=== PATIENT | female | born 1950 | race Caucasian/White ===

== ENCOUNTER 2016-07-19 06:58 | Day surgery (SDC) | payer MEDICARE, OTHER ==
[2016-07-14 15:17] VITALS: BMI 36.0
[~2016-07-19 06:58] MED LIST: LACTATED RINGERS 1,000 ML IV SCH
[2016-07-19 07:21] VITALS: RESP 20; TEMP 97.4
[2016-07-19] MEDS ORDERED: LIDOCAINE 1% INJ 10MG/ML (20 ML MDV) ONE (07:35)
[2016-07-19] MEDS ORDERED: PROPOFOL 10 MG/ML 20 ML VIAL IV ONE (07:35)
--- NOTE | 2016-07-19 08:22 | P.OP ---
Date of Procedure: 07/19/16 Preoperative Diagnosis: prior colon polyp Postoperative Diagnosis: Same Procedure(s) Performed: Colonoscopy Anesthesia: MAC Surgeon: Sonia Marcelino Estimated Blood Loss (ml): 0 IV fluids (ml): 800 Pathology: other (Polyp from hepatic flexure) Condition: stable Disposition: PACU Indications for Procedure: History of colon polyp Operative Findings: Anterior external skin tag, internal hemorrhoids, diverticuli, colon polyp at hepatic flexure Description of Procedure: The patient was taken to the endoscopy suite and she was placed in the left lateral decubitus position. Sedation was given.. Rectal examination was performed. The patient was noted to have an anterior external skin tag. The patient had no masses or lesions of concern otherwise and rectal exam. Colonoscope was passed through the anus into the rectum. The sigmoid colon was tortuous with a suboptimal bowel prep. We were able however to manipulate the scope to the splenic flexure and into the transverse colon. The lesion of the hepatic flexure polypoid lesion was identified. This was removed piecemeal with snare polypectomy and at least portions of it retrieved. It was completely removed. The scope was advanced down the right colon to the cecum. Circumferential observation mucosa did not reveal any lesions of concern in the cecum or right colon. No further lesions of concern were identified in the transverse colon. No lesions of concern were noted in the left colon or the sigmoid colon. This was noted to have scattered diverticuli. The scope was brought down into the rectum. It was difficult to retroflex therefore anoscopic exam was performed. Patient was noted to have internal hemorrhoids. Impression/plan: 1. It internal hemorrhoids 2. Anterior external skin tag 3. Scattered small diverticuli 3. Polyp near the region of the hepatic flexure removed with snare polypectomy Plan: 1. Await results of pathology 2. Conservative management of hemorrhoids and diverticuli
--- NOTE | 2016-07-19 08:22 | P.DS ---
Providers Attending physician: Sonia Marcelino Primary care physician: Mary Castrejon Plan - Discharge Summary Discharge Medication List ALPRAZolam [Xanax] 0.25 mg PO DAILY PRN 08/02/15 [History] Ascorbic Acid [Vitamin C] 1,000 mg PO DAILY 08/02/15 [History] Aspirin 81 mg PO DAILY 08/02/15 [History] Budesonide-Formot 160-4.5 Mcg [Symbicort 160-4.5 Mcg Inhaler] 2 puff INHALATION RT-BID 08/02/15 [History] Calcium Carbonate [Calcium] 600 mg PO DAILY 08/02/15 [History] Cyclobenzaprine [Flexeril] 10 mg PO DAILY PRN 08/02/15 [History] Fish Oil/Dha/Epa [Fish Oil 1,200 mg Fish Oil] 1 cap PO DAILY 08/02/15 [History] Folic Acid 1 mg PO DAILY 08/02/15 [History] Levothyroxine Sodium [Synthroid] 50 mcg PO DAILY 08/02/15 [History] Losartan [Cozaar] 50 mg PO DAILY 08/02/15 [History] Magnesium 400 mg PO DAILY 08/02/15 [History] Methotrexate Sodium [Methotrexate] 20 mg PO TU 08/02/15 [History] Metoprolol Succinate (ER) [Toprol XL] 100 mg PO 1700 08/02/15 [History] Milnacipran HCl [Savella] 50 mg PO BID 08/02/15 [History] Omeprazole [PriLOSEC] 20 mg PO DAILY 08/02/15 [History] amLODIPine [Norvasc] 10 mg PO DAILY 08/02/15 [History] lamoTRIgine [LaMICtal] 150 mg PO BID 08/02/15 [History] Acetaminophen-Codeine 300-30mg [Tylenol w/codeine #3] 1 tab PO Q6H PRN 08/28/15 [History] Clopidogrel [Plavix] 75 mg PO DAILY 08/28/15 [History] Fluticasone Nasal [place] [Flonase Nasal [place]] 1 spr EA NOSTRIL BID PRN 08/28/15 [History] Loratadine [Claritin] 10 mg PO DAILY PRN 08/28/15 [History] Cholecalciferol [Vitamin D3] 5,000 unit PO DAILY 03/28/16 [History] Ubidecarenone [Co Q-10] 100 mg PO DAILY 07/14/16 [History] Follow up Appointment(s)/Referral(s): Sonia Marcelino MD [STAFF PHYSICIAN] - 1 Week Activity/Diet/Wound Care/Special Instructions: Diverticular diet Discharge Disposition: HOME SELF-CARE
[2016-07-19 08:42] VITALS: BP 118/78; PULSE 67
== END 2016-07-19 09:22 | disposition home or self-care (01) ==
LOC: ORWHC2ENDO 06:58
PROVIDERS: ATTEND Surgery
DX: Z12.11 Encounter for screening for malignant neoplasm of colon (principal); Z86.010 Personal history of colon polyps; D12.3 Benign neoplasm of transverse colon; K64.4 Residual hemorrhoidal skin tags; K64.8 Other hemorrhoids; K57.30 Diverticulosis of large intestine without perforation or abscess without bleeding; Q43.8 Other specified congenital malformations of intestine; I25.10 Atherosclerotic heart disease of native coronary artery without angina pectoris; I10 Essential (primary) hypertension; E78.5 Hyperlipidemia, unspecified; J44.9 Chronic obstructive pulmonary disease, unspecified; J45.909 Unspecified asthma, uncomplicated; E07.9 Disorder of thyroid, unspecified; K21.9 Gastro-esophageal reflux disease without esophagitis; M19.90 Unspecified osteoarthritis, unspecified site; F32.9 Major depressive disorder, single episode, unspecified; Z79.02 Long term (current) use of antithrombotics/antiplatelets; Z79.82 Long term (current) use of aspirin; Z79.51 Long term (current) use of inhaled steroids; Z79.899 Other long term (current) drug therapy; Z88.1 Allergy status to other antibiotic agents; Z88.0 Allergy status to penicillin
CPT/HCPCS: 88305; 45385; J2001; J2704; 46600; 99153

== ENCOUNTER → 2017-02-16 | Outpatient (CLI) | payer MEDICARE, OTHER ==
[2017-02-16 16:36] LABS: Blood Urea Nitrogen 13 mg/dL (7-17); Non-African American GFR(MDRD) >60 (>60 ml/min/1.73 sqM)
--- NOTE | 2017-02-16 18:06 | CT ---
EXAMINATION TYPE: CT abdomen pelvis w con DATE OF EXAM: 02/16/2017 COMPARISON: NONE HISTORY: Abdominal pain and nausea x5 months. CT DLP: 1707 mGycm Automated exposure control for dose reduction was used. TECHNIQUE: Helical acquisition of images was performed from the lung bases through the pelvis. CONTRAST: Performed with Oral Contrast and with IV Contrast, patient injected with 100 mL of Omnipaque 300. FINDINGS: Lung bases are clear. There is no pleural effusion. Heart size is normal. There are clips from cholecystectomy. Liver spleen pancreas appear normal. Bile ducts are not dilated . There is no adrenal mass. Kidneys show satisfactory contrast opacification. There is no hydronephrosi s. There is a 3.9 cm aneurysm of the lower abdominal aorta. There is athetoid vascular calcification. There is no retroperitoneal adenopathy. There is no ascites. Bladder distends smoothly. There is no sign of a pelvic mass. I see no focal bone destruction. There are spondylotic changes in the lumbar s pine. Appendix is not seen. There is no sign of appendicitis. IMPRESSION: ATHEROSCLEROTIC VASCULAR DISEASE. SACCULAR 3.9 CM LOWER ABDOMINAL AORTIC ANEURYSM. NO SIGN OF ACUTE A BDOMEN AND PELVIS.
== END | disposition home or self-care (01) ==
LOC: RADCTMAIN 15:55
PROVIDERS: ATTEND Family Medicine
DX: I71.4 Abdominal aortic aneurysm, without rupture (principal); I70.90 Unspecified atherosclerosis
CPT/HCPCS: 82565; 84520; 74177; 36415; Q9967

== ENCOUNTER 2018-03-06 07:52 | Day surgery (SDC) | payer MEDICARE, OTHER ==
[2018-03-02 09:45] VITALS: BMI 37.0
[~2018-03-06 07:52] MED LIST changes: +LIDOCAINE 1% 20 ML VIAL (10MG/ML) FOR IV START INTRADERMA PRN
[2018-03-06 08:53] VITALS: TEMP 97.7
[2018-03-06] MEDS ORDERED: fentaNYL (PF) 50 MCG/ML 2 ML AMP ONE (09:15)
[2018-03-06] MEDS ORDERED: LABETALOL 5 MG/ML VIAL MDV ONE (09:15)
[2018-03-06] MEDS ORDERED: MIDAZOLAM 2 MG/2 ML VIAL ONE (09:15)
[2018-03-06] MEDS ORDERED: PROPOFOL 10 MG/ML 20 ML VIAL IV ONE (09:15)
--- NOTE | 2018-03-06 09:26 | P.GSHP ---
History of Present Illness H&P Date: 03/06/18 Chief Complaint: GI bleed, GERD This is a 67-year-old female who presents today for EGD and colonoscopy. Patient history of GERD. She's also had black melanotic stools for 3 weeks. She's been anemic with hemoglobin 10 range Past Medical History Past Medical History: Asthma, Coronary Artery Disease (CAD), Cancer, COPD, Fibromyalgia, GERD/Reflux, Hyperlipidemia, Hypertension, Osteoarthritis (OA), Rheumatoid Arthritis (RA), Thyroid Disorder Additional Past Medical History / Comment(s): HAVING BLACK STOOLS, HX OF COLON POLYP, AAA, PHLEBITIS, VARICOSE VEINS, REYNAUD'S, BREAST CANCER History of Any Multi-Drug Resistant Organisms: None Reported Past Surgical History: Breast Surgery, Section, Cholecystectomy, Orthopedic Surgery, Tonsillectomy Additional Past Surgical History / Comment(s): LEFT CAROTID ENDARTECTOMY, FERNANDO CARPAL TUNNEL, FERNANDO LEGS VEIN STRIPPING, RT THYROIDECTOMY, FERNANDO BREAST SX, LEFT LUMPECTOMY , LEFT BREAST FATTY TUMOR Past Anesthesia/Blood Transfusion Reactions: Previous Problems w/ Anesthesia Additional Past Anesthesia/Blood Transfusion Reaction / Comment(s): STATES " FELT PARALYZED CHEST AREA AND ARM" NO PROBLEM SINCE Smoking Status: Former smoker - Past Family History Father Family Medical History: Cancer Additional Family Medical History / Comment(s): NON HODGKINS LYMPHOMA Brother(s) Family Medical History: Cancer Additional Family Medical History / Comment(s): prostate Medications and Allergies Home Medications Medication Instructions Recorded Confirmed Type ALPRAZolam [Xanax] 0.25 mg PO DAILY PRN 08/02/15 03/06/18 History Ascorbic Acid [Vitamin C] 1,000 mg PO DAILY 08/02/15 03/06/18 History Aspirin 81 mg PO DAILY 08/02/15 03/02/18 History Budesonide-Formot 160-4.5 Mcg 2 puff INHALATION RT-BID 08/02/15 03/02/18 History [Symbicort 160-4.5 Mcg Inhaler] Calcium Carbonate [Calcium] 600 mg PO DAILY 08/02/15 03/06/18 History Fish Oil/Dha/Epa [Fish Oil 1,200 1 cap PO DAILY 08/02/15 03/06/18 History mg Fish Oil] Folic Acid 1 mg PO DAILY 08/02/15 03/06/18 History Levothyroxine Sodium [Synthroid] 50 mcg PO DAILY 08/02/15 03/06/18 History Losartan [Cozaar] 50 mg PO QAM 08/02/15 03/06/18 History Magnesium 400 mg PO DAILY 08/02/15 03/06/18 History Metoprolol Succinate (ER) [Toprol 100 mg PO 1700 08/02/15 03/06/18 History XL] Milnacipran HCl [Savella] 50 mg PO BID 08/02/15 03/06/18 History Omeprazole [PriLOSEC] 20 mg PO BID 08/02/15 03/06/18 History amLODIPine [Norvasc] 10 mg PO QAM 08/02/15 03/06/18 History lamoTRIgine [LaMICtal] 150 mg PO BID 08/02/15 03/06/18 History Clopidogrel [Plavix] 75 mg PO DAILY 08/28/15 03/02/18 History Fluticasone Nasal [place] [Flonase 1 spr EA NOSTRIL BID PRN 08/28/15 03/06/18 History Nasal [place]] Ubidecarenone [Co Q-10] 100 mg PO DAILY 07/14/16 03/06/18 History Acetaminophen with Codeine 0.5 tab PO Q6H PRN 03/02/18 03/06/18 History [Tylenol w/codeine #4] Adalimumab [Humira Crohn's] 40 mg SQ Q14D 03/02/18 03/06/18 History Montelukast [Singulair] 10 mg PO DAILY 03/02/18 03/06/18 History Sucralfate [Carafate] 1 gm PO TID 03/02/18 03/06/18 History guaiFENesin [Mucinex] 600 mg PO Q12HR PRN 03/02/18 03/06/18 History Allergies Allergy/AdvReac Type Severity Reaction Status Date / Time cephalexin monohydrate Allergy Rash/Hives Verified 03/02/18 09:37 [From Keflex] ciprofloxacin [From Cipro] Allergy Rash/Hives Verified 03/02/18 09:37 etodolac [From Lodine] Allergy "inflamed Verified 03/02/18 09:37 legs" levofloxacin [From Levaquin] Allergy Rash/Hives Verified 03/02/18 09:37 lisinopril Allergy Cough Verified 03/02/18 09:37 minocycline Allergy Rash/Hives Verified 03/02/18 09:37 NSAIDS (Non-Steroidal Allergy BLURRY Verified 03/02/18 09:37 Anti-Inflamma VISION potassium clavulanate Allergy Rash/Hives Verified 03/02/18 09:37 [From Augmentin] prednisone Allergy CHEST Verified 03/02/18 09:37 PAIN/FATIGUE/FEVER/CHILLS Tdjociv-[id number]-Qdo Reductase Allergy MUSCLE PAIN Verified 03/02/18 09:37 Inhibitor sulfamethoxazole Allergy Itching Verified 03/02/18 09:37 [From Bactrim] trimethoprim [From Bactrim] Allergy Itching Verified 03/02/18 09:37 Surgical - Exam Vital Signs Temp Pulse Resp BP Pulse Ox 97.7 F 91 16 101/69 100 03/06/18 08:44 03/06/18 08:44 03/06/18 08:44 03/06/18 08:44 03/06/18 08:44 - General well developed, no distress - Eyes PERRL - ENT normal pinna - Neck no masses - Respiratory normal expansion - Cardiovascular Rhythm: regular - Abdomen Abdomen: soft, non tender Assessment and Plan Assessment: GI bleed, history of GERD. We'll perform EGD and colonoscopy.
--- NOTE | 2018-03-06 10:03 | P.OP ---
Date of Procedure: 03/06/18 Preoperative Diagnosis: GI bleed Postoperative Diagnosis: Mild antral gastritis Small hiatal hernia Mild esophagitis No evidence of active upper GI bleed Hepatic flexure polyp Right colon polyp Mild diverticulosis No evidence of active lower GI bleed Procedure(s) Performed: EGD Colonoscopy Anesthesia: MAC Surgeon: Marco A Najera Pathology: other (Right colon polyp, hepatic flexure polyp, antrum, esophagus) Condition: stable Disposition: PACU Description of Procedure: Patient's placed on the endoscopy table in the lateral position. She received IV sedation. The gastric was placed oropharynx past esophagus and stomach. Scope was placed through the pylorus. The first and second portion of the duodenum appeared normal. Scope was then brought back the antrum this appeared mildly inflamed. A biopsies was performed. The scope was then retroflexed and remainder the stomach appeared normal. There is no evidence of any GI bleed the stomach. There was a small hiatal hernia. The GE junction was at 39 cm. The distal esophagus appeared mildly inflamed. The proximal esophagus appeared normal. There was no blood seen in the upper GI tract. Next digital rectal exam was performed which revealed no abnormalities. The flexible colonoscope was then placed patient anus passed throughout the entire colon. The ileocecal valve was visually is. The cecum, appeared normal. In the right colon just proximal to the hepatic flexure there was a polyp seen this removed accommodation snare and forcep. Scope was then brought back and in the proximal transverse colon just distal to the hepatic flexure there was another polyp was removed with snare and forcep. The remainder of the transverse colon appeared normal. The descending; there is mild diverticular changes. The scope was then brought back the rectum and this appeared normal. Scope was withdrawn for patient. There is no evidence of any GI bleed in the lower GI tract.
[2018-03-06] MEDS ORDERED: IV FLUID CONTINUATION 450 ML IV ONE (10:06)
[2018-03-06 10:25] VITALS: BP 115/75; PULSE 88; RESP 16
== END 2018-03-06 10:59 | disposition home or self-care (01) ==
LOC: ORWHC2ENDO 07:52
PROVIDERS: ATTEND Surgery
DX: K92.2 Gastrointestinal hemorrhage, unspecified (principal); K29.50 Unspecified chronic gastritis without bleeding; D12.3 Benign neoplasm of transverse colon; D12.2 Benign neoplasm of ascending colon; K44.9 Diaphragmatic hernia without obstruction or gangrene; K57.30 Diverticulosis of large intestine without perforation or abscess without bleeding; K21.9 Gastro-esophageal reflux disease without esophagitis; J45.909 Unspecified asthma, uncomplicated; I25.10 Atherosclerotic heart disease of native coronary artery without angina pectoris; J44.9 Chronic obstructive pulmonary disease, unspecified; M79.7 Fibromyalgia; E78.5 Hyperlipidemia, unspecified; I10 Essential (primary) hypertension; M19.90 Unspecified osteoarthritis, unspecified site; M06.9 Rheumatoid arthritis, unspecified; E89.0 Postprocedural hypothyroidism; I73.00 Raynaud's syndrome without gangrene; F41.9 Anxiety disorder, unspecified; G89.29 Other chronic pain; Z79.82 Long term (current) use of aspirin; Z79.890 Hormone replacement therapy; Z79.51 Long term (current) use of inhaled steroids; Z79.899 Other long term (current) drug therapy; Z79.02 Long term (current) use of antithrombotics/antiplatelets; Z88.6 Allergy status to analgesic agent; Z88.1 Allergy status to other antibiotic agents; Z88.2 Allergy status to sulfonamides; Z88.8 Allergy status to other drugs, medicaments and biological substances; Z86.010 Personal history of colon polyps; Z85.3 Personal history of malignant neoplasm of breast; Z87.891 Personal history of nicotine dependence; Z90.49 Acquired absence of other specified parts of digestive tract
CPT/HCPCS: 88305; 45385; 43239; J2250; J3010; J2704; 45380

== ENCOUNTER 2018-03-10 17:18 | Observation (INO) | payer MEDICARE, OTHER ==
--- NOTE | 2018-03-10 17:43 | ED ---
General Adult HPI - General Chief complaint: Chest Pain Stated complaint: Chest Pain Time Seen by Provider: 03/10/18 17:33 Source: patient, RN notes reviewed Mode of arrival: wheelchair Limitations: no limitations - History of Present Illness Initial comments: Patient is a pleasant 67-year-old female presenting to the emergency department chest discomfort. Patient has been experiencing some chest discomfort of the past couple of weeks however is more so today. Discomfort has improved is mild at this time. Discomfort feels like pressure. Patient does have associated dyspnea and nausea. No diaphoresis. Patient did have recent scopes done for rectal bleeding. Patient states scope findings were not that significant however she did have 2 polyps removed and diagnosed with a hiatal hernia. Patient has not noticed rectal bleeding in the last 4 days. No radiation of discomfort. - Related Data Home Medications Medication Instructions Recorded Confirmed ALPRAZolam [Xanax] 0.25 mg PO DAILY PRN 08/02/15 03/10/18 Ascorbic Acid [Vitamin C] 1,000 mg PO DAILY 08/02/15 03/10/18 Aspirin 81 mg PO DAILY 08/02/15 03/10/18 Budesonide-Formot 160-4.5 Mcg 2 puff INHALATION RT-BID 08/02/15 03/10/18 [Symbicort 160-4.5 Mcg Inhaler] Calcium Carbonate [Calcium] 600 mg PO DAILY 08/02/15 03/10/18 Fish Oil/Dha/Epa [Fish Oil 1,200 1 cap PO DAILY 08/02/15 03/10/18 mg Fish Oil] Folic Acid 1 mg PO DAILY 08/02/15 03/10/18 Levothyroxine Sodium [Synthroid] 50 mcg PO DAILY 08/02/15 03/10/18 Losartan [Cozaar] 50 mg PO QAM 08/02/15 03/10/18 Magnesium 400 mg PO DAILY 08/02/15 03/10/18 Metoprolol Succinate (ER) [Toprol 100 mg PO 1700 08/02/15 03/10/18 XL] Milnacipran HCl [Savella] 50 mg PO BID 08/02/15 03/10/18 Omeprazole [PriLOSEC] 20 mg PO BID 08/02/15 03/10/18 amLODIPine [Norvasc] 10 mg PO QAM 08/02/15 03/10/18 lamoTRIgine [LaMICtal] 150 mg PO BID 08/02/15 03/10/18 Clopidogrel [Plavix] 75 mg PO DAILY 08/28/15 03/10/18 Fluticasone Nasal [place] [Flonase 1 spr EA NOSTRIL BID PRN 08/28/15 03/10/18 Nasal [place]] Ubidecarenone [Co Q-10] 100 mg PO DAILY 07/14/16 03/10/18 Acetaminophen with Codeine 0.5 tab PO Q6H PRN 03/02/18 03/10/18 [Tylenol w/codeine #4] Adalimumab [Humira Crohn's] 40 mg SQ Q14D 03/02/18 03/10/18 guaiFENesin [Mucinex] 600 mg PO Q12HR PRN 03/02/18 03/10/18 Allergies Allergy/AdvReac Type Severity Reaction Status Date / Time cephalexin monohydrate Allergy Rash/Hives Verified 03/10/18 18:14 [From Keflex] ciprofloxacin [From Cipro] Allergy Rash/Hives Verified 03/10/18 18:14 etodolac [From Lodine] Allergy "inflamed Verified 03/10/18 18:14 legs" levofloxacin [From Levaquin] Allergy Rash/Hives Verified 03/10/18 18:14 lisinopril Allergy Cough Verified 03/10/18 18:14 minocycline Allergy Rash/Hives Verified 03/10/18 18:14 NSAIDS (Non-Steroidal Allergy BLURRY Verified 03/10/18 18:14 Anti-Inflamma VISION potassium clavulanate Allergy Rash/Hives Verified 03/10/18 18:14 [From Augmentin] prednisone Allergy CHEST Verified 03/10/18 18:14 PAIN/FATIGUE/FEVER/CHILLS Trwowpa-Oqh-Dkf Reductase Allergy MUSCLE PAIN Verified 03/10/18 18:14 Inhibitor sulfamethoxazole Allergy Itching Verified 03/10/18 18:14 [From Bactrim] trimethoprim [From Bactrim] Allergy Itching Verified 03/10/18 18:14 Review of Systems ROS Statement: Those systems with pertinent positive or pertinent negative responses have been documented in the HPI. ROS Other: All systems not noted in ROS Statement are negative. Constitutional: Denies: fever Eyes: Denies: eye pain ENT: Denies: ear pain Respiratory: Reports: dyspnea. Denies: cough Cardiovascular: Reports: chest pain Endocrine: Denies: fatigue Gastrointestinal: Denies: abdominal pain Genitourinary: Denies: dysuria Musculoskeletal: Denies: back pain Skin: Denies: rash Neurological: Denies: weakness Past Medical History Past Medical History: Asthma, Coronary Artery Disease (CAD), Cancer, COPD, Fibromyalgia, GERD/Reflux, Hyperlipidemia, Hypertension, Osteoarthritis (OA), Rheumatoid Arthritis (RA), Thyroid Disorder Additional Past Medical History / Comment(s): HAVING BLACK STOOLS, HX OF COLON POLYP, AAA, PHLEBITIS, VARICOSE VEINS, REYNAUD'S, BREAST CANCER History of Any Multi-Drug Resistant Organisms: None Reported Past Surgical History: Breast Surgery, Section, Cholecystectomy, Orthopedic Surgery, Tonsillectomy Additional Past Surgical History / Comment(s): LEFT CAROTID ENDARTECTOMY, FERNANDO CARPAL TUNNEL, FERNANDO LEGS VEIN STRIPPING, RT THYROIDECTOMY, FERNANDO BREAST SX, LEFT LUMPECTOMY , LEFT BREAST FATTY TUMOR Past Anesthesia/Blood Transfusion Reactions: Previous Problems w/ Anesthesia Additional Past Anesthesia/Blood Transfusion Reaction / Comment(s): STATES " FELT PARALYZED CHEST AREA AND ARM" NO PROBLEM SINCE Past Psychological History: Depression Smoking Status: Former smoker Past Alcohol Use History: None Reported Past Drug Use History: None Reported - Past Family History Father Family Medical History: Cancer Additional Family Medical History / Comment(s): NON HODGKINS LYMPHOMA Brother(s) Family Medical History: Cancer Additional Family Medical History / Comment(s): prostate General Exam Limitations: no limitations General appearance: alert, in no apparent distress Head exam: Present: atraumatic Eye exam: Present: normal appearance, PERRL ENT exam: Present: normal oropharynx Neck exam: Present: normal inspection Respiratory exam: Present: normal lung sounds bilaterally. Absent: chest wall tenderness Cardiovascular Exam: Present: regular rate, normal rhythm, normal heart sounds Expanded Peripheral pulses: 2+: Radial (R), Radial (L), Posterior Tibialis (R), Posterior Tibialis (L) GI/Abdominal exam: Present: soft. Absent: tenderness Extremities exam: Present: normal inspection. Absent: pedal edema, calf tenderness Neurological exam: Present: alert Psychiatric exam: Present: normal affect, normal mood Skin exam: Present: normal color Course Vital Signs 03/10/18 03/10/18 17:24 19:37 Temperature 98.0 F Pulse Rate 90 72 Respiratory 20 18 Rate Blood Pressure 93/68 109/59 O2 Sat by Pulse 100 100 Oximetry - Reevaluation(s) Reevaluation #1: 03/10/18 17:38 Aspirin held at this time secondary to recent GI bleed. EKG Findings - EKG Comments: EKG Findings:: Normal sinus rhythm 73. CT 162. QRS 104. QT 390. QTC 429. Normal axis. Incomplete right bundle-branch block. No acute ST change. Medical Decision Making - Medical Decision Making Patient reevaluated and resting comfortably in bed. Patient updated on results and plan. Case was discussed in detail with Dr. Luong, who will admit for Dr. Castrejon. Aspirin and heparin held at this time secondary to recent GI hemorrhage. - Lab Data Result diagrams: 03/10/18 17:50 03/10/18 17:50 Lab Results 03/10/18 03/10/18 03/10/18 Range/Units 17:50 17:50 17:50 WBC 5.0 (3.8-10.6) k/uL RBC 3.67 L (3.80-5.40) m/uL Hgb 9.7 L (11.4-16.0) gm/dL Hct 29.7 L (34.0-46.0) % MCV 80.9 (80.0-100.0) fL MCH 26.3 (25.0-35.0) pg MCHC 32.5 (31.0-37.0) g/dL RDW 14.4 (11.5-15.5) % Plt Count 285 (150-450) k/uL Neutrophils % 44 % Lymphocytes % 39 % Monocytes % 10 % Eosinophils % 4 % Basophils % 1 % Neutrophils # 2.2 (1.3-7.7) k/uL Lymphocytes # 1.9 (1.0-4.8) k/uL Monocytes # 0.5 (0-1.0) k/uL Eosinophils # 0.2 (0-0.7) k/uL Basophils # 0.1 (0-0.2) k/uL Hypochromasia Marked Poikilocytosis Slight PT (9.0-12.0) sec INR (<1.2) APTT (22.0-30.0) sec Sodium 140 (137-145) mmol/L Potassium 3.9 (3.5-5.1) mmol/L Chloride 106 (98-107) mmol/L Carbon Dioxide 26 (22-30) mmol/L Anion Gap 8 mmol/L BUN 17 (7-17) mg/dL Creatinine 0.94 (0.52-1.04) mg/dL Est GFR (CKD-EPI)AfAm 72 (>60 ml/min/1.73 sqM) Est GFR (CKD-EPI)NonAf 63 (>60 ml/min/1.73 sqM) Glucose 87 (74-99) mg/dL Calcium 8.9 (8.4-10.2) mg/dL Magnesium 1.7 (1.6-2.3) mg/dL Total Bilirubin 0.4 (0.2-1.3) mg/dL AST 75 H (14-36) U/L ALT 38 (9-52) U/L Alkaline Phosphatase 128 H (38-126) U/L Total Creatine Kinase 38 (30-135) U/L CK-MB (CK-2) 0.6 (0.0-2.4) ng/mL CK-MB (CK-2) Rel Index 1.6 Troponin I <0.012 (0.000-0.034) ng/mL Total Protein 6.6 (6.3-8.2) g/dL Albumin 3.7 (3.5-5.0) g/dL 03/10/18 Range/Units 17:50 WBC (3.8-10.6) k/uL RBC (3.80-5.40) m/uL Hgb (11.4-16.0) gm/dL Hct (34.0-46.0) % MCV (80.0-100.0) fL MCH (25.0-35.0) pg MCHC (31.0-37.0) g/dL RDW (11.5-15.5) % Plt Count (150-450) k/uL Neutrophils % % Lymphocytes % % Monocytes % % Eosinophils % % Basophils % % Neutrophils # (1.3-7.7) k/uL Lymphocytes # (1.0-4.8) k/uL Monocytes # (0-1.0) k/uL Eosinophils # (0-0.7) k/uL Basophils # (0-0.2) k/uL Hypochromasia Poikilocytosis PT 10.1 (9.0-12.0) sec INR 1.0 (<1.2) APTT 21.6 L (22.0-30.0) sec Sodium (137-145) mmol/L Potassium (3.5-5.1) mmol/L Chloride (98-107) mmol/L Carbon Dioxide (22-30) mmol/L Anion Gap mmol/L BUN (7-17) mg/dL Creatinine (0.52-1.04) mg/dL Est GFR (CKD-EPI)AfAm (>60 ml/min/1.73 sqM) Est GFR (CKD-EPI)NonAf (>60 ml/min/1.73 sqM) Glucose (74-99) mg/dL Calcium (8.4-10.2) mg/dL Magnesium (1.6-2.3) mg/dL Total Bilirubin (0.2-1.3) mg/dL AST (14-36) U/L ALT (9-52) U/L Alkaline Phosphatase (38-126) U/L Total Creatine Kinase (30-135) U/L CK-MB (CK-2) (0.0-2.4) ng/mL CK-MB (CK-2) Rel Index Troponin I (0.000-0.034) ng/mL Total Protein (6.3-8.2) g/dL Albumin (3.5-5.0) g/dL - Radiology Data Radiology results: image reviewed (Chest x-ray shows no acute process) Disposition Clinical Impression: Chest pain Disposition: ADMITTED IP TO THIS [facility] Is patient prescribed a controlled substance at d/c from ED?: No Referrals: Mary Castrejon DO [Primary Care Provider] - 1-2 days Decision Time: 19:57
[2018-03-10 18:24] LABS: Basophils # (A) 0.1 k/uL (0-0.2); Basophils % (A) 1 %; Eosinophils # (A) 0.2 k/uL (0-0.7); Eosinophils % (A) 4 %; HCT 29.7 % (34.0-46.0); HGB 9.7 gm/dL (11.4-16.0); Hypochromasia Marked; Lymphocytes # (A) 1.9 k/uL (1.0-4.8); Lymphocytes % (A) 39 %; MCH 26.3 pg (25.0-35.0); MCHC 32.5 g/dL (31.0-37.0); MCV 80.9 fL (80.0-100.0); Mean Platelet Volume 7.3; Monocytes # (A) 0.5 k/uL (0-1.0); Monocytes % (A) 10 %; Neutrophils # (A) 2.2 k/uL (1.3-7.7); Neutrophils % (A) 44 %; Platelet Count 285 k/uL (150-450); Poikilocytosis Slight; RBC 3.67 m/uL (3.80-5.40); RDW 14.4 % (11.5-15.5)
[2018-03-10 18:38] LABS: Albumin 3.7 g/dL (3.5-5.0); Calcium 8.9 mg/dL (8.4-10.2); Creatine Kinase 38 U/L (30-135); Magnesium 1.7 mg/dL (1.6-2.3); Potassium 3.9 mmol/L (3.5-5.1); Total Bilirubin 0.4 mg/dL (0.2-1.3); Total Protein 6.6 g/dL (6.3-8.2)
--- NOTE | 2018-03-10 18:38 | XR ---
EXAMINATION TYPE: XR chest 2V DATE OF EXAM: 03/10/2018 COMPARISON: 08/02/2015 HISTORY: Chest pain TECHNIQUE: Frontal and lateral views of the chest are obtained. FINDINGS: There is no focal air space opacity, pleural effusion, or pneumothorax seen. The cardiac silhouette size is within normal limits. The osseous structures are intact. There is chronic eventr ation of the right hemidiaphragm. There is diffuse osseous demineralization and exaggerated thoracic kyphosis. IMPRESSION: No acute cardiopulmonary process.
[2018-03-10 18:50] LABS: Creatine Kinase MB 0.6 ng/mL (0.0-2.4); Troponin I <0.012 ng/mL (0.000-0.034)
[2018-03-10 18:51] LABS: Partial Thromboplastin Time 21.6 sec (22.0-30.0); Prothrombin Time 10.1 sec (9.0-12.0)
[2018-03-10] MEDS ORDERED: NITROGLYCERIN SL TABS 0.4 MG TAB SUBLINGUAL PRN (19:57)
[2018-03-10] MEDS: NITROGLYCERIN OINT 1 INCH/GM PACKET TOPICAL SCH ×2 (20:33→22:34)
[2018-03-11 00:49] LABS: Creatine Kinase 29 U/L (30-135)
[2018-03-11 01:03] LABS: Creatine Kinase MB 0.5 ng/mL (0.0-2.4); Troponin I <0.012 ng/mL (0.000-0.034)
[2018-03-11 08:14] LABS: Cholesterol 155 mg/dL (<200); HDL Cholesterol 32 mg/dL (40-60); LDL Cholesterol,Calculated 106 mg/dL (0-99); Triglycerides 84 mg/dL (<150)
[2018-03-11 08:27] LABS: Creatine Kinase 29 U/L (30-135)
[2018-03-11 08:37] LABS: Creatine Kinase MB 0.5 ng/mL (0.0-2.4)
[2018-03-11 08:40] LABS: Troponin I <0.012 ng/mL (0.000-0.034)
[2018-03-11] MEDS ORDERED: ADALIMUMAB 80 MG/1.6 ML KIT SQ SCH (08:45)
[2018-03-11] MEDS ORDERED: FLUTICASONE 50MCG/SPRAY NASAL 16GM EA NOSTRIL PRN (08:45)
[2018-03-11] MEDS ORDERED: guaiFENesin 600 MG TABLET.ER PO PRN (08:45)
[2018-03-11] MEDS ORDERED: ALPRAZolam 0.25 MG TAB PO PRN (08:45)
[2018-03-11] MEDS ORDERED: NON-FORMULARY DRUG (Fish Oil/Dha/Epa [Fish Oil 1,200 Mg Fish Oil] 1 CAP) PO SCH (09:00)
--- NOTE | 2018-03-11 09:16 | CONS ---
CONSULTATION HISTORY: Daisy is a 67-year-old lady with no significant past medical history who presents to the hospital, with a history of hypertension, hypothyroidism, and rheumatoid arthritis, who comes to hospital complaining of exertional shortness of breath and intermittent episodes of sharp pericardial pain. She has mild to moderate shortness of breath that comes on with activity and is relieved with rest. This has been going on over the last several weeks. She has chronic anemia and has hemoglobin is around 9.7. She has had 2 sets of cardiac enzymes that are both negative. She had GI evaluation and does not have any evidence of active bleed. She had an EKG done that shows sinus rhythm with incomplete right bundle branch block. PAST MEDICAL HISTORY: Significant for hypertension, hypothyroidism, and rheumatoid. CURRENT MEDICATIONS: 1. Plavix. 2. Symbicort. 3. Aspirin. 4. Vitamin C. 5. Lamictal. 6. Norvasc. 7. Co Q10. 8. Toprol-XL 100 mg daily. 9. Cozaar 50 mg daily. 10.Synthroid. 11.Fish oil. 12.Tylenol. 13.Flonase. 14.Humira. 15.Xanax. ALLERGIES: The patient has multiple drug allergies that are charted and I reviewed them. FAMILY HISTORY: Significant for rheumatic heart disease in her brother and coronary artery disease in her father. SOCIAL HISTORY: Negative for smoking, EtOH abuse, or drug abuse. REVIEW OF SYSTEMS: HEENT: Unremarkable. CARDIAC: As described above. RESPIRATORY: Negative. GI: Negative. : Negative. ALLERGY/IMMUNOLOGY: Negative. SKIN: Negative. MUSCULOSKELETAL: Significant for arthritis. ENDOCRINE: Negative. HEMATOLOGIC: Negative. CONSTITUTIONAL: Negative. ONCOLOGICAL: Negative. The rest of the system review is not relevant. EXAM: Comfortable at rest. Vital signs are stable. There is no jugular venous distention. Carotid upstroke is normal. There is no bruit. Chest exam reveals good air entry bilaterally. Heart exam reveals first and second heart sounds. No gallop. No murmur. Abdomen is soft, nontender. Exam of extremities did not reveal any edema. Peripheral pulses are felt. ASSESSMENT: 1. Exertional shortness of breath, probably related to the anemia. 2. Hypertension. 3. Rheumatoid arthritis. PLAN: I am going to obtain a 2D echo on her to evaluate the LV function and schedule her for a stress test to rule out ischemic heart disease. Will decide on further course of action based on these test results. MMODL / IJN: [id number] /
[2018-03-11] MEDS: LOSARTAN 50 MG TAB PO SCH (09:34)
[2018-03-11] MEDS: CLOPIDOGREL 75 MG TAB PO SCH (09:34)
[2018-03-11] MEDS: MAGNESIUM OXIDE 400 MG TAB PO SCH (09:34)
[2018-03-11] MEDS: ASPIRIN 81 MG PO SCH (09:34)
[2018-03-11] MEDS: amLODIPine 10 MG TAB PO SCH (09:35)
[2018-03-11] MEDS: PANTOPRAZOLE 40 MG TABLET PO SCH (09:35)
[2018-03-11] MEDS: NITROGLYCERIN OINT 1 INCH/GM PACKET TOPICAL SCH ×4 (09:37→23:22)
[2018-03-11] MEDS: lamoTRIgine 100 MG TAB PO SCH ×2 (09:42→20:47)
[2018-03-11] MEDS: LEVOTHYROXINE 50 MCG TAB PO SCH (09:42)
[2018-03-11] MEDS: CALCIUM CARBONATE 500 MG CHEWABLE PO SCH ×2 (09:42→20:46)
[2018-03-11] MEDS: ASCORBIC ACID 500 MG TAB PO SCH (09:42)
--- NOTE | 2018-03-11 09:56 | P.HPIM ---
History of Present Illness H&P Date: 03/11/18 Chief Complaint: Chest pain Daisy Abebe is a 67-year-old female who presented to [facility] emergency room with a chief complaint of chest pain. Patient states that [place] the end of [place] and started having chest pain radiating from the right side of her chest of the left and lasting a few minutes until she sits down and rests then the pain would disappear. Patient thought that the pain was related to elevation and exhaustion, however she continued to have episodes of similar pain once or twice weekly, on the day of admission pain was more pronounced and lasted longer and patient decided to come to emergency room, she was evaluated in the emergency room EKG revealed normal sinus rhythm with incomplete right bundle branch block otherwise no acute abnormality. First troponin was less than 0.012 she was admitted to 24- hour observation and cardiology consultation was requested. Patient recently had episodes of black stool she was evaluated by Dr. Najera she underwent EGD and colonoscopy recently and had no significant abnormality found except for hiatal hernia there was no active bleeding. Patient has anemia her hemoglobin on presentation is 9.7 Patient has a known history of peripheral vascular disease, she has underwent left carotid endarterectomy in the past, she also had surgery on bilateral lower extremity for varicose veins, she also has known history of abdominal aortic aneurysm. Patient used to smoke she states she quit 12 weeks ago Past Medical History Past Medical History: Asthma, Coronary Artery Disease (CAD), Cancer, COPD, Fibromyalgia, GERD/Reflux, Hyperlipidemia, Hypertension, Osteoarthritis (OA), Rheumatoid Arthritis (RA), Thyroid Disorder Additional Past Medical History / Comment(s): GIB, HX OF COLON POLYP, AAA, PHLEBITIS, VARICOSE VEINS, REYNAUD'S, BREAST CANCER History of Any Multi-Drug Resistant Organisms: None Reported Past Surgical History: Breast Surgery, Section, Cholecystectomy, Orthopedic Surgery, Tonsillectomy Additional Past Surgical History / Comment(s): LEFT CAROTID ENDARTECTOMY, FERNANDO CARPAL TUNNEL, FERNANDO LEGS VEIN STRIPPING, RT THYROIDECTOMY, FERNANDO BREAST SX, LEFT LUMPECTOMY , LEFT BREAST FATTY TUMOR Past Anesthesia/Blood Transfusion Reactions: Previous Problems w/ Anesthesia Additional Past Anesthesia/Blood Transfusion Reaction / Comment(s): STATES " FELT PARALYZED CHEST AREA AND ARM" NO PROBLEM SINCE Past Psychological History: Depression Smoking Status: Former smoker Past Alcohol Use History: None Reported Past Drug Use History: None Reported - Past Family History Father Family Medical History: Cancer Additional Family Medical History / Comment(s): NON HODGKINS LYMPHOMA Brother(s) Family Medical History: Cancer Additional Family Medical History / Comment(s): prostate Medications and Allergies Home Medications Medication Instructions Recorded Confirmed Type ALPRAZolam [Xanax] 0.25 mg PO DAILY PRN 08/02/15 03/10/18 History Ascorbic Acid [Vitamin C] 1,000 mg PO DAILY 08/02/15 03/10/18 History Aspirin 81 mg PO DAILY 08/02/15 03/10/18 History Budesonide-Formot 160-4.5 Mcg 2 puff INHALATION RT-BID 08/02/15 03/10/18 History [Symbicort 160-4.5 Mcg Inhaler] Calcium Carbonate [Calcium] 600 mg PO BID 08/02/15 03/10/18 History Fish Oil/Dha/Epa [Fish Oil 1,200 1 cap PO BID 08/02/15 03/10/18 History mg Fish Oil] Folic Acid 1 mg PO DAILY 08/02/15 03/10/18 History Levothyroxine Sodium [Synthroid] 50 mcg PO DAILY 08/02/15 03/10/18 History Losartan [Cozaar] 50 mg PO QAM 08/02/15 03/10/18 History Magnesium 400 mg PO DAILY 08/02/15 03/10/18 History Metoprolol Succinate (ER) [Toprol 100 mg PO 1700 08/02/15 03/10/18 History XL] Milnacipran HCl [Savella] 50 mg PO BID 08/02/15 03/10/18 History Omeprazole [PriLOSEC] 20 mg PO DAILY 08/02/15 03/10/18 History amLODIPine [Norvasc] 10 mg PO QAM 08/02/15 03/10/18 History lamoTRIgine [LaMICtal] 150 mg PO BID 08/02/15 03/10/18 History Clopidogrel [Plavix] 75 mg PO DAILY 08/28/15 03/10/18 History Fluticasone Nasal Rush [Flonase 1 spr EA NOSTRIL BID PRN 08/28/15 03/10/18 History Nasal Rush] Ubidecarenone [Co Q-10] 100 mg PO DAILY 07/14/16 03/10/18 History Acetaminophen with Codeine 1 tab PO Q6H PRN 03/02/18 03/10/18 History [Tylenol w/codeine #4] Adalimumab [Humira Crohn's] 40 mg SQ Q14D 03/02/18 03/10/18 History guaiFENesin [Mucinex] 600 mg PO Q12HR PRN 03/02/18 03/10/18 History Cholecalciferol (Vitamin D3) 5,000 unit PO DAILY 03/10/18 03/10/18 History [Vitamin D3] Allergies Allergy/AdvReac Type Severity Reaction Status Date / Time cephalexin monohydrate Allergy Rash/Hives Verified 03/10/18 21:17 [From Keflex] ciprofloxacin [From Cipro] Allergy Rash/Hives Verified 03/10/18 21:17 etodolac [From Lodine] Allergy "inflamed Verified 03/10/18 21:17 legs" levofloxacin [From Levaquin] Allergy Rash/Hives Verified 03/10/18 21:17 lisinopril Allergy Cough Verified 03/10/18 21:17 minocycline Allergy Rash/Hives Verified 03/10/18 21:17 NSAIDS (Non-Steroidal Allergy BLURRY Verified 03/10/18 21:17 Anti-Inflamma VISION potassium clavulanate Allergy Rash/Hives Verified 03/10/18 21:17 [From Augmentin] prednisone Allergy CHEST Verified 03/10/18 21:17 PAIN/FATIGUE/FEVER/CHILLS Pocnlcw-Omp-Num Reductase Allergy MUSCLE PAIN Verified 03/10/18 21:17 Inhibitor sulfamethoxazole Allergy Itching Verified 03/10/18 21:17 [From Bactrim] trimethoprim [From Bactrim] Allergy Itching Verified 03/10/18 21:17 Physical Exam Vitals: Vital Signs Temp Pulse Pulse Resp BP BP Pulse Ox 03/11/18 08:00 97.9 F 70 16 100/64 97 03/11/18 04:00 98.1 F 67 16 107/70 99 03/10/18 23:51 16 03/10/18 23:22 98.0 F 74 16 110/72 99 03/10/18 21:47 16 03/10/18 21:12 98.4 F 72 16 115/77 100 03/10/18 20:30 81 18 108/60 100 03/10/18 19:37 72 18 109/59 100 03/10/18 17:24 98.0 F 90 20 93/68 100 Intake and Output 03/10/18 03/11/18 03/11/18 22:59 06:59 14:59 Other: Voiding Method Toilet Toilet Toilet # Voids 1 2 Weight 99.79 kg In general patient is alert and oriented 3 in no apparent distress HEENT head normocephalic and atraumatic Neck is supple no JVD no goiter no lymphadenopathy no carotid bruit Chest exam reveals a few scattered crackles no wheezing Cardiac exam reveals regular heart sounds S1 and S2 no gallops no murmurs Abdomen is soft nontender no organomegaly with normal bowel sounds Extremity exam reveals no edema no cyanosis or clubbing Neurological examination reveals no gross focal deficit Results CBC & Chem 7: 03/10/18 17:50 03/10/18 17:50 Labs: Abnormal Lab Results - Last 24 Hours (Table) 03/10/18 03/10/18 03/10/18 Range/Units 17:50 17:50 17:50 RBC 3.67 L (3.80-5.40) m/uL Hgb 9.7 L (11.4-16.0) gm/dL Hct 29.7 L (34.0-46.0) % APTT 21.6 L (22.0-30.0) sec AST 75 H (14-36) U/L Alkaline Phosphatase 128 H (38-126) U/L Total Creatine Kinase (30-135) U/L LDL Cholesterol, Calc (0-99) mg/dL HDL Cholesterol (40-60) mg/dL 03/10/18 03/11/18 03/11/18 Range/Units 23:55 07:28 07:28 RBC (3.80-5.40) m/uL Hgb (11.4-16.0) gm/dL Hct (34.0-46.0) % APTT (22.0-30.0) sec AST (14-36) U/L Alkaline Phosphatase (38-126) U/L Total Creatine Kinase 29 L 29 L (30-135) U/L LDL Cholesterol, Calc 106 H (0-99) mg/dL HDL Cholesterol 32 L (40-60) mg/dL Thrombosis Risk Factor Assmnt - Choose All That Apply Any of the Below Risk Factors Present?: Yes Each Factor Represents 1 point: Abnormal pulmonary function (COPD), Obesity ( BMI >25), Varicose veins Other Risk Factors: Yes Each Risk Factor Represents 2 Points: Age 61-74 years Other congenital or acquired thrombophilia - If yes, enter type in comment: No Thrombosis Risk Factor Assessment Total Risk Factor Score: 5 Thrombosis Risk Factor Assessment Level: High Risk Assessment and Plan Plan: #1 episodes of chest pain, myocardial infarction is ruled out she has 2 normal troponin levels and EKG is normal, patient was seen by cardiology echocardiogram and stress test were ordered #2 anemia, cause is unclear patient had black stools recently however she had recent EGD and colonoscopy that were within normal limits. Will monitor CBC will check iron study and vitamin B12 and folate studies #3 underlying history of hypertension well-controlled on medications #4 underlying history of peripheral vascular disease with previous history of carotid endarterectomy #5 history of tobacco abuse patient quit smoking recently #6 underlying history of COPD patient is maintained on Symbicort inhaler #7 underlying history of abdominal aortic aneurysm will try to obtain records #8 underlying history of hypothyroidism maintained on Synthroid 50 g daily At this time medication were reviewed and reordered labs were reviewed patient is stable without any complaints Will await echocardiogram and stress test for further treatment plans
[2018-03-11] MEDS: CHOLECALCIFEROL 1,000 UNIT TAB PO SCH (12:32)
[2018-03-11] MEDS: FOLIC ACID 1 MG TAB PO SCH (12:33)
[2018-03-11] MEDS: SYMBICORT 160-4.5 MCG INHALER INHALATION SCH (15:47)
[2018-03-11] MEDS: METOPROLOL SUCCINATE (ER) 100 MG TAB.ER.24H PO SCH (17:35)
[2018-03-12] MEDS: NITROGLYCERIN OINT 1 INCH/GM PACKET TOPICAL SCH ×3 (04:09→18:02)
[2018-03-12] MEDS ORDERED: CAFFEINE CITRATE 60 MG/3 ML VIAL IV PRN (06:00)
[2018-03-12] MEDS ORDERED: REGADENOSON 0.4 MG/5 ML SYRINGE IV ONE (06:00)
[2018-03-12] MEDS: LEVOTHYROXINE 50 MCG TAB PO SCH (06:43)
[2018-03-12] MEDS: SYMBICORT 160-4.5 MCG INHALER INHALATION SCH ×2 (07:31→20:10)
[2018-03-12 08:22] LABS: Basophils % (A) 1 %; Eosinophils # (A) 0.1 k/uL (0-0.7); Eosinophils % (A) 4 %; HCT 29.2 % (34.0-46.0); HGB 8.9 gm/dL (11.4-16.0); Hypochromasia Marked; Lymphocytes # (A) 1.7 k/uL (1.0-4.8); Lymphocytes % (A) 47 %; MCH 25.1 pg (25.0-35.0); MCHC 30.5 g/dL (31.0-37.0); MCV 82.4 fL (80.0-100.0); Mean Platelet Volume 7.6; Monocytes # (A) 0.3 k/uL (0-1.0); Monocytes % (A) 9 %; Neutrophils # (A) 1.3 k/uL (1.3-7.7); Neutrophils % (A) 36 %; Platelet Count 265 k/uL (150-450); RBC 3.54 m/uL (3.80-5.40); RDW 14.5 % (11.5-15.5); WBC 3.6 k/uL (3.8-10.6)
[2018-03-12 08:42] LABS: ALT 36 U/L (9-52); AST 79 U/L (14-36); Albumin 3.5 g/dL (3.5-5.0); Alkaline Phosphatase 130 U/L (38-126); Anion Gap 8 mmol/L; Blood Urea Nitrogen 16 mg/dL (7-17); Calcium 9.4 mg/dL (8.4-10.2); Carbon Dioxide 25 mmol/L (22-30); Chloride 109 mmol/L (98-107); Glucose 94 mg/dL (74-99); Potassium 4.3 mmol/L (3.5-5.1); Sodium 142 mmol/L (137-145); Total Bilirubin 0.4 mg/dL (0.2-1.3); Total Protein 6.4 g/dL (6.3-8.2)
--- NOTE | 2018-03-12 10:06 | P.PN ---
Subjective Mrs. Abebe is seen and examined in no acute distress. Past medical history significant for hypertension, dyslipidemia, gastroesophageal reflux disease, COPD, carotid artery disease status post endarterectomy, rheumatoid arthritis, hypothyroidism and chronic anemia with recent EGD and colonoscopy unremarkable. She denies history of coronary artery disease and has never seen a home visitor for any reason. She states this morning while she was up walking she started feeling sharp pain in her chest with shortness of breath. She went back blood pressure 110/78 heart rate 59 afebrile maintaining oxygen saturation on room air. o sit down in her room and applied her oxygen which seemed to help her symptoms. Laboratory data reviewed, hemoglobin 8.9, sodium 142, potassium 4.3, creatinine 0.76, cardiac enzymes negative 3, alkaline phosphate 130, AST 79, LDL 106, HDL 32. Objective - Vital Signs Vital signs: Vital Signs Temp 98 F 03/12/18 07:29 Pulse 59 L 03/12/18 07:29 Resp 16 03/12/18 07:29 BP 110/78 03/12/18 07:29 Pulse Ox 97 03/12/18 07:29 Intake & Output 03/11/18 03/12/18 03/12/18 18:59 06:59 18:59 Other: Voiding Method Toilet Toilet # Voids 1 - Exam GENERAL: Well-appearing, well-nourished and in no acute distress. NECK: Supple without JVD or thyromegaly. LUNGS: Breath sounds clear to auscultation bilaterally. Respiration equal and unlabored. No wheezes, rales or rhonchi. HEART: Regular rate and rhythm without murmurs, rubs or gallops. S1 and S2 heard. EXTREMITIES: Normal range of motion, no edema. No clubbing or cyanosis. Peripheral pulses intact. - Labs CBC & Chem 7: 03/12/18 07:49 03/12/18 07:49 Labs: Abnormal Lab Results - Last 24 Hours (Table) 03/12/18 03/12/18 Range/Units 07:49 07:49 WBC 3.6 L (3.8-10.6) k/uL RBC 3.54 L (3.80-5.40) m/uL Hgb 8.9 L (11.4-16.0) gm/dL Hct 29.2 L (34.0-46.0) % MCHC 30.5 L (31.0-37.0) g/dL Chloride 109 H (98-107) mmol/L AST 79 H (14-36) U/L Alkaline Phosphatase 130 H (38-126) U/L Assessment and Plan Assessment: ASSESSMENT Exertional shortness of breath and atypical chest pain, most likely related to anemia. An acute coronary event has been ruled out. Hypertension Carotid artery disease s/p left endartectomy, maintained on plavix GERD Rheumatoid arthritis Obesity, BMI 36.6 PLAN Proceed with Lexiscan stress test to assess for reversible cardiac ischemia. Echo will be obtained and reviewed. If diagnostic testing is normal, she is stable from a cardiac perspective. Ongoing medical management. Follow up with Dr. Cardoso. Nurse Practitioner note has been reviewed, I agree with a documented findings and plan of care. Patient was seen and examined.
[2018-03-12 10:37] LABS: Iron Saturation 3.55 (12.00-45.00)
[2018-03-12] MEDS: ASCORBIC ACID 500 MG TAB PO SCH (10:49)
[2018-03-12] MEDS: ASPIRIN 81 MG PO SCH (10:49)
[2018-03-12] MEDS: CLOPIDOGREL 75 MG TAB PO SCH (10:49)
[2018-03-12] MEDS: amLODIPine 10 MG TAB PO SCH (10:49)
[2018-03-12] MEDS: PANTOPRAZOLE 40 MG TABLET PO SCH (10:49)
[2018-03-12] MEDS: CALCIUM CARBONATE 500 MG CHEWABLE PO SCH ×2 (10:49→21:56)
[2018-03-12] MEDS: LOSARTAN 50 MG TAB PO SCH (10:50)
[2018-03-12] MEDS: CHOLECALCIFEROL 1,000 UNIT TAB PO SCH (10:50)
[2018-03-12] MEDS: lamoTRIgine 100 MG TAB PO SCH ×2 (10:50→20:38)
[2018-03-12] MEDS: MAGNESIUM OXIDE 400 MG TAB PO SCH (10:50)
[2018-03-12] MEDS: FOLIC ACID 1 MG TAB PO SCH (10:50)
--- NOTE | 2018-03-12 11:13 | NM ---
EXAMINATION TYPE: NM stress lexiscan cardiolite DATE OF EXAM: 03/12/2018 COMPARISON: Previous exam dated 10/21/2014 HISTORY: Chest pain TECHNIQUE: After the intravenous administration of 10.48 mCi Tc 99m Sestamibi - Cardiolite resting S PECT images acquired 45 minutes post injection. The patient received 0.4mg Lexiscan, 26.8 mCi Tc 99m Sestamibi - Stress images obtained [address] injection FINDINGS: Review of stress and rest SPECT images demonstrates mild decreased uptake along the inferior wall lef t ventricle on stress as compared to rest images. Gated analysis shows normal wall motion with an es timated left ventricular ejection fraction of 64 %. IMPRESSION: Findings suggest pharmacologically induced left ventricular myocardial ischemia along the inferior wa ll left ventricle towards the heart base.
--- NOTE | 2018-03-12 12:38 | ECHOF ---
Referral Reason:chest pain/dyspnea MEASUREMENTS -------- HEIGHT: 165.1 cm WEIGHT: 99.8 kg BP: 110/73 RVIDd: 2.6 cm (< 3.3) IVSd: 1.4 cm (0.6 - 1.1) LVIDd: 3.4 cm (3.9 - 5.3) LVPWd: 1.5 cm (0.6 - 1.1) IVSs: 1.8 cm LVIDs: 1.7 cm LVPWs: 2.1 cm Ao Diam: 2.8 cm (2.0 - 3.7) AV Cusp: 1.8 cm (1.5 - 2.6) LA Diam: 3.2 cm (2.7 - 3.8) MV EXCURSION: 16.659 mm (> 18.000) MV EF SLOPE: 93 mm/s (70 - 150) EPSS: 0.4 cm MV E Genaro: 0.64 m/s MV DecT: 287 ms MV A Genaro: 0.91 m/s MV E/A Ratio: 0.70 RAP: 5.00 mmHg RVSP: 14.47 mmHg FINDINGS -------- Sinus rhythm. This was a technically good study. The left ventricular size is normal. There is mild concentric left ventricular hypertrophy. Overa ll left ventricular systolic function is normal with, an EF between 55 - 60 %. The right ventricle is normal in size and function. The left atrium is normal in size. The right atrium is normal in size. Aortic valve is trileaflet and is mildly thickened. The mitral valve leaflets are mildly thickened. Mild mitral regurgitation is present. Mild tricuspid regurgitation present. The right ventricular systolic pressure, as measured by Doppl er, is 14.47mmHg. Pulmonic valve appears structurally normal. The aortic root size is normal. The pericardium is normal. CONCLUSIONS -------- 1. Sinus rhythm. 2. This was a technically good study. 3. The left ventricular size is normal. 4. There is mild concentric left ventricular hypertrophy. 5. Overall left ventricular systolic function is normal with, an EF between 55 - 60 %. 6. The right ventricle is normal in size and function. 7. The left atrium is normal in size. 8. The right atrium is normal in size. 9. Aortic valve is trileaflet and is mildly thickened. 10. The mitral valve leaflets are mildly thickened. 11. Mild mitral regurgitation is present. 12. Mild tricuspid regurgitation present. 13. The right ventricular systolic pressure, as measured by Doppler, is 14.47mmHg. 14. Pulmonic valve appears structurally normal. 15. The aortic root size is normal. 16. The pericardium is normal. ABORIGINAL EDUCATION WORKER COORDINATOR: Ana Merino RDCS
[2018-03-12] MEDS ORDERED: SODIUM CHLORIDE 0.9% 1,000 ML in EMPTY BAG 1 BAG IV ONE (13:37)
--- NOTE | 2018-03-12 14:19 | P.PN ---
Subjective Progress Note Date: 03/12/18 Daisy Abebe is a 67-year-old female who presented to [facility] emergency room with a chief complaint of chest pain. Patient states that [place] the end [place] and started having chest pain radiating from the right side of her chest of the left and lasting a few minutes until she sits down and rests then the pain would disappear. Patient thought that the pain was related to elevation and exhaustion, however she continued to have episodes of similar pain once or twice weekly, on the day of admission pain was more pronounced and lasted longer and patient decided to come to emergency room, she was evaluated in the emergency room EKG revealed normal sinus rhythm with incomplete right bundle branch block otherwise no acute abnormality. First troponin was less than 0.012 she was admitted to 24- hour observation and cardiology consultation was requested. Patient recently had episodes of black stool she was evaluated by Dr. Najera she underwent EGD and colonoscopy recently and had no significant abnormality found except for hiatal hernia there was no active bleeding. Patient has anemia her hemoglobin on presentation is 9.7 Patient has a known history of peripheral vascular disease, she has underwent left carotid endarterectomy in the past, she also had surgery on bilateral lower extremity for varicose veins, she also has known history of abdominal aortic aneurysm. Patient used to smoke she states she quit 12 weeks ago On 03/12/2018 patient had stress test completed. Chest chest was positive. Planning heart cath tomorrow per cardiac services. At this time patient denies chest pain or shortness of breath. Patient denies nausea vomiting or diarrhea. Patient denies any urinary burning or frequency. Patient's hemoglobin dropping to 8.9. Patient denies any signs of active bleeding. Will order iron studies. Patient also having elevated liver enzymes including AST of 79 and alkaline phosphatase 130. Will order ultrasound of liver at this time Objective - Vital Signs Vital signs: Vital Signs Temp 98.3 F 03/12/18 11:38 Pulse 85 03/12/18 11:38 Resp 16 03/12/18 11:38 BP 111/76 03/12/18 11:38 Pulse Ox 99 03/12/18 11:38 Intake & Output 03/11/18 03/12/18 03/12/18 18:59 06:59 18:59 Weight 99.79 kg Other: Voiding Method Toilet Toilet # Voids 1 - Exam Head normocephalic Neck supple Lungs clear to auscultation bilaterally no wheezing or crackles Heart regular rate and rhythm S1-S2, no rub or gallop Abdomen is soft nontender nondistended positive bowel sounds no hepatosplenomegaly Extremities no edema Neuro alert and orientated to 3 - Labs CBC & Chem 7: 03/12/18 07:49 10 07:49 Labs: Abnormal Lab Results - Last 24 Hours (Table) 03/11/18 03/12/18 03/12/18 Range/Units 07:28 07:49 07:49 WBC 3.6 L (3.8-10.6) k/uL RBC 3.54 L (3.80-5.40) m/uL Hgb 8.9 L (11.4-16.0) gm/dL Hct 29.2 L (34.0-46.0) % MCHC 30.5 L (31.0-37.0) g/dL Chloride 109 H (98-107) mmol/L Iron 15 L (50-170) ug/dL Iron Saturation 3.55 L (12.00-45.00) AST 79 H (14-36) U/L Alkaline Phosphatase 130 H (38-126) U/L Assessment and Plan Assessment: #1 episodes of chest pain, myocardial infarction is ruled out she has 2 normal troponin levels and EKG is normal, patient was seen by cardiology echocardiogram and stress test were ordered. 2-D echo completed showing EF between 55-60%. Per cardiology patient did have a positive stress test will undergo cardiac catheterization tomorrow. Procedure #2 anemia, cause is unclear patient had black stools recently however she had recent EGD and colonoscopy that were within normal limits. Will monitor CBC will check iron study and vitamin B12 and folate studies and saturation low at 3.55 and iron low at 15. Vitamin B12 364. Hemoglobin down to 8.9. Will add ferrous sulfate. Will recheck hemoglobin tomorrow. #3 underlying history of hypertension well-controlled on medications #4 underlying history of peripheral vascular disease with previous history of carotid endarterectomy #5 history of tobacco abuse patient quit smoking recently #6 underlying history of COPD patient is maintained on Symbicort inhaler #7 underlying history of abdominal aortic aneurysm will try to obtain records #8 underlying history of hypothyroidism maintained on Synthroid 50 g daily #9. Elevated liver enzymes AST 79 alkaline phosphatase 130. Ultrasound of liver has been ordered I performed an examination of the patient and discussed their management with the Nurse Practitioner. I have reviewed the Nurse Practitioner's notes and agree with the documented findings and plan of care
[2018-03-12] MEDS: METOPROLOL SUCCINATE (ER) 100 MG TAB.ER.24H PO SCH (18:04)
[2018-03-12] MEDS: Acetaminophen-Codeine 300-30mg TAB PO PRN (18:48)
[2018-03-12] MEDS: FERROUS SULFATE 325 MG TAB PO SCH (20:37)
[2018-03-13] MEDS: NITROGLYCERIN OINT 1 INCH/GM PACKET TOPICAL SCH ×3 (00:05→16:06)
[2018-03-13] MEDS ORDERED: ASPIRIN 325 MG TAB PO ONE (06:00)
[2018-03-13] MEDS: FERROUS SULFATE 325 MG TAB PO SCH (06:16)
[2018-03-13] MEDS: LOSARTAN 50 MG TAB PO SCH (06:17)
[2018-03-13] MEDS: amLODIPine 10 MG TAB PO SCH (06:17)
[2018-03-13] MEDS: LEVOTHYROXINE 50 MCG TAB PO SCH (06:17)
[2018-03-13] MEDS: MAGNESIUM OXIDE 400 MG TAB PO SCH (06:17)
[2018-03-13] MEDS: lamoTRIgine 100 MG TAB PO SCH (06:17)
[2018-03-13] MEDS: PANTOPRAZOLE 40 MG TABLET PO SCH (06:17)
[2018-03-13] MEDS: CLOPIDOGREL 75 MG TAB PO SCH (06:17)
[2018-03-13 07:14] LABS: Basophils % (A) 1 %; Eosinophils # (A) 0.1 k/uL (0-0.7); Eosinophils % (A) 3 %; HCT 28.7 % (34.0-46.0); HGB 8.8 gm/dL (11.4-16.0); Hypochromasia Marked; Lymphocytes # (A) 2.5 k/uL (1.0-4.8); Lymphocytes % (A) 51 %; MCH 25.2 pg (25.0-35.0); MCHC 30.6 g/dL (31.0-37.0); MCV 82.3 fL (80.0-100.0); Mean Platelet Volume 6.7; Monocytes # (A) 0.4 k/uL (0-1.0); Monocytes % (A) 8 %; Neutrophils # (A) 1.7 k/uL (1.3-7.7); Neutrophils % (A) 34 %; Platelet Count 261 k/uL (150-450); RBC 3.49 m/uL (3.80-5.40); RDW 14.6 % (11.5-15.5); WBC 4.9 k/uL (3.8-10.6)
[2018-03-13 07:34] LABS: Albumin 3.5 g/dL (3.5-5.0); Calcium 9.5 mg/dL (8.4-10.2); Potassium 4.7 mmol/L (3.5-5.1); Total Bilirubin 0.3 mg/dL (0.2-1.3); Total Protein 6.4 g/dL (6.3-8.2)
[2018-03-13] MEDS: SYMBICORT 160-4.5 MCG INHALER INHALATION SCH (08:27)
--- NOTE | 2018-03-13 08:33 | US ---
EXAMINATION TYPE: US liver DATE OF EXAM: 03/13/2018 COMPARISON: Prior ultrasound 01/08/2015, CT abdomen pelvis 02/16/2017 CLINICAL HISTORY: elevated liver enzymes. GB removed x 10 years ago. NPO. EXAM MEASUREMENTS: Liver Length: 14.0 cm Right Kidney: 9.2 x 4.1 x 3.9 cm Pancreas: Echogenic. Main pancreatic duct- 2.6 mm. Tail obscured by overlying bowel gas Liver: Liver echotexture is coarse. No evident mass. Limited due to overlying bowel gas. Scanned t hrough ribs due to gas. Gallbladder: Surgically absent Evidence for sonographic Mora's sign: No CBD: Obscured by overlying bowel gas Right Kidney: lower pole obscured by overlying bowel gas cortical medullary differentiation is maint ained in the visualized portions There is no ascites. IMPRESSION: Postop change. Correlate for hepatic steatosis, hepatocellular disease. Exam is limited. Previously identified abdominal aortic aneurysm is not imaged.
[2018-03-13] MEDS ORDERED: LIDOCAINE 1% INJ 10MG/ML (20 ML MDV) ONE (09:05)
[2018-03-13] MEDS ORDERED: fentaNYL (PF) 50 MCG/ML 2 ML AMP ONE (09:05)
[2018-03-13] MEDS ORDERED: MIDAZOLAM 2 MG/2 ML VIAL ONE (09:05)
[2018-03-13] MEDS ORDERED: MIDAZOLAM 2 MG/2 ML VIAL IV ONE ×2 (09:30)
[2018-03-13] MEDS ORDERED: fentaNYL (PF) 50 MCG/ML 2 ML AMP IV ONE (09:30)
[2018-03-13] MEDS ORDERED: IV FLUID CONTINUATION 800 ML IV ONE (09:30)
[2018-03-13] MEDS ORDERED: LIDOCAINE 1% INJ 10MG/ML (20 ML MDV) SQ ONE (09:33)
[2018-03-13] MEDS ORDERED: IOPAMIDOL-370 125ML BTL INJ ONE (09:47)
--- NOTE | 2018-03-13 10:36 | CC ---
CARDIAC CATHETERIZATION REPORT INDICATION: Chest pain with abnormal stress test. PROCEDURE NOTE: After obtaining informed consent, left heart catheterization and coronary angiogram are performed via the right femoral artery using standard Jimbo catheters. The patient tolerated the procedure well without any obvious immediate complications. The patient has extensive peripheral vascular disease with heavily calcified femoral and iliac vessels. We had to use a Glidewire to navigate the catheters across the iliacs. I opted for manual hemostasis. FINDINGS: 1. HEMODYNAMICS: Left ventricular end-diastolic pressure is 14 to 16 mm. There is no significant gradient across the aortic valve. 2. LEFT VENTRICULOGRAM: Left ventriculogram is not performed. 3. ANGIOGRAPHIC DATA: 4. Left main coronary artery: Left main coronary artery appears calcified but is free of significant stenosis. Divides into left anterior descending coronary artery and circumflex coronary artery. Circumflex coronary artery and its branches are free of significant disease. They are calcified and show mild nonobstructive disease. There are collaterals to the distal right coronary artery. LAD gives off a large caliber diagonal branch and there is a moderate atherosclerotic plaque at the origin of the diagonal. There is a 40% to 50% stenosis. CONCLUSIONS: 1. Chronic occlusion of the right coronary artery with [id number] collaterals. 2. Moderate stenosis involving left anterior descending artery. PLAN: I reviewed angiographic data with the patient and advised her on optimal medical therapy with aspirin, nitrates, beta blockers and statins and risk factor modification. MMODL / IJN: [id number] /
--- NOTE | 2018-03-13 10:54 | EST ---
Stress Test Results/Findings: Exam Performed: NM stress lexiscan cardiolite Exam Date: 03/12/18 Reason for Exam: CHEST PAIN Height: 5 ft 5 in Weight: 99.79 kg Protocol: LEXISCAN CARDIOLITE Stage: Duration of Exercise: 6:00 Resting Heart Rate: 70 Resting Blood Pressure: 125/79 Maximum Achieved Heart Rate: 85 Maximum Achieved Blood Pressure: 143/79 85% PMHR: 129 100% PMHR: 152 METS: Technologist Comment: Stress Test Results/Findings: This is a 67-year-old female was admitted to the hospital with chest pain and shortness of breath and also palpitations. She has history of hypertension, hypercholesterolemia, family history and also peripheral vascular disease. Stress data: Baseline EKG showed sinus rhythm with small when necessary. QRS duration. Blood pressure at rest is 125/79 with a pulse rate of 70. A standard dose of Lexiscan was infused. EKGs taken during and after the infusion did not reveal any significant changes from the baseline. Patient did complain of some chest pain and shortness of breath and also nausea. Final impression: #1. Negative Lexiscan stress test #2. Report on the nuclear images to be given by the radiologist #3. Patient complained of chest tightness and shortness of breath during Lexiscan infusion. [facility]
[2018-03-13] MEDS: Acetaminophen-Codeine 300-30mg TAB PO PRN (11:18)
[2018-03-13 15:35] VITALS: BMI 36.6
[2018-03-13 15:48] VITALS: RESP 18; TEMP 98.5
--- NOTE | 2018-03-13 16:02 | P.DS ---
Providers Date of admission: 03/10/18 19:57 Expected date of discharge: 03/13/18 Attending physician: Luigi Luong Consults: 03/10/18 19:57 Consult Physician Urgent Consulting Provider: Mikel Lewis Consult Reason/Comments: cp Do you want consulting provider notified?: Yes Primary care physician: Mary Castrejon [facility] Hospital Course: Discharge diagnosis #1 episodes of chest pain, myocardial infarction is ruled out she has 2 normal troponin levels and EKG is normal, patient was seen by cardiology echocardiogram and stress test were ordered. 2-D echo completed showing EF between 55-60%. Per cardiology patient did have a positive stress test will undergo cardiac catheterization tomorrow. Patient underwent cardiac catheterization today with Dr. Woo Borrego. Was found the patient had chronic occlusion of the right coronary artery with [id number] collaterals. Moderate stenosis involving left anterior descending artery. Patient has been cleared for discharge from neurology services medically managed with current medication. Patient to follow-up outpatient #2 anemia, cause is unclear patient had black stools recently however she had recent EGD and colonoscopy that were within normal limits. Will monitor CBC will check iron study and vitamin B12 and folate studies and saturation low at 3.55 and iron low at 15. Vitamin B12 364. Hemoglobin down to 8.9. Will add ferrous sulfate. Will recheck hemoglobin tomorrow. Hemoglobin 8.8. Patient to follow-up with GI services upon discharge. Repeat CBC has been ordered. Patient to follow-up closely also with PCP #3 underlying history of hypertension well-controlled on medications #4 underlying history of peripheral vascular disease with previous history of carotid endarterectomy #5 history of tobacco abuse patient quit smoking recently #6 underlying history of COPD patient is maintained on Symbicort inhaler #7 underlying history of abdominal aortic aneurysm will try to obtain records #8 underlying history of hypothyroidism maintained on Synthroid 50 g daily #9. Elevated liver enzymes AST 79 alkaline phosphatase 130. Liver ultrasound completed showing postoperative change. Correlate for hepatic steatosis, hepatocellular disease. Exam is limited. Patient to follow-up with GI services. Alkaline phosphatase decreasing to 123 AST decreasing to 65. Hospital course Daisy Abebe is a 67-year-old female who presented to [facility] emergency room with a chief complaint of chest pain. Patient states that [place] the end of [place] and started having chest pain radiating from the right side of her chest of the left and lasting a few minutes until she sits down and rests then the pain would disappear. Patient thought that the pain was related to elevation and exhaustion, however she continued to have episodes of similar pain once or twice weekly, on the day of admission pain was more pronounced and lasted longer and patient decided to come to emergency room, she was evaluated in the emergency room EKG revealed normal sinus rhythm with incomplete right bundle branch block otherwise no acute abnormality. First troponin was less than 0.012 she was admitted to 24- hour observation and cardiology consultation was requested. Patient recently had episodes of black stool she was evaluated by Dr. Najera she underwent EGD and colonoscopy recently and had no significant abnormality found except for hiatal hernia there was no active bleeding. Patient has anemia her hemoglobin on presentation is 9.7 Patient has a known history of peripheral vascular disease, she has underwent left carotid endarterectomy in the past, she also had surgery on bilateral lower extremity for varicose veins, she also has known history of abdominal aortic aneurysm. Patient used to smoke she states she quit 12 weeks ago On 03/12/2018 patient had stress test completed. Chest chest was positive. Planning heart cath tomorrow per cardiac services. At this time patient denies chest pain or shortness of breath. Patient denies nausea vomiting or diarrhea. Patient denies any urinary burning or frequency. Patient's hemoglobin dropping to 8.9. Patient denies any signs of active bleeding. Will order iron studies. Patient also having elevated liver enzymes including AST of 79 and alkaline phosphatase 130. Will order ultrasound of liver at this time 03/13/2018 patient underwent cardiac catheterization today. Patient did have occlusion of the RCA but did have left to right collaterals. Patient to be medically managed at this time per cardiology. Patient has been cleared for discharge from cardiology services. Patient did have elevated liver enzymes. Patient to follow-up with GI services. Patient also has low hemoglobin. Hemoglobin 8.8 patient recently underwent EGD and colonoscopy that did not show any signs of bleeding. Patient to follow-up closely with GI services and PCP. Patient has been started on ferrous sulfate. Repeat CBC and CMP has been ordered for 3 days I performed an examination of the patient and discussed their management with the Nurse Practitioner. I have reviewed the Nurse Practitioner's notes and agree with the documented findings and plan of care Patient Condition at Discharge: Stable Plan - Discharge Summary New Discharge Prescriptions: New Ferrous Sulfate [Iron (65 MG Elemental)] 325 mg PO BID #60 tab Continue Metoprolol Succinate (ER) [Toprol XL] 100 mg PO 1700 amLODIPine [Norvasc] 10 mg PO QAM Losartan [Cozaar] 50 mg PO QAM Levothyroxine Sodium [Synthroid] 50 mcg PO DAILY Aspirin 81 mg PO DAILY Fish Oil/Dha/Epa [Fish Oil 1,200 mg Fish Oil] 1 cap PO BID Calcium Carbonate [Calcium] 600 mg PO BID Magnesium 400 mg PO DAILY ALPRAZolam [Xanax] 0.25 mg PO DAILY PRN PRN Reason: Anxiety Omeprazole [PriLOSEC] 20 mg PO DAILY Budesonide-Formot 160-4.5 Mcg [Symbicort 160-4.5 Mcg Inhaler] 2 puff INHALATION RT-BID lamoTRIgine [LaMICtal] 150 mg PO BID Milnacipran HCl [Savella] 50 mg PO BID Folic Acid 1 mg PO DAILY Ascorbic Acid [Vitamin C] 1,000 mg PO DAILY Fluticasone Nasal [place] [Flonase Nasal [place]] 1 spr EA NOSTRIL BID PRN PRN Reason: Allergy Symptoms Clopidogrel [Plavix] 75 mg PO DAILY Ubidecarenone [Co Q-10] 100 mg PO DAILY guaiFENesin [Mucinex] 600 mg PO Q12HR PRN PRN Reason: MUCOUS Adalimumab [Humira Pen Crohn-Uc-Hs Starter] 40 mg SQ Q14D Acetaminophen with Codeine [Tylenol w/codeine #4] 1 tab PO Q6H PRN PRN Reason: Pain Cholecalciferol (Vitamin D3) [Vitamin D3] 5,000 unit PO DAILY Discharge Medication List ALPRAZolam [Xanax] 0.25 mg PO DAILY PRN 08/02/15 [History] Ascorbic Acid [Vitamin C] 1,000 mg PO DAILY 08/02/15 [History] Aspirin 81 mg PO DAILY 08/02/15 [History] Budesonide-Formot 160-4.5 Mcg [Symbicort 160-4.5 Mcg Inhaler] 2 puff INHALATION RT-BID 08/02/15 [History] Calcium Carbonate [Calcium] 600 mg PO BID 08/02/15 [History] Fish Oil/Dha/Epa [Fish Oil 1,200 mg Fish Oil] 1 cap PO BID 08/02/15 [History] Folic Acid 1 mg PO DAILY 08/02/15 [History] Levothyroxine Sodium [Synthroid] 50 mcg PO DAILY 08/02/15 [History] Losartan [Cozaar] 50 mg PO QAM 08/02/15 [History] Magnesium 400 mg PO DAILY 08/02/15 [History] Metoprolol Succinate (ER) [Toprol XL] 100 mg PO 1700 08/02/15 [History] Milnacipran HCl [Savella] 50 mg PO BID 08/02/15 [History] Omeprazole [PriLOSEC] 20 mg PO DAILY 08/02/15 [History] amLODIPine [Norvasc] 10 mg PO QAM 08/02/15 [History] lamoTRIgine [LaMICtal] 150 mg PO BID 08/02/15 [History] Clopidogrel [Plavix] 75 mg PO DAILY 08/28/15 [History] Fluticasone Nasal [place] [Flonase Nasal [place]] 1 spr EA NOSTRIL BID PRN 08/28/15 [History] Ubidecarenone [Co Q-10] 100 mg PO DAILY 07/14/16 [History] Acetaminophen with Codeine [Tylenol w/codeine #4] 1 tab PO Q6H PRN 03/02/18 [ History] Adalimumab [Humira Pen Crohn-Uc-Hs Starter] 40 mg SQ Q14D 03/02/18 [History] guaiFENesin [Mucinex] 600 mg PO Q12HR PRN 03/02/18 [History] Cholecalciferol (Vitamin D3) [Vitamin D3] 5,000 unit PO DAILY 03/10/18 [History] Ferrous Sulfate [Iron (65 MG Elemental)] 325 mg PO BID #60 tab 03/13/18 [Rx] Follow up Appointment(s)/Referral(s): Suman Katz MD [STAFF PHYSICIAN] - 1 Week Mary Castrejon DO [Primary Care Provider] - 1-2 days Robert Cardoso MD [STAFF PHYSICIAN] - 2 Weeks Ambulatory/Diagnostic Orders: Complete Blood Count w/diff [LAB.AMB] Time Frame: 2 Days, Location: None Selected Comprehensive Metabolic Panel [LAB.AMB] Time Frame: 2 Days, Location: None Selected Activity/Diet/Wound Care/Special Instructions: Diet heart healthy Activity as tolerated patient to follow-up with GI services in regards to elevated liver enzymes Discharge Disposition: HOME SELF-CARE
[2018-03-13] MEDS: CALCIUM CARBONATE 500 MG CHEWABLE PO SCH (16:05)
[2018-03-13] MEDS: ASCORBIC ACID 500 MG TAB PO SCH (16:05)
[2018-03-13] MEDS: CHOLECALCIFEROL 1,000 UNIT TAB PO SCH (16:06)
[2018-03-13] MEDS: FOLIC ACID 1 MG TAB PO SCH (16:07)
[2018-03-13 16:41] VITALS: BP 105/70; PULSE 75
[2018-03-13] MEDS: METOPROLOL SUCCINATE (ER) 100 MG TAB.ER.24H PO SCH (17:41)
[2018-03-14] MEDS ORDERED: ASPIRIN 81 MG PO SCH (09:00)
== END 2018-03-13 17:52 | disposition home or self-care (01) ==
LOC: EC 17:18 → 3OBS 19:57
PROVIDERS: ADMIT Internal Medicine; ATTEND Internal Medicine
DX: R07.89 Other chest pain (principal); I25.82 Chronic total occlusion of coronary artery; I25.10 Atherosclerotic heart disease of native coronary artery without angina pectoris; D64.9 Anemia, unspecified; R74.8 Abnormal levels of other serum enzymes; J44.9 Chronic obstructive pulmonary disease, unspecified; M06.9 Rheumatoid arthritis, unspecified; K44.9 Diaphragmatic hernia without obstruction or gangrene; M79.7 Fibromyalgia; K21.9 Gastro-esophageal reflux disease without esophagitis; I10 Essential (primary) hypertension; E78.5 Hyperlipidemia, unspecified; M19.90 Unspecified osteoarthritis, unspecified site; I83.90 Asymptomatic varicose veins of unspecified lower extremity; I71.4 Abdominal aortic aneurysm, without rupture; I73.00 Raynaud's syndrome without gangrene; F32.9 Major depressive disorder, single episode, unspecified; I73.9 Peripheral vascular disease, unspecified; E66.9 Obesity, unspecified; Z68.36 Body mass index [BMI] 36.0-36.9, adult; E89.0 Postprocedural hypothyroidism; R94.39 Abnormal result of other cardiovascular function study; I45.10 Unspecified right bundle-branch block; Z79.02 Long term (current) use of antithrombotics/antiplatelets; Z79.82 Long term (current) use of aspirin; Z79.51 Long term (current) use of inhaled steroids; Z79.890 Hormone replacement therapy; Z79.899 Other long term (current) drug therapy; Z88.1 Allergy status to other antibiotic agents; Z88.2 Allergy status to sulfonamides; Z88.8 Allergy status to other drugs, medicaments and biological substances; Z90.49 Acquired absence of other specified parts of digestive tract; Z86.010 Personal history of colon polyps; Z86.72 Personal history of thrombophlebitis; Z85.3 Personal history of malignant neoplasm of breast; Z87.891 Personal history of nicotine dependence; Z87.19 Personal history of other diseases of the digestive system; Z86.79 Personal history of other diseases of the circulatory system; Z80.7 Family history of other malignant neoplasms of lymphoid, hematopoietic and related tissues; Z80.42 Family history of malignant neoplasm of prostate; Z82.49 Family history of ischemic heart disease and other diseases of the circulatory system
CPT/HCPCS: 99285; 36415; 94640 ×5; 93005; 93017; 93306; 93458; 80061; 80053 ×3; 82607; 82550 ×2; 82553 ×2; 83540; 83550; 83735; 84484 ×2; 85025 ×3; 85610; 85730; 71046; 76705; 78452; G0378 ×4; C1769 ×3; C1894; A9500; J2250; J2001; J3010; J2785; Q9967

== ENCOUNTER → 2018-04-17 | Outpatient (CLI) | payer MEDICARE, OTHER ==
[2018-04-17 08:09] LABS: Anisocytosis Slight; Basophils # (A) 0.1 k/uL (0-0.2); Basophils % (A) 1 %; Eosinophils # (A) 0.1 k/uL (0-0.7); Eosinophils % (A) 1 %; HCT 40.3 % (34.0-46.0); Hypochromasia Marked; Lymphocytes # (A) 2.3 k/uL (1.0-4.8); Lymphocytes % (A) 33 %; MCH 26.4 pg (25.0-35.0); MCHC 30.2 g/dL (31.0-37.0); Mean Platelet Volume 7.4; Monocytes # (A) 0.4 k/uL (0-1.0); Monocytes % (A) 6 %; Neutrophils # (A) 3.9 k/uL (1.3-7.7); Neutrophils % (A) 56 %; Platelet Count 309 k/uL (150-450); RBC 4.62 m/uL (3.80-5.40); RDW 18.5 % (11.5-15.5); WBC 6.9 k/uL (3.8-10.6)
[2018-04-17 08:11] LABS: HGB 12.2 gm/dL (11.4-16.0); MCV 87.3 fL (80.0-100.0)
[2018-04-17 17:46] LABS: ALT 65 U/L (8-44); AST 81 U/L (13-35); Albumin/Globulin Ratio 1.96 (1.20-2.10); Alkaline Phosphatase 155 U/L (41-126); Bilirubin, Conjugated <0.20 mg/dL (0.20-0.40); Globulin 2.4 g/dL (2.1-3.7); Total Bilirubin 0.4 mg/dL (0.2-1.2); Total Protein 7.1 g/dL (6.2-8.2)
== END ==
LOC: LABWHC1 07:35
DX: D50.0 Iron deficiency anemia secondary to blood loss (chronic) (principal)
CPT/HCPCS: 36415; 80076; 85025

== ENCOUNTER → 2018-04-17 | Day surgery (SDC) | payer MEDICARE, OTHER ==
[2018-04-13 10:25] VITALS: BMI 35.7
[~2018-04-17] MED LIST changes: -LACTATED RINGERS 1,000 ML IV SCH; -LIDOCAINE 1% 20 ML VIAL (10MG/ML) FOR IV START INTRADERMA PRN; +SIMETHICONE 40 MG/0.6 ML DROPS 2,000 MG/30 ML BOTTLE PO ONE
== END ==
LOC: ORWHC2ENDO 07:01
DX: K55.20 Angiodysplasia of colon without hemorrhage (principal); K20.9 Esophagitis, unspecified; K44.9 Diaphragmatic hernia without obstruction or gangrene; K57.90 Diverticulosis of intestine, part unspecified, without perforation or abscess without bleeding; K63.5 Polyp of colon
CPT/HCPCS: 91110

== ENCOUNTER 2018-04-24 15:15 | Inpatient (IN) | payer MEDICARE, OTHER ==
[2018-04-24] MEDS ORDERED: NITROGLYCERIN OINT 1 INCH/GM PACKET TOPICAL STA (16:01)
--- NOTE | 2018-04-24 16:12 | ED ---
General Adult HPI - General Chief complaint: Chest Pain Stated complaint: SOB/ Chest pain Time Seen by Provider: 04/24/18 15:28 Source: patient, RN notes reviewed Mode of arrival: wheelchair Limitations: no limitations - History of Present Illness Initial comments: Patient is a pleasant 59-year-old female presenting to the emergency Department with chest discomfort. Symptoms have been occurring for the past several days up to a week. Discomfort is mild at this time. Discomfort does seem to worsen with exertion. Discomfort does feel like an ache. There is some radiation towards the back. Patient does have associated dyspnea, nausea and little bit of sweating. Patient was in the hospital a couple months ago with similar symptoms and did have labor operator catheterization done. Patient was told there was some narrowing however there was additional vessels compensating for this. - Related Data Home Medications Medication Instructions Recorded Confirmed ALPRAZolam [Xanax] 0.25 mg PO DAILY PRN 08/02/15 04/24/18 Ascorbic Acid [Vitamin C] 1,000 mg PO DAILY 08/02/15 04/24/18 Aspirin 81 mg PO DAILY 08/02/15 04/24/18 Budesonide-Formot 160-4.5 Mcg 2 puff INHALATION RT-BID 08/02/15 04/24/18 [Symbicort 160-4.5 Mcg Inhaler] Calcium Carbonate [Calcium] 600 mg PO BID 08/02/15 04/24/18 Folic Acid 1 mg PO DAILY 08/02/15 04/24/18 Levothyroxine Sodium [Synthroid] 50 mcg PO DAILY 08/02/15 04/24/18 Losartan [Cozaar] 50 mg PO QAM 08/02/15 04/24/18 Magnesium 400 mg PO DAILY 08/02/15 04/24/18 Metoprolol Succinate (ER) [Toprol 100 mg PO AC-SUPPER 08/02/15 04/24/18 XL] Milnacipran HCl [Savella] 50 mg PO BID 08/02/15 04/24/18 Omeprazole [PriLOSEC] 40 mg PO DAILY 08/02/15 04/24/18 amLODIPine [Norvasc] 10 mg PO QAM 08/02/15 04/24/18 lamoTRIgine [LaMICtal] 150 mg PO BID 08/02/15 04/24/18 Clopidogrel [Plavix] 75 mg PO HS 08/28/15 04/24/18 Fluticasone Nasal [place] [Flonase 1 spr EA NOSTRIL BID PRN 08/28/15 04/24/18 Nasal [place]] Ubidecarenone [Co Q-10] 100 mg PO DAILY 07/14/16 04/24/18 Acetaminophen with Codeine 1 tab PO Q6H PRN 03/02/18 04/24/18 [Tylenol w/codeine #4] Adalimumab [Humira Pen Crohn-Uc-Hs 40 mg SQ Q14D 03/02/18 04/24/18 Starter] guaiFENesin [Mucinex] 600 mg PO Q12HR PRN 03/02/18 04/24/18 Cholecalciferol (Vitamin D3) 1,000 unit PO DAILY 03/10/18 04/24/18 [Vitamin D3] Sucralfate [Carafate] 1 gm PO AC-TID 04/13/18 04/24/18 Previous Rx's Medication Instructions Recorded Ferrous Sulfate [Iron (65 MG 325 mg PO BID #60 tab 03/13/18 Elemental)] Allergies Allergy/AdvReac Type Severity Reaction Status Date / Time cephalexin monohydrate Allergy Rash/Hives Verified 04/24/18 17:18 [From Keflex] ciprofloxacin [From Cipro] Allergy Rash/Hives Verified 04/24/18 17:18 etodolac [From Lodine] Allergy "inflamed Verified 04/24/18 17:18 legs" levofloxacin [From Levaquin] Allergy Rash/Hives Verified 04/24/18 17:18 lisinopril Allergy Cough Verified 04/24/18 17:18 minocycline Allergy Rash/Hives Verified 04/24/18 17:18 NSAIDS (Non-Steroidal Allergy BLURRY Verified 04/24/18 17:18 Anti-Inflamma VISION potassium clavulanate Allergy Rash/Hives Verified 04/24/18 17:18 [From Augmentin] prednisone Allergy CHEST Verified 04/24/18 17:18 PAIN/FATIGUE/FEVER/CHILLS Udvdrby-Bcn-Pug Reductase Allergy MUSCLE PAIN Verified 04/24/18 17:18 Inhibitor sulfamethoxazole Allergy Itching Verified 04/24/18 17:18 [From Bactrim] trimethoprim [From Bactrim] Allergy Itching Verified 04/24/18 17:18 Review of Systems ROS Statement: Those systems with pertinent positive or pertinent negative responses have been documented in the HPI. ROS Other: All systems not noted in ROS Statement are negative. Constitutional: Denies: fever Eyes: Denies: eye pain ENT: Denies: ear pain Respiratory: Reports: dyspnea. Denies: cough Cardiovascular: Reports: chest pain Endocrine: Denies: fatigue Gastrointestinal: Reports: nausea. Denies: abdominal pain Genitourinary: Denies: dysuria Musculoskeletal: Denies: back pain Skin: Denies: rash Neurological: Denies: weakness Past Medical History Past Medical History: Asthma, Coronary Artery Disease (CAD), Cancer, COPD, Fibromyalgia, GERD/Reflux, Hyperlipidemia, Hypertension, Osteoarthritis (OA), Rheumatoid Arthritis (RA), Thyroid Disorder Additional Past Medical History / Comment(s): HX OF COLON POLYP, AAA, PHLEBITIS , VARICOSE VEINS, REYNAUD'S, BREAST CANCER., ANEMIA. History of Any Multi-Drug Resistant Organisms: None Reported Past Surgical History: Breast Surgery, Section, Cholecystectomy, Heart Catheterization, Orthopedic Surgery, Tonsillectomy Additional Past Surgical History / Comment(s): LEFT CAROTID ENDARTECTOMY, FERNANDO CARPAL TUNNEL, FERNANDO LEGS VEIN STRIPPING, RT THYROIDECTOMY, FERNANDO BREAST SX, LEFT LUMPECTOMY , LEFT BREAST FATTY TUMOR, HEART CATH 03/13/18 @ [facility]. Past Anesthesia/Blood Transfusion Reactions: Previous Problems w/ Anesthesia Additional Past Anesthesia/Blood Transfusion Reaction / Comment(s): STATES " FELT PARALYZED CHEST AREA AND ARM" ( OVER 20 YRS AGO.) NO PROBLEM SINCE Past Psychological History: Depression Smoking Status: Former smoker Past Alcohol Use History: None Reported Past Drug Use History: None Reported - Past Family History Father Family Medical History: Cancer Additional Family Medical History / Comment(s): NON HODGKINS LYMPHOMA Brother(s) Family Medical History: Cancer Additional Family Medical History / Comment(s): prostate General Exam Limitations: no limitations General appearance: alert, in no apparent distress Head exam: Present: atraumatic Eye exam: Present: normal appearance, PERRL ENT exam: Present: normal oropharynx Neck exam: Present: normal inspection Respiratory exam: Present: normal lung sounds bilaterally. Absent: chest wall tenderness Cardiovascular Exam: Present: regular rate, normal rhythm Expanded Peripheral pulses: 2+: Radial (R), Radial (L), Dorsalis Pedis (R), Dorsalis Pedis (L) GI/Abdominal exam: Present: soft. Absent: tenderness Extremities exam: Present: normal inspection. Absent: pedal edema, calf tenderness Neurological exam: Present: alert Psychiatric exam: Present: normal affect, normal mood Skin exam: Present: normal color Course Vital Signs 04/24/18 04/24/18 04/24/18 15:24 16:15 17:04 Temperature 97.9 F Pulse Rate 117 H 93 94 Respiratory 18 16 16 Rate Blood Pressure 110/78 100/75 112/67 O2 Sat by Pulse 99 99 100 Oximetry 04/24/18 17:43 Temperature Pulse Rate 105 H Respiratory 18 Rate Blood Pressure 101/67 O2 Sat by Pulse 99 Oximetry - Reevaluation(s) Reevaluation #1: 04/24/18 16:12 Aspirin held at this time secondary to recent GI hemorrhage. Patient denies any black tarry stools at this time. EKG Findings - EKG Comments: EKG Findings:: Sinus tachycardia 103. ME 146. QRS 94. QT 340. QTc 445. Normal axis. Incomplete right bundle-branch block. No acute ST change. Medical Decision Making - Medical Decision Making Patient reevaluated and resting comfortably in bed. Discomfort has improved however not resolved. Patient updated on results and plan. Case was discussed in detail with Dr. Luong, who will admit for Dr. Castrejon. Patient is specifically updated on concern for aortic aneurysm and need for follow-up regarding this. - Lab Data Result diagrams: 04/24/18 17:45 04/24/18 16:42 Lab Results 04/24/18 04/24/18 04/24/18 Range/Units 16:42 16:42 16:42 WBC (3.8-10.6) k/uL RBC (3.80-5.40) m/uL Hgb (11.4-16.0) gm/dL Hct (34.0-46.0) % MCV (80.0-100.0) fL MCH (25.0-35.0) pg MCHC (31.0-37.0) g/dL RDW (11.5-15.5) % Plt Count (150-450) k/uL Neutrophils % % Lymphocytes % % Monocytes % % Eosinophils % % Basophils % % Neutrophils # (1.3-7.7) k/uL Lymphocytes # (1.0-4.8) k/uL Monocytes # (0-1.0) k/uL Eosinophils # (0-0.7) k/uL Basophils # (0-0.2) k/uL Hypochromasia Anisocytosis PT 10.0 (9.0-12.0) sec INR 1.0 (<1.2) APTT 18.1 L (22.0-30.0) sec D-Dimer 0.88 H (<0.60) mg/L FEU Sodium 140 (137-145) mmol/L Potassium 4.2 (3.5-5.1) mmol/L Chloride 104 (98-107) mmol/L Carbon Dioxide 25 (22-30) mmol/L Anion Gap 11 mmol/L BUN 18 H (7-17) mg/dL Creatinine 1.15 H (0.52-1.04) mg/dL Est GFR (CKD-EPI)AfAm 57 (>60 ml/min/1.73 sqM) Est GFR (CKD-EPI)NonAf 49 (>60 ml/min/1.73 sqM) Glucose 112 H (74-99) mg/dL Calcium 9.8 (8.4-10.2) mg/dL Magnesium 2.0 (1.6-2.3) mg/dL Total Bilirubin 0.4 (0.2-1.3) mg/dL AST 82 H (14-36) U/L ALT 70 H (9-52) U/L Alkaline Phosphatase 149 H (38-126) U/L Total Creatine Kinase 26 L (30-135) U/L CK-MB (CK-2) 0.5 (0.0-2.4) ng/mL CK-MB (CK-2) Rel Index 1.9 Troponin I <0.012 (0.000-0.034) ng/mL Total Protein 7.6 (6.3-8.2) g/dL Albumin 4.2 (3.5-5.0) g/dL 04/24/18 Range/Units 17:45 WBC 7.8 (3.8-10.6) k/uL RBC 4.51 (3.80-5.40) m/uL Hgb 12.0 (11.4-16.0) gm/dL Hct 39.2 (34.0-46.0) % MCV 86.8 (80.0-100.0) fL MCH 26.6 (25.0-35.0) pg MCHC 30.7 L (31.0-37.0) g/dL RDW 18.9 H (11.5-15.5) % Plt Count 216 (150-450) k/uL Neutrophils % 73 % Lymphocytes % 19 % Monocytes % 5 % Eosinophils % 2 % Basophils % 0 % Neutrophils # 5.7 (1.3-7.7) k/uL Lymphocytes # 1.5 (1.0-4.8) k/uL Monocytes # 0.4 (0-1.0) k/uL Eosinophils # 0.2 (0-0.7) k/uL Basophils # 0.0 (0-0.2) k/uL Hypochromasia Moderate Anisocytosis Slight PT (9.0-12.0) sec INR (<1.2) APTT (22.0-30.0) sec D-Dimer (<0.60) mg/L FEU Sodium (137-145) mmol/L Potassium (3.5-5.1) mmol/L Chloride (98-107) mmol/L Carbon Dioxide (22-30) mmol/L Anion Gap mmol/L BUN (7-17) mg/dL Creatinine (0.52-1.04) mg/dL Est GFR (CKD-EPI)AfAm (>60 ml/min/1.73 sqM) Est GFR (CKD-EPI)NonAf (>60 ml/min/1.73 sqM) Glucose (74-99) mg/dL Calcium (8.4-10.2) mg/dL Magnesium (1.6-2.3) mg/dL Total Bilirubin (0.2-1.3) mg/dL AST (14-36) U/L ALT (9-52) U/L Alkaline Phosphatase (38-126) U/L Total Creatine Kinase (30-135) U/L CK-MB (CK-2) (0.0-2.4) ng/mL CK-MB (CK-2) Rel Index Troponin I (0.000-0.034) ng/mL Total Protein (6.3-8.2) g/dL Albumin (3.5-5.0) g/dL - Radiology Data Radiology results: report reviewed (CT injury of the chest shows no acute process. There is coronary calcifications. There is 4.2 cm ascending aortic aneurysm.), image reviewed (Chest x-ray shows no acute) Disposition Clinical Impression: Chest pain Disposition: ADMITTED IP TO THIS HOSP Is patient prescribed a controlled substance at d/c from ED?: No Referrals: Mary Castrejon DO [Primary Care Provider] - 1-2 days Decision Time: 19:34
[2018-04-24 17:01] LABS: Creatine Kinase 26 U/L (30-135)
[2018-04-24 17:06] LABS: Albumin 4.2 g/dL (3.5-5.0); Calcium 9.8 mg/dL (8.4-10.2); Potassium 4.2 mmol/L (3.5-5.1); Total Bilirubin 0.4 mg/dL (0.2-1.3); Total Protein 7.6 g/dL (6.3-8.2)
[2018-04-24 17:14] LABS: Creatine Kinase MB 0.5 ng/mL (0.0-2.4); Troponin I <0.012 ng/mL (0.000-0.034)
[2018-04-24 17:37] LABS: D-Dimer 0.88 mg/L FEU (<0.60); Partial Thromboplastin Time 18.1 sec (22.0-30.0)
[2018-04-24] MEDS ORDERED: SODIUM CHLORIDE 0.9% 500 ML 500 ML IV STA (17:37)
[2018-04-24 18:01] LABS: Anisocytosis Slight; Basophils % (A) 0 %; Eosinophils # (A) 0.2 k/uL (0-0.7); Eosinophils % (A) 2 %; HCT 39.2 % (34.0-46.0); Hypochromasia Moderate; Lymphocytes # (A) 1.5 k/uL (1.0-4.8); Lymphocytes % (A) 19 %; MCH 26.6 pg (25.0-35.0); MCHC 30.7 g/dL (31.0-37.0); MCV 86.8 fL (80.0-100.0); Monocytes # (A) 0.4 k/uL (0-1.0); Monocytes % (A) 5 %; Neutrophils # (A) 5.7 k/uL (1.3-7.7); Neutrophils % (A) 73 %; Platelet Count 216 k/uL (150-450); RBC 4.51 m/uL (3.80-5.40); RDW 18.9 % (11.5-15.5); WBC 7.8 k/uL (3.8-10.6)
--- NOTE | 2018-04-24 19:07 | CT ---
EXAMINATION TYPE: CT angio chest with contrast and with 3-D reconstruction renderings DATE OF EXAM: 04/24/2018 6:47 PM COMPARISON: none HISTORY: chest pain, SOB CT DLP: 402.3 mGycm. Automated exposure control for dose reduction was used. CONTRAST: CTA scan of the thorax is performed with IV Contrast, patient injected with 80 mL of Isovue 370, pulmonary embolism protocol. 3-D reconstructions. FINDINGS: LUNGS/PLEURAL SPACES/AIRWAYS: The lungs are grossly clear, there is no concerning parenchymal mass or nodule identified. There is no pleural effusion or pneumothorax seen. The tracheobronchial tree is p atent. MEDIASTINUM: There is satisfactory enhancement of the pulmonary artery and its branches, there is no CT evidence for pulmonary embolism. Aorta is negative for acute findings but the descending aorta claude sures 4.2 cm caliber. There are no greater than 1 cm hilar or mediastinal lymph nodes. There is no ca rdiomegaly, but prominent left and right coronary calcifications are evident. No pericardial effusion . OTHER: No additional significant abnormality is seen. IMPRESSION: 1) NO ACUTE PROCESS. 2) PROMINENT CORONARY CALCIFICATIONS. 3) MILDLY ANEURYSMAL ASCENDING AORTA.
--- NOTE | 2018-04-24 19:09 | XR ---
EXAMINATION: XR chest 2V DATE AND TIME: 04/24/2018 4:57 PM CLINICAL INDICATION: Chest Pain TECHNIQUE: PA and lateral COMPARISON: 03/10/2018 FINDINGS: The lungs are clear. The pleural spaces are negative. The cardiac silhouette is not enlarged. The skeletal structures and soft tissues are negative for acute findings. IMPRESSION: NO ACUTE PROCESS.
[2018-04-24] MEDS ORDERED: NITROGLYCERIN SL TABS 0.4 MG TAB SUBLINGUAL PRN (19:34)
[2018-04-25 00:02] LABS: Creatine Kinase <20 U/L (30-135)
[2018-04-25 00:16] LABS: Creatine Kinase MB 0.5 ng/mL (0.0-2.4); Troponin I <0.012 ng/mL (0.000-0.034)
[2018-04-25] MEDS: NITROGLYCERIN OINT 1 INCH/GM PACKET TOPICAL SCH ×3 (00:28→11:23)
[2018-04-25 05:57] LABS: Cholesterol 159 mg/dL (<200); HDL Cholesterol 39 mg/dL (40-60); LDL Cholesterol,Calculated 102 mg/dL (0-99); Triglycerides 89 mg/dL (<150)
[2018-04-25 06:11] LABS: Creatine Kinase <20 U/L (30-135)
[2018-04-25 06:24] LABS: Creatine Kinase MB 0.4 ng/mL (0.0-2.4); Troponin I <0.012 ng/mL (0.000-0.034)
--- NOTE | 2018-04-25 09:28 | P.CRDCN ---
History of Present Illness Consult date: 04/25/18 Requesting physician: Luigi Luong Consult reason: chest pain Chief complaint: Chest pain History of present illness: This is a pleasant 67-year-old female with history of hypertension, hypothyroidism, rheumatoid arthritis, hyperlipidemia, hypothyroidism, who was in the hospital on March 12, she underwent a stress test during that admission which revealed pharmacologically-induced ischemia along the inferior wall subsequent to that patient then underwent a cardiac catheterization which revealed a chronic occlusion of the right coronary artery with [id number] collaterals, moderate stenosis in the LAD of 40-50%. Medical therapy was advised at that time. She also had an echo performed on that admission which revealed a normal left ventricular systolic function. She presents to the hospital on this occasion with symptoms of exertional chest discomfort and shortness of breath. The patient states that just walking a short distance even to her bathroom she becomes short of breath, and develops chest tightness and pressure. She states that when she sits down and relaxes the symptoms didn' t subside. She took a sublingual nitroglycerin the morning before last with relief of symptoms, she states then that she got back up to doing her regular activities and again develop chest discomfort. She took 3 sublingual nitroglycerin with no relief of symptoms. Chest x-ray on admission here did not reveal any acute process. CT of the chest did not reveal any acute process , prominent coronary calcifications, mildly aneurysmal ascending aorta. EKG shows a sinus tachycardia with occasional PACs and incomplete right bundle branch block pattern. Blood pressure 104/50 with a heart rate in the 90s, 100% on room air. White blood cell count 7.8, hemoglobin 12.0, platelet count 216. D-dimer 0.88. Sodium 140, potassium 4.2, BUN 18, creatinine 1.1. AST 82, ALT 70, troponins negative 3. At the time of my examination this morning she is currently chest pain-free, however she did state that walking to the bathroom this morning she again develop symptoms of chest tightness and shortness of breath. Past Medical History Past Medical History: Asthma, Coronary Artery Disease (CAD), Cancer, COPD, Fibromyalgia, GERD/Reflux, Hyperlipidemia, Hypertension, Osteoarthritis (OA), Rheumatoid Arthritis (RA), Thyroid Disorder Additional Past Medical History / Comment(s): HX OF COLON POLYP, AAA, PHLEBITIS , VARICOSE VEINS, REYNAUD'S, BREAST CANCER., ANEMIA. History of Any Multi-Drug Resistant Organisms: None Reported Past Surgical History: Breast Surgery, Section, Cholecystectomy, Heart Catheterization, Orthopedic Surgery, Tonsillectomy Additional Past Surgical History / Comment(s): LEFT CAROTID ENDARTECTOMY, FERNANDO CARPAL TUNNEL, FERNANDO LEGS VEIN STRIPPING, RT THYROIDECTOMY, FERNANDO BREAST SX, LEFT LUMPECTOMY , LEFT BREAST FATTY TUMOR, HEART CATH 03/13/18 @ [facility]. Past Anesthesia/Blood Transfusion Reactions: Previous Problems w/ Anesthesia Additional Past Anesthesia/Blood Transfusion Reaction / Comment(s): STATES " FELT PARALYZED CHEST AREA AND ARM" ( OVER 20 YRS AGO.) NO PROBLEM SINCE Past Psychological History: Depression Smoking Status: Former smoker Past Alcohol Use History: None Reported Past Drug Use History: None Reported - Past Family History Father Family Medical History: Cancer Additional Family Medical History / Comment(s): NON HODGKINS LYMPHOMA Brother(s) Family Medical History: Cancer Additional Family Medical History / Comment(s): prostate Medications and Allergies Home Medications Medication Instructions Recorded Confirmed Type ALPRAZolam [Xanax] 0.25 mg PO DAILY PRN 08/02/15 04/24/18 History Ascorbic Acid [Vitamin C] 1,000 mg PO DAILY 08/02/15 04/24/18 History Aspirin 81 mg PO DAILY 08/02/15 04/24/18 History Budesonide-Formot 160-4.5 Mcg 2 puff INHALATION RT-BID 08/02/15 04/24/18 History [Symbicort 160-4.5 Mcg Inhaler] Calcium Carbonate [Calcium] 600 mg PO BID 08/02/15 04/24/18 History Folic Acid 1 mg PO DAILY 08/02/15 04/24/18 History Levothyroxine Sodium [Synthroid] 50 mcg PO DAILY 08/02/15 04/24/18 History Losartan [Cozaar] 50 mg PO QAM 08/02/15 04/24/18 History Magnesium 400 mg PO DAILY 08/02/15 04/24/18 History Metoprolol Succinate (ER) [Toprol 100 mg PO AC-SUPPER 08/02/15 04/24/18 History XL] Milnacipran HCl [Savella] 50 mg PO BID 08/02/15 04/24/18 History Omeprazole [PriLOSEC] 40 mg PO DAILY 08/02/15 04/24/18 History amLODIPine [Norvasc] 10 mg PO QAM 08/02/15 04/24/18 History lamoTRIgine [LaMICtal] 150 mg PO BID 08/02/15 04/24/18 History Clopidogrel [Plavix] 75 mg PO HS 08/28/15 04/24/18 History Fluticasone Nasal [place] [Flonase 1 spr EA NOSTRIL BID PRN 08/28/15 04/24/18 History Nasal [place]] Ubidecarenone [Co Q-10] 100 mg PO DAILY 07/14/16 04/24/18 History Acetaminophen with Codeine 1 tab PO Q6H PRN 03/02/18 04/24/18 History [Tylenol w/codeine #4] Adalimumab [Humira Pen Crohn-Uc-Hs 40 mg SQ Q14D 03/02/18 04/24/18 History Starter] guaiFENesin [Mucinex] 600 mg PO Q12HR PRN 03/02/18 04/24/18 History Cholecalciferol (Vitamin D3) 1,000 unit PO DAILY 03/10/18 04/24/18 History [Vitamin D3] Ferrous Sulfate [Iron (65 MG 325 mg PO BID #60 tab 03/13/18 04/24/18 Rx Elemental)] Sucralfate [Carafate] 1 gm PO AC-TID 04/13/18 04/24/18 History Allergies Allergy/AdvReac Type Severity Reaction Status Date / Time cephalexin monohydrate Allergy Rash/Hives Verified 04/24/18 17:18 [From Keflex] ciprofloxacin [From Cipro] Allergy Rash/Hives Verified 04/24/18 17:18 etodolac [From Lodine] Allergy "inflamed Verified 04/24/18 17:18 legs" levofloxacin [From Levaquin] Allergy Rash/Hives Verified 04/24/18 17:18 lisinopril Allergy Cough Verified 04/24/18 17:18 minocycline Allergy Rash/Hives Verified 04/24/18 17:18 NSAIDS (Non-Steroidal Allergy BLURRY Verified 04/24/18 17:18 Anti-Inflamma VISION potassium clavulanate Allergy Rash/Hives Verified 04/24/18 17:18 [From Augmentin] prednisone Allergy CHEST Verified 04/24/18 17:18 PAIN/FATIGUE/FEVER/CHILLS Oogwkth-Zpy-Sxq Reductase Allergy MUSCLE PAIN Verified 04/24/18 17:18 Inhibitor sulfamethoxazole Allergy Itching Verified 04/24/18 17:18 [From Bactrim] trimethoprim [From Bactrim] Allergy Itching Verified 04/24/18 17:18 Physical Exam Vitals: Vital Signs Temp Pulse Pulse Resp BP BP Pulse Ox 04/25/18 08:00 97.7 F 94 16 103/53 100 04/25/18 06:51 98.2 F 102 H 16 125/85 97 04/25/18 05:29 97.6 F 90 19 122/86 97 04/25/18 00:28 102 H 16 122/86 97 04/24/18 21:40 117 H 16 125/93 97 04/24/18 19:33 109 H 16 122/88 99 04/24/18 17:43 105 H 18 101/67 99 04/24/18 17:04 94 16 112/67 100 04/24/18 16:15 93 16 100/75 99 04/24/18 15:24 97.9 F 117 H 18 110/78 99 Intake and Output 04/24/18 04/25/18 04/25/18 22:59 06:59 14:59 Other: Weight 97.522 kg PHYSICAL EXAMINATION: GENERAL: 67-year-old female in no acute distress at the time of my examination HEENT: Head is atraumatic, normocephalic. Pupils equal, round. Sclera anicteric. Conjunctiva are clear. Mucous membranes of the mouth are moist. Neck is supple. There is no elevated jugular venous pressure. No carotid bruit is heard. HEART EXAMINATION: Heart S1, S2 normal. No murmur or gallop heard. CHEST EXAMINATION: Lungs are clear to auscultation and precussion. No chest wall tenderness is noted on palpation or with deep breathing. ABDOMEN: Soft, nontender. Bowel sounds are heard. No organomegaly noted. EXTREMITIES: 2+ peripheral pulses with no evidence of peripheral edema and no calf tenderness noted. NEUROLOGIC patient is awake, alert and oriented 3 . . Results 04/24/18 17:45 04/24/18 16:42 Cardiac Enzymes 04/24/18 04/24/18 04/24/18 Range/Units 16:42 16:42 23:00 AST 82 H (14-36) U/L CK-MB (CK-2) 0.5 0.5 (0.0-2.4) ng/mL Troponin I <0.012 <0.012 (0.000-0.034) ng/mL 04/25/18 Range/Units 05:21 AST (14-36) U/L CK-MB (CK-2) 0.4 (0.0-2.4) ng/mL Troponin I <0.012 (0.000-0.034) ng/mL Coagulation 04/24/18 Range/Units 16:42 PT 10.0 (9.0-12.0) sec APTT 18.1 L (22.0-30.0) sec Lipids 04/25/18 Range/Units 05:21 Triglycerides 89 (<150) mg/dL Cholesterol 159 (<200) mg/dL HDL Cholesterol 39 L (40-60) mg/dL CBC 04/24/18 Range/Units 17:45 WBC 7.8 (3.8-10.6) k/uL RBC 4.51 (3.80-5.40) m/uL Hgb 12.0 (11.4-16.0) gm/dL Hct 39.2 (34.0-46.0) % Plt Count 216 (150-450) k/uL Comprehensive Metabolic Panel 04/24/18 Range/Units 16:42 Sodium 140 (137-145) mmol/L Potassium 4.2 (3.5-5.1) mmol/L Chloride 104 (98-107) mmol/L Carbon Dioxide 25 (22-30) mmol/L BUN 18 H (7-17) mg/dL Creatinine 1.15 H (0.52-1.04) mg/dL Glucose 112 H (74-99) mg/dL Calcium 9.8 (8.4-10.2) mg/dL AST 82 H (14-36) U/L ALT 70 H (9-52) U/L Alkaline Phosphatase 149 H (38-126) U/L Total Protein 7.6 (6.3-8.2) g/dL Albumin 4.2 (3.5-5.0) g/dL Current Medications Generic Name Dose Route Start Last Admin Trade Name Freq PRN Reason Stop Dose Admin Nitroglycerin 1 inch 04/24/18 23:00 04/25/18 08:09 Nitro-Bid Oint TOPICAL 1 inch Q6HR JAROD Administration Nitroglycerin 0.4 mg 04/24/18 19:34 Nitrostat SUBLINGUAL Q5M PRN Chest Pain Sodium Chloride 10 ml 04/24/18 21:00 04/25/18 08:17 Saline Flush IV 10 ml BID JAROD Administration Intake and Output 04/24/18 04/25/18 04/25/18 22:59 06:59 14:59 Other: Weight 97.522 kg 04/24/18 17:45 04/24/18 16:42 EKG Interpretations (text) EKG shows normal sinus rhythm with no acute changes. Assessment and Plan Plan: Assessment and plan #1 symptoms of exertional shortness of breath and chest discomfort, troponins negative 3. EKG shows normal sinus rhythm with no acute changes. D-dimer 0.88. CTA of the chest negative for pulmonary embolism. #2 recent positive stress test in the inferior region, cardiac cath performed at that time which was just in March it revealed a chronic total occlusion of the RCA with [id number] collaterals and moderate stenosis in the LAD, medical therapy was advised at that time. Echo performed on that admission revealed a normal left ventricular systolic function. #3 hypertension #4 hypothyroidism #5 rheumatoid arthritis #6 hyperlipidemia Plan We will maximize the patient's medication at this time. We will also discuss patient further with Dr. Cardoso regarding possibility of PRE BILLING CLINICIAN intervention. Further recommendations to follow. DNP note has been reviewed, I agree with a documented findings and plan of care. Patient was seen and examined.
[2018-04-25] MEDS ORDERED: FLUTICASONE 50MCG/SPRAY NASAL 16GM EA NOSTRIL PRN (10:44)
[2018-04-25] MEDS ORDERED: ACETAMINOPHEN WITH CODEINE PO PRN (10:44)
[2018-04-25] MEDS ORDERED: ALPRAZolam 0.25 MG TAB PO PRN (10:44)
[2018-04-25] MEDS ORDERED: guaiFENesin 600 MG TABLET.ER PO PRN (10:44)
[2018-04-25 10:59] VITALS: BMI 35.7
--- NOTE | 2018-04-25 11:01 | P.HPIM ---
History of Present Illness H&P Date: 04/25/18 Chief Complaint: chest pain This is a 67-year-old female patient of Dr. Castrejon. Patient presented emergency room with complaints of chest pain. Patient says the pain has been intermittently occurring has significantly Worsened did not improve with nitro over the past 24 hours. Patient recently admitted on March 12 she had a positive stress test and therefore underwent cardiac catheterization which revealed chronic occlusion of the right coronary artery with [id number] collaterals, moderate stenosis to the LAD of 40-50% at that time cardiology recommended optimal medical therapy. Patient has a past medical history of hypertension, hypothyroidism, rheumatoid arthritis, hyperlipidemia, fibromyalgia , abdominal aortic aneurysm, COPD, peripheral vascular disease with history of carotid endarterectomy in anemia. During last auscultation patient was found to be anemic with hemoglobin down to 8.8 patient advised to follow-up with GI services for anemia and elevated liver enzymes. Patient states she recently underwent EGD with Dr. Katz but does not have results yet. Chest x-ray completed showing no acute process. Prominent coronary calcifications. Mildly aneurysmal ascending aorta. EKG completed showing sinus tachycardia with premature atrial complexes. Cardiology services have been consulted. At this time patient denies chest pain and occasional shortness of breath with activity. Patient denies nausea vomiting or diarrhea. Patient denies any urinary burning or frequency Review of Systems Please refer to HPI otherwise unremarkable Past Medical History Past Medical History: Asthma, Coronary Artery Disease (CAD), Cancer, COPD, Fibromyalgia, GERD/Reflux, Hyperlipidemia, Hypertension, Osteoarthritis (OA), Rheumatoid Arthritis (RA), Thyroid Disorder Additional Past Medical History / Comment(s): HX OF COLON POLYP, AAA, PHLEBITIS , VARICOSE VEINS, REYNAUD'S, BREAST CANCER., ANEMIA. History of Any Multi-Drug Resistant Organisms: None Reported Past Surgical History: Breast Surgery, Section, Cholecystectomy, Heart Catheterization, Orthopedic Surgery, Tonsillectomy Additional Past Surgical History / Comment(s): LEFT CAROTID ENDARTECTOMY, FERNANDO CARPAL TUNNEL, FERNANDO LEGS VEIN STRIPPING, RT THYROIDECTOMY, FERNANDO BREAST SX, LEFT LUMPECTOMY , LEFT BREAST FATTY TUMOR, HEART CATH 03/13/18 @ [facility]. Past Anesthesia/Blood Transfusion Reactions: Previous Problems w/ Anesthesia Additional Past Anesthesia/Blood Transfusion Reaction / Comment(s): STATES " FELT PARALYZED CHEST AREA AND ARM" ( OVER 20 YRS AGO.) NO PROBLEM SINCE Past Psychological History: Depression Smoking Status: Former smoker Past Alcohol Use History: None Reported Past Drug Use History: None Reported - Past Family History Father Family Medical History: Cancer Additional Family Medical History / Comment(s): NON HODGKINS LYMPHOMA Brother(s) Family Medical History: Cancer Additional Family Medical History / Comment(s): prostate Medications and Allergies Home Medications Medication Instructions Recorded Confirmed Type ALPRAZolam [Xanax] 0.25 mg PO DAILY PRN 08/02/15 04/24/18 History Ascorbic Acid [Vitamin C] 1,000 mg PO DAILY 08/02/15 04/24/18 History Aspirin 81 mg PO DAILY 08/02/15 04/24/18 History Budesonide-Formot 160-4.5 Mcg 2 puff INHALATION RT-BID 08/02/15 04/24/18 History [Symbicort 160-4.5 Mcg Inhaler] Calcium Carbonate [Calcium] 600 mg PO BID 08/02/15 04/24/18 History Folic Acid 1 mg PO DAILY 08/02/15 04/24/18 History Levothyroxine Sodium [Synthroid] 50 mcg PO DAILY 08/02/15 04/24/18 History Losartan [Cozaar] 50 mg PO QAM 08/02/15 04/24/18 History Magnesium 400 mg PO DAILY 08/02/15 04/24/18 History Metoprolol Succinate (ER) [Toprol 100 mg PO AC-SUPPER 08/02/15 04/24/18 History XL] Milnacipran HCl [Savella] 50 mg PO BID 08/02/15 04/24/18 History Omeprazole [PriLOSEC] 40 mg PO DAILY 08/02/15 04/24/18 History amLODIPine [Norvasc] 10 mg PO QAM 08/02/15 04/24/18 History lamoTRIgine [LaMICtal] 150 mg PO BID 08/02/15 04/24/18 History Clopidogrel [Plavix] 75 mg PO HS 08/28/15 04/24/18 History Fluticasone Nasal [place] [Flonase 1 spr EA NOSTRIL BID PRN 08/28/15 04/24/18 History Nasal [place]] Ubidecarenone [Co Q-10] 100 mg PO DAILY 07/14/16 04/24/18 History Acetaminophen with Codeine 1 tab PO Q6H PRN 03/02/18 04/24/18 History [Tylenol w/codeine #4] Adalimumab [Humira Pen [place]hn-Uc-Hs 40 mg SQ Q14D 03/02/18 04/24/18 History Starter] guaiFENesin [Mucinex] 600 mg PO Q12HR PRN 03/02/18 04/24/18 History Cholecalciferol (Vitamin D3) 1,000 unit PO DAILY 03/10/18 04/24/18 History [Vitamin D3] Ferrous Sulfate [Iron (65 MG 325 mg PO BID #60 tab 03/13/18 04/24/18 Rx Elemental)] Sucralfate [Carafate] 1 gm PO AC-TID 04/13/18 04/24/18 History Allergies Allergy/AdvReac Type Severity Reaction Status Date / Time cephalexin monohydrate Allergy Rash/Hives Verified 04/24/18 17:18 [From Keflex] ciprofloxacin [From Cipro] Allergy Rash/Hives Verified 04/24/18 17:18 etodolac [From [place]] Allergy "inflamed Verified 04/24/18 17:18 legs" levofloxacin [From Levaquin] Allergy Rash/Hives Verified 04/24/18 17:18 lisinopril Allergy Cough Verified 04/24/18 17:18 minocycline Allergy Rash/Hives Verified 04/24/18 17:18 NSAIDS (Non-Steroidal Allergy BLURRY Verified 04/24/18 17:18 Anti-Inflamma VISION potassium clavulanate Allergy Rash/Hives Verified 04/24/18 17:18 [From Augmentin] prednisone Allergy CHEST Verified 04/24/18 17:18 PAIN/FATIGUE/FEVER/CHILLS Oryrlmu-Thd-Zyg Reductase Allergy MUSCLE PAIN Verified 04/24/18 17:18 Inhibitor sulfamethoxazole Allergy Itching Verified 04/24/18 17:18 [From Bactrim] trimethoprim [From Bactrim] Allergy Itching Verified 04/24/18 17:18 Physical Exam Vitals: Vital Signs Temp Pulse Pulse Resp BP BP Pulse Ox 04/25/18 08:00 97.7 F 94 16 103/53 100 04/25/18 06:51 98.2 F 102 H 16 125/85 97 04/25/18 05:29 97.6 F 90 19 122/86 97 04/25/18 00:28 102 H 16 122/86 97 04/24/18 21:40 117 H 16 125/93 97 04/24/18 19:33 109 H 16 122/88 99 04/24/18 17:43 105 H 18 101/67 99 04/24/18 17:04 94 16 112/67 100 04/24/18 16:15 93 16 100/75 99 04/24/18 15:24 97.9 F 117 H 18 110/78 99 Intake and Output 04/24/18 04/25/18 04/25/18 22:59 06:59 14:59 Intake Total 360 Balance 360 Intake: Oral 360 Other: Voiding Method Toilet Weight 97.522 kg Head normocephalic Neck supple Lungs clear to auscultation bilaterally no wheezing or crackles Heart regular rate and rhythm S1-S2, no rub or gallop Abdomen is soft nontender nondistended positive bowel sounds no hepatosplenomegaly Extremities no edema Neuro alert and orientated to 3 Results CBC & Chem 7: 04/24/18 17:45 04/24/18 16:42 Labs: Abnormal Lab Results - Last 24 Hours (Table) 04/24/18 04/24/18 04/24/18 Range/Units 16:42 16:42 16:42 MCHC (31.0-37.0) g/dL RDW (11.5-15.5) % APTT 18.1 L (22.0-30.0) sec D-Dimer 0.88 H (<0.60) mg/L FEU BUN 18 H (7-17) mg/dL Creatinine 1.15 H (0.52-1.04) mg/dL Glucose 112 H (74-99) mg/dL AST 82 H (14-36) U/L ALT 70 H (9-52) U/L Alkaline Phosphatase 149 H (38-126) U/L Total Creatine Kinase 26 L (30-135) U/L LDL Cholesterol, Calc (0-99) mg/dL HDL Cholesterol (40-60) mg/dL 04/24/18 04/24/18 04/25/18 Range/Units 17:45 23:00 05:21 MCHC 30.7 L (31.0-37.0) g/dL RDW 18.9 H (11.5-15.5) % APTT (22.0-30.0) sec D-Dimer (<0.60) mg/L FEU BUN (7-17) mg/dL Creatinine (0.52-1.04) mg/dL Glucose (74-99) mg/dL AST (14-36) U/L ALT (9-52) U/L Alkaline Phosphatase (38-126) U/L Total Creatine Kinase <20 L <20 L (30-135) U/L LDL Cholesterol, Calc (0-99) mg/dL HDL Cholesterol (40-60) mg/dL 04/25/18 Range/Units 05:21 MCHC (31.0-37.0) g/dL RDW (11.5-15.5) % APTT (22.0-30.0) sec D-Dimer (<0.60) mg/L FEU BUN (7-17) mg/dL Creatinine (0.52-1.04) mg/dL Glucose (74-99) mg/dL AST (14-36) U/L ALT (9-52) U/L Alkaline Phosphatase (38-126) U/L Total Creatine Kinase (30-135) U/L LDL Cholesterol, Calc 102 H (0-99) mg/dL HDL Cholesterol 39 L (40-60) mg/dL Assessment and Plan Assessment: 1. Chest pain. Patient recently underwent cardiac catheterization which showed chronic occlusion of the RCA with imjq-av-[id number] collaterals, moderate stenosis in the LAD of 40-50%. At that time medical management was advised. Per cardiology services will discuss further intervention with Dr. Borrego were possibility of ENGINEERING AND SCIENTIFIC PROGRAMMER intervention. 2. History of iron deficiency anemia. Patient currently on ferrous sulfate. Patient states she recently underwent EGD with Dr. Katz has not received results. Current hemoglobin 12.0 3. History of essential hypertension 4. Underlying history of peripheral vascular disease with previous history of carotid endarterectomy 5. History of COPD. No exacerbation at this time 6. History of abdominal aortic aneurysm 7. History of hypothyroidism 8. Elevated liver enzymes. During last hospitalization patient underwent a liver ultrasound showing postoperative change. Correlate for hepatic steatosis and hepatocellular disease. patient states she followed up with Dr. Katz per GI services 9. History of rheumatoid arthritis 10. Acute kidney injury. Creatinine 1.15 and bun 18. We'll continue to monitor closely. Cozaar currently on hold at this time Time with Patient: Greater than 30 (Greater than 60% of the total time spent in counseling and coordination of care. I performed an examination of the patient and discussed their management with the Nurse Practitioner. I have reviewed the Nurse Practitioner's notes and agree with the documented findings and plan of care)
[2018-04-25] MEDS: SUCRALFATE 1 GM TAB PO SCH ×2 (11:28→16:19)
[2018-04-25 11:48] LABS: Albumin 3.5 g/dL (3.5-5.0); Calcium 9.5 mg/dL (8.4-10.2); Potassium 4.4 mmol/L (3.5-5.1); Total Bilirubin 0.3 mg/dL (0.2-1.3); Total Protein 6.3 g/dL (6.3-8.2)
[2018-04-25 11:50] LABS: Anisocytosis Slight; Basophils % (A) 0 %; Eosinophils # (A) 0.1 k/uL (0-0.7); Eosinophils % (A) 1 %; HCT 37.2 % (34.0-46.0); HGB 11.2 gm/dL (11.4-16.0); Hypochromasia Marked; Lymphocytes # (A) 2.2 k/uL (1.0-4.8); Lymphocytes % (A) 32 %; MCH 27.2 pg (25.0-35.0); MCHC 30.2 g/dL (31.0-37.0); MCV 89.9 fL (80.0-100.0); Mean Platelet Volume 8.3; Monocytes # (A) 0.4 k/uL (0-1.0); Monocytes % (A) 6 %; Neutrophils % (A) 58 %; Platelet Count 200 k/uL (150-450); RBC 4.13 m/uL (3.80-5.40); RDW 19.1 % (11.5-15.5); WBC 6.9 k/uL (3.8-10.6)
[2018-04-25] MEDS: ISOSORBIDE MONONITRATE ER 60 MG TAB.ER.24H PO SCH (14:15)
[2018-04-25] MEDS: RANOLAZINE 500 MG TAB.ER.12H PO SCH ×2 (14:15→21:28)
[2018-04-25] MEDS ORDERED: METOPROLOL SUCCINATE (ER) 100 MG TAB.ER.24H PO SCH (17:30)
[2018-04-25] MEDS ORDERED: CLOPIDOGREL 75 MG TAB PO SCH (21:00)
[2018-04-25] MEDS: SYMBICORT 160-4.5 MCG INHALER INHALATION SCH (21:07)
[2018-04-25] MEDS: FERROUS SULFATE 325 MG TAB PO SCH (21:27)
[2018-04-25] MEDS: lamoTRIgine 100 MG TAB PO SCH (21:27)
[2018-04-25] MEDS: CALCIUM CARBONATE 500 MG CHEWABLE PO SCH (21:30)
[2018-04-25] MEDS: MILNACIPRAN HCL 50 MG PO SCH (21:30)
[2018-04-26 04:26] VITALS: TEMP 98.2
[2018-04-26] MEDS ORDERED: LEVOTHYROXINE 50 MCG TAB PO SCH (06:30)
[2018-04-26] MEDS: SUCRALFATE 1 GM TAB PO SCH ×2 (06:39→13:54)
[2018-04-26 07:26] LABS: Anisocytosis Slight; Basophils % (A) 1 %; Eosinophils # (A) 0.2 k/uL (0-0.7); Eosinophils % (A) 4 %; HCT 37.2 % (34.0-46.0); HGB 11.3 gm/dL (11.4-16.0); Hypochromasia Marked; Lymphocytes # (A) 1.8 k/uL (1.0-4.8); Lymphocytes % (A) 33 %; MCH 27.7 pg (25.0-35.0); MCHC 30.4 g/dL (31.0-37.0); MCV 90.9 fL (80.0-100.0); Mean Platelet Volume 7.3; Monocytes # (A) 0.3 k/uL (0-1.0); Monocytes % (A) 6 %; Neutrophils # (A) 2.9 k/uL (1.3-7.7); Neutrophils % (A) 53 %; Platelet Count 186 k/uL (150-450); RDW 18.9 % (11.5-15.5); WBC 5.4 k/uL (3.8-10.6)
[2018-04-26] MEDS ORDERED: PANTOPRAZOLE 40 MG TABLET PO SCH (07:30)
[2018-04-26 07:36] LABS: ALT 61 U/L (9-52); AST 65 U/L (14-36); Albumin 3.5 g/dL (3.5-5.0); Alkaline Phosphatase 114 U/L (38-126); Anion Gap 6 mmol/L; Blood Urea Nitrogen 16 mg/dL (7-17); Calcium 9.5 mg/dL (8.4-10.2); Carbon Dioxide 27 mmol/L (22-30); Chloride 107 mmol/L (98-107); Glucose 94 mg/dL (74-99); Potassium 4.5 mmol/L (3.5-5.1); Sodium 140 mmol/L (137-145); Total Bilirubin 0.4 mg/dL (0.2-1.3); Total Protein 6.4 g/dL (6.3-8.2)
[2018-04-26] MEDS: SYMBICORT 160-4.5 MCG INHALER INHALATION SCH (07:53)
[2018-04-26] MEDS ORDERED: amLODIPine 10 MG TAB PO SCH (09:00)
[2018-04-26] MEDS ORDERED: CHOLECALCIFEROL 1,000 UNIT TAB PO SCH (09:00)
[2018-04-26] MEDS ORDERED: ASPIRIN 81 MG PO SCH (09:00)
[2018-04-26] MEDS ORDERED: MAGNESIUM OXIDE 400 MG TAB PO SCH (09:00)
[2018-04-26] MEDS ORDERED: NON-FORMULARY DRUG (Ubidecarenone [Co Q-10] 100 MG) PO SCH (09:00)
[2018-04-26] MEDS ORDERED: ASCORBIC ACID 500 MG TAB PO SCH (09:00)
[2018-04-26] MEDS: CALCIUM CARBONATE 500 MG CHEWABLE PO SCH (09:48)
[2018-04-26] MEDS: FERROUS SULFATE 325 MG TAB PO SCH (09:48)
[2018-04-26] MEDS: RANOLAZINE 500 MG TAB.ER.12H PO SCH (09:48)
[2018-04-26] MEDS: ISOSORBIDE MONONITRATE ER 60 MG TAB.ER.24H PO SCH (09:49)
[2018-04-26] MEDS: lamoTRIgine 100 MG TAB PO SCH (09:50)
[2018-04-26 11:22] VITALS: RESP 16
[2018-04-26] MEDS ORDERED: FOLIC ACID 1 MG TAB PO SCH (12:00)
--- NOTE | 2018-04-26 13:36 | PN ---
PROGRESS NOTE HISTORY: Ms. Abebe is a 67-year-old female with a known history of coronary artery disease who presented with symptoms of chest discomfort. She is feeling well this morning. She has no discomfort. She ambulated without difficulty. Denying any chest pain. No dizziness. No palpitations. She felt tired after walking the villar. Otherwise, she continues on amlodipine 10 mg daily, aspirin 81 mg daily, Plavix 75 mg daily, isosorbide mononitrate 60 mg daily, metoprolol succinate 100 mg daily, and Ranexa 500 mg twice a day. PHYSICAL EXAMINATION: Blood pressure 160/70 with a heart in the 60s. LUNGS: Clear. HEART: S1, S2. No S3. No rub. ABDOMEN: Soft, nontender. EXTREMITIES: No edema. LAB DATA: Revealed BUN and creatinine 16 and 0.7, potassium 4.5. IMPRESSION: 1. Chronic stable angina pectoris with known occluded right coronary artery. 2. Hypertension. 3. Hyperlipidemia. RECOMMENDATIONS: Patient will continue present therapy. Increase her level of activity. If she is stable, I would expect she should be able to be discharged home today and follow up as an outpatient with Dr. Cardoso. MMINGRISL / CHELSYN: [id number] /
[2018-04-26] MEDS: MILNACIPRAN HCL 50 MG PO SCH (13:43)
[2018-04-26 13:56] VITALS: BP 112/67; PULSE 60
--- NOTE | 2018-04-26 14:12 | P.DS ---
Providers Date of admission: 04/26/18 05:24 Expected date of discharge: 04/26/18 Attending physician: Luigi Luong Consults: 04/24/18 19:34 Consult Physician Urgent Consulting Provider: Nehemias Nelson Consult Reason/Comments: cp Do you want consulting provider notified?: Yes Primary care physician: Mary Castrejon Hospital Course: Diagnoses on Discharge: 1. Chest pain. Patient recently underwent cardiac catheterization which showed chronic occlusion of the RCA with [id number] collaterals, moderate stenosis in the LAD of 40-50%. At that time medical management was advised. Per cardiology services will discuss further intervention with Dr. Borrego were possibility of GEAR LAPPER intervention. 2. History of iron deficiency anemia. Patient currently on ferrous sulfate. Patient states she recently underwent EGD with Dr. Katz has not received results. Current hemoglobin 12.0 3. History of essential hypertension 4. Underlying history of peripheral vascular disease with previous history of carotid endarterectomy 5. History of COPD. No exacerbation at this time 6. History of abdominal aortic aneurysm 7. History of hypothyroidism 8. Elevated liver enzymes. During last hospitalization patient underwent a liver ultrasound showing postoperative change. Correlate for hepatic steatosis and hepatocellular disease. patient states she followed up with Dr. Katz per GI services 9. History of rheumatoid arthritis 10. Acute kidney injury. Creatinine 1.15 and bun 18. We'll continue to monitor closely. Chary currently on hold at this time Hospital course: This is a 67-year-old female patient of Dr. Castrejon. Patient presented emergency room with complaints of chest pain. Patient says the pain has been intermittently occurring has significantly Worsened did not improve with nitro over the past 24 hours. Patient recently admitted on March 12 she had a positive stress test and therefore underwent cardiac catheterization which revealed chronic occlusion of the right coronary artery with [id number] collaterals, moderate stenosis to the LAD of 40-50% at that time cardiology recommended optimal medical therapy. Patient has a past medical history of hypertension, hypothyroidism, rheumatoid arthritis, hyperlipidemia, fibromyalgia , abdominal aortic aneurysm, COPD, peripheral vascular disease with history of carotid endarterectomy in anemia. During last auscultation patient was found to be anemic with hemoglobin down to 8.8 patient advised to follow-up with GI services for anemia and elevated liver enzymes. Patient states she recently underwent EGD with Dr. Katz but does not have results yet. Chest x-ray completed showing no acute process. Prominent coronary calcifications. Mildly aneurysmal ascending aorta. EKG completed showing sinus tachycardia with premature atrial complexes. Cardiology services have been consulted. At this time patient denies chest pain and occasional shortness of breath with activity. Patient denies nausea vomiting or diarrhea. Patient denies any urinary burning or frequency. 04/26/2018 patient was seen and examined on the telemetry floor she is alert and oriented 3 in no apparent distress she is able to ambulate without difficulty she denies any chest pain or shortness of breath she was evaluated by cardiology Imdur 60 mg was added to her medication regimen and the Ranexa 500 mg by mouth twice daily was also added to her regimen. Patient was cleared for discharge by cardiology, she will be followed by her primary care physician within 2-3 days, she will also follow-up with her portable router operator Dr. Lyudmila Cardoso within one week Plan - Discharge Summary Discharge Rx Participant: No New Discharge Prescriptions: New Isosorbide Mononitrate ER [Imdur] 60 mg PO DAILY tab.er.24h Nitroglycerin Sl Tabs [Nitrostat] 0.4 mg SUBLINGUAL Q5M PRN tab PRN Reason: Chest Pain Ranolazine [Ranexa] 500 mg PO Q12HR tab.er.12h Continue Metoprolol Succinate (ER) [Toprol XL] 100 mg PO AC-SUPPER amLODIPine [Norvasc] 10 mg PO QAM Levothyroxine Sodium [Synthroid] 50 mcg PO DAILY Aspirin 81 mg PO DAILY Calcium Carbonate [Calcium] 600 mg PO BID Magnesium 400 mg PO DAILY ALPRAZolam [Xanax] 0.25 mg PO DAILY PRN PRN Reason: Anxiety Omeprazole [PriLOSEC] 40 mg PO DAILY Budesonide-Formot 160-4.5 Mcg [Symbicort 160-4.5 Mcg Inhaler] 2 puff INHALATION RT-BID lamoTRIgine [LaMICtal] 150 mg PO BID Milnacipran HCl [Savella] 50 mg PO BID Folic Acid 1 mg PO DAILY Ascorbic Acid [Vitamin C] 1,000 mg PO DAILY Fluticasone Nasal [place] [Flonase Nasal [place]] 1 spr EA NOSTRIL BID PRN PRN Reason: Allergy Symptoms Clopidogrel [Plavix] 75 mg PO HS Ubidecarenone [Co Q-10] 100 mg PO DAILY guaiFENesin [Mucinex] 600 mg PO Q12HR PRN PRN Reason: MUCOUS Adalimumab [Humira Pen Crohn-Uc-Hs Starter] 40 mg SQ Q14D Acetaminophen with Codeine [Tylenol w/codeine #4] 1 tab PO Q6H PRN PRN Reason: Pain Cholecalciferol (Vitamin D3) [Vitamin D3] 1,000 unit PO DAILY Ferrous Sulfate [Iron (65 MG Elemental)] 325 mg PO BID #60 tab Sucralfate [Carafate] 1 gm PO AC-TID Discontinued Losartan [Cozaar] 50 mg PO QAM Discharge Medication List ALPRAZolam [Xanax] 0.25 mg PO DAILY PRN 08/02/15 [History] Ascorbic Acid [Vitamin C] 1,000 mg PO DAILY 08/02/15 [History] Aspirin 81 mg PO DAILY 08/02/15 [History] Budesonide-Formot 160-4.5 Mcg [Symbicort 160-4.5 Mcg Inhaler] 2 puff INHALATION RT-BID 08/02/15 [History] Calcium Carbonate [Calcium] 600 mg PO BID 08/02/15 [History] Folic Acid 1 mg PO DAILY 08/02/15 [History] Levothyroxine Sodium [Synthroid] 50 mcg PO DAILY 08/02/15 [History] Magnesium 400 mg PO DAILY 08/02/15 [History] Metoprolol Succinate (ER) [Toprol XL] 100 mg PO AC-SUPPER 08/02/15 [History] Milnacipran HCl [Savella] 50 mg PO BID 08/02/15 [History] Omeprazole [PriLOSEC] 40 mg PO DAILY 08/02/15 [History] amLODIPine [Norvasc] 10 mg PO QAM 08/02/15 [History] lamoTRIgine [LaMICtal] 150 mg PO BID 08/02/15 [History] Clopidogrel [Plavix] 75 mg PO HS 08/28/15 [History] Fluticasone Nasal [place] [Flonase Nasal [place]] 1 spr EA NOSTRIL BID PRN 08/28/15 [History] Ubidecarenone [Co Q-10] 100 mg PO DAILY 07/14/16 [History] Acetaminophen with Codeine [Tylenol w/codeine #4] 1 tab PO Q6H PRN 03/02/18 [ History] Adalimumab [Humira Pen Crohn-Uc-Hs Starter] 40 mg SQ Q14D 03/02/18 [History] guaiFENesin [Mucinex] 600 mg PO Q12HR PRN 03/02/18 [History] Cholecalciferol (Vitamin D3) [Vitamin D3] 1,000 unit PO DAILY 03/10/18 [History] Ferrous Sulfate [Iron (65 MG Elemental)] 325 mg PO BID #60 tab 03/13/18 [Rx] Sucralfate [Carafate] 1 gm PO AC-TID 04/13/18 [History] Isosorbide Mononitrate ER [Imdur] 60 mg PO DAILY tab.er.24h 04/26/18 [Rx] Nitroglycerin Sl Tabs [Nitrostat] 0.4 mg SUBLINGUAL Q5M PRN tab 04/26/18 [Rx] Ranolazine [Ranexa] 500 mg PO Q12HR tab.er.12h 04/26/18 [Rx] Follow up Appointment(s)/Referral(s): Mary Castrejon DO [Primary Care Provider] - 1-2 days (Please make follow up appointments during normal business hours. ) Robert Cardoso MD [STAFF PHYSICIAN] - 1 Week (Please make follow up appointments during normal business hours. ) Patient Instructions/Handouts: Chest Pain (DC), Heart Healthy Diet (DC)
== END 2018-04-26 15:30 | disposition home or self-care (01) | DRG 303 ==
LOC: EC 15:15 → 1SOBS 19:34 → 3SCARD 04-25 05:56 → OBSVTOIN 04-26 05:24
PROVIDERS: ADMIT Internal Medicine; ATTEND Internal Medicine
DX: I25.118 Atherosclerotic heart disease of native coronary artery with other forms of angina pectoris (principal); N17.9 Acute kidney failure, unspecified; K50.90 Crohn's disease, unspecified, without complications; I25.82 Chronic total occlusion of coronary artery; J44.9 Chronic obstructive pulmonary disease, unspecified; I49.1 Atrial premature depolarization; F32.9 Major depressive disorder, single episode, unspecified; I45.10 Unspecified right bundle-branch block; D50.9 Iron deficiency anemia, unspecified; I10 Essential (primary) hypertension; E89.0 Postprocedural hypothyroidism; M79.7 Fibromyalgia; K21.9 Gastro-esophageal reflux disease without esophagitis; E78.5 Hyperlipidemia, unspecified; M19.90 Unspecified osteoarthritis, unspecified site; I83.90 Asymptomatic varicose veins of unspecified lower extremity; I71.4 Abdominal aortic aneurysm, without rupture; I73.00 Raynaud's syndrome without gangrene; M06.9 Rheumatoid arthritis, unspecified; R74.8 Abnormal levels of other serum enzymes; Z79.02 Long term (current) use of antithrombotics/antiplatelets; Z79.82 Long term (current) use of aspirin; Z79.890 Hormone replacement therapy; Z79.51 Long term (current) use of inhaled steroids; Z79.899 Other long term (current) drug therapy; Z87.891 Personal history of nicotine dependence; Z86.79 Personal history of other diseases of the circulatory system; Z86.010 Personal history of colon polyps; Z85.3 Personal history of malignant neoplasm of breast; Z90.49 Acquired absence of other specified parts of digestive tract; Z86.72 Personal history of thrombophlebitis; Z88.1 Allergy status to other antibiotic agents; Z88.2 Allergy status to sulfonamides; Z88.8 Allergy status to other drugs, medicaments and biological substances; Z80.7 Family history of other malignant neoplasms of lymphoid, hematopoietic and related tissues; Z80.42 Family history of malignant neoplasm of prostate
CPT/HCPCS: 36415; 71046; 71275; 80053; 80061; 82550; 82553; 83735; 84484; 85025; 85379; 85610; 85730; 93005; 94640; 99285

== ENCOUNTER → 2018-06-18 | Outpatient (CLI) | payer MEDICARE, OTHER ==
--- NOTE | 2018-06-22 13:55 | MM ---
Reason for exam: additional evaluation requested from prior study. Last mammogram was performed 1 year and 3 months ago. History: Patient is postmenopausal, has history of breast cancer at age 47, has history of high-risk lesion on a previous biopsy at age 47, and had first child at age 39. Family history of breast cancer in maternal aunt at age 70, premenopausal breast cancer in paternal cousin at age 30, and breast cancer in paternal aunt at age 70. Excisional biopsy of the left breast, March 12, 1998. Core biopsy of the left breast, March 03, 1998. High risk stereotactic core biopsy of the left breast, March 03, 1998. Lumpectomy of the left breast. Took hormonal contraceptives for 12 years beginning at age 19. Physical Findings: Nurse did not find any significant physical abnormalities on exam. MG 3D Diag Mammo W/Cad FERNANDO Bilateral CC and MLO view(s) were taken. Prior study comparison: March 13, 2017, bilateral MG 3d diag mammo w/cad FERNANDO. February 01, 2016, bilateral MG diagnostic mammo w CAD FERNANDO. There are scattered fibroglandular densities. There is a benign-appearing stable left dystrophic calcification. Stable right upper outer quadrant focal asymmetry from the prior. These results were verbally communicated with the patient and result sheet given to the patient on 06/18/18. ASSESSMENT: Benign, BI-RAD 2 RECOMMENDATION: Routine screening mammogram of both breasts in 1 year.
== END ==
LOC: RADMAMWWP 10:36
PROVIDERS: ATTEND Family Medicine
DX: Z12.31 Encounter for screening mammogram for malignant neoplasm of breast (principal); Z85.3 Personal history of malignant neoplasm of breast
CPT/HCPCS: 77066; G0279; 77062

== ENCOUNTER 2018-07-20 11:20 | Observation (INO) | payer MEDICARE, OTHER ==
--- NOTE | 2018-07-20 11:50 | ED ---
Chest Pain HPI - General Chief Complaint: Chest Pain Stated Complaint: Chest pain, Dizzy, SOB Time Seen by Provider: 07/20/18 11:31 Source: patient, RN notes reviewed Mode of arrival: ambulatory Limitations: no limitations - History of Present Illness Initial Comments: This is a 67-year-old female who presents with complaints of one week of dizziness and exertional dyspnea. She also states she had a headache some nausea palpitations in states in both arms felt cold and numb today. She states she recently started a new anticholesterol medication just prior to the symptoms starting. She also additionally states that she had a cardiac cath done at [facility] at the beginning of this month there were unable to perform whatever procedure there trying to perform she states. She is scheduled for re-eval next week. No fevers chills nausea vomiting sweats or other symptoms reported MD Complaint: chest pain, other - Related Data Home Medications Medication Instructions Recorded Confirmed ALPRAZolam [Xanax] 0.125 mg PO DAILY PRN 08/02/15 07/20/18 Ascorbic Acid [Vitamin C] 1,000 mg PO DAILY 08/02/15 07/20/18 Budesonide-Formot 160-4.5 Mcg 2 puff INHALATION RT-BID 08/02/15 07/20/18 [Symbicort 160-4.5 Mcg Inhaler] Calcium Carbonate [Calcium] 600 mg PO BID 08/02/15 07/20/18 Folic Acid 1 mg PO DAILY 08/02/15 07/20/18 Levothyroxine Sodium [Synthroid] 50 mcg PO DAILY 08/02/15 07/20/18 Magnesium 400 mg PO DAILY 08/02/15 07/20/18 Metoprolol Succinate (ER) [Toprol 100 mg PO AC-SUPPER 08/02/15 07/20/18 XL] Milnacipran HCl [Savella] 50 mg PO BID 08/02/15 07/20/18 amLODIPine [Norvasc] 10 mg PO QAM 08/02/15 07/20/18 lamoTRIgine [LaMICtal] 150 mg PO BID 08/02/15 07/20/18 Clopidogrel [Plavix] 75 mg PO HS 08/28/15 07/20/18 Fluticasone Nasal [place] [Flonase 1 spr EA NOSTRIL BID PRN 08/28/15 07/20/18 Nasal [place]] Ubidecarenone [Co Q-10] 100 mg PO DAILY 07/14/16 07/20/18 Acetaminophen with Codeine 1 tab PO Q6H PRN 03/02/18 07/20/18 [Tylenol w/codeine #4] Adalimumab [Humira Pen 40 mg SQ Q14D 03/02/18 07/20/18 Crohn's-Uc-Hs] guaiFENesin [Mucinex] 600 mg PO Q12HR PRN 03/02/18 07/20/18 Sucralfate [Carafate] 1 gm PO AC-TID 04/13/18 07/20/18 Cholecalciferol [Vitamin D3] 5,000 unit PO DAILY 07/20/18 07/20/18 Evolocumab [Repatha Sureclick] 140 mg SQ Q14D 07/20/18 07/20/18 Losartan Potassium 100 mg PO DAILY 07/20/18 07/20/18 Omeprazole 40 mg PO DAILY 07/20/18 07/20/18 Previous Rx's Medication Instructions Recorded Ferrous Sulfate [Iron (65 MG 325 mg PO BID #60 tab 03/13/18 Elemental)] Isosorbide Mononitrate ER [Imdur] 60 mg PO DAILY tab.er.24h 04/26/18 Nitroglycerin Sl Tabs [Nitrostat] 0.4 mg SUBLINGUAL Q5M PRN tab 04/26/18 Ranolazine [Ranexa] 500 mg PO Q12HR tab.er.12h 04/26/18 Allergies Allergy/AdvReac Type Severity Reaction Status Date / Time cephalexin monohydrate Allergy Rash/Hives Verified 07/20/18 12:16 [From Keflex] ciprofloxacin [From Cipro] Allergy Rash/Hives Verified 07/20/18 12:16 etodolac [From Lodine] Allergy "inflamed Verified 07/20/18 12:16 legs" levofloxacin [From Levaquin] Allergy Rash/Hives Verified 07/20/18 12:16 lisinopril Allergy Cough Verified 07/20/18 12:16 minocycline Allergy Rash/Hives Verified 07/20/18 12:16 NSAIDS (Non-Steroidal Allergy BLURRY Verified 07/20/18 12:16 Anti-Inflamma VISION potassium clavulanate Allergy Rash/Hives Verified 07/20/18 12:16 [From Augmentin] prednisone Allergy CHEST Verified 07/20/18 12:16 PAIN/FATIGUE/FEVER/CHILLS Hstkelc-Mix-Bdk Reductase Allergy MUSCLE PAIN Verified 07/20/18 12:16 Inhibitor sulfamethoxazole Allergy Itching Verified 07/20/18 12:16 [From Bactrim] trimethoprim [From Bactrim] Allergy Itching Verified 07/20/18 12:16 Review of Systems ROS Statement: Those systems with pertinent positive or pertinent negative responses have been documented in the HPI. ROS Other: All systems not noted in ROS Statement are negative. EKG Findings - EKG Results: EKG: interpreted by ERMD, sinus rhythm (Normal sinus rhythm a 73. Interval 162 QRS 86 QT since QTC 32/420 artifact present no acute ST-T wave changes) Past Medical History Past Medical History: Asthma, Coronary Artery Disease (CAD), Cancer, COPD, Fibromyalgia, GERD/Reflux, Hyperlipidemia, Hypertension, Osteoarthritis (OA), Rheumatoid Arthritis (RA), Thyroid Disorder Additional Past Medical History / Comment(s): HX OF COLON POLYP, AAA, PHLEBITIS , VARICOSE VEINS, REYNAUD'S, BREAST CANCER., ANEMIA. History of Any Multi-Drug Resistant Organisms: None Reported Past Surgical History: Breast Surgery, Section, Cholecystectomy, Heart Catheterization, Orthopedic Surgery, Tonsillectomy Additional Past Surgical History / Comment(s): LEFT CAROTID ENDARTECTOMY, FERNANDO CARPAL TUNNEL, FERNANDO LEGS VEIN STRIPPING, RT THYROIDECTOMY, FERNANDO BREAST SX, LEFT LUMPECTOMY , LEFT BREAST FATTY TUMOR, HEART CATH 03/13/18 @ [facility]. Past Anesthesia/Blood Transfusion Reactions: Previous Problems w/ Anesthesia Additional Past Anesthesia/Blood Transfusion Reaction / Comment(s): STATES " FELT PARALYZED CHEST AREA AND ARM" ( OVER 20 YRS AGO.) NO PROBLEM SINCE Past Psychological History: Depression Smoking Status: Former smoker Past Alcohol Use History: None Reported Past Drug Use History: None Reported - Past Family History Father Family Medical History: Cancer Additional Family Medical History / Comment(s): NON HODGKINS LYMPHOMA Brother(s) Family Medical History: Cancer Additional Family Medical History / Comment(s): prostate General Exam - General Exam Comments Initial Comments: Is a well-developed well-nourished awake alert oriented 3 female Limitations: no limitations General appearance: alert, anxious Head exam: Present: atraumatic, normocephalic, normal inspection Eye exam: Present: normal appearance, PERRL, EOMI. Absent: scleral icterus, conjunctival injection, periorbital swelling ENT exam: Present: normal exam, mucous membranes moist Neck exam: Present: normal inspection. Absent: tenderness, meningismus, lymphadenopathy Respiratory exam: Present: normal lung sounds bilaterally. Absent: respiratory distress, wheezes, rales, rhonchi, stridor Cardiovascular Exam: Present: regular rate, normal rhythm, normal heart sounds. Absent: systolic murmur, diastolic murmur, rubs, gallop, clicks GI/Abdominal exam: Present: soft, normal bowel sounds. Absent: distended, tenderness, guarding, rebound, rigid Extremities exam: Present: normal inspection, full ROM, normal capillary refill. Absent: tenderness, pedal edema, joint swelling, calf tenderness Back exam: Present: normal inspection Neurological exam: Present: alert, oriented X3, CN II-XII intact Psychiatric exam: Present: normal affect, normal mood Skin exam: Present: warm, dry, intact, normal color. Absent: rash Course Vital Signs 07/20/18 07/20/18 07/20/18 11:22 11:30 12:00 Temperature 97.9 F Pulse Rate 79 Respiratory 20 64 H Rate Blood Pressure 105/73 111/76 O2 Sat by Pulse 99 99 Oximetry 07/20/18 07/20/18 07/20/18 12:30 14:00 14:30 Temperature Pulse Rate 75 73 75 Respiratory 18 14 18 Rate Blood Pressure 83/64 110/81 O2 Sat by Pulse 100 Oximetry 07/20/18 07/20/18 15:00 15:30 Temperature Pulse Rate Respiratory 30 H Rate Blood Pressure 82/54 87/63 O2 Sat by Pulse 100 Oximetry Chest Pain MDM - MDM I did discuss findings with the patient including the CAT scan results. She does admit that she's been having increased exertional dyspnea. I did discuss case with Dr. Luong patient will be admitted with consultation by Dr. Cardoso with the patient's work from home. Disposition Clinical Impression: Unstable angina pectoris, Exertional dyspnea, Elevated d-dimer Disposition: ADMITTED IP TO THIS [facility] Condition: Stable Referrals: Mary Castrejon DO [Primary Care Provider] - 1-2 days
[2018-07-20 12:01] LABS: Anisocytosis Slight; Basophils # (A) 0.1 k/uL (0-0.2); Basophils % (A) 1 %; Eosinophils # (A) 0.1 k/uL (0-0.7); Eosinophils % (A) 2 %; HCT 34.9 % (34.0-46.0); HGB 10.9 gm/dL (11.4-16.0); Hypochromasia Slight; Lymphocytes # (A) 1.4 k/uL (1.0-4.8); Lymphocytes % (A) 21 %; MCH 29.7 pg (25.0-35.0); MCHC 31.3 g/dL (31.0-37.0); MCV 94.9 fL (80.0-100.0); Mean Platelet Volume 7.1; Monocytes # (A) 0.3 k/uL (0-1.0); Monocytes % (A) 4 %; Neutrophils # (A) 4.7 k/uL (1.3-7.7); Neutrophils % (A) 70 %; Platelet Count 269 k/uL (150-450); RBC 3.68 m/uL (3.80-5.40); RDW 16.7 % (11.5-15.5); WBC 6.7 k/uL (3.8-10.6)
--- NOTE | 2018-07-20 12:15 | XR ---
EXAMINATION TYPE: XR chest 2V DATE OF EXAM: 07/20/2018 COMPARISON: Prior chest x-ray 04/24/[address] chest 04/24/2018 HISTORY: Chest pain TECHNIQUE: Frontal and lateral views of the chest are obtained. FINDINGS: Patient is rotated. There is no focal air space opacity, pleural effusion, or pneumothorax seen. The cardiac silhouette size is stable. The osseous structures are intact. There are cardiac leads. Right hemidiaphragm is chronically elevated. Aorta is dense, aneurysmal and tortuous. IMPRESSION: No acute cardiopulmonary process.
[2018-07-20 12:21] LABS: Calcium 9.6 mg/dL (8.4-10.2); Magnesium 1.9 mg/dL (1.6-2.3); Potassium 4.2 mmol/L (3.5-5.1); Total Bilirubin 0.6 mg/dL (0.2-1.3); Total Protein 6.6 g/dL (6.3-8.2)
[2018-07-20 12:29] LABS: Creatine Kinase 25 U/L (30-135)
[2018-07-20 12:40] LABS: Creatine Kinase MB 0.5 ng/mL (0.0-2.4); Troponin I <0.012 ng/mL (0.000-0.034)
[2018-07-20 12:41] LABS: INR 0.9 (<1.2)
[2018-07-20 12:47] LABS: D-Dimer 1.59 mg/L FEU (<0.60)
[2018-07-20] MEDS ORDERED: SODIUM CHLORIDE 0.9% 1,000 ML IV STA (15:20)
--- NOTE | 2018-07-20 16:44 | CT ---
CT CHEST FOR PULMONARY EMBOLISM. EXAMINATION TYPE: CT angio chest DATE OF EXAM: 07/20/2018 INDICATION: chest pain CT DLP: 315.4 mGycm, Automated exposure control for dose reduction was used. CONTRAST: Patient injected with 100 mL of Isovue 370. COMPARISON: 04/24/2018 TECHNIQUE: CT of the chest is performed on a spiral scan at 2 mm thick sections. Study is performed with intravenous contrast timed for evaluation for pulmonary embolism. This will limit additional po rtions of the evaluation. 3-D MIP images reconstructed by the technologist are reviewed on the compu ter in the coronal and sagittal planes. FINDINGS: No persistent filling defects are evident to suggest an acute pulmonary embolism. No mediastinal or hilar adenopathy enlarged by CT criteria is evident. The ascending aorta diameter at the level of the main pulmonary artery is 4.2 cm. This is stable from prior study. The main pulmo nary artery diameter at the bifurcation is 2.6 cm. Lung windows are clear. Limited CT section through the upper abdomen are unremarkable. IMPRESSIONS: 1. No acute pulmonary embolism. 2. Ascending thoracic aortic aneurysm currently measuring 4.2 cm.
[2018-07-20] MEDS ORDERED: HEPARIN SODIUM,PORCINE 5,000 UNIT/ML 1 ML VIAL IV ONE (17:19)
[2018-07-20] MEDS ORDERED: NITROGLYCERIN SL TABS 0.4 MG TAB SUBLINGUAL PRN (17:19)
[2018-07-20] MEDS ORDERED: guaiFENesin 600 MG TABLET.ER PO PRN (17:22)
[2018-07-20] MEDS ORDERED: Acetaminophen-Codeine 300-30mg TAB PO PRN (17:22)
[2018-07-20] MEDS ORDERED: ALPRAZolam 0.25 MG TAB PO PRN (17:22)
[2018-07-20] MEDS ORDERED: FLUTICASONE 50MCG/SPRAY NASAL 16GM EA NOSTRIL PRN (17:22)
[2018-07-20] MEDS ORDERED: HEPARIN SOD,PORK IN 0.45% NACL 25,000 UNIT in 0.45% NACL 1 250ML.BAG IV SCH (17:30)
[2018-07-20] MEDS: SYMBICORT 160-4.5 MCG INHALER INHALATION SCH (18:52)
[2018-07-20 19:00] LABS: Creatine Kinase 23 U/L (30-135)
[2018-07-20] MEDS ORDERED: METOPROLOL SUCCINATE (ER) 100 MG TAB.ER.24H PO SCH (19:00)
[2018-07-20 19:13] LABS: Creatine Kinase MB 0.4 ng/mL (0.0-2.4); Troponin I <0.012 ng/mL (0.000-0.034)
[2018-07-20] MEDS ORDERED: CLOPIDOGREL 75 MG TAB PO SCH (21:00)
[2018-07-20 21:27] VITALS: BMI 37.0
[2018-07-20] MEDS: FERROUS SULFATE 325 MG TAB PO SCH (21:31)
[2018-07-20] MEDS: lamoTRIgine 100 MG TAB PO SCH (21:31)
[2018-07-20] MEDS: RANOLAZINE 500 MG TAB.ER.12H PO SCH (21:31)
[2018-07-20] MEDS: CALCIUM CARBONATE 500 MG CHEWABLE PO SCH (21:31)
[2018-07-20] MEDS: SUCRALFATE 1 GM TAB PO SCH (21:32)
[2018-07-21 00:02] LABS: Creatine Kinase 24 U/L (30-135)
[2018-07-21 00:15] LABS: Creatine Kinase MB 0.6 ng/mL (0.0-2.4); Troponin I <0.012 ng/mL (0.000-0.034)
[2018-07-21 00:51] LABS: Cholesterol 139 mg/dL (<200); HDL Cholesterol 43 mg/dL (40-60); LDL Cholesterol,Calculated 71 mg/dL (0-99); Triglycerides 125 mg/dL (<150)
[2018-07-21] MEDS ORDERED: LEVOTHYROXINE 50 MCG TAB PO SCH (06:30)
[2018-07-21] MEDS ORDERED: PANTOPRAZOLE 40 MG TABLET PO SCH (07:30)
[2018-07-21] MEDS: SYMBICORT 160-4.5 MCG INHALER INHALATION SCH (07:47)
[2018-07-21] MEDS ORDERED: MAGNESIUM OXIDE 400 MG TAB PO SCH (09:00)
[2018-07-21] MEDS ORDERED: ASCORBIC ACID 500 MG TAB PO SCH (09:00)
[2018-07-21] MEDS ORDERED: ISOSORBIDE MONONITRATE ER 60 MG TAB.ER.24H PO SCH (09:00)
[2018-07-21] MEDS ORDERED: amLODIPine 10 MG TAB PO SCH (09:00)
[2018-07-21] MEDS ORDERED: LOSARTAN 50 MG TAB PO SCH (09:00)
[2018-07-21] MEDS ORDERED: ASPIRIN 325 MG TAB PO SCH (09:00)
--- NOTE | 2018-07-21 10:35 | P.HPIM ---
History of Present Illness H&P Date: 07/21/18 This is a 59-year-old female patient of Dr. Castrejon. Patient presented to hospital with complaints of chest pain with shortness of breath diet been occurring for 3 days. Patient reports that she had a heart [facility] but Was Unable to Report the Details of the Findings. Additional Medical History Includes Asthma, CAD, Cancer, COPD, Fibromyalgia, GERD, Anemia, Hypertension, Osteoporosis, Rheumatoid Arthritis, Thyroid Disorder, AAA and Depression. Chest x-ray completed in ER showing no acute cardiopulmonary process. Chest CTA completed due to elevated d-dimer showing no acute pulmonary embolism. Ascending thoracic aortic aneurysm currently measuring 4.2 cm. EKG completed showing normal sinus rhythm. Normal EKG. Patient has been started on heparin drip. Cardiology services have been consulted. Discussed with nursing staff to obtain records from [facility]. At this time patient denies chest pain or shortness breath. Patient denies nausea vomiting or diarrhea. Patient denies any urinary burning or frequency. Review of Systems Please refer to HPI otherwise unremarkable Past Medical History Past Medical History: Asthma, Coronary Artery Disease (CAD), Cancer, COPD, Fibromyalgia, GERD/Reflux, Hyperlipidemia, Hypertension, Osteoarthritis (OA), Rheumatoid Arthritis (RA), Thyroid Disorder Additional Past Medical History / Comment(s): HX OF COLON POLYP, AAA, PHLEBITIS , VARICOSE VEINS, REYNAUD'S, BREAST CANCER., ANEMIA. History of Any Multi-Drug Resistant Organisms: None Reported Past Surgical History: Breast Surgery, Section, Cholecystectomy, Heart Catheterization, Orthopedic Surgery, Tonsillectomy Additional Past Surgical History / Comment(s): LEFT CAROTID ENDARTECTOMY, FERNANDO CARPAL TUNNEL, FERNANDO LEGS VEIN STRIPPING, RT THYROIDECTOMY, FERNANDO BREAST SX, LEFT LUMPECTOMY , LEFT BREAST FATTY TUMOR, HEART CATH 03/13/18 @ [facility]. Past Anesthesia/Blood Transfusion Reactions: Previous Problems w/ Anesthesia Additional Past Anesthesia/Blood Transfusion Reaction / Comment(s): STATES " FELT PARALYZED CHEST AREA AND ARM" ( OVER 20 YRS AGO.) NO PROBLEM SINCE Smoking Status: Never smoker - Past Family History Father Family Medical History: Cancer Additional Family Medical History / Comment(s): NON HODGKINS LYMPHOMA Brother(s) Family Medical History: Cancer Additional Family Medical History / Comment(s): prostate Medications and Allergies Home Medications Medication Instructions Recorded Confirmed Type ALPRAZolam [Xanax] 0.125 mg PO DAILY PRN 08/02/15 07/20/18 History Ascorbic Acid [Vitamin C] 1,000 mg PO DAILY 08/02/15 07/20/18 History Budesonide-Formot 160-4.5 Mcg 2 puff INHALATION RT-BID 08/02/15 07/20/18 History [Symbicort 160-4.5 Mcg Inhaler] Calcium Carbonate [Calcium] 600 mg PO BID 08/02/15 07/20/18 History Folic Acid 1 mg PO DAILY 08/02/15 07/20/18 History Levothyroxine Sodium [Synthroid] 50 mcg PO DAILY 08/02/15 07/20/18 History Magnesium 400 mg PO DAILY 08/02/15 07/20/18 History Metoprolol Succinate (ER) [Toprol 100 mg PO AC-SUPPER 08/02/15 07/20/18 History XL] Milnacipran HCl [Savella] 50 mg PO BID 08/02/15 07/20/18 History amLODIPine [Norvasc] 10 mg PO QAM 08/02/15 07/20/18 History lamoTRIgine [LaMICtal] 150 mg PO BID 08/02/15 07/20/18 History Clopidogrel [Plavix] 75 mg PO HS 08/28/15 07/20/18 History Fluticasone Nasal [place] [Flonase 1 spr EA NOSTRIL BID PRN 08/28/15 07/20/18 History Nasal [place]] Ubidecarenone [Co Q-10] 100 mg PO DAILY 07/14/16 07/20/18 History Acetaminophen with Codeine 1 tab PO Q6H PRN 03/02/18 07/20/18 History [Tylenol w/codeine #4] Adalimumab [Humira Pen 40 mg SQ Q14D 03/02/18 07/20/18 History Crohn's-Uc-Hs] guaiFENesin [Mucinex] 600 mg PO Q12HR PRN 03/02/18 07/20/18 History Ferrous Sulfate [Iron (65 MG 325 mg PO BID #60 tab 03/13/18 07/20/18 Rx Elemental)] Sucralfate [Carafate] 1 gm PO AC-TID 04/13/18 07/20/18 History Isosorbide Mononitrate ER [Imdur] 60 mg PO DAILY tab.er.24h 04/26/18 07/20/18 Rx Nitroglycerin Sl Tabs [Nitrostat] 0.4 mg SUBLINGUAL Q5M PRN tab 04/26/18 Rx Ranolazine [Ranexa] 500 mg PO Q12HR tab.er.12h 04/26/18 07/20/18 Rx Cholecalciferol [Vitamin D3] 5,000 unit PO DAILY 07/20/18 07/20/18 History Evolocumab [Repatha Sureclick] 140 mg SQ Q14D 07/20/18 07/20/18 History Losartan Potassium 100 mg PO DAILY 07/20/18 07/20/18 History Omeprazole 40 mg PO DAILY 07/20/18 07/20/18 History Allergies Allergy/AdvReac Type Severity Reaction Status Date / Time cephalexin monohydrate Allergy Rash/Hives Verified 07/20/18 21:07 [From Keflex] ciprofloxacin [From Cipro] Allergy Rash/Hives Verified 07/20/18 21:07 etodolac [From Lodine] Allergy "inflamed Verified 07/20/18 21:07 legs" levofloxacin [From Levaquin] Allergy Rash/Hives Verified 07/20/18 21:07 lisinopril Allergy Cough Verified 07/20/18 21:07 minocycline Allergy Rash/Hives Verified 07/20/18 21:07 NSAIDS (Non-Steroidal Allergy BLURRY Verified 07/20/18 21:07 Anti-Inflamma VISION potassium clavulanate Allergy Rash/Hives Verified 07/20/18 21:07 [From Augmentin] prednisone Allergy CHEST Verified 07/20/18 21:07 PAIN/FATIGUE/FEVER/CHILLS Lujeacn-Lqn-Zmm Reductase Allergy MUSCLE PAIN Verified 07/20/18 21:07 Inhibitor sulfamethoxazole Allergy Itching Verified 07/20/18 21:07 [From Bactrim] trimethoprim [From Bactrim] Allergy Itching Verified 07/20/18 21:07 Physical Exam Vitals: Vital Signs Temp Pulse Pulse Resp BP BP Pulse Ox 07/21/18 08:00 98.0 F 62 16 102/71 99 07/21/18 07:53 78 18 07/21/18 07:50 95 07/21/18 04:00 98 F 78 18 115/76 96 07/21/18 00:00 97.9 F 75 18 91/61 96 07/20/18 20:19 97.7 F 73 18 122/77 100 07/20/18 20:00 18 07/20/18 19:30 71 18 103/66 07/20/18 18:47 66 18 121/85 100 07/20/18 18:00 122/76 07/20/18 17:30 72 15 104/77 100 07/20/18 17:00 71 17 101/73 100 07/20/18 16:30 68 16 102/72 100 07/20/18 15:30 87/63 07/20/18 15:00 30 H 82/54 100 07/20/18 14:30 75 18 110/81 100 07/20/18 14:00 73 14 83/64 07/20/18 12:30 75 18 07/20/18 12:00 111/76 07/20/18 11:30 64 H 99 07/20/18 11:22 97.9 F 79 20 105/73 99 Intake and Output 07/20/18 07/21/18 07/21/18 22:59 06:59 14:59 Other: Voiding Method Toilet # Voids 1 Head normocephalic Neck supple Lungs clear to auscultation bilaterally no wheezing or crackles Heart regular rate and rhythm S1-S2, no rub or gallop Abdomen is soft nontender nondistended positive bowel sounds no hepatosplenomegaly Extremities no edema Neuro alert and orientated to 3 Results CBC & Chem 7: 07/20/18 11:39 07/20/18 11:39 Labs: Abnormal Lab Results - Last 24 Hours (Table) 07/20/18 07/20/18 07/20/18 Range/Units 11:39 11:39 11:39 RBC 3.68 L (3.80-5.40) m/uL Hgb 10.9 L (11.4-16.0) gm/dL RDW 16.7 H (11.5-15.5) % APTT (22.0-30.0) sec D-Dimer (<0.60) mg/L FEU BUN 18 H (7-17) mg/dL Glucose 116 H (74-99) mg/dL AST 45 H (14-36) U/L Total Creatine Kinase 25 L (30-135) U/L 07/20/18 07/20/18 07/20/18 Range/Units 11:39 18:14 23:28 RBC (3.80-5.40) m/uL Hgb (11.4-16.0) gm/dL RDW (11.5-15.5) % APTT (22.0-30.0) sec D-Dimer 1.59 H (<0.60) mg/L FEU BUN (7-17) mg/dL Glucose (74-99) mg/dL AST (14-36) U/L Total Creatine Kinase 23 L 24 L (30-135) U/L 07/21/18 Range/Units 01:40 RBC (3.80-5.40) m/uL Hgb (11.4-16.0) gm/dL RDW (11.5-15.5) % APTT 68.5 H (22.0-30.0) sec D-Dimer (<0.60) mg/L FEU BUN (7-17) mg/dL Glucose (74-99) mg/dL AST (14-36) U/L Total Creatine Kinase (30-135) U/L Thrombosis Risk Factor Assmnt - Choose All That Apply Each Risk Factor Represents 2 Points: Age 61-74 years Thrombosis Risk Factor Assessment Total Risk Factor Score: 2 Thrombosis Risk Factor Assessment Level: Low Risk Assessment and Plan Assessment: 1. Chest pain with exertional dyspnea. Troponins negative. Patient reports she recently had heart cath completed at [facility]. Attempting to obtain records. Cardiology services have been consulted. Patient started on heparin drip. CTA negative for PE chest x-ray negative for acute pulmonary process. 2. History of abdominal aortic aneurysm. AAA measuring 4.2 cm on CTA 3. History of iron deficiency anemia. HemmoGlobin 10.9 4. History of essential hypertension 5. History of peripheral vascular disease with previous history of carotid endarterectomy 6. History of COPD. 7. History of hypothyroidism Time with Patient: Greater than 30 (Greater than 60% of the total time spent in counseling and coordination of care. I performed an examination of the patient and discussed their management with the Nurse Practitioner. I have reviewed the Nurse Practitioner's notes and agree with the documented findings and plan of care)
[2018-07-21 11:05] LABS: Anisocytosis Slight; Basophils % (A) 1 %; Eosinophils # (A) 0.2 k/uL (0-0.7); Eosinophils % (A) 3 %; HCT 31.1 % (34.0-46.0); Hypochromasia Moderate; Lymphocytes # (A) 1.8 k/uL (1.0-4.8); Lymphocytes % (A) 34 %; MCH 31.3 pg (25.0-35.0); MCHC 32.3 g/dL (31.0-37.0); MCV 96.9 fL (80.0-100.0); Mean Platelet Volume 7.3; Monocytes # (A) 0.3 k/uL (0-1.0); Monocytes % (A) 5 %; Neutrophils % (A) 55 %; Platelet Count 220 k/uL (150-450); RBC 3.21 m/uL (3.80-5.40); RDW 16.5 % (11.5-15.5); WBC 5.4 k/uL (3.8-10.6)
[2018-07-21 11:28] LABS: AST 34 U/L (14-36); Blood Urea Nitrogen 15 mg/dL (7-17); Carbon Dioxide 26 mmol/L (22-30); Total Bilirubin 0.4 mg/dL (0.2-1.3); Total Protein 5.9 g/dL (6.3-8.2)
[2018-07-21 11:38] LABS: ALT 41 U/L (9-52); Albumin 3.4 g/dL (3.5-5.0); Alkaline Phosphatase 89 U/L (38-126); Anion Gap 6 mmol/L; Calcium 9.4 mg/dL (8.4-10.2); Chloride 111 mmol/L (98-107); Glucose 100 mg/dL (74-99); Potassium 4.9 mmol/L (3.5-5.1); Sodium 143 mmol/L (137-145)
[2018-07-21] MEDS: CALCIUM CARBONATE 500 MG CHEWABLE PO SCH (11:49)
[2018-07-21] MEDS: RANOLAZINE 500 MG TAB.ER.12H PO SCH (11:50)
[2018-07-21] MEDS: lamoTRIgine 100 MG TAB PO SCH (11:50)
[2018-07-21] MEDS: SUCRALFATE 1 GM TAB PO SCH ×2 (11:50→12:05)
[2018-07-21] MEDS: FERROUS SULFATE 325 MG TAB PO SCH (11:51)
--- NOTE | 2018-07-21 11:58 | CONS ---
CONSULTATION Mrs. Abebe is a 67-year-old female who is seen for cardiac evaluation. The patient's medical records as well as old records are reviewed. The patient was just started on Repatha and the next day, the patient was started having some shortness of breath and the dizziness and headache. The patient also felt some numbness in both arms and felt numb. This patient has a known history of coronary artery disease. The patient had a total occlusion of the right coronary artery and mild disease in the LAD. The patient was referred to Dr. Tom at [facility]. According to her, they attempted, but the procedure was somehow terminated and she is going to be evaluated by them soon. Patient denies any significant exertional chest discomfort. MEDICATIONS: The patient's home medications include vitamin C, calcium, Synthroid 50 mcg daily, Toprol 100 mg daily, and amlodipine 10 mg daily. Lamictal 150 mg b.i.d., Savella 50 mg b.i.d., Flonase, Carafate and potassium. PAST MEDICAL HISTORY: Past medical history includes history of abdominal aortic aneurysm, history of colon polyps, left carotid endarterectomy, bilateral carpal tunnel syndrome, right thyroidectomy, left lumpectomy and the heart catheterization was done in March of 2018. PHYSICAL EXAMINATION: Physical examination at present reveals a 67-year-old female who does not appear to be in any acute distress. Patient's heart rate is 64 per minute, blood pressure is 111/76 mmHg, oxygen saturation was 99%. HEENT examination was negative. Neck is supple. There is no increase in jugular venous pressure. Both the carotid pulses are felt. There is no bruit. Chest is symmetrical. Heart the PMI is not felt. First and second heart sounds are heard. There is no evidence of any murmur. Lungs are clinically clear to auscultation and percussion. Abdomen is negative. Extremities: Peripheral pulses are 2+. LABORATORY DATA: The patient's D-dimer was 159. The CT of the chest was done which did not show any evidence of pulmonary embolism. The patient's proBNP level was 331. Troponins are negative. EKG shows normal sinus rhythm without any acute ischemic changes. FINAL IMPRESSION: 1. This patient had symptoms of dizziness and shortness of breath could be the side effect of Repatha. 2. Patient has a chronic total occlusion of the right coronary artery and mild disease in the LAD. Patient's troponins are negative. Patient can be discharged home. She is going to follow up with Dr. Tom. Thank you for this consultation. NYDIA / HANY: [id number] /
[2018-07-21] MEDS ORDERED: CHOLECALCIFEROL 1,000 UNIT TAB PO SCH (12:00)
[2018-07-21] MEDS ORDERED: FOLIC ACID 1 MG TAB PO SCH (12:00)
--- NOTE | 2018-07-21 12:03 | US ---
EXAMINATION TYPE: US venous doppler duplex LE BI DATE OF EXAM: 07/21/2018 11:48 AM COMPARISON: NONE CLINICAL HISTORY: elevated ddimer. SIDE PERFORMED: Bilateral TECHNIQUE: The lower extremity deep venous system is examined utilizing real time linear array sonog hansel with graded compression, doppler sonography and color-flow sonography. VESSELS IMAGED: External Iliac Vein (EIV) Common Femoral Vein Deep Femoral Vein Greater Saphenous Vein * Femoral Vein Popliteal Vein Small Saphenous Vein * Proximal Calf Veins (* superficial vessels) Right Leg: Negative for DVT Left Leg: Negative for DVT IMPRESSION: No evidence for DVT at this time.
[2018-07-21 12:25] VITALS: BP 111/77; PULSE 63; RESP 18; TEMP 98.2
--- NOTE | 2018-07-21 13:32 | P.DS ---
Providers Date of admission: 07/20/18 17:19 Expected date of discharge: 07/21/18 Attending physician: Luigi Luong Consults: 07/20/18 17:19 Consult Physician Urgent Consulting Provider: Robert Cardoso Consult Reason/Comments: Exertional dyspnea, angina Do you want consulting provider notified?: Yes Primary care physician: Mary Castrejon Hospital Course: Discharge diagnosis 1. Chest pain with exertional dyspnea. Troponins negative. Patient reports she recently had heart cath completed at [facility]. Attempting to obtain records. Cardiology services have been consulted. Patient started on heparin drip. CTA negative for PE chest x-ray negative for acute pulmonary process. Per cardiology services patient has been cleared for discharge she is to follow- up with her doctor at [facility]. Patient has known chronic total occlusion of the right coronary artery and mild disease of the LAD patient's troponins are negative. 2. History of abdominal aortic aneurysm. AAA measuring 4.2 cm on CTA 3. History of iron deficiency anemia. HemmoGlobin 10.9 4. History of essential hypertension 5. History of peripheral vascular disease with previous history of carotid endarterectomy 6. History of COPD. 7. History of hypothyroidism Elevated d-dimer. CTA negative for PE. Bilateral venous Doppler negative for DVT Hospital course This is a 59-year-old female patient of Dr. Castrejon. Patient presented to hospital with complaints of chest pain with shortness of breath diet been occurring for 3 days. Patient reports that she had a heart [facility] but Was Unable to Report the Details of the Findings. Additional Medical History Includes Asthma, CAD, Cancer, COPD, Fibromyalgia, GERD, Anemia, Hypertension, Osteoporosis, Rheumatoid Arthritis, Thyroid Disorder, AAA and Depression. Chest x-ray completed in ER showing no acute cardiopulmonary process. Chest CTA completed due to elevated d-dimer showing no acute pulmonary embolism. Ascending thoracic aortic aneurysm currently measuring 4.2 cm. EKG completed showing normal sinus rhythm. Normal EKG. Patient has been started on heparin drip. Cardiology services have been consulted. Discussed with nursing staff to obtain records from [facility]. At this time patient denies chest pain or shortness breath. Patient denies nausea vomiting or diarrhea. Patient denies any urinary burning or frequency. Patient has been cleared by cardiology services. Patient to follow-up with sizer machine on a [facility]. At this time patient denies chest pain or shortness breath. Patient denies nausea vomiting or diarrhea. Patient denies any urinary burning or frequency. I performed an examination of the patient and discussed their management with the Nurse Practitioner. I have reviewed the Nurse Practitioner's notes and agree with the documented findings and plan of care Patient Condition at Discharge: Stable Plan - Discharge Summary New Discharge Prescriptions: Continue Metoprolol Succinate (ER) [Toprol XL] 100 mg PO AC-SUPPER amLODIPine [Norvasc] 10 mg PO QAM Levothyroxine Sodium [Synthroid] 50 mcg PO DAILY Calcium Carbonate [Calcium] 600 mg PO BID Magnesium 400 mg PO DAILY ALPRAZolam [Xanax] 0.125 mg PO DAILY PRN PRN Reason: Anxiety Budesonide-Formot 160-4.5 Mcg [Symbicort 160-4.5 Mcg Inhaler] 2 puff INHALATION RT-BID lamoTRIgine [LaMICtal] 150 mg PO BID Milnacipran HCl [Savella] 50 mg PO BID Folic Acid 1 mg PO DAILY Ascorbic Acid [Vitamin C] 1,000 mg PO DAILY Fluticasone Nasal [place] [Flonase Nasal [place]] 1 spr EA NOSTRIL BID PRN PRN Reason: Allergy Symptoms Clopidogrel [Plavix] 75 mg PO HS Ubidecarenone [Co Q-10] 100 mg PO DAILY guaiFENesin [Mucinex] 600 mg PO Q12HR PRN PRN Reason: MUCOUS Adalimumab [Humira Pen Crohn's-Uc-Hs] 40 mg SQ Q14D Acetaminophen with Codeine [Tylenol w/codeine #4] 1 tab PO Q6H PRN PRN Reason: Pain Ferrous Sulfate [Iron (65 MG Elemental)] 325 mg PO BID #60 tab Sucralfate [Carafate] 1 gm PO AC-TID Isosorbide Mononitrate ER [Imdur] 60 mg PO DAILY tab.er.24h Nitroglycerin Sl Tabs [Nitrostat] 0.4 mg SUBLINGUAL Q5M PRN tab PRN Reason: Chest Pain Ranolazine [Ranexa] 500 mg PO Q12HR tab.er.12h Omeprazole 40 mg PO DAILY Losartan Potassium 100 mg PO DAILY Cholecalciferol [Vitamin D3] 5,000 unit PO DAILY Evolocumab [Repatha Sureclick] 140 mg SQ Q14D Discharge Medication List ALPRAZolam [Xanax] 0.125 mg PO DAILY PRN 08/02/15 [History] Ascorbic Acid [Vitamin C] 1,000 mg PO DAILY 08/02/15 [History] Budesonide-Formot 160-4.5 Mcg [Symbicort 160-4.5 Mcg Inhaler] 2 puff INHALATION RT-BID 08/02/15 [History] Calcium Carbonate [Calcium] 600 mg PO BID 08/02/15 [History] Folic Acid 1 mg PO DAILY 08/02/15 [History] Levothyroxine Sodium [Synthroid] 50 mcg PO DAILY 08/02/15 [History] Magnesium 400 mg PO DAILY 08/02/15 [History] Metoprolol Succinate (ER) [Toprol XL] 100 mg PO AC-SUPPER 08/02/15 [History] Milnacipran HCl [Savella] 50 mg PO BID 08/02/15 [History] amLODIPine [Norvasc] 10 mg PO QAM 08/02/15 [History] lamoTRIgine [LaMICtal] 150 mg PO BID 08/02/15 [History] Clopidogrel [Plavix] 75 mg PO HS 08/28/15 [History] Fluticasone Nasal [place] [Flonase Nasal [place]] 1 spr EA NOSTRIL BID PRN 08/28/15 [History] Ubidecarenone [Co Q-10] 100 mg PO DAILY 07/14/16 [History] Acetaminophen with Codeine [Tylenol w/codeine #4] 1 tab PO Q6H PRN 03/02/18 [ History] Adalimumab [Humira Pen Crohn's-Uc-Hs] 40 mg SQ Q14D 03/02/18 [History] guaiFENesin [Mucinex] 600 mg PO Q12HR PRN 03/02/18 [History] Ferrous Sulfate [Iron (65 MG Elemental)] 325 mg PO BID #60 tab 03/13/18 [Rx] Sucralfate [Carafate] 1 gm PO AC-TID 04/13/18 [History] Isosorbide Mononitrate ER [Imdur] 60 mg PO DAILY tab.er.24h 04/26/18 [Rx] Nitroglycerin Sl Tabs [Nitrostat] 0.4 mg SUBLINGUAL Q5M PRN tab 04/26/18 [Rx] Ranolazine [Ranexa] 500 mg PO Q12HR tab.er.12h 04/26/18 [Rx] Cholecalciferol [Vitamin D3] 5,000 unit PO DAILY 07/20/18 [History] Evolocumab [Repatha Sureclick] 140 mg SQ Q14D 07/20/18 [History] Losartan Potassium 100 mg PO DAILY 07/20/18 [History] Omeprazole 40 mg PO DAILY 07/20/18 [History] Follow up Appointment(s)/Referral(s): Mary Castrejon DO [Primary Care Provider] - 1-2 days Activity/Diet/Wound Care/Special Instructions: Activity as tolerated Diet heart healthy. Patient to follow-up with cardiology is from [facility] Discharge Disposition: HOME SELF-CARE
[2018-07-26] MEDS ORDERED: Evolocumab [Repatha Sureclick] 140 MG SQ SCH (09:00)
== END 2018-07-21 14:42 | disposition home or self-care (01) ==
LOC: EC 11:20 → 1SOBS 17:19
PROVIDERS: ADMIT Internal Medicine; ATTEND Internal Medicine
DX: R07.9 Chest pain, unspecified (principal); R06.00 Dyspnea, unspecified; R06.02 Shortness of breath; R42 Dizziness and giddiness; R51 Headache; R00.2 Palpitations; R11.0 Nausea; R79.89 Other specified abnormal findings of blood chemistry; R20.0 Anesthesia of skin; I25.82 Chronic total occlusion of coronary artery; I71.4 Abdominal aortic aneurysm, without rupture; I10 Essential (primary) hypertension; I73.9 Peripheral vascular disease, unspecified; J44.9 Chronic obstructive pulmonary disease, unspecified; J45.909 Unspecified asthma, uncomplicated; M79.7 Fibromyalgia; K21.9 Gastro-esophageal reflux disease without esophagitis; M81.0 Age-related osteoporosis without current pathological fracture; M06.9 Rheumatoid arthritis, unspecified; E89.0 Postprocedural hypothyroidism; F32.9 Major depressive disorder, single episode, unspecified; Z90.49 Acquired absence of other specified parts of digestive tract; I25.10 Atherosclerotic heart disease of native coronary artery without angina pectoris; E78.5 Hyperlipidemia, unspecified; D50.9 Iron deficiency anemia, unspecified; I73.00 Raynaud's syndrome without gangrene; M19.90 Unspecified osteoarthritis, unspecified site; I83.90 Asymptomatic varicose veins of unspecified lower extremity; Z85.3 Personal history of malignant neoplasm of breast; Z86.72 Personal history of thrombophlebitis; Z86.010 Personal history of colon polyps; Z87.891 Personal history of nicotine dependence; Z80.7 Family history of other malignant neoplasms of lymphoid, hematopoietic and related tissues; Z80.42 Family history of malignant neoplasm of prostate; Z79.890 Hormone replacement therapy; Z79.899 Other long term (current) drug therapy; Z79.02 Long term (current) use of antithrombotics/antiplatelets; Z88.1 Allergy status to other antibiotic agents; Z88.0 Allergy status to penicillin; Z88.2 Allergy status to sulfonamides; Z88.8 Allergy status to other drugs, medicaments and biological substances
CPT/HCPCS: 96366 ×2; 96376; 96361; 96365; 99285; 36415; 94640 ×2; 94760; 93005; 85379; 83880; 80061; 80053 ×2; 82150; 82550; 82553; 83690; 83735; 84484; 85025 ×2; 85610; 85730 ×2; 71046; 93970; 71275; G0378 ×2; J1644 ×2; Q9967

== ENCOUNTER → 2018-09-06 | Outpatient (CLI) | payer MEDICARE, OTHER ==
--- NOTE | 2018-09-06 15:57 | XR ---
Lumbar spine HISTORY: Low back pain 3 views of the lumbar spine Lumbar vertebral bodies show preserved height. Bone mineralization is reduced. There is multilevel sp ondylosis with loss of disc height at the intervertebral levels especially L4-5, L5-S1. Focal infrare nal abdominal aortic aneurysm is noted measuring approximately 5 cm in AP dimension. Anterior listhes is at L4-5. Sclerosis present in the posterior elements of the lower lumbar spine. Surgical clip in t he right upper quadrant. There is retained fecal debris throughout the distribution of the colon. IMPRESSION: Degenerative disc disease, facet arthropathy, osteopenia and spondylolisthesis. Abdominal aortic aneurysm. A Yellow level critical message alert has been initiated for Nelly Du DO via the [employer] Critical Results System on 09/06/2018 3:54 PM. This message alert has been sent to DO moises Marinelli the preferences provided by the clinician for the receipt of Radiology Critical Findings. Message ID [id number].
--- NOTE | 2018-09-06 16:38 | XR ---
Bilateral hips HISTORY: Hip pain 2 views of each hip are submitted. Remodeling is present in the femoral heads bilaterally. Joint space loss is greater on the right wit h subchondral sclerosis, marginal spurring. Alignment is maintained bilaterally. Vascular calcificati ons are noted incidentally. Bone mineralization is reduced. Surgical clips present over the left stu pelvis. IMPRESSION: Osteoarthritis is greater within the right hip.
[2018-09-06 19:09] LABS: Albumin 3.7 g/dL (3.5-5.0); Bilirubin, Delta 0.2 mg/dL (0.0-0.2); Bilirubin,Unconjugated 0.1 mg/dL (0.0-1.1); Total Bilirubin 0.3 mg/dL (0.2-1.3)
[2018-09-06 19:15] LABS: Basophils % (A) 0 %; Eosinophils # (A) 0.2 k/uL (0-0.7); Eosinophils % (A) 3 %; HCT 32.2 % (34.0-46.0); HGB 9.6 gm/dL (11.4-16.0); Hypochromasia Marked; Lymphocytes # (A) 1.9 k/uL (1.0-4.8); Lymphocytes % (A) 40 %; MCH 28.6 pg (25.0-35.0); MCHC 29.9 g/dL (31.0-37.0); MCV 95.5 fL (80.0-100.0); Monocytes # (A) 0.4 k/uL (0-1.0); Monocytes % (A) 8 %; Neutrophils # (A) 2.1 k/uL (1.3-7.7); Neutrophils % (A) 46 %; Platelet Count 274 k/uL (150-450); RBC 3.37 m/uL (3.80-5.40); WBC 4.6 k/uL (3.8-10.6)
== END | disposition home or self-care (01) ==
LOC: RADXRMAIN 14:41
PROVIDERS: ATTEND Family Medicine
DX: M51.36 Other intervertebral disc degeneration, lumbar region (principal); M43.16 Spondylolisthesis, lumbar region; M46.96 Unspecified inflammatory spondylopathy, lumbar region; M85.88 Other specified disorders of bone density and structure, other site; M16.0 Bilateral primary osteoarthritis of hip
CPT/HCPCS: 72100; 73521; 80076; 85025

== ENCOUNTER 2019-02-08 09:37 | Emergency (ER) | payer MEDICARE, OTHER ==
--- NOTE | 2019-02-08 10:33 | ED ---
Fall HPI - General Chief Complaint: Fall Stated Complaint: fall Time Seen by Provider: 02/08/19 10:02 Source: patient, EMS Mode of arrival: EMS - History of Present Illness Initial Comments: Patient is a 68-year-old female presenting to the emergency department via EMS after falling prior to arrival. Patient states she was in her right [place] at her apartment when she was back stepping and her heels struck the side of a brick mason. Patient fell backward onto her head. Patient states she did black out but is unsure for how long. Patient states she does remember hitting the ground but states there was a few minutes of confusion. Patient does admit to a headache and some mild neck pain. Patient denies pain anywhere else in her body. Patient admits to being on Plavix secondary to A. fib. Patient also has multiple comorbidities such as hypertension, hyperlipidemia, OA, RA, thyroid disorder, CAD. Patient has no other complaints at this time. Upon arrival to ER, patient is in a c-collar. Vital signs are stable, afebrile. - Related Data Home Medications Medication Instructions Recorded Confirmed ALPRAZolam [Xanax] 0.25 mg PO DAILY PRN 08/02/15 02/08/19 Ascorbic Acid [Vitamin C] 1,000 mg PO DAILY 08/02/15 02/08/19 Budesonide-Formot 160-4.5 Mcg 1 puff INHALATION RT-DAILY 08/02/15 02/08/19 [Symbicort 160-4.5 Mcg Inhaler] Calcium Carbonate [Calcium] 600 mg PO DAILY 08/02/15 02/08/19 Folic Acid 1 mg PO DAILY 08/02/15 02/08/19 Levothyroxine Sodium [Synthroid] 50 mcg PO DAILY 08/02/15 02/08/19 Magnesium 400 mg PO DAILY 08/02/15 02/08/19 Metoprolol Succinate (ER) [Toprol 100 mg PO AC-SUPPER 08/02/15 02/08/19 XL] Milnacipran HCl [Savella] 50 mg PO BID 08/02/15 02/08/19 amLODIPine [Norvasc] 10 mg PO QAM 08/02/15 02/08/19 lamoTRIgine [LaMICtal] 150 mg PO BID 08/02/15 02/08/19 Clopidogrel [Plavix] 75 mg PO HS 08/28/15 02/08/19 Fluticasone Nasal [place] [Flonase 1 spr EA NOSTRIL BID PRN 08/28/15 02/08/19 Nasal [place]] Ubidecarenone [Co Q-10] 100 mg PO DAILY 07/14/16 02/08/19 Adalimumab [Humira Pen 40 mg SQ Q14D 03/02/18 02/08/19 Crohn's-Uc-Hs] guaiFENesin [Mucinex] 600 mg PO Q12HR PRN 03/02/18 02/08/19 Sucralfate [Carafate] 1 gm PO AC-TID 04/13/18 02/08/19 Losartan Potassium 100 mg PO DAILY 07/20/18 02/08/19 Acetaminophen-Codeine 300-30mg 1 tab PO DAILY PRN 02/08/19 02/08/19 [Tylenol w/codeine #3] Aspirin 81 mg PO DAILY 02/08/19 02/08/19 Cholecalciferol (Vitamin D3) 2,000 unit PO DAILY 02/08/19 02/08/19 [Vitamin D3] Evolocumab [Repatha Sureclick] 140 mg SQ Q14D 02/08/19 02/08/19 Montelukast Sodium [Singulair] 10 mg PO HS 02/08/19 02/08/19 Omeprazole [PriLOSEC] 20 mg PO DAILY 02/08/19 02/08/19 Previous Rx's Medication Instructions Recorded Ferrous Sulfate [Iron (65 MG 325 mg PO BID #60 tab 03/13/18 Elemental)] Isosorbide Mononitrate ER [Imdur] 60 mg PO DAILY tab.er.24h 04/26/18 Nitroglycerin Sl Tabs [Nitrostat] 0.4 mg SUBLINGUAL Q5M PRN tab 04/26/18 Ranolazine [Ranexa] 500 mg PO Q12HR tab.er.12h 04/26/18 Allergies Allergy/AdvReac Type Severity Reaction Status Date / Time cephalexin monohydrate Allergy Rash/Hives Verified 02/08/19 10:07 [From Keflex] ciprofloxacin [From Cipro] Allergy Rash/Hives Verified 02/08/19 10:07 levofloxacin [From Levaquin] Allergy Rash/Hives Verified 02/08/19 10:07 minocycline Allergy Rash/Hives Verified 02/08/19 10:07 potassium clavulanate Allergy Rash/Hives Verified 02/08/19 10:07 [From Augmentin] sulfamethoxazole Allergy Itching Verified 02/08/19 10:07 [From Bactrim] trimethoprim [From Bactrim] Allergy Itching Verified 02/08/19 10:07 azithromycin AdvReac bleeding Verified 02/08/19 10:07 etodolac [From [place]odine] AdvReac "inflamed Verified 02/08/19 10:07 legs" lisinopril AdvReac Cough Verified 02/08/19 10:07 NSAIDS (Non-Steroidal AdvReac BLURRY Verified 02/08/19 10:07 Anti-Inflamma VISION prednisone AdvReac CHEST Verified 02/08/19 10:07 PAIN/FATIGUE/FEVER/CHILLS Suvamhr-Ntr-Cgp Reductase AdvReac MUSCLE PAIN Verified 02/08/19 10:07 Inhibitor Review of Systems ROS Statement: Those systems with pertinent positive or pertinent negative responses have been documented in the HPI. ROS Other: All systems not noted in ROS Statement are negative. Past Medical History Past Medical History: Asthma, Coronary Artery Disease (CAD), Cancer, COPD, Fibromyalgia, GERD/Reflux, Hyperlipidemia, Hypertension, Osteoarthritis (OA), Rheumatoid Arthritis (RA), Thyroid Disorder Additional Past Medical History / Comment(s): HX OF COLON POLYP, AAA, PHLEBITIS, VARICOSE VEINS, REYNAUD'S, BREAST CANCER., ANEMIA. History of Any Multi-Drug Resistant Organisms: None Reported Past Surgical History: Breast Surgery, Section, Cholecystectomy, Heart Catheterization, Orthopedic Surgery, Tonsillectomy Additional Past Surgical History / Comment(s): LEFT CAROTID ENDARTECTOMY, FERNANDO CARPAL TUNNEL, FERNANDO LEGS VEIN STRIPPING, RT THYROIDECTOMY, FERNANDO BREAST SX, LEFT LUMPECTOMY , LEFT BREAST FATTY TUMOR, HEART CATH 03/13/18 @ [facility]. Past Anesthesia/Blood Transfusion Reactions: Previous Problems w/ Anesthesia Additional Past Anesthesia/Blood Transfusion Reaction / Comment(s): STATES "FELT PARALYZED CHEST AREA AND ARM" ( OVER 20 YRS AGO.) NO PROBLEM SINCE Past Psychological History: Depression Smoking Status: Never smoker Past Alcohol Use History: None Reported Past Drug Use History: None Reported - Past Family History Father Family Medical History: Cancer Additional Family Medical History / Comment(s): NON HODGKINS LYMPHOMA Brother(s) Family Medical History: Cancer Additional Family Medical History / Comment(s): prostate General Exam - General Exam Comments Initial Comments: GENERAL: Well-appearing, well-nourished and in no acute distress. HEAD: Atraumatic, normocephalic. Large hematoma, right posterior aspect the head. EYES: Pupils equal round and reactive to light, extraocular movements intact, sclera anicteric, conjunctiva are normal. ENT: TMs normal, nares patent, oropharynx clear without exudates. Moist mucous membranes. NECK: Post c-collar removal: Normal, pain free, range of motion, supple without lymphadenopathy or JVD. LUNGS: Breath sounds clear to auscultation bilaterally and equal. No wheezes rales or rhonchi. HEART: Regular rate and rhythm without murmurs, rubs or gallops. ABDOMEN: Soft, nontender, normoactive bowel sounds. No guarding, no rebound. No masses appreciated. : Deferred EXTREMITIES: Normal range of motion, no pitting or edema. No clubbing or cyanosis. NEUROLOGICAL: Cranial nerves II through XII grossly intact. Normal speech. PSYCH: Normal mood, normal affect. SKIN: Warm, Dry, normal turgor, no rashes or lesions noted. Limitations: no limitations Course Vital Signs 02/08/19 09:40 Temperature 98.6 F Pulse Rate 70 Respiratory 20 Rate Blood Pressure 119/66 O2 Sat by Pulse 100 Oximetry Medical Decision Making - Medical Decision Making Patient is a 68-year-old female presenting via EMS, after falling prior to arrival. Patient was back stepping on a sidewalk when her heel hit a brick mason and she fell backwards onto the cement hitting the back of her head, with some LOC, length of time unknown. Upon arrival patient is in a c-collar. On exam patient has a large hematoma on the right posterior aspect of her scalp. There is no bleeding at this time. Patient is on Plavix for A. fib. Rest of exam is within normal limits. Patient is not complaining of pain anywhere else. CT brain and C-spine reveals a moderate to large right parietal scalp hematoma. There is also a small 5 mm focus of subarachnoid hemorrhage in the right paramedian frontal region. No acute fracture or malalignment of the cervical spine. Case was discussed with Dr. Beal. Patient will be transferred to [facility]. Patient was accepted by Dr. Cruz. Disposition Clinical Impression: Fall, Subarachnoid hemorrhage Disposition: OTHER INSTITUTION NOT DEFINED Condition: Stable Instructions (If sedation given, give patient instructions): Fall Prevention for Older Adults (ED) Is patient prescribed a controlled substance at d/c from ED?: No Referrals: Mary Castrejon DO [Primary Care Provider] - 1-2 days - Out of Hospital Transfer - Req. Specs Out of Hospital Transfer - Requested Specifics: Other Emergency Center ([facility])
--- NOTE | 2019-02-08 11:06 | CT ---
EXAMINATION TYPE: CT brain gustavo wo con DATE OF EXAM: 02/08/2019 COMPARISON: 08/02/2015 brain HISTORY: 68-year-old female Head and neck pain post fall, LOC. CT DLP: 1342.4 mGycm Automated exposure control for dose reduction was used. Technique: Examination of the head was done in axial plane without intravenous contrast. Coronal and sagittal reconstructions performed. CT of the cervical spine was obtained in axial plane without intravenous injection of contrast mater ial. Coronal and sagittal reformatted images were obtained from the axial views for evaluation of f ractures, spinal alignment and canal. FINDINGS: Head: A couple foci of subarachnoid blood in the median frontal region, axial image 38 adjacent to the falx measuring 5 mm. No other acute intracranial hemorrhage or extra-axial fluid collection is identified . There is mild to moderate atrophy with confluent white matter hypodensities in both cerebral hemisphe res. Atherosclerotic calcifications carotid siphons. There is no acute ischemic changes, mass, mass effect. There is no effacement of cerebral sulci or ba beatriz subarachnoid cisterns. There is no hydrocephalus. There is no midline shift. Goldberg-white matter distinction is preserved. Moderate to large right parietal scalp hematoma. No underlying calvarial fracture. Paranasal sinuses and mastoid air cells are pneumatized. Orbits and globes are intact. Cervical spine: The alignment of the cervical spine is normal on coronal and reformatted images. There is no cranial vertebral abnormality. Fracture of the cervical spine is not seen. Mild spondylotic change at C5-C6.. There is no evidence of focal disk herniation. Sagittal and coronal reformatted images confirm above findings. COMBINED IMPRESSION: 1. Moderate to large right parietal scalp hematoma. No underlying calvarial fracture. 2. Small 5 mm focus of subarachnoid hemorrhage in the right paramedian frontal region adjacent to the falx. No midline shift or mass effect. 3. Bifrontal atrophy and confluent changes of chronic small vessel ischemic disease. 4. No acute fracture or malalignment of the cervical spine. Critical finding called to Dr. Beal in the ER at 11am.
[2019-02-08 11:43] VITALS: BP 103/73; PULSE 80; RESP 18; TEMP 98
[2019-02-08 11:47] LABS: Basophils # (A) 0.1 k/uL (0-0.2); Basophils % (A) 1 %; Eosinophils # (A) 0.2 k/uL (0-0.7); Eosinophils % (A) 2 %; HCT 39.6 % (34.0-46.0); HGB 12.8 gm/dL (11.4-16.0); Lymphocytes # (A) 1.4 k/uL (1.0-4.8); Lymphocytes % (A) 19 %; MCH 29.6 pg (25.0-35.0); MCHC 32.3 g/dL (31.0-37.0); MCV 91.6 fL (80.0-100.0); Mean Platelet Volume 7.6; Monocytes # (A) 0.5 k/uL (0-1.0); Monocytes % (A) 6 %; Neutrophils # (A) 5.1 k/uL (1.3-7.7); Neutrophils % (A) 69 %; Platelet Count 280 k/uL (150-450); RBC 4.32 m/uL (3.80-5.40); RDW 14.8 % (11.5-15.5); WBC 7.3 k/uL (3.8-10.6)
[2019-02-08 11:52] LABS: ALT 25 U/L (9-52); AST 30 U/L (14-36); African American GFR (CKD) >90 (>60 ml/min/1.73 sqM); Albumin 4.2 g/dL (3.5-5.0); Alkaline Phosphatase 110 U/L (38-126); Anion Gap 10 mmol/L; Blood Urea Nitrogen 15 mg/dL (7-17); Calcium 9.6 mg/dL (8.4-10.2); Carbon Dioxide 25 mmol/L (22-30); Chloride 106 mmol/L (98-107); Glucose 104 mg/dL (74-99); Potassium 4.7 mmol/L (3.5-5.1); Sodium 141 mmol/L (137-145); Total Bilirubin 0.6 mg/dL (0.2-1.3); Total Protein 7.1 g/dL (6.3-8.2)
[2019-02-08 11:57] LABS: INR 0.9 (<1.2); Prothrombin Time 9.4 sec (9.0-12.0)
== END 2019-02-08 11:43 | disposition other institution (70) ==
LOC: EC 09:37
DX: S06.6X0A Traumatic subarachnoid hemorrhage without loss of consciousness, initial encounter (principal); S00.03XA Contusion of scalp, initial encounter; I48.91 Unspecified atrial fibrillation; I25.10 Atherosclerotic heart disease of native coronary artery without angina pectoris; J44.9 Chronic obstructive pulmonary disease, unspecified; K21.9 Gastro-esophageal reflux disease without esophagitis; E78.5 Hyperlipidemia, unspecified; I10 Essential (primary) hypertension; M19.90 Unspecified osteoarthritis, unspecified site; M06.9 Rheumatoid arthritis, unspecified; E07.9 Disorder of thyroid, unspecified; M79.7 Fibromyalgia; Z85.3 Personal history of malignant neoplasm of breast; Z95.818 Presence of other cardiac implants and grafts; Z79.51 Long term (current) use of inhaled steroids; Z79.890 Hormone replacement therapy; Z79.02 Long term (current) use of antithrombotics/antiplatelets; Z79.82 Long term (current) use of aspirin; Z79.891 Long term (current) use of opiate analgesic; Z79.899 Other long term (current) drug therapy; Z88.1 Allergy status to other antibiotic agents; Z88.2 Allergy status to sulfonamides; Z88.6 Allergy status to analgesic agent; Z88.8 Allergy status to other drugs, medicaments and biological substances; W18.09XA Striking against other object with subsequent fall, initial encounter; Y92.038 Other place in apartment as the place of occurrence of the external cause
CPT/HCPCS: 36415; 70450; 72125; 80053; 85025; 85610; 85730; 99285

== ENCOUNTER → 2019-05-10 | Outpatient (CLI) | payer MEDICARE, OTHER ==
[2019-05-10 13:16] LABS: Basophils % (A) 1 %; Eosinophils # (A) 0.2 k/uL (0-0.7); Eosinophils % (A) 3 %; HCT 40.6 % (34.0-46.0); HGB 13.1 gm/dL (11.4-16.0); Lymphocytes # (A) 1.9 k/uL (1.0-4.8); Lymphocytes % (A) 30 %; MCH 29.7 pg (25.0-35.0); MCHC 32.3 g/dL (31.0-37.0); MCV 92.2 fL (80.0-100.0); Mean Platelet Volume 8.6; Monocytes # (A) 0.3 k/uL (0-1.0); Monocytes % (A) 5 %; Neutrophils # (A) 3.8 k/uL (1.3-7.7); Neutrophils % (A) 60 %; Platelet Count 224 k/uL (150-450); RBC 4.41 m/uL (3.80-5.40); RDW 13.7 % (11.5-15.5); WBC 6.3 k/uL (3.8-10.6)
[2019-05-10 18:20] LABS: Albumin 4.3 g/dL (3.80-4.90); Albumin/Globulin Ratio 2.39 (1.60-3.17); Bilirubin, Conjugated 0.2 mg/dL (0.20-0.40); Bilirubin,Unconjugated 0.4 mg/dL; Globulin 1.8 g/dL (1.6-3.3); Total Bilirubin 0.6 mg/dL (0.2-1.2); Total Protein 6.1 g/dL (6.2-8.2)
== END | disposition home or self-care (01) ==
LOC: LABWHC1 12:35
PROVIDERS: ATTEND Internal Medicine Gastroenterology
DX: K76.0 Fatty (change of) liver, not elsewhere classified (principal); D50.0 Iron deficiency anemia secondary to blood loss (chronic)
CPT/HCPCS: 36415; 80076; 85025

== ENCOUNTER → 2019-07-16 | Outpatient (CLI) | payer MEDICARE, OTHER ==
--- NOTE | 2019-07-17 11:29 | MM ---
Reason for exam: screening (asymptomatic). Last mammogram was performed 1 year and 1 month ago. History: Patient is postmenopausal, has history of breast cancer at age 47, has history of high-risk lesion on a previous biopsy at age 47, and had first child at age 39. Family history of breast cancer in maternal aunt at age 70, premenopausal breast cancer in paternal cousin at age 30, and breast cancer in paternal aunt at age 70. Excisional biopsy of the left breast, March 12, 1998. Core biopsy of the left breast, March 03, 1998. High risk stereotactic core biopsy of the left breast, March 03, 1998. Lumpectomy of the left breast. Took hormonal contraceptives for 12 years beginning at age 19. Physical Findings: A clinical breast exam by your physician is recommended on an annual basis and results should be correlated with mammographic findings. MG 3D Screening Mammo W/Cad Bilateral CC and MLO view(s) were taken. Prior study comparison: June 18, 2018, bilateral MG 3d diag mammo w/cad FERNANDO. March 13, 2017, bilateral MG 3d diag mammo w/cad FERNANDO. There are scattered fibroglandular densities. No significant changes when compared with prior studies. ASSESSMENT: Benign, BI-RAD 2 RECOMMENDATION: Routine screening mammogram of both breasts in 1 year.
== END | disposition home or self-care (01) ==
LOC: RADMAMWWP 13:15
PROVIDERS: ATTEND Family Medicine
DX: Z12.31 Encounter for screening mammogram for malignant neoplasm of breast (principal)
CPT/HCPCS: 77063; 77067

== ENCOUNTER → 2020-10-06 | Outpatient (CLI) | payer MEDICARE, OTHER ==
--- NOTE | 2020-10-07 10:27 | MM ---
Reason for exam: screening (asymptomatic). Last mammogram was performed 1 year and 3 months ago. History: Patient is postmenopausal, has history of breast cancer at age 47, has history of high-risk lesion on a previous biopsy at age 47, and had first child at age 39. Family history of breast cancer in maternal aunt at age 70, premenopausal breast cancer in paternal cousin at age 30, and breast cancer in paternal aunt at age 70. Excisional biopsy of the left breast, March 12, 1998. Core biopsy of the left breast, March 03, 1998. High risk stereotactic core biopsy of the left breast, March 03, 1998. Lumpectomy of the left breast. Took hormonal contraceptives for 12 years beginning at age 19. Physical Findings: A clinical breast exam by your physician is recommended on an annual basis and results should be correlated with mammographic findings. MG 3D Screening Mammo W/Cad Bilateral CC and MLO view(s) were taken. Prior study comparison: July 16, 2019, bilateral MG 3d screening mammo w/cad. June 18, 2018, bilateral MG 3d diag mammo w/cad FERNANDO. The breast tissue is heterogeneously dense. This may lower the sensitivity of mammography. Stable benign calcifications. There is no discrete abnormality. No significant changes when compared with prior studies. ASSESSMENT: Benign, BI-RAD 2 RECOMMENDATION: Routine screening mammogram of both breasts in 1 year.
== END | disposition home or self-care (01) ==
LOC: RADMAMWWP 09:26
PROVIDERS: ATTEND Internal Medicine
DX: Z12.31 Encounter for screening mammogram for malignant neoplasm of breast (principal); Z85.3 Personal history of malignant neoplasm of breast; Z80.3 Family history of malignant neoplasm of breast; Z78.0 Asymptomatic menopausal state
CPT/HCPCS: 77063; 77067

== ENCOUNTER → 2020-10-12 | Outpatient (CLI) | payer MEDICARE, OTHER | END | disposition home or self-care (01) | LOC: LABWHC1 09:54 | PROVIDERS: ATTEND Orthopaedic Surgery | DX: Z01.812 Encounter for preprocedural laboratory examination (principal); M16.11 Unilateral primary osteoarthritis, right hip | CPT/HCPCS: 87070 ==

== ENCOUNTER 2020-10-19 08:39 | Day surgery (SDC) | payer MEDICARE, OTHER ==
[2020-10-14 10:15] VITALS: BMI 32.4
--- NOTE | 2020-10-18 12:48 | HP ---
HISTORY AND PHYSICAL Daisy Abebe is a 69-year-old patient seen with symptomatic right hip osteoarthritis. After treatment options were discussed with the patient, the patient elected to proceed with right direct anterior total hip arthroplasty. Consent was obtained. Medical clearance was provided by Dr. Luong. Cardiac clearance by Dr. Cardoso. PAST MEDICAL HISTORY: Atrial fibrillation, cardiovascular disease, osteoarthritis, hypothyroidism. PAST SURGICAL HISTORY: Breast biopsy, carpal tunnel release, section, cholecystectomy, D and C, thyroidectomy, carotid endarterectomy. DAILY MEDICATIONS: Isosorbide, levothyroxine, losartan, metoprolol, [place], Lasix, Ranexa, aspirin. ALLERGIES: LEVAQUIN, CIPRO, AUGMENTIN, KEFLEX, MINOCYCLINE, LODINE, BACTRIM, PREDNISONE. SOCIAL HISTORY: Patient denies current tobacco use. PHYSICAL EXAMINATION: Evaluation of the right hip pain: Diffuse tenderness, very limited range of motion with severe pain. Positive impingement sign. Straight leg raise negative. Right lower extremity is 2 inches shorter than the left. Distal neurovascular exam intact. RADIOGRAPHS: Radiographs of the right hip reveal severe osteoarthritic changes. IMPRESSION: 1. Right hip osteoarthritis. 2. Hypertension. 3. Hyperlipidemia. 4. Atrial fibrillation. 5. Hypothyroidism. PLAN: Direct anterior right total hip arthroplasty. MMODL / IJN: [id number] /
[~2020-10-19 08:39] MED LIST changes: +ACETAMINOPHEN TAB 500 MG TAB PO PRN; +CLINDAMYCIN 900 MG in DEXTROSE 5% IN WATER 50 ML IVPB PRN; +HYDROmorphone 0.5 MG/0.5 ML SYRINGE IVP PRN; +LACTATED RINGERS 1,000 ML IV SCH; +MIDAZOLAM 2 MG/2 ML VIAL IV PRN; +ONDANSETRON 4 MG/2 ML VIAL IVP ONE; -SIMETHICONE 40 MG/0.6 ML DROPS 2,000 MG/30 ML BOTTLE PO ONE; +TRANEXAMIC ACID 1,000 MG in SODIUM CHLORIDE 0.9% 100 ML IVPB PRN
[2020-10-19] MEDS ORDERED: fentaNYL (PF) 50 MCG/ML 2 ML AMP ONE (10:16)
[2020-10-19] MEDS ORDERED: PHENYLEPHRINE-0.9% NACL SYG 1,000 MCG/10 ML SYRINGE ONE (10:16)
[2020-10-19] MEDS ORDERED: TRANEXAMIC ACID 1,000 MG/10 ML VIAL ONE (10:16)
[2020-10-19] MEDS ORDERED: ePHEDrine SULFATE/0.9% NACL/PF 50 MG/5 ML SYRINGE IV ONE (10:16)
[2020-10-19] MEDS ORDERED: MIDAZOLAM 2 MG/2 ML VIAL ONE (10:16)
[2020-10-19] MEDS ORDERED: SODIUM CHLORIDE 0.9% 250 ML BAG ONE (10:16)
[2020-10-19] MEDS ORDERED: PROPOFOL 10 MG/ML 20 ML VIAL IV ONE (10:16)
[2020-10-19] MEDS ORDERED: ceFAZolin 1,000 MG in SODIUM CHLORIDE 0.9% 1,000 ML IRRIGATION ONE (10:55)
[2020-10-19] MEDS ORDERED: LACTATED RINGERS 1,000 ML IV ONE ×3 (11:15→14:58)
[2020-10-19] MEDS ORDERED: ROPIVACAINE/EPI/CLONIDINE/KET 50 ML SYRINGE MISCELLANE PRN (11:51)
[2020-10-19] MEDS ORDERED: HYDROcodone/APAP 5-325MG 1 EACH TAB PO PRN ×2 (12:16)
[2020-10-19] MEDS ORDERED: HYDROmorphone 0.5 MG/0.5 ML SYRINGE IVP PRN ×2 (12:16)
[2020-10-19] MEDS ORDERED: HYDROmorphone 0.2 MG/1 ML SYRINGE IVP PRN (12:16)
[2020-10-19] MEDS ORDERED: ONDANSETRON 4 MG/2 ML VIAL IVP PRN (12:16)
[2020-10-19] MEDS ORDERED: NALOXONE 0.4 MG/ML 1 ML VIAL IV PRN (12:16)
--- NOTE | 2020-10-19 12:16 | P.OP ---
Date of Procedure: 10/19/20 Preoperative Diagnosis: Right hip osteoarthritis Postoperative Diagnosis: Right hip osteoarthritis Procedure(s) Performed: Direct anterior right total hip arthroplasty Implants: 1. Depuy Corail size 12 high offset press-fit femoral stem 2. Depuy pinnacle 52 mm multi hole press-fit acetabular shell 3. Depuy pinnacle +4 neutral liner 36 mm ID 52 mm OD 4. Biolox delta ceramic femoral head +12 36 mm Anesthesia: local, spinal Surgeon: Hugh Espinoza Buffing [employer] Polishing Wheel Repairer #1: Lex Ritter Estimated Blood Loss (ml): 125 Pathology: other (Femoral head) Condition: stable Disposition: PACU Indications for Procedure: 69-year-old patient seen with symptomatic right hip osteoarthrosis. After treatment options were discussed, she elected to proceed with total hip arthroplasty. Operative Findings: See description of procedure Description of Procedure: The patient was taken to the operative suite. Patient underwent a spinal anesthetic by the department of anesthesia. Patient was then transferred to the [place] table. Patient was given preoperative IV antibiotics and TXA. Both lower extremities were placed in standard leg spars. The hip was then prepped and draped in the normal sterile orthopedic fashion. A standard anterior incision was made beginning 3 cm lateral and 1 cm distal to the ASIS extending 10 cm. Dissection was then carried down through the subcutaneous soft tissues down to the fascia overlying the tensor fascia ruddy. An incision was now made through the fascia. Careful dissection was taken down exposing the tensor fascia ruddy muscle. A Cobra retractor was now placed along the medial femoral neck and a second one along the lateral femoral neck. The venous circumflex vessels were now identified, cauterized and clipped. We identified the anterior hip capsule. An incision was made through the hip capsule along the lateral border. I performed a partial anterior capsulectomy. Retractors were now placed around the femoral neck itself. A femoral neck cut was now made with a sagittal saw. It was completed with an osteotome at the lateral neck area. The femoral head was now removed without difficulty. The extremity was now rotated to 60 of external rotation. It was locked in position. Residual labrum was now debrided out. Serial reaming was performed of the acetabulum while Jesse POLK assisted holding an anterior retractor for exposure. Once we reached the appropriate size and a trial was position and fit nicely. The appropriate size was now chosen opened and made available. It was introduced into the acetabulum without difficulty. The C-arm/fluoroscopy was now brought into the operative field. We made sure we had a true AP pelvic view. We now under direct C- arm/fluoroscopy introduced into the acetabular component with appropriate version and inclination. I held the cup in appropriate position well Jesse POLK used a mallet to seat the acetabular component. I noted the component now to be well seated and stable. I did introduced 2 screws for additional fixation. Acetabular cup introduce her was removed. The C-arm was pulled back. An appropriate liner was introduced and clicked into position. It was felt to be stable. At this point retractors were removed. The extremity was now placed into 130 external rotation with no traction. The leg was now dropped to the ground and adducted. Appropriate retractors were now positioned along the proximal femur. We also placed our femoral look into position. Additional capsular releasing was performed to gain access to the proximal femur. We now used a box osteotome. A canal finder was now utilized. Serial broaching was now performed with the assistance of Jesse POLK tapping the broaches down with a mallet while held the broach in appropriate rotation and position. This was done until we reached the appropriate size with good overall rotational stability. Appropriate calcar planing was performed. A trial head/neck was placed into position. The hip was now reduced. The C-arm/fluoroscopy was brought back into the operative field. I obtained an AP pelvis demonstrating reasonable ligament alignment. The trial components appear to be stable and appropriate size. The C-arm/fluoroscopy was pulled back. Retractors were repositioned and the hip was dislocated. The leg was again taken down to the ground and adducted. Appropriate retractors were repositioned as well as the femoral hook. All trial components were removed. The femoral implant was opened along with the femoral head. The femoral implant was introduced on the appropriate handle into our pre-broached area. I held the component position well Jesse POLK used a mallet to seat the femoral component. The femoral component was now noted to be well seated and stable.. The femoral head was introduced with good positioning and fixation noted. Retractors were now removed. The hip was now reduced. There appeared be good positioning of the hip confirmed on intraoperative fluoroscopy. Spot films were obtained to document this. A second gram of TXA was given. The deep and superficial soft tissues were infiltrated with local analgesic. Bipolar cautery had been utilized intermittently through the procedure for hemostasis. The wound was irrigated copiously with pulse lavage mechanical irrigation. The fascia was repaired with Vicryl suture. The subcutaneous soft tissues were repaired in layers with Vicryl suture. The skin was approximated with pernio/Dermabond. Sterile dressings were applied. Patient was then awakened, transferred to a bed and taken to recovery in stable condition. Jesse POLK assisted with the complex procedure.
--- NOTE | 2020-10-19 14:17 | FL ---
Fluoroscopy and limited right hip HISTORY: Right hip arthroplasty 16 seconds fluoroscopy time supplied to the referring clinician. 3 intraoperative C-arm images docum ent the procedure. See dictated report from orthopedic surgery.
[2020-10-19] MEDS: LACTATED RINGERS 1,000 ML IV SCH ×2 (15:45→17:34)
[2020-10-19] MEDS ORDERED: guaiFENesin 600 MG TABLET.ER PO PRN (17:03)
[2020-10-19] MEDS ORDERED: FLUTICASONE 50MCG/SPRAY NASAL 16GM EA NOSTRIL PRN (17:03)
[2020-10-19] MEDS ORDERED: POTASSIUM CHLORIDE ER 10 MEQ TAB.ER.PRT PO PRN (17:03)
[2020-10-19] MEDS ORDERED: ALBUTEROL NEBULIZED 2.5 MG/3 ML INHALATION PRN (17:03)
[2020-10-19] MEDS ORDERED: NITROGLYCERIN SL TABS 0.4 MG TAB SUBLINGUAL PRN (17:03)
[2020-10-19] MEDS ORDERED: MONTELUKAST 10 MG TAB PO PRN (17:03)
[2020-10-19] MEDS ORDERED: PATIENT'S OWN (Evolocumab [Repatha Sureclick] 140 MG/ML Pen.Injctr) SQ SCH (17:15)
[2020-10-19] MEDS: RANOLAZINE 500 MG TAB.ER.12H PO SCH (20:30)
[2020-10-19] MEDS: HYDROcodone/APAP 5-325MG 1 EACH TAB PO SCH (20:30)
[2020-10-19] MEDS ORDERED: SENNOSIDES-DOCUSATE SODIUM 1 EACH TAB PO SCH (21:00)
[2020-10-20] MEDS ORDERED: LEVOTHYROXINE 50 MCG TAB PO SCH (06:30)
[2020-10-20 06:42] LABS: Basophils % (A) 0 %; Eosinophils # (A) 0.1 k/uL (0-0.7); Eosinophils % (A) 1 %; HGB 10.1 gm/dL (11.4-16.0); Lymphocytes # (A) 0.9 k/uL (1.0-4.8); Lymphocytes % (A) 9 %; MCH 27.9 pg (25.0-35.0); MCHC 33.6 g/dL (31.0-37.0); MCV 83.2 fL (80.0-100.0); Monocytes # (A) 0.5 k/uL (0-1.0); Monocytes % (A) 6 %; Neutrophils # (A) 8.1 k/uL (1.3-7.7); Neutrophils % (A) 84 %; Platelet Count 171 k/uL (150-450); RBC 3.61 m/uL (3.80-5.40); RDW 15.2 % (11.5-15.5); WBC 9.7 k/uL (3.8-10.6)
[2020-10-20] MEDS ORDERED: SYMBICORT 160-4.5 MCG INHALER INHALATION SCH (08:00)
[2020-10-20] MEDS: HYDROcodone/APAP 5-325MG 1 EACH TAB PO SCH (08:50)
[2020-10-20] MEDS: RANOLAZINE 500 MG TAB.ER.12H PO SCH (08:55)
[2020-10-20] MEDS ORDERED: NON FORMULARY DRUG (Ubidecarenone [Co Q-10] 100 MG Capsule) PO SCH (09:00)
[2020-10-20] MEDS ORDERED: PANTOPRAZOLE 40 MG TABLET PO SCH (09:00)
[2020-10-20] MEDS ORDERED: FAMOTIDINE 20 MG TAB PO SCH (09:00)
[2020-10-20] MEDS ORDERED: LOSARTAN 50 MG TAB PO SCH (09:00)
[2020-10-20] MEDS ORDERED: amLODIPine 5 MG TAB PO SCH (09:00)
[2020-10-20] MEDS ORDERED: ISOSORBIDE MONONITRATE ER 60 MG TAB.ER.24H PO SCH (09:00)
[2020-10-20] MEDS ORDERED: METOPROLOL SUCCINATE (ER) 100 MG TAB.ER.24H PO SCH (09:00)
[2020-10-20] MEDS ORDERED: ENOXAPARIN 40 MG/0.4 ML SYRINGE SQ SCH (09:00)
[2020-10-20] MEDS ORDERED: ASPIRIN 81 MG PO SCH (09:00)
[2020-10-20] MEDS ORDERED: MAGNESIUM OXIDE 400 MG TAB PO SCH (09:00)
[2020-10-20] MEDS ORDERED: FUROSEMIDE 40 MG TAB PO SCH (09:00)
[2020-10-20] MEDS ORDERED: CALCIUM CARBONATE 500 MG CHEWABLE PO SCH (09:00)
--- NOTE | 2020-10-20 10:49 | P.PN ---
Subjective Progress Note Date: 10/20/20 Principal diagnosis: Status post right anterior right total hip arthroplasty Patient is evaluated today at bedside, she is resting comfortably. Patient has a really well with therapy. She is voiding with no difficulties. She has no headaches, lightheadedness, chest pain or shortness of breath. Objective - Vital Signs Vital signs: Vital Signs Temp 98.5 F 10/20/20 04:32 Pulse 71 10/20/20 04:32 Resp 16 10/20/20 04:32 BP 105/68 10/20/20 04:32 Pulse Ox 91 L 10/20/20 04:32 Intake & Output 10/19/20 10/20/20 10/20/20 18:59 06:59 18:59 Intake Total 2297 1560 Output Total 125 Balance 2172 1560 Weight 87 kg Intake: IV 7 Intake, IV Titration 240 960 Amount Lactated Ringers 1,000 ml 240 960 @ 80 mls/hr IV .[id number] JAROD Rx#:[id number] Oral 600 Output: Estimated Blood Loss 125 Other: Voiding Method Toilet Toilet Toilet # Voids 1 3 1 - Exam Right lower extremity: Incision is clean, dry, and intact. The stitches is in good condition. There is minimal soft tissue swelling and ecchymosis surrounding the medial and lateral aspects of the incision. Calf is soft, no tenderness with palpation. Plantar flexion, dorsiflexion, EHL, FHL are intact. Sensory exam to light touch throughout the extremity is intact, dorsal pedis pulses 2+. - Labs CBC & Chem 7: 10/20/20 06:15 Labs: Abnormal Lab Results - Last 24 Hours (Table) 10/20/20 Range/Units 06:15 RBC 3.61 L (3.80-5.40) m/uL Hgb 10.1 L (11.4-16.0) gm/dL Hct 30.0 L (34.0-46.0) % Neutrophils # 8.1 H (1.3-7.7) k/uL Lymphocytes # 0.9 L (1.0-4.8) k/uL Assessment and Plan Assessment: Status post direct anterior right total hip arthroplasty Plan: Pain control, patient has [place] 5 mg/325 mg at home GI and DVT prophylaxis, aspirin 81 mg twice a day Wound care instructions were discussed and provided Home physical therapy and nursing after discharge Encourage incentive spirometer Medical recommendations Plan for discharge home today Time with Patient: Less than 30
--- NOTE | 2020-10-20 10:51 | P.DS ---
Providers Date of admission: 10/19/2020 Expected date of discharge: 10/20/20 Attending physician: Hugh Espinoza Consults: 10/19/20 12:16 Consult Physician Routine Consulting Provider: Luigi Luong Reason/Comments: Medical management Do you want consulting provider notified?: Yes Primary care physician: Luigi Luong [facility] Course: Date of admission: 10/19/2020 Date of discharge: 10/20/2020 Admission diagnosis: Status post direct anterior right total hip arthroplasty Discharge diagnosis: Same Attending physician: Dr. Espinoza Surgical procedures: Direct anterior right total hip arthroplasty Brief history: Patient is a 69-year-old female with a history of is a primary right hip osteoarthritis. At this point patient has failed conservative treatment measures and has opted to proceed with a elective direct anterior right total hip arthroplasty. Hospital course: Details of patient's surgery can be found in operative report. Patient tolerated the procedure well and was subsequently transported to orthopedic floor. Patient's orthopeidc and medical care was provided daily. Patient had daily laboratory tests performed for evaluation of overall blood counts. Patient had daily physical therapy to include strengthening range of motion as well as education with walker ambulation. Patient was treated with Lovenox for their postoperative DVT prophylaxis during their inpatient stay. Patient was noted to have a relatively uneventful postoperative course. Patient reported satisfactory pain control with oral pain medications by postoperative day 0. Patient showed satisfactory progress with physical therapy. Patient moved steadily through the program and had no difficulty meeting the goals by postoperative day 1. Given patient's otherwise satisfactory course and having met physical therapy goals, plan is to discharge patient home on postoperative day 1. Discharge condition/disposition: Patient will be discharged home in stable condition. Discharge medications: Instructions are given on resumption of patient's normal daily medications per primary care recommendation, in addition patient will be prescribed aspirin 81 mg. Discharge instructions: 1. Wound care and infection precautions, keep incision dry and covered while showering, no lotions, creams, moisturizers. No soaking, tubs, pools, hottubs. Do not scrub over the incision. 2. Weight-bear as tolerated with walker / cane until follow-up. 3. Ice and elevate when necessary. Do not exceed 20 minutes per hour with ice pack. 4. Utilize compression sleeve until seen at first follow up appointment. 5. Visiting nursing care. 6. Home physical therapy. 7. Pain meds and anticoagulants per prescription. 8. Pain medication has potential to cause constipation. Increase oral fluid and fiber intake. Contact primary care provider if you have not had a bowel movement within 48 hours after discharge 9. No anti-inflammatory medication until discussed at first post operative visit, this including Motrin, Aleve, Mobic, Diclofenac. 10. Follow up in office at 2 weeks postop with Jesse Ritter PA-C/Alan Gómez 11. Follow up with your primary care doctor 7-10 days after discharge. 12. Contact [facility] with any questions, . Procedures: Direct anterior right total hip arthroplasty Patient Condition at Discharge: Good Plan - Discharge Summary Discharge Rx Participant: No New Discharge Prescriptions: New Aspirin [Adult Low Dose Aspirin EC] 81 mg PO BID #60 tablet.dr Discontinued Aspirin 81 mg PO DAILY No Action Metoprolol Succinate (ER) [Toprol XL] 100 mg PO DAILY amLODIPine [Norvasc] 5 mg PO QAM Levothyroxine Sodium [Synthroid] 50 mcg PO DAILY Calcium Carbonate [Calcium] 600 mg PO DAILY Magnesium 400 mg PO DAILY Fluticasone Nasal [place] [Flonase Nasal [place]] 1 spr EA NOSTRIL BID PRN PRN Reason: Allergy Symptoms Ubidecarenone [Co Q-10] 100 mg PO DAILY guaiFENesin [Mucinex] 600 mg PO Q12HR PRN PRN Reason: MUCOUS Isosorbide Mononitrate ER [Imdur] 60 mg PO DAILY tab.er.24h Nitroglycerin Sl Tabs [Nitrostat] 0.4 mg SUBLINGUAL Q5M PRN tab PRN Reason: Chest Pain Losartan Potassium 100 mg PO DAILY Evolocumab [Repatha Sureclick] 140 mg SQ Q14D Omeprazole [PriLOSEC] 40 mg PO DAILY Montelukast Sodium [Singulair] 10 mg PO HS PRN PRN Reason: ALLERGIES Albuterol Inhaler [Ventolin Hfa Inhaler] 2 puff INHALATION QID PRN MDD MAY USE EVERY 4-6 HORS NEED PRN Reason: Shortness Of Breath Or Wheezing Potassium Chloride [Klor-Con 10] 10 meq PO DAILY PRN PRN Reason: TAKEN WITH LASIX,EDEMA Ranolazine [Ranexa] 500 mg PO BID Fluticasone/Vilanterol [Breo Ellipta 200-25 Mcg INH] 1 inhalation INHALATION DAILY Furosemide [Lasix] 40 mg PO DAILY HYDROcodone/APAP 5-325MG [[place] 5-325] 1 tab PO BID Discharge Medication List Calcium Carbonate [Calcium] 600 mg PO DAILY 08/02/15 [History] Levothyroxine Sodium [Synthroid] 50 mcg PO DAILY 08/02/15 [History] Magnesium 400 mg PO DAILY 08/02/15 [History] Metoprolol Succinate (ER) [Toprol XL] 100 mg PO DAILY 08/02/15 [History] amLODIPine [Norvasc] 5 mg PO QAM 08/02/15 [History] Fluticasone Nasal [place] [Flonase Nasal [place]] 1 spr EA NOSTRIL BID PRN 08/28/15 [History] Ubidecarenone [Co Q-10] 100 mg PO DAILY 07/14/16 [History] guaiFENesin [Mucinex] 600 mg PO Q12HR PRN 03/02/18 [History] Isosorbide Mononitrate ER [Imdur] 60 mg PO DAILY tab.er.24h 04/26/18 [Rx] Nitroglycerin Sl Tabs [Nitrostat] 0.4 mg SUBLINGUAL Q5M PRN tab 04/26/18 [Rx] Losartan Potassium 100 mg PO DAILY 07/20/18 [History] Evolocumab [Repatha Sureclick] 140 mg SQ Q14D 02/08/19 [History] Montelukast Sodium [Singulair] 10 mg PO HS PRN 02/08/19 [History] Omeprazole [PriLOSEC] 40 mg PO DAILY 02/08/19 [History] Albuterol Inhaler [Ventolin Hfa Inhaler] 2 puff INHALATION QID PRN MDD MAY USE EVERY 4-6 HORS NEED 10/14/20 [History] Fluticasone/Vilanterol [Breo Ellipta 200-25 Mcg INH] 1 inhalation INHALATION DAILY 10/14/20 [History] Furosemide [Lasix] 40 mg PO DAILY 10/14/20 [History] HYDROcodone/APAP 5-325MG [[place] 5-325] 1 tab PO BID 10/14/20 [History] Potassium Chloride [Klor-Con 10] 10 meq PO DAILY PRN 10/14/20 [History] Ranolazine [Ranexa] 500 mg PO BID 10/14/20 [History] Aspirin [Adult Low Dose Aspirin EC] 81 mg PO BID #60 tablet. 10/20/20 [Rx] Follow up Appointment(s)/Referral(s): Lex Ritter PAC [PHYSICIAN SENIOR TRAINING AND DEVELOPMENT REP] - 2 Weeks Activity/Diet/Wound Care/Special Instructions: marylin rodriguez [facility] - #: Orthopedic Discharge Instructions: 1. Wound care and infection precautions, keep incision dry and covered while showering, no lotions, creams, moisturizers. No soaking, pools, hot tubs. Do not scrub over incision. 2. Weight-bear as tolerated with walker / cane until follow-up. 3. Ice and elevate when necessary. Do not exceed 20 minutes per hour with ice pack. 4. Utilize compression sleeve until seen at first follow up appointment. 5. Pain meds and anticoagulants per prescription. 6. Pain medication has potential to cause constipation. Increase oral fluid and fiber intake. Contact primary care provider if you have not had a bowel movement within 48 hours after discharge. 7. No anti-inflammatory medication until discussed at first post operative visit, this including Motrin, Aleve, Mobic, Diclofenac. 8. Follow up in office at 2 weeks postop with Jesse Ritter PA-C/Alan Cardenas PA-C 9. Follow up with your primary care doctor 7-10 days after discharge. 10. Contact [facility] with any questions, . Wound care instructions: 1. Apply cellerate every 3 days, utilize a Q-tip for application 2. Utilize a basic bandage over the incision 3. Keep incision covered and dry showering for the first week 4. Do not remove the stitches Discharge Disposition: HOME WITH HOME HEALTH SERVICES
[2020-10-20 12:00] VITALS: BP 94/59; PULSE 77; RESP 18; TEMP 98.6
[2020-10-20 13:16] LABS: African American GFR (CKD) 101.7 (60.0-200.0); Albumin 3.7 g/dL (3.80-4.90); Albumin/Globulin Ratio 2.06 (1.60-3.17); Anion Gap 10.2 mmol/L (4.00-12.00); BUN/Creat Ratio 12.86 Ratio (12.00-20.00); Calcium 7.7 mg/dL (8.7-10.3); Carbon Dioxide 29.8 mmol/L (21.6-31.8); Globulin 1.8 g/dL (1.6-3.3); Non-African American GFR(CKD) 87.8 (60.0-200.0); Potassium 2.8 mmol/L (3.5-5.5); Total Bilirubin 0.6 mg/dL (0.3-1.2); Total Protein 5.5 g/dL (6.2-8.2)
== END 2020-10-20 12:55 | disposition home health service (06) ==
LOC: OR 08:39 → EDSTATUS 12:50 → 5NMEDONC 15:03 → OR 10-20 12:55
PROVIDERS: ATTEND Orthopaedic Surgery
DX: M16.11 Unilateral primary osteoarthritis, right hip (principal); I10 Essential (primary) hypertension; E78.5 Hyperlipidemia, unspecified; I48.91 Unspecified atrial fibrillation; I25.10 Atherosclerotic heart disease of native coronary artery without angina pectoris; K21.9 Gastro-esophageal reflux disease without esophagitis; E66.9 Obesity, unspecified; Z68.32 Body mass index [BMI] 32.0-32.9, adult; J44.9 Chronic obstructive pulmonary disease, unspecified; Z98.891 History of uterine scar from previous surgery; Z90.49 Acquired absence of other specified parts of digestive tract; Z98.890 Other specified postprocedural states; E89.0 Postprocedural hypothyroidism; Z97.2 Presence of dental prosthetic device (complete) (partial); Z79.82 Long term (current) use of aspirin; Z79.890 Hormone replacement therapy; Z79.899 Other long term (current) drug therapy; Z88.6 Allergy status to analgesic agent; Z88.1 Allergy status to other antibiotic agents; Z88.2 Allergy status to sulfonamides; Z88.8 Allergy status to other drugs, medicaments and biological substances; Z88.0 Allergy status to penicillin
CPT/HCPCS: 97162; 80053; 85025; 88300; 87635; 73501; 27130; C1776; J2250; J0690 ×3; J2405; J1650; J3010; J2370; J2704; 36415; 86850; 86900; 86901

== ENCOUNTER 2020-10-22 11:37 | Inpatient (IN) | payer MEDICARE, OTHER ==
--- NOTE | 2020-10-22 12:40 | ED ---
General Adult HPI - General Chief complaint: Recheck/Abnormal Lab/Rx Stated complaint: Confusion Time Seen by Provider: 10/22/20 12:09 Source: EMS Mode of arrival: EMS Limitations: no limitations - History of Present Illness Initial comments: Dictation was produced using [employer] dictation software. please excuse any grammatical, word or spelling errors. This patient was cared for during a federal and state declared state of emergency secondary to Covid 19 Chief Complaint: 69-year-old female presents with altered mental status. History of Present Illness: It is a 69-year-old female she was brought in by EMS for altered mental status. Patient recently had total hip replacement performed by Dr. Dejesus. She was discharged home on Monday. Patient lives at home by herself however she does have a friend that's helping her postoperatively. Patient states that her hip surgery went well. She has been confused. Friend said that she's been mentioning things about doing laundry for her son in [place]. She does not live with her son. Nor that she go to [place]. Patient believes that she is confused after friend told her this. Patient has history of asthma, COPD, hypertension. She has any chest pain shortness of breath at this time. no numbness and paresthesias. The ROS documented in this emergency department record has been reviewed and confirmed by me. Those systems with pertinent positive or negative responses have been documented in the HPI. All other systems are other negative and/or noncontributory. PHYSICAL EXAM: General Impression: Alert and oriented x3, not in acute distress HEENT: Normocephalic atraumatic, extra-ocular movements intact, pupils equal and reactive to light bilaterally, mucous membranes moist. Cardiovascular: Heart regular rate and rhythm Chest: Able to complete full sentences, no retractions, no tachypnea Abdomen: abdomen soft, non-tender, non-distended, no organomegaly Musculoskeletal: Pulses present and equal in all extremities, no peripheral edema Motor: no focal deficits noted Neurological: CN II-XII grossly intact, no focal motor or sensory deficits noted Skin: Intact with no visualized rashes, surgical site clean dry and intact to the right hip Psych: Normal affect and mood ED course: 69-year-old female presents to the emergency department for altered mental status. Patient is postop day 3 for total hip replacement. Vital Signs upon arrival shows her to 9.1, rest of vital signs within acceptable limits. Laboratory evaluation obtained. CBC within acceptable limits. Coag panel is negative. Metabolic panel shows potassium 2.6, no acidosis, calcium 8.0, magne sium 1.1. Mild dehydration with elevated BUN 22. Urine study shows 6 white blood cells. Computed tomography scan of brain shows no acute processes. Chest x-ray is unremarkable. She reevaluated at bedside at 2 PM found to be in stable medical condition. Case discussed with Dr. Luong who is willing to accept patients care. Patient given parenteral electrolyte replacement. - Related Data Home Medications Medication Instructions Recorded Confirmed Calcium Carbonate [Calcium] 600 mg PO DAILY 08/02/15 10/19/20 Levothyroxine Sodium [Synthroid] 50 mcg PO DAILY 08/02/15 10/19/20 Magnesium 400 mg PO DAILY 08/02/15 10/19/20 Metoprolol Succinate (ER) [Toprol 100 mg PO DAILY 08/02/15 10/19/20 XL] amLODIPine [Norvasc] 5 mg PO QAM 08/02/15 10/19/20 Fluticasone Nasal [place] [Flonase 1 spr EA NOSTRIL BID PRN 08/28/15 10/19/20 Nasal [place]] Ubidecarenone [Co Q-10] 100 mg PO DAILY 07/14/16 10/19/20 guaiFENesin [Mucinex] 600 mg PO Q12HR PRN 03/02/18 10/19/20 Losartan Potassium 100 mg PO DAILY 07/20/18 10/19/20 Evolocumab [Repatha Sureclick] 140 mg SQ Q14D 02/08/19 10/19/20 Montelukast Sodium [Singulair] 10 mg PO HS PRN 02/08/19 10/19/20 Omeprazole [PriLOSEC] 40 mg PO DAILY 02/08/19 10/19/20 Albuterol Inhaler [Ventolin Hfa 2 puff INHALATION QID PRN MDD 10/14/20 10/19/20 Inhaler] USE EVERY 4-6 HORS NEED Fluticasone/Vilanterol [Breo 1 inhalation INHALATION DAILY 10/14/20 10/19/20 Ellipta 200-25 Mcg INH] Furosemide [Lasix] 40 mg PO DAILY 10/14/20 10/19/20 HYDROcodone/APAP 5-325MG [[place] 1 tab PO BID 10/14/20 10/19/20 5-325] Potassium Chloride [Klor-Con 10] 10 meq PO DAILY PRN 10/14/20 10/19/20 Ranolazine [Ranexa] 500 mg PO BID 10/14/20 10/19/20 Previous Rx's Medication Instructions Recorded Isosorbide Mononitrate ER [Imdur] 60 mg PO DAILY tab.er.24h 04/26/18 Nitroglycerin Sl Tabs [Nitrostat] 0.4 mg SUBLINGUAL Q5M PRN tab 04/26/18 Aspirin [Adult Low Dose Aspirin EC] 81 mg PO BID #60 tablet. 10/20/20 Allergies Allergy/AdvReac Type Severity Reaction Status Date / Time cephalexin monohydrate Allergy Rash/Hives Verified 10/22/20 12:03 [From Keflex] ciprofloxacin [From Cipro] Allergy Rash/Hives Verified 10/22/20 12:03 levofloxacin [From Levaquin] Allergy Rash/Hives Verified 10/22/20 12:03 minocycline Allergy Rash/Hives Verified 10/22/20 12:03 nitrofurantoin Allergy Dyspnea Verified 10/22/20 12:03 [From Macrobid] potassium clavulanate Allergy Rash/Hives Verified 10/22/20 12:03 [From Augmentin] sulfamethoxazole Allergy Itching Verified 10/22/20 12:03 [From Bactrim] trimethoprim [From Bactrim] Allergy Itching Verified 10/22/20 12:03 azithromycin AdvReac bleeding Verified 10/22/20 12:03 etodolac [From Lodine] AdvReac "inflamed Verified 10/22/20 12:03 legs" lisinopril AdvReac Cough Verified 10/22/20 12:03 NSAIDS (Non-Steroidal AdvReac BLURRY Verified 10/22/20 12:03 Anti-Inflamma VISION prednisone AdvReac CHEST Verified 10/22/20 12:03 PAIN/FATIGUE/FEVER/CHILLS Tyzwyyo-Svg-Ytr Reductase AdvReac MUSCLE PAIN Verified 10/22/20 12:03 Inhibitor Review of Systems ROS Statement: Those systems with pertinent positive or pertinent negative responses have been documented in the HPI. ROS Other: All systems not noted in ROS Statement are negative. Past Medical History Past Medical History: Asthma, Coronary Artery Disease (CAD), Cancer, COPD, Fibromyalgia, GERD/Reflux, Hyperlipidemia, Hypertension, Osteoarthritis (OA), Rheumatoid Arthritis (RA), Thyroid Disorder Additional Past Medical History / Comment(s): HX OF COLON POLYP, AAA, PHLEBITIS, VARICOSE VEINS, REYNAUD'S, BREAST CANCER., ANEMIA. History of Any Multi-Drug Resistant Organisms: None Reported Past Surgical History: Breast Surgery, Section, Cholecystectomy, Heart Catheterization, Orthopedic Surgery, Tonsillectomy Additional Past Surgical History / Comment(s): LEFT CAROTID ENDARTECTOMY, FERNANDO CARPAL TUNNEL, FERNANDO LEGS VEIN STRIPPING, RT THYROIDECTOMY, FERNANDO BREAST SX, LEFT LUMPECTOMY , LEFT BREAST FATTY TUMOR, HEART CATH 03/13/18 @ [facility]. Past Anesthesia/Blood Transfusion Reactions: Previous Problems w/ Anesthesia Additional Past Anesthesia/Blood Transfusion Reaction / Comment(s): STATES "FELT PARALYZED CHEST AREA AND ARM" ( OVER 20 YRS AGO.) NO PROBLEM SINCE Past Psychological History: Depression Past Alcohol Use History: None Reported - Past Family History Father Family Medical History: Cancer Additional Family Medical History / Comment(s): NON HODGKINS LYMPHOMA Brother(s) Family Medical History: Cancer Additional Family Medical History / Comment(s): prostate General Exam Limitations: no limitations Course Vital Signs 10/22/20 10/22/20 10/22/20 11:56 13:55 13:57 Temperature 99.1 F 98.8 F Pulse Rate 98 80 Respiratory 18 18 Rate Blood Pressure 120/73 114/66 O2 Sat by Pulse 96 98 Oximetry Medical Decision Making - Lab Data Result diagrams: 10/22/20 12:46 10/22/20 12:46 Lab Results 10/22/20 10/22/20 10/22/20 Range/Units 12:46 12:46 12:46 WBC 11.8 H (3.8-10.6) k/uL RBC 3.79 L (3.80-5.40) m/uL Hgb 10.2 L (11.4-16.0) gm/dL Hct 31.0 L (34.0-46.0) % MCV 81.8 (80.0-100.0) fL MCH 26.8 (25.0-35.0) pg MCHC 32.7 (31.0-37.0) g/dL RDW 15.8 H (11.5-15.5) % Plt Count 183 (150-450) k/uL MPV 10.2 Neutrophils % 83 % Lymphocytes % 9 % Monocytes % 6 % Eosinophils % 1 % Basophils % 0 % Neutrophils # 9.7 H (1.3-7.7) k/uL Lymphocytes # 1.1 (1.0-4.8) k/uL Monocytes # 0.7 (0-1.0) k/uL Eosinophils # 0.2 (0-0.7) k/uL Basophils # 0.0 (0-0.2) k/uL PT 10.3 (9.0-12.0) sec INR 1.0 (<1.2) APTT 19.2 L (22.0-30.0) sec Sodium (137-145) mmol/L Potassium (3.5-5.1) mmol/L Chloride (98-107) mmol/L Carbon Dioxide (22-30) mmol/L Anion Gap mmol/L BUN (7-17) mg/dL Creatinine (0.52-1.04) mg/dL Est GFR (CKD-EPI)AfAm (>60 ml/min/1.73 sqM) Est GFR (CKD-EPI)NonAf (>60 ml/min/1.73 sqM) Glucose (74-99) mg/dL Plasma Lactic Acid Black (0.7-2.0) mmol/L Calcium (8.4-10.2) mg/dL Magnesium (1.6-2.3) mg/dL Total Bilirubin (0.2-1.3) mg/dL AST (14-36) U/L ALT (4-34) U/L Alkaline Phosphatase (38-126) U/L Troponin I (0.000-0.034) ng/mL C-Reactive Protein (<1.0) mg/dL Total Protein (6.3-8.2) g/dL Albumin (3.5-5.0) g/dL Urine Color Yellow Urine Appearance Clear (Clear) Urine pH 5.5 (5.0-8.0) Ur Specific [place] 1.013 (1.001-1.035) Urine Protein Trace H (Negative) Urine Glucose (UA) Negative (Negative) Urine Ketones 2+ H (Negative) Urine Blood Small H (Negative) Urine Nitrite Negative (Negative) Urine Bilirubin Negative (Negative) Urine Urobilinogen <2.0 (<2.0) mg/dL Ur Leukocyte Esterase Small H (Negative) Urine RBC 1 (0-5) /hpf Urine WBC 6 H (0-5) /hpf Ur Squamous Epith Cells 1 (0-4) /hpf Hyaline Casts 1 (0-2) /lpf Urine Mucus Rare H (None) /hpf 10/22/20 10/22/20 10/22/20 Range/Units 12:46 12:46 12:46 WBC (3.8-10.6) k/uL RBC (3.80-5.40) m/uL Hgb (11.4-16.0) gm/dL Hct (34.0-46.0) % MCV (80.0-100.0) fL MCH (25.0-35.0) pg MCHC (31.0-37.0) g/dL RDW (11.5-15.5) % Plt Count (150-450) k/uL MPV Neutrophils % % Lymphocytes % % Monocytes % % Eosinophils % % Basophils % % Neutrophils # (1.3-7.7) k/uL Lymphocytes # (1.0-4.8) k/uL Monocytes # (0-1.0) k/uL Eosinophils # (0-0.7) k/uL Basophils # (0-0.2) k/uL PT (9.0-12.0) sec INR (<1.2) APTT (22.0-30.0) sec Sodium 136 L (137-145) mmol/L Potassium 2.6 L* (3.5-5.1) mmol/L Chloride 96 L (98-107) mmol/L Carbon Dioxide 26 (22-30) mmol/L Anion Gap 14 mmol/L BUN 22 H (7-17) mg/dL Creatinine 0.90 (0.52-1.04) mg/dL Est GFR (CKD-EPI)AfAm 75 (>60 ml/min/1.73 sqM) Est GFR (CKD-EPI)NonAf 65 (>60 ml/min/1.73 sqM) Glucose 84 (74-99) mg/dL Plasma Lactic Acid Black 1.2 (0.7-2.0) mmol/L Calcium 8.0 L (8.4-10.2) mg/dL Magnesium 1.1 L (1.6-2.3) mg/dL Total Bilirubin 1.1 (0.2-1.3) mg/dL AST 88 H (14-36) U/L ALT 23 (4-34) U/L Alkaline Phosphatase 90 (38-126) U/L Troponin I <0.012 (0.000-0.034) ng/mL C-Reactive Protein 24.0 H (<1.0) mg/dL Total Protein 6.1 L (6.3-8.2) g/dL Albumin 3.6 (3.5-5.0) g/dL Urine Color Urine Appearance (Clear) Urine pH (5.0-8.0) Ur Specific [place] (1.001-1.035) Urine Protein (Negative) Urine Glucose (UA) (Negative) Urine Ketones (Negative) Urine Blood (Negative) Urine Nitrite (Negative) Urine Bilirubin (Negative) Urine Urobilinogen (<2.0) mg/dL Ur Leukocyte Esterase (Negative) Urine RBC (0-5) /hpf Urine WBC (0-5) /hpf Ur Squamous Epith Cells (0-4) /hpf Hyaline Casts (0-2) /lpf Urine Mucus (None) /hpf Disposition Clinical Impression: Electrolyte abnormality Disposition: ADMITTED IP TO THIS HOSP Condition: Fair Referrals: Luigi Luong MD [Primary Care Provider] - 1-2 days Decision Time: 14:17
[2020-10-22 13:24] LABS: Albumin 3.6 g/dL (3.5-5.0); Magnesium 1.1 mg/dL (1.6-2.3); Total Bilirubin 1.1 mg/dL (0.2-1.3); Total Protein 6.1 g/dL (6.3-8.2)
[2020-10-22 13:28] LABS: Basophils % (A) 0 %; Eosinophils # (A) 0.2 k/uL (0-0.7); Eosinophils % (A) 1 %; HGB 10.2 gm/dL (11.4-16.0); Lymphocytes # (A) 1.1 k/uL (1.0-4.8); Lymphocytes % (A) 9 %; MCH 26.8 pg (25.0-35.0); MCHC 32.7 g/dL (31.0-37.0); MCV 81.8 fL (80.0-100.0); Mean Platelet Volume 10.2; Monocytes # (A) 0.7 k/uL (0-1.0); Monocytes % (A) 6 %; Neutrophils # (A) 9.7 k/uL (1.3-7.7); Neutrophils % (A) 83 %; Platelet Count 183 k/uL (150-450); RBC 3.79 m/uL (3.80-5.40); RDW 15.8 % (11.5-15.5); WBC 11.8 k/uL (3.8-10.6)
[2020-10-22 13:32] LABS: Prothrombin Time 10.3 sec (9.0-12.0)
--- NOTE | 2020-10-22 13:33 | XR ---
EXAMINATION TYPE: XR chest 1V portable DATE OF EXAM: 10/22/2020 HISTORY: Shortness of breath. COMPARISON: 07/20/2018 TECHNIQUE: Single view of the chest is submitted. FINDINGS: Demonstrated are scattered senescent parenchymal change. There is no evidence for focal infiltrate. The heart is stable. Hilar and mediastinal structures are within normal limits. Degenerative changes are seen of the dorsal spine. IMPRESSION: 1. Chronic changes without evidence for acute pulmonary disease.
[2020-10-22 13:38] LABS: Potassium 2.6 mmol/L (3.5-5.1)
[2020-10-22 13:39] LABS: Partial Thromboplastin Time 19.2 sec (22.0-30.0)
[2020-10-22 13:46] LABS: Appearance,Urine Clear (Clear); Bilirubin,Urine Negative (Negative); Blood,Urine Small (Negative); Color,Urine Yellow; Glucose,Urine (UA) Negative (Negative); Hyaline Casts,Urine 1 /lpf (0-2); Ketones,Urine 2+ (Negative); Leukocyte Esterase,Urine Small (Negative); Mucus,Urine Rare /hpf; Nitrite,Urine Negative (Negative); PH, Urine 5.5 (5.0-8.0); Protein,Urine Trace (Negative); RBC,Urine 1 /hpf (0-5); Specific Gravity,Urine 1.013 (1.001-1.035); Squamous Epithelial Cell,Urine 1 /hpf (0-4); Urobilinogen,Urine <2.0 mg/dL (<2.0); WBC,Urine 6 /hpf (0-5)
--- NOTE | 2020-10-22 13:50 | CT ---
EXAMINATION TYPE: CT brain wo con DATE OF EXAM: 10/22/2020 COMPARISON: 02/08/2019 HISTORY: Post Op hip 4 days. Weakness and confusion. CT DLP: 1059.[address] of the brain was performed. The ventricles, basal cisterns and sulci overlying the cerebral convexities demonstrate mild enlargem ent. There is no evidence for intracranial hemorrhage or sulcal effacement. There is decreased attenuation about the periventricular white matter and deep white matter of both c erebral hemispheres, compatible with chronic small vessel ischemia. Differential diagnosis does inclu de demyelination. No mass effects are seen.No midline shift. Osseous calvarium is intact. If symptoms persist consider MRI. IMPRESSION: 1. Age related atrophic and chronic small vessel ischemic change without acute intracranial process s een at this time.
[2020-10-22] MEDS ORDERED: SODIUM CHLORIDE 0.9% 1,000 ML IV STA (13:53)
[2020-10-22] MEDS ORDERED: POTASSIUM CHLORIDE ER 20 MEQ TAB.ER PO STA (13:53)
[2020-10-22] MEDS ORDERED: NALOXONE 0.4 MG/ML 1 ML VIAL IV PRN (14:10)
[2020-10-22] MEDS: POTASSIUM CHLORIDE 10 MEQ in WATER FOR INJECTION 1 100ML.BAG IVPB SCH ×4 (14:27→18:10)
[2020-10-22] MEDS: MAGNESIUM SULFATE-D5W PMX 1 GM in DEXTROSE/WATER 1 100ML.BAG IVPB SCH ×2 (14:28→15:43)
[2020-10-22] MEDS: SODIUM CHLORIDE 0.9% 1,000 ML IV SCH (14:29)
[2020-10-22] MEDS ORDERED: NITROGLYCERIN SL TABS 0.4 MG TAB SUBLINGUAL PRN (17:44)
[2020-10-22] MEDS ORDERED: DOCUSATE 100 MG CAP PO PRN (17:44)
[2020-10-22] MEDS ORDERED: FLUTICASONE 50MCG/SPRAY NASAL 16GM EA NOSTRIL PRN (17:44)
[2020-10-22] MEDS ORDERED: POTASSIUM CHLORIDE ER 10 MEQ TAB.ER.PRT PO PRN (17:44)
[2020-10-22] MEDS ORDERED: MONTELUKAST 10 MG TAB PO PRN (17:44)
[2020-10-22] MEDS ORDERED: guaiFENesin 600 MG TABLET.ER PO PRN (17:44)
[2020-10-22] MEDS ORDERED: ALBUTEROL NEBULIZED 2.5 MG/3 ML INHALATION PRN (17:44)
[2020-10-22] MEDS ORDERED: NICOTINE 21MG/24HR PATCH TRANSDERM PRN (17:44)
[2020-10-22] MEDS ORDERED: FUROSEMIDE 40 MG TAB PO PRN (17:44)
[2020-10-22] MEDS ORDERED: Potassium Replacement Protocol 1 EACH MISC MISCELLANE PRN (17:48)
[2020-10-22] MEDS: ENOXAPARIN 40 MG/0.4 ML SYRINGE SQ SCH (20:17)
[2020-10-22] MEDS: HYDROcodone/APAP 5-325MG 1 EACH TAB PO PRN (20:17)
[2020-10-22] MEDS: RANOLAZINE 500 MG TAB.ER.12H PO SCH (20:18)
[2020-10-23] MEDS: POTASSIUM CHLORIDE 10 MEQ in WATER FOR INJECTION 1 100ML.BAG IVPB SCH ×2 (00:04→02:22)
[2020-10-23] MEDS: SODIUM CHLORIDE 0.9% 1,000 ML IV SCH ×3 (02:22→18:12)
[2020-10-23] MEDS: LEVOTHYROXINE 50 MCG TAB PO SCH (06:23)
[2020-10-23] MEDS: SYMBICORT 160-4.5 MCG INHALER INHALATION SCH ×2 (08:13→21:01)
[2020-10-23] MEDS ORDERED: NON FORMULARY DRUG (Ubidecarenone [Co Q-10] 100 MG Capsule) PO SCH (09:00)
[2020-10-23 09:16] LABS: Basophils # (A) 0.03 X 10*3/uL (0.00-0.10); Basophils % (A) 0.4 %; Eosinophils # (A) 0.29 X 10*3/uL (0.04-0.35); Eosinophils % (A) 3.9 %; HCT 29.2 % (37.2-46.3); HGB 8.9 g/dL (12.0-15.0); Lymphocytes # (A) 1.03 X 10*3/uL (0.90-5.00); Lymphocytes % (A) 13.8 %; MCH 26.3 pg (27.0-32.0); MCHC 30.5 g/dL (32.0-37.0); MCV 86.4 fL (80.0-97.0); Monocytes % (A) 9.4 %; Neutrophils # (A) 5.39 X 10*3/uL (1.80-7.70); Neutrophils % (A) 72.1 %; Platelet Count 189 X 10*3/uL (140-440); RBC 3.38 X 10*6/uL (4.10-5.20); RDW 15.9 % (11.5-14.5); WBC 7.47 X 10*3/uL (4.50-10.00)
[2020-10-23] MEDS: METOPROLOL SUCCINATE (ER) 100 MG TAB.ER.24H PO SCH (09:21)
[2020-10-23] MEDS: LOSARTAN 50 MG TAB PO SCH (09:21)
[2020-10-23] MEDS: RANOLAZINE 500 MG TAB.ER.12H PO SCH ×2 (09:22→20:08)
[2020-10-23] MEDS: PANTOPRAZOLE 40 MG TABLET PO SCH (09:22)
[2020-10-23] MEDS: CALCIUM CARBONATE 500 MG CHEWABLE PO SCH (09:22)
[2020-10-23] MEDS: MAGNESIUM OXIDE 400 MG TAB PO SCH (09:23)
[2020-10-23] MEDS: FERROUS SULFATE 325 MG TAB PO SCH (09:23)
[2020-10-23] MEDS: ENOXAPARIN 40 MG/0.4 ML SYRINGE SQ SCH (09:23)
[2020-10-23] MEDS: amLODIPine 5 MG TAB PO SCH (09:23)
[2020-10-23] MEDS: ISOSORBIDE MONONITRATE ER 60 MG TAB.ER.24H PO SCH (09:24)
[2020-10-23 09:29] LABS: African American GFR (CKD) 113.7 (60.0-200.0); Albumin 3.2 g/dL (3.80-4.90); Albumin/Globulin Ratio 1.78 (1.60-3.17); Anion Gap 8.7 mmol/L (4.00-12.00); Calcium 7.7 mg/dL (8.7-10.3); Carbon Dioxide 27.3 mmol/L (21.6-31.8); Globulin 1.8 g/dL (1.6-3.3); Non-African American GFR(CKD) 98.1 (60.0-200.0); Potassium 2.9 mmol/L (3.5-5.5); Total Bilirubin 0.8 mg/dL (0.3-1.2)
[2020-10-23] MEDS ORDERED: Potassium Replacement Protocol 1 EACH MISC MISCELLANE PRN ×2 (09:48→09:49)
--- NOTE | 2020-10-23 09:54 | P.HPIM ---
History of Present Illness H&P Date: 10/22/20 Chief Complaint: confusion This is a 69-year-old female patient who presented to the ER with complaints of confusion per neighbor. Patient recently had total right hip replacement with Dr. Espinoza was discharged home on Monday. Patient's neighbor noticed that she was having increased confusion. Patient does have past medical history of asthma, COPD and hypertension. Patient reports that she has not been taking any of her prescribed medication. Patient denies any falls. Patient denies any episodes of fever at home. Chest x-ray was performed showing chronic changes without evidence for acute pulmonary disease head CT was performed showing age- related atrophic and chronic small vessel ischemic change without acute intracranial process is seen at this time. Potassium was low at 2.6. Replace per protocol. Venous Doppler has been ordered right lower extremity. Neurology services ordered. Blood and urine cultures ordered. COVID-19 negative. UA showing small amount of leukocyte Estrace. Patient has multiple drug ALLERGIES. At this time patient denies chest pain or shortness of breath. Patient denies nausea vomiting or diarrhea. Patient denies any urinary burning or frequency Review of Systems please refer to HPI otherwise unremarkable Past Medical History Past Medical History: Asthma, Coronary Artery Disease (CAD), Cancer, COPD, Fibromyalgia, GERD/Reflux, Hyperlipidemia, Hypertension, Osteoarthritis (OA), Rheumatoid Arthritis (RA), Thyroid Disorder Additional Past Medical History / Comment(s): HX OF COLON POLYP, AAA, PHLEBITIS, VARICOSE VEINS, REYNAUD'S, BREAST CANCER., ANEMIA. History of Any Multi-Drug Resistant Organisms: None Reported Past Surgical History: Breast Surgery, Section, Cholecystectomy, Heart Catheterization, Orthopedic Surgery, Tonsillectomy Additional Past Surgical History / Comment(s): LEFT CAROTID ENDARTECTOMY, FERNANDO CARPAL TUNNEL, FERNANDO LEGS VEIN STRIPPING, RT THYROIDECTOMY, FERNANDO BREAST SX, LEFT LUMPECTOMY , LEFT BREAST FATTY TUMOR, HEART CATH 03/13/18 @ [facility]. Past Anesthesia/Blood Transfusion Reactions: Previous Problems w/ Anesthesia Additional Past Anesthesia/Blood Transfusion Reaction / Comment(s): STATES "FELT PARALYZED CHEST AREA AND ARM" ( OVER 20 YRS AGO.) NO PROBLEM SINCE Past Psychological History: Depression Past Alcohol Use History: None Reported - Past Family History Father Family Medical History: Cancer Additional Family Medical History / Comment(s): NON HODGKINS LYMPHOMA Brother(s) Family Medical History: Cancer Additional Family Medical History / Comment(s): prostate Medications and Allergies Home Medications Medication Instructions Recorded Confirmed Type Calcium Carbonate [Calcium] 600 mg PO DAILY 08/02/15 10/22/20 History Levothyroxine Sodium [Synthroid] 50 mcg PO DAILY 08/02/15 10/22/20 History Metoprolol Succinate (ER) [Toprol 100 mg PO DAILY 08/02/15 10/22/20 History XL] Fluticasone Nasal Wendel [Flonase 1 spr EA NOSTRIL BID PRN 08/28/15 10/22/20 History Nasal Wendel] Ubidecarenone [Co Q-10] 100 mg PO DAILY 07/14/16 10/22/20 History guaiFENesin [Mucinex] 600 mg PO Q12HR PRN 03/02/18 10/22/20 History Isosorbide Mononitrate ER [Imdur] 60 mg PO DAILY tab.er.24h 04/26/18 10/22/20 Rx Nitroglycerin Sl Tabs [Nitrostat] 0.4 mg SUBLINGUAL Q5M PRN tab 04/26/18 10/22/20 Rx Losartan Potassium 100 mg PO DAILY 07/20/18 10/22/20 History Evolocumab [Repatha Sureclick] 140 mg SQ Q14D 02/08/19 10/22/20 History Montelukast Sodium [Singulair] 10 mg PO HS PRN 02/08/19 10/22/20 History Albuterol Inhaler [Ventolin Hfa 2 puff INHALATION RT-QID PRN 10/14/20 10/22/20 History Inhaler] Fluticasone/Vilanterol [Breo 1 inhalation INHALATION RT-DAILY 10/14/20 10/22/20 History Ellipta 200-25 Mcg INH] Furosemide [Lasix] 40 mg PO DAILY PRN 10/14/20 10/22/20 History HYDROcodone/APAP 5-325MG [[place] 1 tab PO BID PRN 10/14/20 10/22/20 History 5-325] Potassium Chloride [Klor-Con 10] 10 meq PO DAILY PRN 10/14/20 10/22/20 History Ranolazine [Ranexa] 500 mg PO BID 10/14/20 10/22/20 History Cholecalciferol (Vitamin D3) 125 mcg PO Q7D 10/22/20 10/22/20 History [Vitamin D3 (5000 Iu)] Docusate Sodium [Dok] 100 mg PO DAILY PRN 10/22/20 10/22/20 History Ferrous Sulfate [Feosol] 325 mg PO DAILY 10/22/20 10/22/20 History Magnesium Oxide 400 mg PO DAILY 10/22/20 10/22/20 History Nicotine [Nicoderm Cq] 1 patch TOPICAL DAILY PRN 10/22/20 10/22/20 History Omeprazole 20 mg PO DAILY 10/22/20 10/22/20 History amLODIPine [Norvasc] 5 mg PO DAILY 10/22/20 10/22/20 History Allergies Allergy/AdvReac Type Severity Reaction Status Date / Time cephalexin monohydrate Allergy Rash/Hives Verified 10/22/20 15:33 [From Keflex] ciprofloxacin [From Cipro] Allergy Rash/Hives Verified 10/22/20 15:33 levofloxacin [From Levaquin] Allergy Rash/Hives Verified 10/22/20 15:33 minocycline Allergy Rash/Hives Verified 10/22/20 15:33 nitrofurantoin Allergy Dyspnea Verified 10/22/20 15:33 [From Macrobid] potassium clavulanate Allergy Rash/Hives Verified 10/22/20 15:33 [From Augmentin] sulfamethoxazole Allergy Itching Verified 10/22/20 15:33 [From Bactrim] trimethoprim [From Bactrim] Allergy Itching Verified 10/22/20 15:33 azithromycin AdvReac bleeding Verified 10/22/20 15:33 etodolac [From Lodine] AdvReac "inflamed Verified 10/22/20 15:33 legs" lisinopril AdvReac Cough Verified 10/22/20 15:33 NSAIDS (Non-Steroidal AdvReac BLURRY Verified 10/22/20 15:33 Anti-Inflamma VISION prednisone AdvReac CHEST Verified 10/22/20 15:33 PAIN/FATIGUE/FEVER/CHILLS Gyxesvu-Ulk-Uww Reductase AdvReac MUSCLE PAIN Verified 10/22/20 15:33 Inhibitor Physical Exam Vitals: Vital Signs Temp Pulse Resp BP Pulse Ox 10/22/20 15:01 80 18 118/59 99 10/22/20 13:57 98.8 F 10/22/20 13:55 80 18 114/66 98 10/22/20 11:56 99.1 F 98 18 120/73 96 Intake and Output 10/22/20 10/22/20 10/22/20 06:59 14:59 22:59 Other: Weight 85.729 kg In general patient is alert and oriented ?-3 in no distress HEENT head normocephalic and atraumatic Neck is supple no JVD no goiter no lymphadenopathy no carotid bruit Chest examination is clear to auscultation no crackles no wheezing Cardiac exam reveals regular heart sounds S1 and S2 no gallops no murmurs Abdomen is soft nontender no organomegaly with normal bowel sounds Extremity exam reveals no edema no cyanosis or clubbing. Right hip incision clean dry and intact. +2 edema to right lower extremity Neurological examination reveals no gross focal deficits Results CBC & Chem 7: 10/23/20 05:29 10/23/20 05:29 Labs: Abnormal Lab Results - Last 24 Hours (Table) 10/22/20 10/22/20 10/22/20 Range/Units 12:46 12:46 12:46 WBC 11.8 H (3.8-10.6) k/uL RBC 3.79 L (3.80-5.40) m/uL Hgb 10.2 L (11.4-16.0) gm/dL Hct 31.0 L (34.0-46.0) % RDW 15.8 H (11.5-15.5) % Neutrophils # 9.7 H (1.3-7.7) k/uL APTT 19.2 L (22.0-30.0) sec Sodium (137-145) mmol/L Potassium (3.5-5.1) mmol/L Chloride (98-107) mmol/L BUN (7-17) mg/dL Calcium (8.4-10.2) mg/dL Magnesium (1.6-2.3) mg/dL AST (14-36) U/L C-Reactive Protein (<1.0) mg/dL Total Protein (6.3-8.2) g/dL Urine Protein Trace H (Negative) Urine Ketones 2+ H (Negative) Urine Blood Small H (Negative) Ur Leukocyte Esterase Small H (Negative) Urine WBC 6 H (0-5) /hpf Urine Mucus Rare H (None) /hpf 10/22/20 Range/Units 12:46 WBC (3.8-10.6) k/uL RBC (3.80-5.40) m/uL Hgb (11.4-16.0) gm/dL Hct (34.0-46.0) % RDW (11.5-15.5) % Neutrophils # (1.3-7.7) k/uL APTT (22.0-30.0) sec Sodium 136 L (137-145) mmol/L Potassium 2.6 L* (3.5-5.1) mmol/L Chloride 96 L (98-107) mmol/L BUN 22 H (7-17) mg/dL Calcium 8.0 L (8.4-10.2) mg/dL Magnesium 1.1 L (1.6-2.3) mg/dL AST 88 H (14-36) U/L C-Reactive Protein 24.0 H (<1.0) mg/dL Total Protein 6.1 L (6.3-8.2) g/dL Urine Protein (Negative) Urine Ketones (Negative) Urine Blood (Negative) Ur Leukocyte Esterase (Negative) Urine WBC (0-5) /hpf Urine Mucus (None) /hpf Assessment and Plan Plan: 1. Electrolyte imbalance potassium 2.6 placed per protocol 2. Recent admission for right hip replacement. 3. Edema noted to right lower extremity venous Doppler will be ordered 4. Febrile with temperature 100.1. Blood and urine cultures ordered. 5. Altered mental status changes. Neurology services consulted for increased confusion 6. History of asthma 7. History of coronary artery disease 8. History of fibromyalgia 9. History of rheumatoid arthritis DVT prophylaxis Lovenox. GI prophylaxis Protonix Blood and urine cultures ordered. Venous Doppler ordered. Time with Patient: Greater than 30
--- NOTE | 2020-10-23 10:10 | P.PN ---
Subjective Progress Note Date: 10/23/20 This is a 69-year-old female patient who presented to the ER with complaints of confusion per neighbor. Patient recently had total right hip replacement with Dr. Espinoza was discharged home on Monday. Patient's neighbor noticed that she was having increased confusion. Patient does have past medical history of asthma, COPD and hypertension. Patient reports that she has not been taking any of her prescribed medication. Patient denies any falls. Patient denies any episodes of fever at home. Chest x-ray was performed showing chronic changes without evidence for acute pulmonary disease head CT was performed showing age- related atrophic and chronic small vessel ischemic change without acute in tracranial process is seen at this time. Potassium was low at 2.6. Replace per protocol. Venous Doppler has been ordered right lower extremity. Neurology services ordered. Blood and urine cultures ordered. COVID-19 negative. UA showing small amount of leukocyte Estrace. Patient has multiple drug ALLERGIES. At this time patient denies chest pain or shortness of breath. Patient denies nausea vomiting or diarrhea. Patient denies any urinary burning or frequency On 10/23/2020 patient is alert and oriented 3. Potassium remains low at 2.9 replacement per protocol ordered she also with elevated temperature last night 100.1. Urine and blood cultures have been ordered will consult infectious disease services to multiple drug ALLERGIES. At this time patient denies chest pain or shortness of breath. Patient denies nausea vomiting or diarrhea. Patient denies any urinary burning or frequency. Orthopedic services also consulted. Venous Doppler ordered of right lower extremity. Objective - Vital Signs Vital signs: Vital Signs Temp 97.9 F 10/23/20 07:55 Pulse 77 10/23/20 07:55 Resp 17 10/23/20 07:55 BP 108/72 10/23/20 07:55 Pulse Ox 98 10/23/20 07:55 Intake & Output 10/22/20 10/23/20 10/23/20 18:59 06:59 18:59 Intake Total 1620 180 Balance 1620 180 Weight 85.729 kg Intake: Intake, IV Titration 1620 Amount Potassium Chloride 10 meq 300 In Water For Injection 1 100ml.bag @ 100 mls/hr IVPB Q1H JAROD Rx#: [id number] Sodium Chloride 0.9% 1, 1320 000 ml @ 110 mls/hr IV . Q9H6M JAROD Rx#:[id number] Oral 180 Other: # Voids 3 1 - Exam In general patient is alert and oriented ?-3 in no distress HEENT head normocephalic and atraumatic Neck is supple no JVD no goiter no lymphadenopathy no carotid bruit Chest examination is clear to auscultation no crackles no wheezing Cardiac exam reveals regular heart sounds S1 and S2 no gallops no murmurs Abdomen is soft nontender no organomegaly with normal bowel sounds Extremity exam reveals no edema no cyanosis or clubbing. Right hip incision clean dry and intact. +2 edema to right lower extremity Neurological examination reveals no gross focal deficits - Labs CBC & Chem 7: 10/23/20 05:29 10/23/20 05:29 Labs: Abnormal Lab Results - Last 24 Hours (Table) 10/22/20 10/22/20 10/22/20 Range/Units 12:46 12:46 12:46 WBC 11.8 H (3.8-10.6) k/uL RBC 3.79 L (3.80-5.40) m/uL Hgb 10.2 L (11.4-16.0) gm/dL Hct 31.0 L (34.0-46.0) % MCH (27.0-32.0) pg MCHC (32.0-37.0) g/dL RDW 15.8 H (11.5-15.5) % Neutrophils # 9.7 H (1.3-7.7) k/uL APTT 19.2 L (22.0-30.0) sec Sodium (137-145) mmol/L Potassium (3.5-5.1) mmol/L Chloride (98-107) mmol/L BUN (7-17) mg/dL Creatinine (0.6-1.5) mg/dL BUN/Creatinine Ratio (12.00-20.00) Ratio Calcium (8.4-10.2) mg/dL Magnesium (1.6-2.3) mg/dL AST (14-36) U/L C-Reactive Protein (<1.0) mg/dL Total Protein (6.3-8.2) g/dL Albumin (3.80-4.90) g/dL Urine Protein Trace H (Negative) Urine Ketones 2+ H (Negative) Urine Blood Small H (Negative) Ur Leukocyte Esterase Small H (Negative) Urine WBC 6 H (0-5) /hpf Urine Mucus Rare H (None) /hpf 10/22/20 10/23/20 10/23/20 Range/Units 12:46 05:29 05:29 WBC (3.8-10.6) k/uL RBC 3.38 L (3.80-5.40) m/uL Hgb 8.9 L (11.4-16.0) gm/dL Hct 29.2 L (34.0-46.0) % MCH 26.3 L (27.0-32.0) pg MCHC 30.5 L (32.0-37.0) g/dL RDW 15.9 H (11.5-15.5) % Neutrophils # (1.3-7.7) k/uL APTT (22.0-30.0) sec Sodium 136 L (137-145) mmol/L Potassium 2.6 L* 2.9 L (3.5-5.1) mmol/L Chloride 96 L (98-107) mmol/L BUN 22 H (7-17) mg/dL Creatinine 0.5 L (0.6-1.5) mg/dL BUN/Creatinine Ratio 22.00 H (12.00-20.00) Ratio Calcium 8.0 L 7.7 L (8.4-10.2) mg/dL Magnesium 1.1 L (1.6-2.3) mg/dL AST 88 H 48 H (14-36) U/L C-Reactive Protein 24.0 H (<1.0) mg/dL Total Protein 6.1 L 5.0 L (6.3-8.2) g/dL Albumin 3.20 L (3.80-4.90) g/dL Urine Protein (Negative) Urine Ketones (Negative) Urine Blood (Negative) Ur Leukocyte Esterase (Negative) Urine WBC (0-5) /hpf Urine Mucus (None) /hpf Assessment and Plan Plan: 1. Electrolyte imbalance potassium 2.6 placed per protocol 2. Recent admission for right hip replacement. 3. Edema noted to right lower extremity venous Doppler will be ordered 4. Febrile with temperature 100.1. Blood and urine cultures ordered. 5. Altered mental status changes. Neurology services consulted for increased confusion 6. History of asthma 7. History of coronary artery disease 8. History of fibromyalgia 9. History of rheumatoid arthritis DVT prophylaxis Lovenox. GI prophylaxis Protonix Blood and urine cultures ordered. Venous Doppler ordered. Neurology services, infectious disease and orthopedic service is consulted
--- NOTE | 2020-10-23 10:58 | US ---
EXAMINATION TYPE: US venous doppler duplex LE RT DATE OF EXAM: 10/23/2020 10:24 AM COMPARISON: Prior exam 07/21/2018 CLINICAL HISTORY: Recent surgery swelling to right lower extremity. Pt had right hip replacement 4 da ys ago SIDE PERFORMED: Right TECHNIQUE: The lower extremity deep venous system is examined utilizing real time linear array sonog hansel with graded compression, doppler sonography and color-flow sonography. VESSELS IMAGED: Common Femoral Vein Deep Femoral Vein Greater Saphenous Vein * Femoral Vein Popliteal Vein Small Saphenous Vein * Proximal Calf Veins (* superficial vessels) There is normal flow, compressibility, vascular waveforms Right Leg: Appeared negative for DVT, within right pop fossa there is extensive edema and fluid toby ections making popliteal compressions difficult to visualize, only color flow visualized and appeared patent IMPRESSION: No evident deep venous thrombosis within the limitations of the exam central to the right knee, evaluation of the popliteal fossa somewhat limited
[2020-10-23] MEDS: POTASSIUM CHLORIDE ER 20 MEQ TAB.ER PO SCH ×3 (12:15→14:48)
--- NOTE | 2020-10-23 15:54 | P.CNOR ---
History of Present Illness - [facility] Consult date: 10/23/20 Requesting physician: Luigi Luong Consult reason: other (Recent right hip surgery) History of present illness: Patient presenting to the ER yesterday for confusion/altered mental status and weakness. Patient had right total hip arthroplasty performed on Monday10/19/2020. Was discharged home on 10/20/2020 in stable condition. Patient lives at home alone and neighbor noticed patient was not acting like herself and patient was acting confused. Patient denies having any trauma/falls. Denies any previous hx of stroke/DVT. Patient states when she got home Monday evening and into Monday she felt funny and said her right leg felt swollen and heavy. Patient was prescribed aspirin 81 mg BID for DVT ppx to go home with after surgery. Patient says he could barely walk when she was at home earlier this week so she thought it was best to come in. Patient was evaluated this morning at bedside. Patient says this morning in her room she was able to walk around room with walker with nurses and aides there with assistance. Patient seems to have a good recall when talking with her. She denies any fever, chest pain, SOB, N/V , changes in vision. She states that her hip incision feels okay. Patient denies any bowel/bladder control. Denies saddle anesthesia Past Medical History Past Medical History: Asthma, Coronary Artery Disease (CAD), Cancer, COPD, Fibromyalgia, GERD/Reflux, Hyperlipidemia, Hypertension, Osteoarthritis (OA), Rheumatoid Arthritis (RA), Thyroid Disorder Additional Past Medical History / Comment(s): HX OF COLON POLYP, AAA, PHLEBITIS, VARICOSE VEINS, REYNAUD'S, BREAST CANCER., ANEMIA. History of Any Multi-Drug Resistant Organisms: None Reported Past Surgical History: Breast Surgery, Section, Cholecystectomy, Heart Catheterization, Orthopedic Surgery, Tonsillectomy Additional Past Surgical History / Comment(s): LEFT CAROTID ENDARTECTOMY, FERNANDO CARPAL TUNNEL, FERNANDO LEGS VEIN STRIPPING, RT THYROIDECTOMY, FERNANDO BREAST SX, LEFT LUMPECTOMY , LEFT BREAST FATTY TUMOR, HEART CATH 03/13/18 @ [facility]. Past Anesthesia/Blood Transfusion Reactions: Previous Problems w/ Anesthesia Additional Past Anesthesia/Blood Transfusion Reaction / Comm: STATES "FELT PARALYZED CHEST AREA AND ARM" ( OVER 20 YRS AGO.) NO PROBLEM SINCE Past Psychological History: Depression Past Alcohol Use History: None Reported - Past Family History Father Family Medical History: Cancer Additional Family Medical History / Comment(s): NON HODGKINS LYMPHOMA Brother(s) Family Medical History: Cancer Additional Family Medical History / Comment(s): prostate Medications and Allergies Home Medications Medication Instructions Recorded Confirmed Type Calcium Carbonate [Calcium] 600 mg PO DAILY 08/02/15 10/22/20 History Levothyroxine Sodium [Synthroid] 50 mcg PO DAILY 08/02/15 10/22/20 History Metoprolol Succinate (ER) [Toprol 100 mg PO DAILY 08/02/15 10/22/20 History XL] Fluticasone Nasal [place] [Flonase 1 spr EA NOSTRIL BID PRN 08/28/15 10/22/[address]] Ubidecarenone [Co Q-10] 100 mg PO DAILY 07/14/16 10/22/20 History guaiFENesin [Mucinex] 600 mg PO Q12HR PRN 03/02/18 10/22/20 History Isosorbide Mononitrate ER [Imdur] 60 mg PO DAILY tab.er.24h 04/26/18 10/22/20 Rx Nitroglycerin Sl Tabs [Nitrostat] 0.4 mg SUBLINGUAL Q5M PRN tab 04/26/18 10/22/20 Rx Losartan Potassium 100 mg PO DAILY 07/20/18 10/22/20 History Evolocumab [Repatha Sureclick] 140 mg SQ Q14D 02/08/19 10/22/20 History Montelukast Sodium [Singulair] 10 mg PO HS PRN 02/08/19 10/22/20 History Albuterol Inhaler [Ventolin Hfa 2 puff INHALATION RT-QID PRN 10/14/20 10/22/20 History Inhaler] Fluticasone/Vilanterol [Breo 1 inhalation INHALATION RT-DAILY 10/14/20 10/22/20 History Ellipta 200-25 Mcg INH] Furosemide [Lasix] 40 mg PO DAILY PRN 10/14/20 10/22/20 History HYDROcodone/APAP 5-325MG [[place] 1 tab PO BID PRN 10/14/20 10/22/20 History 5-325] Potassium Chloride [Klor-Con 10] 10 meq PO DAILY PRN 10/14/20 10/22/20 History Ranolazine [Ranexa] 500 mg PO BID 10/14/20 10/22/20 History Cholecalciferol (Vitamin D3) 125 mcg PO Q7D 10/22/20 10/22/20 History [Vitamin D3 (5000 Iu)] Docusate Sodium [Dok] 100 mg PO DAILY PRN 10/22/20 10/22/20 History Ferrous Sulfate [Feosol] 325 mg PO DAILY 10/22/20 10/22/20 History Magnesium Oxide 400 mg PO DAILY 10/22/20 10/22/20 History Nicotine [Nicoderm Cq] 1 patch TOPICAL DAILY PRN 10/22/20 10/22/20 History Omeprazole 20 mg PO DAILY 10/22/20 10/22/20 History amLODIPine [Norvasc] 5 mg PO DAILY 10/22/20 10/22/20 History Allergies Allergy/AdvReac Type Severity Reaction Status Date / Time cephalexin monohydrate Allergy Rash/Hives Verified 10/22/20 15:33 [From Keflex] ciprofloxacin [From Cipro] Allergy Rash/Hives Verified 10/22/20 15:33 levofloxacin [From Levaquin] Allergy Rash/Hives Verified 10/22/20 15:33 minocycline Allergy Rash/Hives Verified 10/22/20 15:33 nitrofurantoin Allergy Dyspnea Verified 10/22/20 15:33 [From Macrobid] potassium clavulanate Allergy Rash/Hives Verified 10/22/20 15:33 [From Augmentin] sulfamethoxazole Allergy Itching Verified 10/22/20 15:33 [From Bactrim] trimethoprim [From Bactrim] Allergy Itching Verified 10/22/20 15:33 azithromycin AdvReac bleeding Verified 10/22/20 15:33 etodolac [From [place]odine] AdvReac "inflamed Verified 10/22/20 15:33 legs" lisinopril AdvReac Cough Verified 10/22/20 15:33 NSAIDS (Non-Steroidal AdvReac BLURRY Verified 10/22/20 15:33 Anti-Inflamma VISION prednisone AdvReac CHEST Verified 10/22/20 15:33 PAIN/FATIGUE/FEVER/CHILLS Khnirvv-Jqr-Ace Reductase AdvReac MUSCLE PAIN Verified 10/22/20 15:33 Inhibitor Physical Examination Skin inspection: Incision on right anterior hip is clean, dry, intact. Healing nicely. Sutures intact. Mild erythema around incision. Ecchymoses present circumferentially around right anterior hip incision. Swelling present in right lower leg and foot. Rest of exam negative Palpation - Some mild tenderness to palpation over right anterior hip incision. Nontender to palpation throughout the rest of the exam ROM: Bilateral upper extremities range of motion fully intact. Right lower extremity - decreased hip flexion, likely due to recent total hip arthroplasty. Left lower extremity full range of motion Motor: Bilateral upper extremities - strength 5 out of 5; right lower extremity- hip flexion 4/5; rest of right lower extremity and left lower extremity 5/5. Tensioning signs/reflexes: Negative Homans bilaterally; Negative Hoffmans bilaterally; Negative clonus upon dorsiflexing feet. Neurovascular status: Cap refill < 3 seconds; dorsalis pedis pulses intact, bilaterally 2+; Radial pulse intact, bilaterally 2+. Results - Labs Labs: Abnormal Lab Results - Last 24 Hours (Table) 10/22/20 10/22/20 10/22/20 Range/Units 12:46 12:46 12:46 WBC 11.8 H (3.8-10.6) k/uL RBC 3.79 L (3.80-5.40) m/uL Hgb 10.2 L (11.4-16.0) gm/dL Hct 31.0 L (34.0-46.0) % MCH (27.0-32.0) pg MCHC (32.0-37.0) g/dL RDW 15.8 H (11.5-15.5) % Neutrophils # 9.7 H (1.3-7.7) k/uL APTT 19.2 L (22.0-30.0) sec Sodium (137-145) mmol/L Potassium (3.5-5.1) mmol/L Chloride (98-107) mmol/L BUN (7-17) mg/dL Creatinine (0.6-1.5) mg/dL BUN/Creatinine Ratio (12.00-20.00) Ratio Calcium (8.4-10.2) mg/dL Magnesium (1.6-2.3) mg/dL AST (14-36) U/L C-Reactive Protein (<1.0) mg/dL Total Protein (6.3-8.2) g/dL Albumin (3.80-4.90) g/dL Urine Protein Trace H (Negative) Urine Ketones 2+ H (Negative) Urine Blood Small H (Negative) Ur Leukocyte Esterase Small H (Negative) Urine WBC 6 H (0-5) /hpf Urine Mucus Rare H (None) /hpf 10/22/20 10/23/20 10/23/20 Range/Units 12:46 05:29 05:29 WBC (3.8-10.6) k/uL RBC 3.38 L (3.80-5.40) m/uL Hgb 8.9 L (11.4-16.0) gm/dL Hct 29.2 L (34.0-46.0) % MCH 26.3 L (27.0-32.0) pg MCHC 30.5 L (32.0-37.0) g/dL RDW 15.9 H (11.5-15.5) % Neutrophils # (1.3-7.7) k/uL APTT (22.0-30.0) sec Sodium 136 L (137-145) mmol/L Potassium 2.6 L* 2.9 L (3.5-5.1) mmol/L Chloride 96 L (98-107) mmol/L BUN 22 H (7-17) mg/dL Creatinine 0.5 L (0.6-1.5) mg/dL BUN/Creatinine Ratio 22.00 H (12.00-20.00) Ratio Calcium 8.0 L 7.7 L (8.4-10.2) mg/dL Magnesium 1.1 L (1.6-2.3) mg/dL AST 88 H 48 H (14-36) U/L C-Reactive Protein 24.0 H (<1.0) mg/dL Total Protein 6.1 L 5.0 L (6.3-8.2) g/dL Albumin 3.20 L (3.80-4.90) g/dL Urine Protein (Negative) Urine Ketones (Negative) Urine Blood (Negative) Ur Leukocyte Esterase (Negative) Urine WBC (0-5) /hpf Urine Mucus (None) /hpf H & H 10/22/20 10/23/20 Range/Units 12:46 05:29 Hgb 10.2 L 8.9 L (11.4-16.0) gm/dL Hct 31.0 L 29.2 L (34.0-46.0) % Coagulation 10/22/20 Range/Units 12:46 INR 1.0 (<1.2) Result Diagrams: 10/23/20 05:29 10/23/20 05:29 Assessment and Plan Assessment: 1. right total hip arthroplasty 2. right lower extremity edema 3. altered mental status Plan: 1. Recent admission Right total hip arthroplasty - right anterior total hip arthroplasty was performed this past 10/19/2020. Incision is dry, stable, and intact at this time. There are no signs of infection. Patient does not have discomfort to the area. At this time, patient is orthopedically stable. Please contact us if you have any questions. Patient orthopedically stable and ready for discharge from an orthopedic standpoint. We'll continue to follow the patient while she is in the hospital 2. Right lower extremity edema - venous Doppler performed and per the report there is no evidence of DVT. Patient should ice, rest, elevate the right leg to help decrease swelling in the foot and right lower extremity. 3. Altered mental status - neurology has been consulted and is following 4. Pain management - stable at this time. Continue pain meds 5. GI prophylaxis/DVT prophylaxis - on Protonix and Lovenox. 6. PT/OT - up out of bed several times a day, with walker for assistance. Weightbearing as tolerated 7. Appreciate consult Time with Patient: Less than 30
[2020-10-23] MEDS ORDERED: ASPIRIN 81 MG PO STA (17:05)
[2020-10-23] MEDS: CLOPIDOGREL 75 MG TAB PO SCH (18:11)
--- NOTE | 2020-10-23 19:42 | CONS ---
CONSULTATION DATE OF SERVICE: 10/23/2020 REASON FOR CONSULTATION: Fever, MULTIPLE DRUG ALLERGIES. HISTORY OF PRESENT ILLNESS: The patient is a 69-year-old female, in this patient who is status post right hip replacement performed by Dr. Espinoza on Monday. The patient discharged home in stable condition on Monday. The patient currently was brought into the ER yesterday morning for evaluation of mental status changes. EMS was called by the friend who was helping her who noticed the patient to be confused and not making sense. The patient denies having any fever. The patient denies any headache. Denies having any URI symptoms. No chest pain. No shortness of breath or cough. No nausea, no vomiting. No abdominal pain. Pain to the right hip is currently controlled. No urinary symptoms and no diarrhea. At this facility, the patient had been evaluated by the ER physician. On arrival to the ER, the patient is afebrile. Subsequently now has a low grade fever of 100.1 degrees Fahrenheit. The patient did have white count of 11.8 and subsequently normalized. Pressure was low. Creatinine was normal. CRP was 24. Urine was small leukocyte esterase, 6 WBC. Jay PCR was negative. The patient did have a chest x- ray, chronic changes without evidence for acute pulmonary disease. Infectious disease was consulted as the patient does have MULTIPLE ANTIBIOTIC ALLERGIES and need for antibiotic therapy. The patient at time of my evaluation is feeling better. She knows that she is in the hospital and did not have any active symptoms at this point. REVIEW OF SYSTEMS: Positive points have been mentioned in HPI. Rest of the systems are negative. PAST MEDICAL HISTORY: Coronary artery disease, asthma, COPD, fibromyalgia, gastroesophageal reflux disease, hypertension, hyperlipidemia, osteoarthritis, rheumatoid arthritis, hypothyroidism. PAST SURGICAL HISTORY: Breast surgery, , cholecystectomy, heart catheterization, tonsillectomy. SOCIAL HISTORY: Denies smoking, drinking or drug use. FAMILY HISTORY: Father with history of non-Hodgkin lymphoma. Brother history of prostate cancer. ALLERGIES: TO CEPHALEXIN, CIPROFLOXACIN, NITROFURANTOIN. MEDICATIONS: Currently the patient is on Mag oxide, Toprol-XL, Singulair, Narcan, nicotine patch, Protonix, K-Dur, . PHYSICAL EXAMINATION: Blood pressure is 108/72 with a pulse of 77, temperature 97.9. She is 98% on room air. General description: The patient is an elderly female lying in bed in no distress. No tachypnea or accessory muscles of respiration use. HEENT: Examination shows slight pallor. No scleral icterus. Oral mucous membranes dry. NECK: Trachea central. No thyromegaly. LUNGS: Unlabored breathing, clear to auscultation anteriorly with no wheeze or crackles. HEART S1, S2. Regular rate and rhythm. ABDOMEN: Soft, no tenderness. No guarding. No rigidity. EXTREMITIES: No edema of the feet. Examination right hip reveals incision is intact. She did have significant bruising of that area, but no redness or any drainage. NEUROLOGICAL: The patient is awake, alert, oriented times three. Mood and affect normal. LABS: Hemoglobin 8.8, white of 7.7, BUN of 11, creatinine 0.5. Urine has been not significantly positive. The patient did not have any urinary symptoms. Chest x-ray was negative. DIAGNOSTIC IMPRESSION AND PLAN: 1. Patient with low-grade fever in this patient admitted to the hospital with mental status changes with recent hip surgery. The patient did have significant drop in hemoglobin and did have significant hematoma to the right hip area, but no evidence of any cellulitis. Could be contributing to her low-grade fever and mild elevated white count, as clinically no evidence of any cellulitis of the right hip. No evidence of any pneumonia, UTI, abdomen soft on clinical examination. 2. Patient who did have multiple antibiotic allergies that will limit the number of antibiotics safe to use. PLAN: 1. Recommend to monitor the patient closely off antibiotic therapy. 2. Drew the area of the hematoma to the right hip area to make sure not expanding. 3. We will follow on clinical condition and further adjust medication if needed. Thank you for this consultation. Will follow this patient along with you. MMODL / IJN: [id number] /
[2020-10-23] MEDS: HYDROcodone/APAP 5-325MG 1 EACH TAB PO PRN (20:11)
--- NOTE | 2020-10-24 03:47 | US ---
EXAMINATION TYPE: US carotid duplex BILAT DATE OF EXAM: 10/23/2020 COMPARISON: NONE CLINICAL HISTORY: TIA/CVA, hx of left ICA CEA. EXAM MEASUREMENTS: RIGHT: Peak Systolic Velocity (PSV) cm/sec ----- Right CCA: 50.3 ----- Right ICA: 112.4 ----- Right ECA: 149.0 ICA/CCA ratio: 2.2 RIGHT: End Diastole cm/sec ----- Right CCA: 19.6 ----- Right ICA: 33.3 ----- Right ECA: 20.9 LEFT: Peak Systolic Velocity (PSV) cm/sec ----- Left CCA: 58.1 ----- Left ICA: 145.0 BULB ----- Left ECA: 69.4 ICA/CCA ratio: 2.5 LEFT: End Diastole cm/sec ----- Left CCA: 24.1 ----- Left ICA: 50.4 BULB ----- Left ECA: 22.3 VERTEBRALS (direction of flow): Right Vertebral: Antegrade Left Vertebral: Antegrade Rhythm: Arrhythmia Moderate atherosclerotic changes seen bilaterally, bilateral ICA's dive at 90 degree angle. Slight ve locity increases seen in bilateral ICA's worse on the left. IMPRESSION: There is antegrade flow in the vertebral arteries. The images and measurements suggest 50-70% stenosi s in both internal carotid arteries. Criteria for Assigning % of Stenosis / Diameter reduction (Estimation based on the indirect measurements of the internal carotid artery velocities (ICA PSV). 1. Normal (no stenosis)=ICA PSV < 125 cm/s: ratio < 2.0: ICA EDV<40 cm/s. 2. Less than 50% stenosis=ICA PSV < 125 cm/s: ratio < 2.0: ICA EDV<40 cm/s. 3. 50 to 69% stenosis=ICA PSV of 125 to 230 cm/s: ration 2.0 ? 4.0: ICA EDV 40-100 cm/s. 4. Greater than 70% stenosis to near occlusion= ICA PSV > 230 cm/s: ratio > 4.0: ICA EDV > 100 cm/s. 5. Near occlusion= ICA PSV velocities may be low or undetectable: variable ratio and ICA EDV. 6. Total occlusion=unable to detect flow.
[2020-10-24] MEDS: SODIUM CHLORIDE 0.9% 1,000 ML IV SCH ×4 (04:04→22:12)
[2020-10-24] MEDS: LEVOTHYROXINE 50 MCG TAB PO SCH (05:57)
--- NOTE | 2020-10-24 07:50 | P.CNNES ---
History of Present Illness Consult date: 10/23/20 Requesting physician: Tahir Reyes Reason for Consult: Confusion History of Present Illness: Patient is a 69-year-old female came to the hospital by ambulance yesterday at 11:37 AM. Patient states that she underwent right hip arthroplasty on Monday10/19/2020. She was doing very well after surgery and the next day Monday she was discharged home. The following day on Monday she couldn't walk. Her feet would freeze in front. Patient also noted that she was not eating and other people said that she was confused. She stated that this for 2 days. Patient has mentioned to her friend that she was going to [place] to wash her sons clothes. When her friend asked her how long has she been in this current apa rtment, she mentioned 2 years although she has been living in the apartment for 8 years. There were some other examples which patient does not remember at this time. Because of these concerns, patient was brought to the hospital. Patient's vital signs on arrival blood pressure was 120/73, pulse [address] head showed age-related atrophic and chronic small vessel ischemic changes without acute intracranial process seen at this time. Chest x-ray showed chronic changes without evidence for acute pulmonary disease. Venous Doppler showed no evident DVT within the limitations of exam. Evaluation of popliteal fossa somewhat limited. Blood test shows WBC 11.8 hemoglobin 10.2, pl atelets are normal. PT/PTT normal. Sodium 136 potassium 2.6, BUN 22, creatinine 0.90. AST is mildly elevated 88, ALT 23. Urine analysis shows small amount of leukocyte Estrace. 6WBCs. Jay virus PCR negative. Troponin negative. Patient says that she is doing better, but is having hesitant how to say things and some word finding issues. Patient has history of hypertension, denies diabetes. Patient has history of left CEA in 2016 for severe carotid artery stenosis. Patient was on aspirin and Plavix for some time, but Plavix was discontinued quite while ago and she was maintained on aspirin 81 mg. Patient states that she takes aspirin regularly although misses taking it at least c ouple times a week. Patient also states that for preoperative preparation for her hip surgery, she was recommended to stop taking aspirin 5-7 days before surgery. At present she is not on any antiplatelet medication. Patient has history of smoking 1 pack per day for 50 years, quit couple months a go. Patient has received covid vaccination and the last one was in May 2020. Review of Systems As mentioned in HPI. All other review of systems reviewed are unremarkable. She does have right hip pain from surgery. Denies any nausea vomiting diarrhea, chest pain problem with the vision. No numbness tingling focal weakness. Denies abdominal pain nausea vomiting diarrhea. Past Medical History Past Medical History: Asthma, Coronary Artery Disease (CAD), Cancer, COPD, Fibromyalgia, GERD/Reflux, Hyperlipidemia, Hypertension, Osteoarthritis (OA), Rheumatoid Arthritis (RA), Thyroid Disorder Additional Past Medical History / Comment(s): HX OF COLON POLYP, AAA, PHLEBITIS, VARICOSE VEINS, REYNAUD'S, BREAST CANCER., ANEMIA. History of Any Multi-Drug Resistant Organisms: None Reported Past Surgical History: Breast Surgery, Section, Cholecystectomy, Heart Catheterization, Orthopedic Surgery, Tonsillectomy Additional Past Surgical History / Comment(s): LEFT CAROTID ENDARTECTOMY, FERNANDO CARPAL TUNNEL, FERNANDO LEGS VEIN STRIPPING, RT THYROIDECTOMY, FERNANDO BREAST SX, LEFT LUMPECTOMY , LEFT BREAST FATTY TUMOR, HEART CATH 03/13/18 @ [facility]. Past Anesthesia/Blood Transfusion Reactions: Previous Problems w/ Anesthesia Additional Past Anesthesia/Blood Transfusion Reaction / Comment(s): STATES "FELT PARALYZED CHEST AREA AND ARM" ( OVER 20 YRS AGO.) NO PROBLEM SINCE Past Psychological History: Depression Past Alcohol Use History: None Reported - Past Family History Father Family Medical History: Cancer Additional Family Medical History / Comment(s): NON HODGKINS LYMPHOMA Brother(s) Family Medical History: Cancer Additional Family Medical History / Comment(s): prostate Medications and Allergies Home Medications Medication Instructions Recorded Confirmed Type Calcium Carbonate [Calcium] 600 mg PO DAILY 08/02/15 10/22/20 History Levothyroxine Sodium [Synthroid] 50 mcg PO DAILY 08/02/15 10/22/20 History Metoprolol Succinate (ER) [Toprol 100 mg PO DAILY 08/02/15 10/22/20 History XL] Fluticasone Nasal Mears [Flonase 1 spr EA NOSTRIL BID PRN 08/28/15 10/22/20 History Nasal Mears] Ubidecarenone [Co Q-10] 100 mg PO DAILY 07/14/16 10/22/20 History guaiFENesin [Mucinex] 600 mg PO Q12HR PRN 03/02/18 10/22/20 History Isosorbide Mononitrate ER [Imdur] 60 mg PO DAILY tab.er.24h 04/26/18 10/22/20 Rx Nitroglycerin Sl Tabs [Nitrostat] 0.4 mg SUBLINGUAL Q5M PRN tab 04/26/18 10/22/20 Rx Losartan Potassium 100 mg PO DAILY 07/20/18 10/22/20 History Evolocumab [Repatha Sureclick] 140 mg SQ Q14D 02/08/19 10/22/20 History Montelukast Sodium [Singulair] 10 mg PO HS PRN 02/08/19 10/22/20 History Albuterol Inhaler [Ventolin Hfa 2 puff INHALATION RT-QID PRN 10/14/20 10/22/20 History Inhaler] Fluticasone/Vilanterol [Breo 1 inhalation INHALATION RT-DAILY 10/14/20 10/22/20 History Ellipta 200-25 Mcg INH] Furosemide [Lasix] 40 mg PO DAILY PRN 10/14/20 10/22/20 History HYDROcodone/APAP 5-325MG [Gray 1 tab PO BID PRN 10/14/20 10/22/20 History 5-325] Potassium Chloride [Klor-Con 10] 10 meq PO DAILY PRN 10/14/20 10/22/20 History Ranolazine [Ranexa] 500 mg PO BID 10/14/20 10/22/20 History Cholecalciferol (Vitamin D3) 125 mcg PO Q7D 10/22/20 10/22/20 History [Vitamin D3 (5000 Iu)] Docusate Sodium [Dok] 100 mg PO DAILY PRN 10/22/20 10/22/20 History Ferrous Sulfate [Feosol] 325 mg PO DAILY 10/22/20 10/22/20 History Magnesium Oxide 400 mg PO DAILY 10/22/20 10/22/20 History Nicotine [Nicoderm Cq] 1 patch TOPICAL DAILY PRN 10/22/20 10/22/20 History Omeprazole 20 mg PO DAILY 10/22/20 10/22/20 History amLODIPine [Norvasc] 5 mg PO DAILY 10/22/20 10/22/20 History Allergies Allergy/AdvReac Type Severity Reaction Status Date / Time cephalexin monohydrate Allergy Rash/Hives Verified 10/22/20 15:33 [From Keflex] ciprofloxacin [From Cipro] Allergy Rash/Hives Verified 10/22/20 15:33 levofloxacin [From Levaquin] Allergy Rash/Hives Verified 10/22/20 15:33 minocycline Allergy Rash/Hives Verified 10/22/20 15:33 nitrofurantoin Allergy Dyspnea Verified 10/22/20 15:33 [From Macrobid] potassium clavulanate Allergy Rash/Hives Verified 10/22/20 15:33 [From Augmentin] sulfamethoxazole Allergy Itching Verified 10/22/20 15:33 [From Bactrim] trimethoprim [From Bactrim] Allergy Itching Verified 10/22/20 15:33 azithromycin AdvReac bleeding Verified 10/22/20 15:33 etodolac [From Lodine] AdvReac "inflamed Verified 10/22/20 15:33 legs" lisinopril AdvReac Cough Verified 10/22/20 15:33 NSAIDS (Non-Steroidal AdvReac BLURRY Verified 10/22/20 15:33 Anti-Inflamma VISION prednisone AdvReac CHEST Verified 10/22/20 15:33 PAIN/FATIGUE/FEVER/CHILLS Vaqrkke-Kad-Hfu Reductase AdvReac MUSCLE PAIN Verified 10/22/20 15:33 Inhibitor Physical Examination - Vital Signs Vital Signs: Vital Signs Temp Pulse Pulse Resp BP BP Pulse Ox 10/23/20 07:55 97.9 F 77 17 108/72 98 10/23/20 02:00 98.1 F 83 17 102/70 94 L 10/22/20 21:00 16 10/22/20 20:00 100.1 F H 90 16 90/56 97 10/22/20 17:57 98.9 F 88 16 105/68 96 10/22/20 17:10 98.7 F 98 18 102/61 97 Intake and Output 10/23/20 10/23/20 10/23/20 06:59 14:59 22:59 Intake Total 1620 180 Balance 1620 180 Intake: Intake, IV Titration 1620 Amount Potassium Chloride 10 meq 300 In Water For Injection 1 100ml.bag @ 100 mls/hr IVPB Q1H [facility] Rx#: [id number] Sodium Chloride 0.9% 1, 1320 000 ml @ 110 mls/hr IV . Q9H6M [facility] Rx#:[id number] Oral 180 Other: # Voids 3 1 Patient is an elderly female, very pleasant, in no acute distress. Patient knows it is 10/23/2020 and that she is in [facility] in [place]. She knows her date of . Patient is having difficulty with remembering names, as she could not tell name of the [place] governor although she knows her, picture her in her head. Patient could not tell name of the service now developer. Patient knows it is a female and can picture her. When I asked about the president, patient states Mr. "Jacquie", then corrected to Mr. Nuñez. Patient is alert awake oriented to time place and person. Speech and language functions are normal. Attention, concentration and fund of knowledge is adequate. On cranial examination, pupils are equal, round and reacting to light, visual morton are full on confrontation with no neglect, extraocular muscles are intact with no nystagmus. Face is symmetric, tongue protrudes to the midline. Palatal elevation and sensation normal, hearing and shoulder shrug normal, facial sensation normal. Shoulder shrug normal. On muscle strength testing, there is no pronator drift and the strength is normal in arms and legs distally and proximally. Deep tendon reflexes are symmetric all over and plantars downgoing. Sensory to touch is equal with no neglect. Cerebellar function showed no ataxia for fvjhqw-gm-spkc testing. No dysdiado chokinesia. Tone and bulk of muscles normal. Gait not checked. On general examination, there is a left carotid bruit, no murmur, S1-S2 audible. Abdomen is soft nontender. Chest is clear. Peripheral pulses are present. No edema. Results - Laboratory Findings CBC and BMP: 10/23/20 05:29 10/23/20 05:29 Abnormal Lab Findings: Abnormal Labs 10/22/20 10/22/20 10/22/20 12:46 12:46 12:46 WBC 11.8 H RBC 3.79 L Hgb 10.2 L Hct 31.0 L MCH MCHC RDW 15.8 H Neutrophils # 9.7 H APTT 19.2 L Sodium Potassium Chloride BUN Creatinine BUN/Creatinine Ratio Calcium Magnesium AST C-Reactive Protein Total Protein Albumin Urine Protein Trace H Urine Ketones 2+ H Urine Blood Small H Ur Leukocyte Esterase Small H Urine WBC 6 H Urine Mucus Rare H 10/22/20 10/23/20 10/23/20 12:46 05:29 05:29 WBC RBC 3.38 L Hgb 8.9 L Hct 29.2 L MCH 26.3 L MCHC 30.5 L RDW 15.9 H Neutrophils # APTT Sodium 136 L Potassium 2.6 L* 2.9 L Chloride 96 L BUN 22 H Creatinine 0.5 L BUN/Creatinine Ratio 22.00 H Calcium 8.0 L 7.7 L Magnesium 1.1 L AST 88 H 48 H C-Reactive Protein 24.0 H Total Protein 6.1 L 5.0 L Albumin 3.20 L Urine Protein Urine Ketones Urine Blood Ur Leukocyte Esterase Urine WBC Urine Mucus Assessment and Plan Assessment: * Mild anomia, mental confusion and gait difficulty. Rule out stroke TIA. Patient still has difficulty with recalling names. Patient has history of carotid artery disease, status post left CEA in 2015. Patient has stopped aspirin for the last 7 days prior to surgery. Suspect patient may have developed embolic phenomenon from carotid disease with mild anomia. * Status post right hip replacement 10/19/2020. * Diabetes * Hypertension * Obesity * History of left CEA. * Tobacco use Plan: * Patient will be placed on dual antiplatelet medications including aspirin 81 mg and Plavix 75 mg for 21 days. Thereafter Plavix can be discontinued and maintain on aspirin 81 mg daily indefinitely. * MRI could be considered to check for CVA, although uncertain if can be performed with recent hip surgery. * Fasting a.m. lipid panel, hemoglobin A1c, B12, folate. * Carotid Doppler to rule out stenosis. Addendum: Carotid Doppler was performed, which revealed 50-70% stenosis in both ICA. May consider a vascular surgical consultation. We will check lipid panel. May need statins to be started as well.
[2020-10-24] MEDS: SYMBICORT 160-4.5 MCG INHALER INHALATION SCH ×2 (09:31→20:50)
[2020-10-24 09:40] LABS: Basophils # (A) 0.05 X 10*3/uL (0.00-0.10); Basophils % (A) 0.8 %; Eosinophils % (A) 6.6 %; HCT 28.1 % (37.2-46.3); HGB 8.6 g/dL (12.0-15.0); Lymphocytes # (A) 1.28 X 10*3/uL (0.90-5.00); Lymphocytes % (A) 21.1 %; MCH 26.6 pg (27.0-32.0); MCHC 30.6 g/dL (32.0-37.0); Mean Platelet Volume 10.8 fL (9.5-12.2); Monocytes # (A) 0.64 X 10*3/uL (0.20-1.00); Monocytes % (A) 10.5 %; Neutrophils # (A) 3.68 X 10*3/uL (1.80-7.70); Neutrophils % (A) 60.5 %; Platelet Count 227 X 10*3/uL (140-440); RBC 3.23 X 10*6/uL (4.10-5.20); RDW 15.9 % (11.5-14.5); WBC 6.08 X 10*3/uL (4.50-10.00)
[2020-10-24] MEDS: FERROUS SULFATE 325 MG TAB PO SCH (10:07)
[2020-10-24] MEDS: PANTOPRAZOLE 40 MG TABLET PO SCH (10:07)
[2020-10-24] MEDS: ENOXAPARIN 40 MG/0.4 ML SYRINGE SQ SCH (10:08)
[2020-10-24] MEDS: amLODIPine 5 MG TAB PO SCH (10:08)
[2020-10-24] MEDS: ISOSORBIDE MONONITRATE ER 60 MG TAB.ER.24H PO SCH (10:08)
[2020-10-24] MEDS: MAGNESIUM OXIDE 400 MG TAB PO SCH (10:08)
[2020-10-24] MEDS: LOSARTAN 50 MG TAB PO SCH (10:08)
[2020-10-24] MEDS: CLOPIDOGREL 75 MG TAB PO SCH (10:08)
[2020-10-24] MEDS: ASPIRIN 81 MG PO SCH (10:08)
[2020-10-24] MEDS: CALCIUM CARBONATE 500 MG CHEWABLE PO SCH (10:08)
[2020-10-24] MEDS: METOPROLOL SUCCINATE (ER) 100 MG TAB.ER.24H PO SCH (10:09)
[2020-10-24] MEDS: RANOLAZINE 500 MG TAB.ER.12H PO SCH ×2 (10:09→19:59)
[2020-10-24 11:39] LABS: African American GFR (CKD) >90 (>60 ml/min/1.73 sqM); Anion Gap 8 mmol/L; Blood Urea Nitrogen 7 mg/dL (7-17); Calcium 8.4 mg/dL (8.4-10.2); Carbon Dioxide 26 mmol/L (22-30); Chloride 103 mmol/L (98-107); Glucose 106 mg/dL (74-99); Non-African American GFR(CKD) >90 (>60 ml/min/1.73 sqM); Potassium 3.7 mmol/L (3.5-5.1); Sodium 137 mmol/L (137-145)
[2020-10-24 12:25] LABS: Folate, Serum 6.8 ng/mL
[2020-10-24 12:35] LABS: Chol/HDL Ratio 3.88; LDL Cholesterol,Calculated 53.8 mg/dL (0.0-131.0); VLDL Calculation 21.2 mg/dL (5.00-40.00)
[2020-10-24 14:07] LABS: Hemoglobin A1C 5.4 % (4.0-6.0)
--- NOTE | 2020-10-24 16:44 | MR ---
MRI OF THE BRAIN WO History: Follow-up stroke. COMPARISON: CT 10/22/2020. TECHNIQUE: Multiplanar multisequence MR imaging of the brain was obtained without the use of IV cont rast. FINDINGS: There are few punctate foci of restricted diffusion in the left posterior parietal lobe.No acute intr acranial hemorrhage or abnormal extra-axial fluid collection are noted.There is no midline shift or m ass effect. There is moderate to marked white matter T2 FLAIR hyperintensities, in keeping with chron ic microvascular ischemic changes Visualized vascular flow voids are unremarkable. Visualized paranasal sinuses and mastoid air cells are patent and aerated. IMPRESSION: Few punctate left parietal lobe ischemic infarct. Chronic microvascular ischemic changes.
--- NOTE | 2020-10-25 00:20 | P.PN ---
Subjective Progress Note Date: 10/24/20 Patient was seen via Tele-neurology for a follow-up. States she is feeling better. She could lift her right leg up which she could not do yesterday. She is able to get in and out of bed without much difficulty. Patient states that she still has to remember how to do some things. Before she came to the hospital, she was having trouble in remembering how to do something, and she could not remember what she was supposed to do and how to do. She was having trouble with remembering people names. Telemetry monitoring so far showing sinus rhythm with wide first-degree. Patient also states that she has history of atrial fibrillation diagnosed [address] Cardoso. He treated her A. fib with medication. She still can sometimes feels when she gets into atrial fibrillation. This feeling has not occurred for the last 1 year. Apparently in her records it does not mention anything about atrial fibrillation and all her EKGs checked in the past showed normal sinus rhythm. Objective - Vital Signs Vital signs: Vital Signs Temp 98.6 F 10/24/20 08:28 Pulse 77 10/24/20 08:28 Resp 14 10/24/20 08:28 BP 105/66 10/24/20 08:28 Pulse Ox 96 10/24/20 08:28 Intake & Output 10/23/20 10/24/20 10/24/20 18:59 06:59 18:59 Intake Total 360 Balance 360 Intake: Oral 360 Other: # Voids 3 2 - Exam Patient's mental status, speech and language functions are normal. She still having trouble remembering name of the community service manager and the governor of [place]. She could recall Mr. Ronaldo Nuñez much easily. Speech and language functions otherwise normal. She can name and repeat. Muscle strength is normal. Right hip not checked. - Labs CBC & Chem 7: 10/24/20 05:50 10/24/20 11:09 Labs: Abnormal Lab Results - Last 24 Hours (Table) 10/24/20 Range/Units 05:50 RBC 3.23 L (4.10-5.20) X 10*6/uL Hgb 8.6 L (12.0-15.0) g/dL Hct 28.1 L (37.2-46.3) % MCH 26.6 L (27.0-32.0) pg MCHC 30.6 L (32.0-37.0) g/dL RDW 15.9 H (11.5-14.5) % Eosinophils # 0.40 H (0.04-0.35) X 10*3/uL Microbiology - Last 24 Hours (Table) 10/22/20 Unknown Urine Culture - Preliminary Urine,Voided 10/22/20 12:46 Blood Culture - Preliminary Blood No Growth after 24 hours Assessment and Plan Assessment: * Mild anomia, mental confusion and gait difficulty. Rule out stroke TIA. Patient still has difficulty with recalling names. Patient has history of carotid artery disease, status post left CEA in 2015. Patient has stopped aspirin for the last 7 days prior to surgery. Suspect patient may have developed embolic phenomenon from carotid disease with mild anomia. Her sym ptoms have improved since resuming antiplatelet medications yesterday. * Status post right hip replacement 10/19/2020. * History of A. fib for years ago, as per patient, treated by medication. Currently in sinus rhythm. * Diabetes * Hypertension * Obesity * History of left CEA. * Tobacco use Plan: * Continue dual antiplatelet medications including aspirin 81 mg and Plavix 75 mg for 21 days. Thereafter Plavix can be discontinued and maintain on aspirin 81 mg daily indefinitely. * MRI to evaluate for acute stroke, if possible, and no contraindications related to recent surgery. * Fasting a.m. lipid panel cholesterol 101, LDL 53, HDL 26 and triglycerides 106 * Hemoglobin A1c 5.4, * B12 784, folate 6.8, will start replacement. * Carotid Doppler revealed 50-70% stenosis in both ICA. May consider a vascular surgical consultation.
[2020-10-25] MEDS: LEVOTHYROXINE 50 MCG TAB PO SCH (05:47)
--- NOTE | 2020-10-25 07:49 | PN ---
PROGRESS NOTE DATE OF SERVICE: 10/24/2020 REASON FOR FOLLOWUP: Fever. INTERVAL HISTORY: The patient is currently afebrile. Patient is breathing comfortably. Patient denies having any chest pain. No shortness of breath or cough. No nausea, vomiting, abdominal pain and denies pain to the right hip area. EXAMINATION: VITAL SIGNS: Blood pressure 197/64, pulse of 71, temperature 98, she is 96% on room air. GENERAL DESCRIPTION: An elderly female lying in bed in no distress. RESPIRATORY SYSTEM: Unlabored breathing, clear to auscultation anteriorly. HEART: S1, S2. Regular rate and rhythm. ABDOMEN: Soft, no tenderness. EXTREMITIES: Right hip area with bruise. No worsening was noticed. Incision intact. No drainage. NEUROLOGICALLY: The patient is awake, alert, oriented x3. Mood and affect normal. LABS: Hemoglobin 8.6, white count 6.0, BUN of 7, creatinine 0.46. Blood culture negative. Urine is negative. DIAGNOSTIC IMPRESSION AND PLAN: Patient with low-grade fever, possibly due to the right hand site hematoma with recent surgery. No obvious focus of infection in this patient admitted to the hospital with mental status changes, abnormal MRI with left parietal lobe ischemic infarct. Clinically no obvious focus of infection. Culture so far negative. The patient is going to be monitored closely off antibiotic therapy. Family at the bedside and questions were answered. MMODL / IJN: [id number] /
[2020-10-25] MEDS: SYMBICORT 160-4.5 MCG INHALER INHALATION SCH ×2 (07:54→19:34)
[2020-10-25] MEDS ORDERED: CHOLECALCIFEROL 25 MCG (1000 IU) TABLET PO SCH (09:00)
[2020-10-25] MEDS: ASPIRIN 81 MG PO SCH (09:01)
[2020-10-25] MEDS: CLOPIDOGREL 75 MG TAB PO SCH (09:01)
[2020-10-25] MEDS: MAGNESIUM OXIDE 400 MG TAB PO SCH (09:01)
[2020-10-25] MEDS: amLODIPine 5 MG TAB PO SCH (09:01)
[2020-10-25] MEDS: ISOSORBIDE MONONITRATE ER 60 MG TAB.ER.24H PO SCH (09:01)
[2020-10-25] MEDS: PANTOPRAZOLE 40 MG TABLET PO SCH (09:01)
[2020-10-25] MEDS: LOSARTAN 50 MG TAB PO SCH (09:01)
[2020-10-25] MEDS: ENOXAPARIN 40 MG/0.4 ML SYRINGE SQ SCH (09:01)
[2020-10-25] MEDS: FERROUS SULFATE 325 MG TAB PO SCH (09:01)
[2020-10-25] MEDS: CALCIUM CARBONATE 500 MG CHEWABLE PO SCH (09:01)
[2020-10-25] MEDS: FOLIC ACID 1 MG TAB PO SCH (09:01)
[2020-10-25] MEDS: METOPROLOL SUCCINATE (ER) 100 MG TAB.ER.24H PO SCH (09:02)
[2020-10-25] MEDS: RANOLAZINE 500 MG TAB.ER.12H PO SCH ×2 (09:02→19:23)
[2020-10-25 09:57] LABS: African American GFR (CKD) 113.7 (60.0-200.0); Albumin 3.5 g/dL (3.80-4.90); Albumin/Globulin Ratio 1.75 (1.60-3.17); Anion Gap 6.6 mmol/L (4.00-12.00); Calcium 8.8 mg/dL (8.7-10.3); Carbon Dioxide 29.4 mmol/L (21.6-31.8); Non-African American GFR(CKD) 98.1 (60.0-200.0); Potassium 3.6 mmol/L (3.5-5.5); Total Bilirubin 0.8 mg/dL (0.3-1.2); Total Protein 5.5 g/dL (6.2-8.2)
[2020-10-25 10:32] LABS: Basophils # (A) 0.06 X 10*3/uL (0.00-0.10); Eosinophils # (A) 0.43 X 10*3/uL (0.04-0.35); Eosinophils % (A) 6.9 %; HCT 28.8 % (37.2-46.3); HGB 9.2 g/dL (12.0-15.0); Lymphocytes # (A) 1.42 X 10*3/uL (0.90-5.00); Lymphocytes % (A) 22.8 %; MCH 27.1 pg (27.0-32.0); MCHC 31.9 g/dL (32.0-37.0); Mean Platelet Volume 10.3 fL (9.5-12.2); Monocytes # (A) 0.54 X 10*3/uL (0.20-1.00); Monocytes % (A) 8.7 %; Neutrophils # (A) 3.77 X 10*3/uL (1.80-7.70); Neutrophils % (A) 60.3 %; Platelet Count 288 X 10*3/uL (140-440); RBC 3.39 X 10*6/uL (4.10-5.20); WBC 6.24 X 10*3/uL (4.50-10.00)
--- NOTE | 2020-10-25 10:36 | P.PN ---
Subjective Progress Note Date: 10/25/20 This is a 69-year-old female patient who presented to the ER with complaints of confusion per neighbor. Patient recently had total right hip replacement with Dr. Espinoza was discharged home on Monday. Patient's neighbor noticed that she was having increased confusion. Patient does have past medical history of asthma, COPD and hypertension. Patient reports that she has not been taking any of her prescribed medication. Patient denies any falls. Patient denies any episodes of fever at home. Chest x-ray was performed showing chronic changes without evidence for acute pulmonary disease head CT was performed showing age- related atrophic and chronic small vessel ischemic change without acute in tracranial process is seen at this time. Potassium was low at 2.6. Replace per protocol. Venous Doppler has been ordered right lower extremity. Neurology services ordered. Blood and urine cultures ordered. COVID-19 negative. UA showing small amount of leukocyte Estrace. Patient has multiple drug ALLERGIES. At this time patient denies chest pain or shortness of breath. Patient denies nausea vomiting or diarrhea. Patient denies any urinary burning or frequency On 10/23/2020 patient is alert and oriented 3. Potassium remains low at 2.9 replacement per protocol ordered she also with elevated temperature last night 100.1. Urine and blood cultures have been ordered will consult infectious disease services to multiple drug ALLERGIES. At this time patient denies chest pain or shortness of breath. Patient denies nausea vomiting or diarrhea. Patient denies any urinary burning or frequency. Orthopedic services also consulted. Venous Doppler ordered of right lower extremity. On 10/24/2020 patient was seen and examined on the medical floor she is alert and oriented 3 in no apparent distress, no new episodes of fever in the last 24 hours, no headache or dizziness no chest pain no shortness of breath no cough no nausea or vomiting no abdominal pain no diarrhea no blood in the stools no burning with urination no frequency or urgency and no hematuria. Venous Doppler of the right lower extremity was negative for DVT, patient had bilateral carotid stenosis 50-70% with elevated velocity on the left . Will consult vascular surgery, she is still having episodes of confusion and she was evaluated by neurology MRI of the brain was ordered On 10/25/2020 patient is alert and oriented 3. Per infectious disease no obvious focus of infection. Continue to monitor patient off antibiotic therapy. MRI completed and to be reviewed with patient per neurology services. Patient at this time remains on Plavix and aspirin. Awaiting vascular surgical consult. At this time patient denies chest pain or shortness breath. Patient denies nausea vomiting or diarrhea. Patient denies any urinary burning or frequency Objective - Vital Signs Vital signs: Vital Signs Temp 98.1 F 10/25/20 07:10 Pulse 68 10/25/20 07:10 Resp 18 10/25/20 07:10 BP 106/69 10/25/20 07:10 Pulse Ox 99 10/25/20 07:10 Intake & Output 10/24/20 10/25/20 10/25/20 18:59 06:59 18:59 Intake Total 200 Balance 200 Intake: Oral 200 Other: Voiding Method Bedside Commode Bedside Commode # Voids 2 2 # Bowel Movements 1 - Exam In general patient is alert and oriented ?-3 in no distress HEENT head normocephalic and atraumatic Neck is supple no JVD no goiter no lymphadenopathy no carotid bruit Chest examination is clear to auscultation no crackles no wheezing Cardiac exam reveals regular heart sounds S1 and S2 no gallops no murmurs Abdomen is soft nontender no organomegaly with normal bowel sounds Extremity exam reveals no edema no cyanosis or clubbing. Right hip incision clean dry and intact. +2 edema to right lower extremity Neurological examination reveals no gross focal deficits - Labs CBC & Chem 7: 10/24/20 05:50 10/25/20 05:41 Labs: Abnormal Lab Results - Last 24 Hours (Table) 10/24/20 10/24/20 10/25/20 Range/Units 05:28 11:09 05:41 BUN 7.0 L (9.0-27.0) mg/dL Creatinine 0.46 L 0.5 L (0.52-1.04) mg/dL Glucose 106 H 116 H (74-99) mg/dL Total Protein 5.5 L (6.2-8.2) g/dL Albumin 3.50 L (3.80-4.90) g/dL HDL Cholesterol 26.0 L (40.0-60.0) mg/dL Microbiology - Last 24 Hours (Table) 10/22/20 Unknown Urine Culture - Final Urine,Voided 10/22/20 12:46 Blood Culture - Preliminary Blood No Growth after 48 hours Assessment and Plan Plan: 1. Electrolyte imbalance potassium 2.6 replaced per protocol, today potassium 3.7 2. Recent admission for right hip replacement. 3. Edema noted to right lower extremity venous Doppler will be ordered. No evidence of DVT on Doppler. 4. Febrile with temperature 100.1. Blood and urine cultures ordered. Cultures thus far negative. Per infectious disease no obvious signs of infection we'll continue to monitor patient off antibiotics 5. Altered mental status changes. neurology services following. MRI of the brain ordered continue dual antiplatelet therapy with aspirin and Plavix. 6. History of asthma 7. History of coronary artery disease 8. History of fibromyalgia 9. History of rheumatoid arthritis 10. Carotid stenosis. Vascular surgery consulted DVT prophylaxis Lovenox. GI prophylaxis Protonix Neurology services, infectious disease and orthopedic service is consulted MRI of the brain ordered PT OT and social work services consult for discharge planning patient will likely need ECF upon discharge
--- NOTE | 2020-10-25 11:41 | P.PN ---
Subjective Progress Note Date: 10/24/20 This is a 69-year-old female patient who presented to the ER with complaints of confusion per neighbor. Patient recently had total right hip replacement with Dr. Espinoza was discharged home on Monday. Patient's neighbor noticed that she was having increased confusion. Patient does have past medical history of asthma, COPD and hypertension. Patient reports that she has not been taking any of her prescribed medication. Patient denies any falls. Patient denies any episodes of fever at home. Chest x-ray was performed showing chronic changes without evidence for acute pulmonary disease head CT was performed showing age- related atrophic and chronic small vessel ischemic change without acute in tracranial process is seen at this time. Potassium was low at 2.6. Replace per protocol. Venous Doppler has been ordered right lower extremity. Neurology services ordered. Blood and urine cultures ordered. COVID-19 negative. UA showing small amount of leukocyte Estrace. Patient has multiple drug ALLERGIES. At this time patient denies chest pain or shortness of breath. Patient denies nausea vomiting or diarrhea. Patient denies any urinary burning or frequency On 10/23/2020 patient is alert and oriented 3. Potassium remains low at 2.9 replacement per protocol ordered she also with elevated temperature last night 100.1. Urine and blood cultures have been ordered will consult infectious disease services to multiple drug ALLERGIES. At this time patient denies chest pain or shortness of breath. Patient denies nausea vomiting or diarrhea. Patient denies any urinary burning or frequency. Orthopedic services also consulted. Venous Doppler ordered of right lower extremity. On 10/24/2020 patient was seen and examined on the medical floor she is alert and oriented 3 in no apparent distress, no new episodes of fever in the last 24 hours, no headache or dizziness no chest pain no shortness of breath no cough no nausea or vomiting no abdominal pain no diarrhea no blood in the stools no burning with urination no frequency or urgency and no hematuria. Venous Doppler of the right lower extremity was negative for DVT, patient had bilateral carotid stenosis 50-70% with elevated velocity on the left . Will consult vascular surgery, she is still having episodes of confusion and she was evaluated by neurology MRI of the brain was ordered Objective - Vital Signs Vital signs: Vital Signs Temp 98.6 F 10/24/20 08:28 Pulse 77 10/24/20 08:28 Resp 14 10/24/20 08:28 BP 105/66 05/22/21 08:28 Pulse Ox 96 10/24/20 08:28 Intake & Output 10/23/20 10/24/20 10/24/20 18:59 06:59 18:59 Intake Total 360 Balance 360 Intake: Oral 360 Other: # Voids 3 2 - Exam In general patient is alert and oriented ?-3 in no distress HEENT head normocephalic and atraumatic Neck is supple no JVD no goiter no lymphadenopathy no carotid bruit Chest examination is clear to auscultation no crackles no wheezing Cardiac exam reveals regular heart sounds S1 and S2 no gallops no murmurs Abdomen is soft nontender no organomegaly with normal bowel sounds Extremity exam reveals no edema no cyanosis or clubbing. Right hip incision clean dry and intact. +2 edema to right lower extremity Neurological examination reveals no gross focal deficits - Labs CBC & Chem 7: 10/24/20 05:50 10/24/20 11:09 Labs: Abnormal Lab Results - Last 24 Hours (Table) 10/24/20 Range/Units 05:50 RBC 3.23 L (4.10-5.20) X 10*6/uL Hgb 8.6 L (12.0-15.0) g/dL Hct 28.1 L (37.2-46.3) % MCH 26.6 L (27.0-32.0) pg MCHC 30.6 L (32.0-37.0) g/dL RDW 15.9 H (11.5-14.5) % Eosinophils # 0.40 H (0.04-0.35) X 10*3/uL Microbiology - Last 24 Hours (Table) 10/22/20 Unknown Urine Culture - Preliminary Urine,Voided 10/22/20 12:46 Blood Culture - Preliminary Blood No Growth after 24 hours Assessment and Plan Plan: 1. Electrolyte imbalance potassium 2.6 replaced per protocol, today potassium 3.7 2. Recent admission for right hip replacement. 3. Edema noted to right lower extremity venous Doppler will be ordered 4. Febrile with temperature 100.1. Blood and urine cultures ordered. 5. Altered mental status changes. Neurology services consulted for increased confusion 6. History of asthma 7. History of coronary artery disease 8. History of fibromyalgia 9. History of rheumatoid arthritis DVT prophylaxis Lovenox. GI prophylaxis Protonix Blood and urine cultures ordered. Venous Doppler ordered. Neurology services, infectious disease and orthopedic service is consulted
[2020-10-25] MEDS: SODIUM CHLORIDE 0.9% 1,000 ML IV SCH (15:26)
--- NOTE | 2020-10-25 17:31 | P.GSCN ---
History of Present Illness Consult date: 10/25/20 History of present illness: The patient is a 69-year-old female who came in to the hospital for significant disorientation and confusion as well as some dizziness. She recently underwent a right hip arthroplasty on 10/19/2020. She states that in the past few days she was not taking some of her medications that she should have and thought that may have played a role but overall she is feeling better since having been hospitalized.. She denies any significant weakness at this time Review of Systems 14 point review systems performed. Pertinent positives and negatives per the HPI Past Medical History Past Medical History: Asthma, Coronary Artery Disease (CAD), Cancer, COPD, Fibromyalgia, GERD/Reflux, Hyperlipidemia, Hypertension, Osteoarthritis (OA), Rheumatoid Arthritis (RA), Thyroid Disorder Additional Past Medical History / Comment(s): HX OF COLON POLYP, AAA, P HLEBITIS, VARICOSE VEINS, REYNAUD'S, BREAST CANCER., ANEMIA. History of Any Multi-Drug Resistant Organisms: None Reported Past Surgical History: Breast Surgery, Section, Cholecystectomy, Heart Catheterization, Orthopedic Surgery, Tonsillectomy Additional Past Surgical History / Comment(s): LEFT CAROTID ENDARTECTOMY, FERNANDO CARPAL TUNNEL, FERNANDO LEGS VEIN STRIPPING, RT THYROIDECTOMY, FERNANDO BREAST SX, LEFT LUMPECTOMY , LEFT BREAST FATTY TUMOR, HEART CATH 03/13/18 @ [facility]. Past Anesthesia/Blood Transfusion Reactions: Previous Problems w/ Anesthesia Additional Past Anesthesia/Blood Transfusion Reaction / Comm: STATES "FELT PARALYZED CHEST AREA AND ARM" ( OVER 20 YRS AGO.) NO PROBLEM SINCE Past Psychological History: Depression Past Alcohol Use History: None Reported - Past Family History Father Family Medical History: Cancer Additional Family Medical History / Comment(s): NON HODGKINS LYMPHOMA Brother(s) Family Medical History: Cancer Additional Family Medical History / Comment(s): prostate Medications and Allergies Home Medications Medication Instructions Recorded Confirmed Type Calcium Carbonate [Calcium] 600 mg PO DAILY 08/02/15 10/22/20 History Levothyroxine Sodium [Synthroid] 50 mcg PO DAILY 08/02/15 10/22/20 History Metoprolol Succinate (ER) [Toprol 100 mg PO DAILY 08/02/15 10/22/20 History XL] Fluticasone Nasal [place] [Flonase 1 spr EA NOSTRIL BID PRN 08/28/15 10/22/20 History Nasal [place]] Ubidecarenone [Co Q-10] 100 mg PO DAILY 07/14/16 10/22/20 History guaiFENesin [Mucinex] 600 mg PO Q12HR PRN 03/02/18 10/22/20 History Isosorbide Mononitrate ER [Imdur] 60 mg PO DAILY tab.er.24h 04/26/18 10/22/20 Rx Nitroglycerin Sl Tabs [Nitrostat] 0.4 mg SUBLINGUAL Q5M PRN tab 04/26/18 10/22/20 Rx Losartan Potassium 100 mg PO DAILY 07/20/18 10/22/20 History Evolocumab [Repatha Sureclick] 140 mg SQ Q14D 02/08/19 10/22/20 History Montelukast Sodium [Singulair] 10 mg PO HS PRN 02/08/19 10/22/20 History Albuterol Inhaler [Ventolin Hfa 2 puff INHALATION RT-QID PRN 10/14/20 10/22/20 History Inhaler] Fluticasone/Vilanterol [Breo 1 inhalation INHALATION RT-DAILY 10/14/20 10/22/20 History Ellipta 200-25 Mcg INH] Furosemide [Lasix] 40 mg PO DAILY PRN 10/14/20 10/22/20 History HYDROcodone/APAP 5-325MG [[place] 1 tab PO BID PRN 10/14/20 10/22/20 History 5-325] Potassium Chloride [Klor-Con 10] 10 meq PO DAILY PRN 10/14/20 10/22/20 History Ranolazine [Ranexa] 500 mg PO BID 10/14/20 10/22/20 History Cholecalciferol (Vitamin D3) 125 mcg PO Q7D 10/22/20 10/22/20 History [Vitamin D3 (5000 Iu)] Docusate Sodium [Dok] 100 mg PO DAILY PRN 10/22/20 10/22/20 History Ferrous Sulfate [Feosol] 325 mg PO DAILY 10/22/20 10/22/20 History Magnesium Oxide 400 mg PO DAILY 10/22/20 10/22/20 History Nicotine [Nicoderm Cq] 1 patch TOPICAL DAILY PRN 10/22/20 10/22/20 History Omeprazole 20 mg PO DAILY 10/22/20 10/22/20 History amLODIPine [Norvasc] 5 mg PO DAILY 10/22/20 10/22/20 History Allergies Allergy/AdvReac Type Severity Reaction Status Date / Time cephalexin monohydrate Allergy Rash/Hives Verified 10/22/20 15:33 [From Keflex] ciprofloxacin [From Cipro] Allergy Rash/Hives Verified 10/22/20 15:33 levofloxacin [From Levaquin] Allergy Rash/Hives Verified 10/22/20 15:33 minocycline Allergy Rash/Hives Verified 10/22/20 15:33 nitrofurantoin Allergy Dyspnea Verified 10/22/20 15:33 [From Macrobid] potassium clavulanate Allergy Rash/Hives Verified 10/22/20 15:33 [From Augmentin] sulfamethoxazole Allergy Itching Verified 10/22/20 15:33 [From Bactrim] trimethoprim [From Bactrim] Allergy Itching Verified 10/22/20 15:33 azithromycin AdvReac bleeding Verified 10/22/20 15:33 etodolac [From Lodine] AdvReac "inflamed Verified 10/22/20 15:33 legs" lisinopril AdvReac Cough Verified 10/22/20 15:33 NSAIDS (Non-Steroidal AdvReac BLURRY Verified 10/22/20 15:33 Anti-Inflamma VISION prednisone AdvReac CHEST Verified 10/22/20 15:33 PAIN/FATIGUE/FEVER/CHILLS [id number]-[id number]-Qvw Reductase AdvReac MUSCLE PAIN Verified 10/22/20 15:33 Inhibitor Surgical - Exam Vital Signs Temp Pulse Resp BP Pulse Ox 99.1 F 98 18 120/73 96 10/22/20 11:56 10/22/20 11:56 10/22/20 11:56 10/22/20 11:56 10/22/20 11:56 Gen. is a pleasant cooperative female in no acute distress. HEENT is normocep halic, atraumatic, extracted motion intact. Dentures in place. Trachea is midline. Neck supple. No carotid bruits. Heart is regular at This time Lungs are clear bilaterally. Abdomen is soft, obese nontender nondistended. Extremity show no clubbing, cyanosis or edema. No focal weakness. Cranial nerves II through XII grossly intact Results Ultrasound is reviewed. The velocity on the right is 112 with a ratio of 2.2 showing less than 50% stenosis. He left peak systolic velocity is 145 with a ratio of 2.5 showing between 50-69% stenosis, likely in the 50s. On the MRI there are small left parietal areas of infarct - Labs 10/25/20 05:41 10/25/20 05:41 Abnormal Lab Results - Last 24 Hours (Table) 10/25/20 10/25/20 Range/Units 05:41 05:41 RBC 3.39 L (4.10-5.20) X 10*6/uL Hgb 9.2 L (12.0-15.0) g/dL Hct 28.8 L (37.2-46.3) % MCHC 31.9 L (32.0-37.0) g/dL RDW 16.0 H (11.5-14.5) % Eosinophils # 0.43 H (0.04-0.35) X 10*3/uL BUN 7.0 L (9.0-27.0) mg/dL Creatinine 0.5 L (0.6-1.5) mg/dL Glucose 116 H (70-110) mg/dL Total Protein 5.5 L (6.2-8.2) g/dL Albumin 3.50 L (3.80-4.90) g/dL Microbiology - Last 24 Hours (Table) 10/22/20 12:46 Blood Culture - Preliminary Blood No Growth after 72 hours 10/22/20 Unknown Urine Culture - Final Urine,Voided Diabetes panel 10/25/20 Range/Units 05:41 Sodium 140 (135-145) mmol/L Potassium 3.6 (3.5-5.5) mmol/L Chloride 104 (96-109) mmol/L Carbon Dioxide 29.4 (21.6-31.8) mmol/L BUN 7.0 L (9.0-27.0) mg/dL Creatinine 0.5 L (0.6-1.5) mg/dL Glucose 116 H (70-110) mg/dL Calcium 8.8 (8.7-10.3) mg/dL AST 32 (13-35) U/L ALT 22 (8-44) U/L Alkaline Phosphatase 74 (41-126) U/L Total Protein 5.5 L (6.2-8.2) g/dL Albumin 3.50 L (3.80-4.90) g/dL Calcium panel 10/25/20 Range/Units 05:41 Calcium 8.8 (8.7-10.3) mg/dL Albumin 3.50 L (3.80-4.90) g/dL Pituitary panel 10/25/20 Range/Units 05:41 Sodium 140 (135-145) mmol/L Potassium 3.6 (3.5-5.5) mmol/L Chloride 104 (96-109) mmol/L Carbon Dioxide 29.4 (21.6-31.8) mmol/L BUN 7.0 L (9.0-27.0) mg/dL Creatinine 0.5 L (0.6-1.5) mg/dL Glucose 116 H (70-110) mg/dL Calcium 8.8 (8.7-10.3) mg/dL Adrenal panel 10/25/20 Range/Units 05:41 Sodium 140 (135-145) mmol/L Potassium 3.6 (3.5-5.5) mmol/L Chloride 104 (96-109) mmol/L Carbon Dioxide 29.4 (21.6-31.8) mmol/L BUN 7.0 L (9.0-27.0) mg/dL Creatinine 0.5 L (0.6-1.5) mg/dL Glucose 116 H (70-110) mg/dL Calcium 8.8 (8.7-10.3) mg/dL Total Bilirubin 0.8 (0.3-1.2) mg/dL AST 32 (13-35) U/L ALT 22 (8-44) U/L Alkaline Phosphatase 74 (41-126) U/L Total Protein 5.5 L (6.2-8.2) g/dL Albumin 3.50 L (3.80-4.90) g/dL Assessment and Plan Assessment: Carotid artery stenosis Confusion, resolved Recent surgery Plan: The ultrasound was reviewed. Along with the MRI. She does have some degree of carotid artery stenosis but at this time uncertain if this is the cause of her i ssues versus areas on MRI being older. Continue medical therapy and plan for outpatient repeat ultrasound of the carotid arteries. Given she just recently underwent a hip arthroplasty, would expect some degree of weakness of her right lower extremity from this. Will proceed conservatively at this time.
--- NOTE | 2020-10-26 00:49 | P.PN ---
Subjective Progress Note Date: 10/25/20 Patient was seen via Tele-neurology for a follow-up. Patient is sitting in the recliner by the window. States she is feeling better as compared to yesterday. Patient states she feels mentally clear. She has more energy. No new concerns. No new focal symptoms. Patient also states that she has history of atrial fibrillation diagnosed [address] Cardoso[address] He treated her A. fib with medication. She still can sometimes feels when she gets into atrial fibrillation. This feeling has not occurred for the last 1 year. Apparently in her records it does not mention anything about atrial fibrillation and all her EKGs checked in the past showed normal sinus rhythm. Objective - Vital Signs Vital signs: Vital Signs Temp 98.1 F 10/25/20 07:10 Pulse 68 10/25/20 07:10 Resp 18 10/25/20 07:10 BP 106/69 10/25/20 07:10 Pulse Ox 99 10/25/20 07:10 Intake & Output 10/24/20 10/25/20 10/25/20 18:59 06:59 18:59 Intake Total 200 Balance 200 Intake: Oral 200 Other: Voiding Method Bedside Commode Bedside Commode # Voids 2 2 # Bowel Movements 1 - Exam Patient's mental status, speech and language functions are normal. Patient was able to tell me the name of the current protective services officer and governor of [place]. Speech and language functions otherwise normal. She can name and repeat. Muscle strength is normal. Right hip not checked. - Labs CBC & Chem 7: 10/26/20 06:17 10/26/20 06:17 Labs: Abnormal Lab Results - Last 24 Hours (Table) 10/24/20 10/25/20 10/25/20 Range/Units 05:28 05:41 05:41 RBC 3.39 L (4.10-5.20) X 10*6/uL Hgb 9.2 L (12.0-15.0) g/dL Hct 28.8 L (37.2-46.3) % MCHC 31.9 L (32.0-37.0) g/dL RDW 16.0 H (11.5-14.5) % Eosinophils # 0.43 H (0.04-0.35) X 10*3/uL BUN 7.0 L (9.0-27.0) mg/dL Creatinine 0.5 L (0.6-1.5) mg/dL Glucose 116 H (70-110) mg/dL Total Protein 5.5 L (6.2-8.2) g/dL Albumin 3.50 L (3.80-4.90) g/dL HDL Cholesterol 26.0 L (40.0-60.0) mg/dL Microbiology - Last 24 Hours (Table) 10/22/20 Unknown Urine Culture - Final Urine,Voided 10/22/20 12:46 Blood Culture - Preliminary Blood No Growth after 48 hours Assessment and Plan Assessment: * Acute ischemic stroke, small punctate involving the left parietal lobe. Patient is status post left CEA in 2015. Patient has stopped aspirin for the last 7 days prior to surgery. Suspect patient may have developed embolic phenomenon from carotid disease with mild anomia. Her symptoms have improved since resuming antiplatelet medications yesterday. * Status post right hip replacement 10/19/2020. * History of A. fib for years ago, as per patient, treated by medication. Currently in sinus rhythm. * Diabetes * Hypertension * Obesity * History of left CEA. * Tobacco use Plan: * MRI of the brain was performed, which revealed few punctate left parietal lobe ischemic infarct. Likely embolic from carotid disease. * Continue dual antiplatelet medications including aspirin 81 mg and Plavix 75 mg for 21 days. Thereafter Plavix can be discontinued and maintain on aspirin 81 mg daily indefinitely. * Carotid Doppler revealed 50-70% stenosis in both ICA. * Vascular surgical input appreciated. No indication for revascularization surgery at this time. Patient will need follow-up carotid Doppler as outpatient. * 2-D echo, rule out embolic source. * Fasting a.m. lipid panel cholesterol 101, LDL 53, HDL 26 and triglycerides 106 * Hemoglobin A1c 5.4, * B12 784, folate 6.8, will start replacement. * Neurologically clear, if echo comes back negative. * Dr. Stanislav Ballesteros Will resume neurology service in a.m. Addendum: ECHO showed normal LV size, borderline concentric LVH, EF 60-65%, RV mildly enlarged, bubble study negative for PFO.
[2020-10-26] MEDS: SODIUM CHLORIDE 0.9% 1,000 ML IV SCH ×3 (01:49→21:39)
[2020-10-26] MEDS: LEVOTHYROXINE 50 MCG TAB PO SCH (06:11)
--- NOTE | 2020-10-26 06:11 | PN ---
PROGRESS NOTE DATE OF SERVICE: 10/25/2020 REASON FOR FOLLOWUP: Fever. INTERVAL HISTORY: The patient is currently afebrile. Patient is feeling better. Breathing comfortably. The patient denies having any chest pain shortness of breath or cough. No nausea, vomiting. No abdominal pain or diarrhea. PHYSICAL EXAMINATION: Blood pressure 107/64, pulse of 56, temperature 97.6. She is 98% on room air. General description: The patient is an elderly female up in the chair in no distress. Respiratory system: Unlabored breathing, clear to auscultation anteriorly. Heart S1, S2. Regular rate and rhythm. ABDOMEN: Soft, no tenderness. LABS: Culture has been negative. DIAGNOSTIC IMPRESSION: Patient with low-grade fever, possibly related to his right hip surgical site hematoma. Clinically no evidence of any infection. Culture has been negative. The patient will be monitored closely off antibiotic therapy. Questions and concerns were answered. MMODL / IJN: [id number] /
[2020-10-26] MEDS: RANOLAZINE 500 MG TAB.ER.12H PO SCH ×2 (07:33→22:04)
[2020-10-26] MEDS: ASPIRIN 81 MG PO SCH (07:33)
[2020-10-26] MEDS: FERROUS SULFATE 325 MG TAB PO SCH (07:33)
[2020-10-26] MEDS: ENOXAPARIN 40 MG/0.4 ML SYRINGE SQ SCH (07:33)
[2020-10-26] MEDS: ISOSORBIDE MONONITRATE ER 60 MG TAB.ER.24H PO SCH (07:33)
[2020-10-26] MEDS: amLODIPine 5 MG TAB PO SCH (07:33)
[2020-10-26] MEDS: LOSARTAN 50 MG TAB PO SCH (07:34)
[2020-10-26] MEDS: FOLIC ACID 1 MG TAB PO SCH (07:34)
[2020-10-26] MEDS: PANTOPRAZOLE 40 MG TABLET PO SCH (07:34)
[2020-10-26] MEDS: CLOPIDOGREL 75 MG TAB PO SCH (07:34)
[2020-10-26] MEDS: MAGNESIUM OXIDE 400 MG TAB PO SCH (07:34)
[2020-10-26] MEDS: METOPROLOL SUCCINATE (ER) 100 MG TAB.ER.24H PO SCH (07:34)
[2020-10-26] MEDS: CALCIUM CARBONATE 500 MG CHEWABLE PO SCH (07:34)
[2020-10-26] MEDS: SYMBICORT 160-4.5 MCG INHALER INHALATION SCH ×2 (07:44→20:14)
[2020-10-26 10:37] LABS: Basophils # (A) 0.06 X 10*3/uL (0.00-0.10); Eosinophils # (A) 0.54 X 10*3/uL (0.04-0.35); HCT 29.1 % (37.2-46.3); HGB 8.9 g/dL (12.0-15.0); Lymphocytes # (A) 1.35 X 10*3/uL (0.90-5.00); Lymphocytes % (A) 22.6 %; MCH 26.6 pg (27.0-32.0); MCHC 30.6 g/dL (32.0-37.0); MCV 86.9 fL (80.0-97.0); Mean Platelet Volume 10.4 fL (9.5-12.2); Monocytes # (A) 0.54 X 10*3/uL (0.20-1.00); Neutrophils # (A) 3.46 X 10*3/uL (1.80-7.70); Neutrophils % (A) 57.9 %; Platelet Count 300 X 10*3/uL (140-440); RBC 3.35 X 10*6/uL (4.10-5.20); RDW 16.3 % (11.5-14.5); WBC 5.98 X 10*3/uL (4.50-10.00)
[2020-10-26 11:15] LABS: African American GFR (CKD) 113.7 (60.0-200.0); Albumin 3.5 g/dL (3.80-4.90); Albumin/Globulin Ratio 1.75 (1.60-3.17); Anion Gap 7.1 mmol/L (4.00-12.00); Calcium 8.9 mg/dL (8.7-10.3); Carbon Dioxide 31.9 mmol/L (21.6-31.8); Non-African American GFR(CKD) 98.1 (60.0-200.0); Potassium 3.5 mmol/L (3.5-5.5); Total Bilirubin 0.6 mg/dL (0.3-1.2); Total Protein 5.5 g/dL (6.2-8.2)
--- NOTE | 2020-10-26 14:09 | PN ---
PROGRESS NOTE DATE OF SERVICE: 10/26/2020. REASON FOR FOLLOWUP: Fever. INTERVAL HISTORY: The patient is afebrile. The patient is breathing comfortably. Patient denies having any chest pain, shortness of breath or cough. No nausea, no vomiting, no abdominal pain or pain to the right heel, currently controlled. Overall feeling better. PHYSICAL EXAMINATION: Her blood pressure is 125/78 with a pulse of 64, temperature 97.9. She is 98% on room air. General description is an elderly female up in the chair in no distress. RESPIRATORY SYSTEM: Unlabored breathing, clear to auscultation anteriorly. HEART: S1, S2. Regular rate and rhythm. ABDOMEN: Soft, no tenderness. LABS: Hemoglobin 8.9, white count of 5.9. BUN of 8 creatinine 0.5. DIAGNOSTIC IMPRESSION AND PLAN: Patient with low-grade fever who was admitted to the hospital with mental status changes possibly related to urinary tract infection with a fever possible related to the right hip area and no evidence of infection. Culture has been negative. The patient's fever resolved without any antibiotic therapy. Continue to monitor the patient closely off antibiotic therapy and continue supportive care. MMODL / IJN: [id number] /
--- NOTE | 2020-10-26 14:54 | P.PN ---
Subjective Progress Note Date: 10/26/20 Principal diagnosis: Carotid stenosis She was seen and examined sitting up at the bedside. She states she is feeling much better today. She is denying any dizziness, shortness of breath or chest pain. Objective - Vital Signs Vital signs: Vital Signs Temp 97.9 F 10/26/20 07:18 Pulse 64 10/26/20 08:00 Resp 16 10/26/20 08:00 BP 125/78 10/26/20 07:18 Pulse Ox 98 10/26/20 07:18 Intake & Output 10/25/20 10/26/20 10/26/20 18:59 06:59 18:59 Intake Total 200 Balance 200 Intake: Oral 200 Other: Voiding Method Bedside Commode Bedside Commode # Voids 1 1 - Exam General appearance: The patient is alert, oriented, in no acute distress. HET: Head is normocephalic and atraumatic. Neck: Supple without lymphadenopathy. Trachea midline. Heart: S1 S2. Regular rate and rhythm. Lungs: Clear to auscultation Abdomen: Soft, nontender, nondistended. Extremities: Normal skin color and turgor. right lower extremity with bruising and swelling. Sutures on upper thigh CDI Neurological: No focal deficits. Strength and sensation are grossly intact. - Labs CBC & Chem 7: 10/26/20 06:17 10/26/20 06:17 Labs: Abnormal Lab Results - Last 24 Hours (Table) 10/25/20 10/25/20 Range/Units 05:41 05:41 RBC 3.39 L (4.10-5.20) X 10*6/uL Hgb 9.2 L (12.0-15.0) g/dL Hct 28.8 L (37.2-46.3) % MCHC 31.9 L (32.0-37.0) g/dL RDW 16.0 H (11.5-14.5) % Eosinophils # 0.43 H (0.04-0.35) X 10*3/uL BUN 7.0 L (9.0-27.0) mg/dL Creatinine 0.5 L (0.6-1.5) mg/dL Glucose 116 H (70-110) mg/dL Total Protein 5.5 L (6.2-8.2) g/dL Albumin 3.50 L (3.80-4.90) g/dL Microbiology - Last 24 Hours (Table) 10/22/20 12:46 Blood Culture - Preliminary Blood No Growth after 72 hours Assessment and Plan Assessment: Carotid artery stenosis Confusion, resolved Recent hip surgery Plan: Ultrasound and MRI reviewed by Dr. Clark. No plans for any acute intervention at this time. Patient to follow-up with Dr. Clark as an outpatient for continued monitoring of the carotid arteries. Thank you for this consultation, we will sign off at this time. The impression and plan of care has been dictated as directed. Dr. Clark I performed a history and examination of this patient, discussed the same with the dictator. I agree with the dictator's note ,documented as a scribe. Any additional findings or plans will be noted.
--- NOTE | 2020-10-26 16:29 | ECHOF ---
Referral Reason:CVA, plsarahi perform bubble study, rule out PFO MEASUREMENTS -------- HEIGHT: 162.6 cm WEIGHT: 85.7 kg BP: 125/78 IVSd: 1.0 cm (0.6 - 1.1) LVIDd: 4.8 cm (3.9 - 5.3) LVPWd: 1.1 cm (0.6 - 1.1) EDV(Teich): 106 ml IVSs: 1.7 cm LVIDs: 2.7 cm LVPWs: 1.6 cm %IVS Thck: 75 % ESV(Teich): 26 ml EF(Teich): 75 % %FS: 44 % SV(Teich): 80 ml LA Diam: 3.6 cm (2.7 - 3.8) RVIDd: 3.5 cm (< 3.3) LALs A4C: 5.3 cm LAAs A4C: 14.9 cm LAESV A-L A4C: 35 ml LAESV MOD A4C: 34 ml LALs A2C: 6.1 cm LAAs A2C: 20.2 cm LAESV A-L A2C: 57 ml LAESV MOD A2C: 54 ml LAESV(A-L): 48 ml LAESV Index (A-L): 25.18 ml/m Ao Diam: 3.0 cm (2.0 - 3.7) AV Cusp: 1.9 cm (1.5 - 2.6) EPSS: 0.2 cm MV E Genaro: 1.14 m/s MV A Genaro: 0.00 m/s MV E/A Ratio: 1117 MV DecT: 270 ms MV PHT: 66 ms MVA By PHT: 3.4 cm AV Vmax: 2.15 m/s AV maxP.57 mmHg TR Vmax: 2.40 m/s TR maxP.98 mmHg RAP: 5.00 mmHg RVSP: 27.98 mmHg MV EF SLOPE: 97.80 mm/s (70 - 150) MV EXCURSION: 13.54 mm (> 18.000) FINDINGS -------- Sinus rhythm. This was a technically good study. The left ventricular size is normal. There is borderline concentric left ventricular hypertrophy. Overall left ventricular systolic function is normal with, an EF between 60 - 65 %. The right ventricle is mildly enlarged. Normal LA size by volume 22+/-6 ml/m2. The right atrium is normal in size. Contrast study was performed with 2 iv injections of 8 ccs of agitated normal saline, at rest, and wi th cough. Negative bubble saline study , no PFO noted The aortic valve is trileaflet, and appears structurally normal. No aortic stenosis or regurgitation. The aortic root size is normal. Normal inferior vena cava with normal inspiratory collapse consistent with estimated right atrial pre ssure of 5 mmHg. There is no pericardial effusion. CONCLUSIONS -------- 1. The left ventricular size is normal. 2. There is borderline concentric left ventricular hypertrophy. 3. Overall left ventricular systolic function is normal with, an EF between 60 - 65 %. 4. The right ventricle is mildly enlarged. 5. Contrast study was performed with 2 iv injections of 8 ccs of agitated normal saline, at rest, and with cough. 6. Negative bubble saline study , no PFO noted 7. There is no pericardial effusion. MEAT BLENDER: Marilyn Ramos RDCS
[2020-10-26] MEDS: HYDROcodone/APAP 5-325MG 1 EACH TAB PO PRN (18:04)
--- NOTE | 2020-10-26 20:05 | P.PN ---
Subjective Progress Note Date: 10/26/20 This is a 69-year-old female patient who presented to the ER with complaints of confusion per neighbor. Patient recently had total right hip replacement with Dr. Espinoza was discharged home on Monday. Patient's neighbor noticed that she was having increased confusion. Patient does have past medical history of asthma, COPD and hypertension. Patient reports that she has not been taking any of her prescribed medication. Patient denies any falls. Patient denies any episodes of fever at home. Chest x-ray was performed showing chronic changes without evidence for acute pulmonary disease head CT was performed showing age- related atrophic and chronic small vessel ischemic change without acute in tracranial process is seen at this time. Potassium was low at 2.6. Replace per protocol. Venous Doppler has been ordered right lower extremity. Neurology services ordered. Blood and urine cultures ordered. COVID-19 negative. UA showing small amount of leukocyte Estrace. Patient has multiple drug ALLERGIES. At this time patient denies chest pain or shortness of breath. Patient denies nausea vomiting or diarrhea. Patient denies any urinary burning or frequency On 10/23/2020 patient is alert and oriented 3. Potassium remains low at 2.9 replacement per protocol ordered she also with elevated temperature last night 100.1. Urine and blood cultures have been ordered will consult infectious disease services to multiple drug ALLERGIES. At this time patient denies chest pain or shortness of breath. Patient denies nausea vomiting or diarrhea. Patient denies any urinary burning or frequency. Orthopedic services also consulted. Venous Doppler ordered of right lower extremity. On 10/24/2020 patient was seen and examined on the medical floor she is alert and oriented 3 in no apparent distress, no new episodes of fever in the last 24 hours, no headache or dizziness no chest pain no shortness of breath no cough no nausea or vomiting no abdominal pain no diarrhea no blood in the stools no burning with urination no frequency or urgency and no hematuria. Venous Doppler of the right lower extremity was negative for DVT, patient had bilateral carotid stenosis 50-70% with elevated velocity on the left . Will consult vascular surgery, she is still having episodes of confusion and she was evaluated by neurology MRI of the brain was ordered On 10/25/2020 patient is alert and oriented 3. Per infectious disease no obvious focus of infection. Continue to monitor patient off antibiotic therapy. MRI completed and to be reviewed with patient per neurology services. Patient at this time remains on Plavix and aspirin. Awaiting vascular surgical consult. At this time patient denies chest pain or shortness breath. Patient denies nausea vomiting or diarrhea. Patient denies any urinary burning or frequency On 10/26/2020 patient was seen and examined on the medical floor she is alert and oriented 3 in no distress, there is no fever or chills no headache or dizzi ness no chest pain no shortness of breath no cough no nausea or vomiting no abdominal pain no diarrhea no blood in the stools no burning with urination no frequency or urgency and no hematuria. This time we are awaiting forensic social worker and case resource manager for arrangement for possible admission to rehab. Objective - Vital Signs Vital signs: Vital Signs Temp 97.9 F 10/26/20 14:00 Pulse 71 10/26/20 14:00 Resp 16 10/26/20 14:00 BP 101/66 10/26/20 14:00 Pulse Ox 98 10/26/20 14:00 Intake & Output 10/26/20 10/26/20 10/27/20 06:59 18:59 06:59 Intake Total 100 Balance 100 Intake: Oral 100 Other: Voiding Method Bedside Commode # Voids 1 3 - Exam In general patient is alert and oriented ?-3 in no distress HEENT head normocephalic and atraumatic Neck is supple no JVD no goiter no lymphadenopathy no carotid bruit Chest examination is clear to auscultation no crackles no wheezing Cardiac exam reveals regular heart sounds S1 and S2 no gallops no murmurs Abdomen is soft nontender no organomegaly with normal bowel sounds Extremity exam reveals no edema no cyanosis or clubbing. Right hip incision clean dry and intact. +2 edema to right lower extremity Neurological examination reveals no gross focal deficits - Labs CBC & Chem 7: 10/26/20 06:17 10/26/20 06:17 Labs: Abnormal Lab Results - Last 24 Hours (Table) 10/26/20 10/26/20 Range/Units 06:17 06:17 RBC 3.35 L (4.10-5.20) X 10*6/uL Hgb 8.9 L (12.0-15.0) g/dL Hct 29.1 L (37.2-46.3) % MCH 26.6 L (27.0-32.0) pg MCHC 30.6 L (32.0-37.0) g/dL RDW 16.3 H (11.5-14.5) % Eosinophils # 0.54 H (0.04-0.35) X 10*3/uL Carbon Dioxide 31.9 H (21.6-31.8) mmol/L BUN 8.0 L (9.0-27.0) mg/dL Creatinine 0.5 L (0.6-1.5) mg/dL Glucose 116 H (70-110) mg/dL Total Protein 5.5 L (6.2-8.2) g/dL Albumin 3.50 L (3.80-4.90) g/dL Microbiology - Last 24 Hours (Table) 10/22/20 12:46 Blood Culture - Preliminary Blood No Growth after 96 hours Assessment and Plan Plan: 1. Electrolyte imbalance potassium 2.6 replaced per protocol, today potassium 3.7 2. Recent admission for right hip replacement. 3. Edema noted to right lower extremity venous Doppler will be ordered 4. Febrile with temperature 100.1. Blood and urine cultures ordered. 5. Altered mental status changes. Neurology services consulted for increased confusion 6. History of asthma 7. History of coronary artery disease 8. History of fibromyalgia 9. History of rheumatoid arthritis DVT prophylaxis Lovenox. GI prophylaxis Protonix Blood and urine cultures ordered. Venous Doppler ordered. Neurology services, infectious disease and orthopedic service is consulted
[2020-10-27] MEDS: SODIUM CHLORIDE 0.9% 1,000 ML IV SCH (05:00)
[2020-10-27] MEDS: LEVOTHYROXINE 50 MCG TAB PO SCH (06:26)
[2020-10-27] MEDS: SYMBICORT 160-4.5 MCG INHALER INHALATION SCH ×2 (07:59→20:13)
[2020-10-27] MEDS: ISOSORBIDE MONONITRATE ER 60 MG TAB.ER.24H PO SCH (08:42)
[2020-10-27] MEDS: FOLIC ACID 1 MG TAB PO SCH (08:42)
[2020-10-27] MEDS: MAGNESIUM OXIDE 400 MG TAB PO SCH (08:42)
[2020-10-27] MEDS: CLOPIDOGREL 75 MG TAB PO SCH (08:42)
[2020-10-27] MEDS: CALCIUM CARBONATE 500 MG CHEWABLE PO SCH (08:42)
[2020-10-27] MEDS: ASPIRIN 81 MG PO SCH (08:42)
[2020-10-27] MEDS: FERROUS SULFATE 325 MG TAB PO SCH (08:42)
[2020-10-27] MEDS: ENOXAPARIN 40 MG/0.4 ML SYRINGE SQ SCH (08:42)
[2020-10-27] MEDS: METOPROLOL SUCCINATE (ER) 100 MG TAB.ER.24H PO SCH (08:43)
[2020-10-27] MEDS: PANTOPRAZOLE 40 MG TABLET PO SCH (08:43)
[2020-10-27] MEDS: RANOLAZINE 500 MG TAB.ER.12H PO SCH ×2 (08:43→20:00)
[2020-10-27] MEDS: LOSARTAN 50 MG TAB PO SCH (11:11)
[2020-10-27] MEDS: amLODIPine 5 MG TAB PO SCH (15:19)
--- NOTE | 2020-10-27 15:19 | PN ---
PROGRESS NOTE DATE OF SERVICE: 10/27/2020. REASON FOR FOLLOWUP: Fever. INTERVAL HISTORY: The patient is currently afebrile. Patient is breathing comfortably. Patient denies having any chest pain or shortness of breath or cough. No nausea, no vomiting or abdominal pain or pain to the right hip area. PHYSICAL EXAMINATION: Blood pressure 112/69, pulse of 65, temperature 98. He is 97% on room air. General description is an elderly female lying in bed in no distress. RESPIRATORY SYSTEM: Unlabored breathing, clear to auscultation anteriorly. HEART: S1, S2. Regular rate and rhythm. ABDOMEN: Soft, no tenderness. Right hip incision looks clean with no redness. LABS: Hemoglobin is 8.9, white count 5.98, BUN of 8, creatinine 0.5. Blood culture negative. Urine is negative. Chest x-ray was negative. DIAGNOSTIC IMPRESSION AND PLAN: Patient with fever, lower grade, possibly related to the right surgical site, possible wound hematoma. Clearly no evidence of any cellulitis. Urine negative. Chest x- ray negative. The patient's fever resolved with current antibiotic therapy, no need for antibiotic on discharge. Continue supportive care. MMODL / IJN: [id number] / MTDD
[2020-10-27] MEDS: HYDROcodone/APAP 5-325MG 1 EACH TAB PO PRN (20:00)
--- NOTE | 2020-10-27 20:19 | P.PN ---
Subjective Progress Note Date: 10/27/20 This is a 69-year-old female patient who presented to the ER with complaints of confusion per neighbor. Patient recently had total right hip replacement with Dr. Espinoza was discharged home on Monday. Patient's neighbor noticed that she was having increased confusion. Patient does have past medical history of asthma, COPD and hypertension. Patient reports that she has not been taking any of her prescribed medication. Patient denies any falls. Patient denies any episodes of fever at home. Chest x-ray was performed showing chronic changes without evidence for acute pulmonary disease head CT was performed showing age- related atrophic and chronic small vessel ischemic change without acute in tracranial process is seen at this time. Potassium was low at 2.6. Replace per protocol. Venous Doppler has been ordered right lower extremity. Neurology services ordered. Blood and urine cultures ordered. COVID-19 negative. UA showing small amount of leukocyte Estrace. Patient has multiple drug ALLERGIES. At this time patient denies chest pain or shortness of breath. Patient denies nausea vomiting or diarrhea. Patient denies any urinary burning or frequency On 10/23/2020 patient is alert and oriented 3. Potassium remains low at 2.9 replacement per protocol ordered she also with elevated temperature last night 100.1. Urine and blood cultures have been ordered will consult infectious disease services to multiple drug ALLERGIES. At this time patient denies chest pain or shortness of breath. Patient denies nausea vomiting or diarrhea. Patient denies any urinary burning or frequency. Orthopedic services also consulted. Venous Doppler ordered of right lower extremity. On 10/24/2020 patient was seen and examined on the medical floor she is alert and oriented 3 in no apparent distress, no new episodes of fever in the last 24 hours, no headache or dizziness no chest pain no shortness of breath no cough no nausea or vomiting no abdominal pain no diarrhea no blood in the stools no burning with urination no frequency or urgency and no hematuria. Venous Doppler of the right lower extremity was negative for DVT, patient had bilateral carotid stenosis 50-70% with elevated velocity on the left . Will consult vascular surgery, she is still having episodes of confusion and she was evaluated by neurology MRI of the brain was ordered On 10/25/2020 patient is alert and oriented 3. Per infectious disease no obvious focus of infection. Continue to monitor patient off antibiotic therapy. MRI completed and to be reviewed with patient per neurology services. Patient at this time remains on Plavix and aspirin. Awaiting vascular surgical consult. At this time patient denies chest pain or shortness breath. Patient denies nausea vomiting or diarrhea. Patient denies any urinary burning or frequency On 10/26/2020 patient was seen and examined on the medical floor she is alert and oriented 3 in no distress, there is no fever or chills no headache or dizzi ness no chest pain no shortness of breath no cough no nausea or vomiting no abdominal pain no diarrhea no blood in the stools no burning with urination no frequency or urgency and no hematuria. This time we are awaiting social insurance administrator and nurse case management for arrangement for possible admission to rehab. On 10/27/2020 patient was seen and examined on the medical floor she is alert and oriented 3 in no distress, there is no fever or chills no headache or dizziness no chest pain no shortness of breath no cough no nausea or vomiting no abdominal pain no diarrhea no blood in the stools no burning with urination no frequency or urgency and no hematuria. This time we are awaiting social insurance administrator and nurse case management for arrangement for possible admission to rehab. Patient is medically stable for discharge awaiting insurance prior authorization for transfer to a rehab unit Objective - Vital Signs Vital signs: Vital Signs Temp 98.0 F 10/27/20 08:00 Pulse 67 10/27/20 08:00 Resp 16 10/27/20 08:00 BP 116/65 10/27/20 08:00 Pulse Ox 97 10/27/20 08:00 Intake & Output 10/26/20 10/27/20 10/27/20 18:59 06:59 18:59 Intake Total 100 400 200 Balance 100 400 200 Intake: Oral 100 400 200 Other: Voiding Method Bedside Commode Bedside Commode Toilet # Voids 3 - Exam In general patient is alert and oriented ?-3 in no distress HEENT head normocephalic and atraumatic Neck is supple no JVD no goiter no lymphadenopathy no carotid bruit Chest examination is clear to auscultation no crackles no wheezing Cardiac exam reveals regular heart sounds S1 and S2 no gallops no murmurs Abdomen is soft nontender no organomegaly with normal bowel sounds Extremity exam reveals no edema no cyanosis or clubbing. Right hip incision clean dry and intact. +2 edema to right lower extremity Neurological examination reveals no gross focal deficits - Labs CBC & Chem 7: 10/26/20 06:17 10/26/20 06:17 Labs: Abnormal Lab Results - Last 24 Hours (Table) 10/26/20 10/26/20 Range/Units 06:17 06:17 RBC 3.35 L (4.10-5.20) X 10*6/uL Hgb 8.9 L (12.0-15.0) g/dL Hct 29.1 L (37.2-46.3) % MCH 26.6 L (27.0-32.0) pg MCHC 30.6 L (32.0-37.0) g/dL RDW 16.3 H (11.5-14.5) % Eosinophils # 0.54 H (0.04-0.35) X 10*3/uL Carbon Dioxide 31.9 H (21.6-31.8) mmol/L BUN 8.0 L (9.0-27.0) mg/dL Creatinine 0.5 L (0.6-1.5) mg/dL Glucose 116 H (70-110) mg/dL Total Protein 5.5 L (6.2-8.2) g/dL Albumin 3.50 L (3.80-4.90) g/dL Microbiology - Last 24 Hours (Table) 10/22/20 12:46 Blood Culture - Preliminary Blood No Growth after 96 hours Assessment and Plan Plan: 1. Electrolyte imbalance potassium 2.6 replaced per protocol, today potassium 3.7 2. Recent admission for right hip replacement. 3. Edema noted to right lower extremity venous Doppler will be ordered 4. Febrile with temperature 100.1. Blood and urine cultures ordered. 5. Altered mental status changes. Neurology services consulted for increased confusion 6. History of asthma 7. History of coronary artery disease 8. History of fibromyalgia 9. History of rheumatoid arthritis DVT prophylaxis Lovenox. GI prophylaxis Protonix Blood and urine cultures ordered. Venous Doppler ordered. Neurology services, infectious disease and orthopedic service is consulted
[2020-10-28 03:19] VITALS: TEMP 98.2
[2020-10-28] MEDS: LEVOTHYROXINE 50 MCG TAB PO SCH (05:34)
[2020-10-28 07:18] VITALS: BP 113/71; PULSE 64; RESP 18
[2020-10-28] MEDS: SYMBICORT 160-4.5 MCG INHALER INHALATION SCH (08:06)
[2020-10-28] MEDS: CALCIUM CARBONATE 500 MG CHEWABLE PO SCH (08:08)
[2020-10-28] MEDS: CLOPIDOGREL 75 MG TAB PO SCH (08:08)
[2020-10-28] MEDS: RANOLAZINE 500 MG TAB.ER.12H PO SCH (08:09)
[2020-10-28] MEDS: ISOSORBIDE MONONITRATE ER 60 MG TAB.ER.24H PO SCH (08:09)
[2020-10-28] MEDS: METOPROLOL SUCCINATE (ER) 100 MG TAB.ER.24H PO SCH (08:09)
[2020-10-28] MEDS: PANTOPRAZOLE 40 MG TABLET PO SCH (08:09)
[2020-10-28] MEDS: LOSARTAN 50 MG TAB PO SCH (08:10)
[2020-10-28] MEDS: ENOXAPARIN 40 MG/0.4 ML SYRINGE SQ SCH (08:10)
[2020-10-28] MEDS: amLODIPine 5 MG TAB PO SCH (08:10)
[2020-10-28] MEDS: MAGNESIUM OXIDE 400 MG TAB PO SCH (08:10)
[2020-10-28] MEDS: FERROUS SULFATE 325 MG TAB PO SCH (08:10)
[2020-10-28] MEDS: ASPIRIN 81 MG PO SCH (08:10)
[2020-10-28] MEDS: FOLIC ACID 1 MG TAB PO SCH (08:10)
--- NOTE | 2020-10-28 11:23 | P.DS ---
Providers Date of admission: 10/22/20 14:10 Expected date of discharge: 10/28/20 Attending physician: Luigi Luong Consults: 10/22/20 14:11 Consult Physician Routine Consulting Provider: Dann Raymundo Consult Reason/Comments: confusion Do you want consulting provider notified?: Yes 10/23/20 10:07 Consult Physician Routine Consulting Provider: Emma Braden Consult Reason/Comments: Fever, multiple drug ALLERGIES Do you want consulting provider notified?: Yes 10/23/20 10:08 Consult Physician Routine Consulting Provider: Hugh Espinoza Consult Reason/Comments: Recent right hip surgery Do you want consulting provider notified?: Yes Primary care physician: Luigi Luong [facility] Course: Discharge diagnosis 1. Electrolyte imbalance potassium 2.6 replaced per protocol, today potassium 3.7 2. Recent admission for right hip replacement. 3. Edema noted to right lower extremity venous Doppler will be ordered 4. Febrile with temperature 100.1. Cultures negative. remained afebrile. Per ID no indication for antibiotic therapy at this time 5. Acute ischemic stroke. MRI of the brain was performed which revealed few punctuate left parietal lobe ischemic infarct likely embolic from carotid stenosis recommendation for dual antiplatelet medications of aspirin and Plavix for 21 days thereafter Plavix can be DC'd and maintained on aspirin 81 mg indefinitely 6. History of asthma 7. History of coronary artery disease 8. History of fibromyalgia 9. History of rheumatoid arthritis 10. Carotid stenosis. Patient was evaluated by vascular surgery no indications for renal vascular surgery at this time patient will need follow-up carotid Doppler as outpatient Hospital course This is a 69-year-old female patient who presented to the ER with complaints of confusion per neighbor. Patient recently had total right hip replacement with Dr. Espinoza was discharged home on Monday. Patient's neighbor noticed that she was having increased confusion. Patient does have past medical history of asthma, COPD and hypertension. Patient reports that she has not been taking any of her prescribed medication. Patient denies any falls. Patient denies any episodes of fever at home. Chest x-ray was performed showing chronic changes without evidence for acute pulmonary disease head CT was performed showing age- related atrophic and chronic small vessel ischemic change without acute intracranial process is seen at this time. Potassium was low at 2.6. Replace per protocol. Venous Doppler has been ordered right lower extremity. Neurology services ordered. Blood and urine cultures ordered. COVID-19 negative. UA showing small amount of leukocyte Estrace. Patient has multiple drug ALLERGIES. At this time patient denies chest pain or shortness of breath. Patient denies nausea vomiting or diarrhea. Patient denies any urinary burning or frequency On 10/23/2020 patient is alert and oriented 3. Potassium remains low at 2.9 replacement per protocol ordered she also with elevated temperature last night 100.1. Urine and blood cultures have been ordered will consult infectious disease services to multiple drug ALLERGIES. At this time patient denies chest pain or shortness of breath. Patient denies nausea vomiting or diarrhea. Patient denies any urinary burning or frequency. Orthopedic services also consulted. Venous Doppler ordered of right lower extremity. On 10/24/2020 patient was seen and examined on the medical floor she is alert and oriented 3 in no apparent distress, no new episodes of fever in the last 24 hours, no headache or dizziness no chest pain no shortness of breath no cough no nausea or vomiting no abdominal pain no diarrhea no blood in the stools no burning with urination no frequency or urgency and no hematuria. Venous Doppler of the right lower extremity was negative for DVT, patient had bilateral carotid stenosis 50-70% with elevated velocity on the left . Will consult vascular surgery, she is still having episodes of confusion and she was evaluated by neurology MRI of the brain was ordered On 10/25/2020 patient is alert and oriented 3. Per infectious disease no obvious focus of infection. Continue to monitor patient off antibiotic therapy. MRI completed and to be reviewed with patient per neurology services. Patient at this time remains on Plavix and aspirin. Awaiting vascular surgical consult. At this time patient denies chest pain or shortness breath. Patient denies nausea vomiting or diarrhea. Patient denies any urinary burning or frequency On 10/26/2020 patient was seen and examined on the medical floor she is alert and oriented 3 in no distress, there is no fever or chills no headache or dizziness no chest pain no shortness of breath no cough no nausea or vomiting no abdominal pain no diarrhea no blood in the stools no burning with urination no frequency or urgency and no hematuria. This time we are awaiting manager social and protective services case worker for arrangement for possible admission to rehab. On 10/27/2020 patient was seen and examined on the medical floor she is alert and oriented 3 in no distress, there is no fever or chills no headache or dizziness no chest pain no shortness of breath no cough no nausea or vomiting no abdominal pain no diarrhea no blood in the stools no burning with urination no frequency or urgency and no hematuria. This time we are awaiting manager social and protective services case worker for arrangement for possible admission to rehab. Patient is medically stable for discharge awaiting insurance prior authorization for transfer to a rehab unit On 10/28/2020 patient alert and oriented 3. Patient discharge plan now home with home health care. Patient will be DC'd on Plavix as been fully catheter. Patient to follow-up with PCP and vascular surgery for further management. At the time patient denies chest pain or shortness of breath. Patient denies nausea vomiting or diarrhea. Patient denies any urinary burning or frequency. Patient Condition at Discharge: Stable Plan - Discharge Summary Discharge Rx Participant: No New Discharge Prescriptions: New Clopidogrel [Plavix] 75 mg PO DAILY 30 Days #30 tab Aspirin 81 mg PO DAILY 30 Days #30 chew Folic Acid 1 mg PO DAILY 30 Days #30 tab Continue Metoprolol Succinate (ER) [Toprol XL] 100 mg PO DAILY Levothyroxine Sodium [Synthroid] 50 mcg PO DAILY Calcium Carbonate [Calcium] 600 mg PO DAILY Fluticasone Nasal [place] [Flonase Nasal [place]] 1 spr EA NOSTRIL BID PRN PRN Reason: Allergy Symptoms Ubidecarenone [Co Q-10] 100 mg PO DAILY guaiFENesin [Mucinex] 600 mg PO Q12HR PRN PRN Reason: Cold Symptoms Isosorbide Mononitrate ER [Imdur] 60 mg PO DAILY tab.er.24h Nitroglycerin Sl Tabs [Nitrostat] 0.4 mg SUBLINGUAL Q5M PRN tab PRN Reason: Chest Pain Losartan Potassium 100 mg PO DAILY Evolocumab [Repatha Sureclick] 140 mg SQ Q14D Montelukast Sodium [Singulair] 10 mg PO HS PRN PRN Reason: ALLERGIES Albuterol Inhaler [Ventolin Hfa Inhaler] 2 puff INHALATION RT-QID PRN PRN Reason: Shortness Of Breath Potassium Chloride [Klor-Con 10] 10 meq PO DAILY PRN PRN Reason: Edema Omeprazole 20 mg PO DAILY Ranolazine [Ranexa] 500 mg PO BID Fluticasone/Vilanterol [Breo Ellipta 200-25 Mcg INH] 1 inhalation INHALATION RT-DAILY Furosemide [Lasix] 40 mg PO DAILY PRN PRN Reason: Edema HYDROcodone/APAP 5-325MG [[place] 5-325] 1 tab PO BID PRN PRN Reason: Severe Pain Nicotine [Nicoderm Cq] 1 patch TOPICAL DAILY PRN PRN Reason: SMOKING CESSATION Docusate Sodium [Dok] 100 mg PO DAILY PRN PRN Reason: Constipation Magnesium Oxide 400 mg PO DAILY Ferrous Sulfate [Feosol] 325 mg PO DAILY amLODIPine [Norvasc] 5 mg PO DAILY Cholecalciferol (Vitamin D3) [Vitamin D3 (5000 Iu)] 125 mcg PO Q7D Discharge Medication List Calcium Carbonate [Calcium] 600 mg PO DAILY 08/02/15 [History] Levothyroxine Sodium [Synthroid] 50 mcg PO DAILY 08/02/15 [History] Metoprolol Succinate (ER) [Toprol XL] 100 mg PO DAILY 08/02/15 [History] Fluticasone Nasal [place] [Flonase Nasal [place]] 1 spr EA NOSTRIL BID PRN 08/28/15 [History] Ubidecarenone [Co Q-10] 100 mg PO DAILY 07/14/16 [History] guaiFENesin [Mucinex] 600 mg PO Q12HR PRN 03/02/18 [History] Isosorbide Mononitrate ER [Imdur] 60 mg PO DAILY tab.er.24h 04/26/18 [Rx] Nitroglycerin Sl Tabs [Nitrostat] 0.4 mg SUBLINGUAL Q5M PRN tab 04/26/18 [Rx] Losartan Potassium 100 mg PO DAILY 07/20/18 [History] Evolocumab [Repatha Sureclick] 140 mg SQ Q14D 02/08/19 [History] Montelukast Sodium [Singulair] 10 mg PO HS PRN 02/08/19 [History] Albuterol Inhaler [Ventolin Hfa Inhaler] 2 puff INHALATION RT-QID PRN 10/14/20 [History] Fluticasone/Vilanterol [Breo Ellipta 200-25 Mcg INH] 1 inhalation INHALATION RT- DAILY 10/14/20 [History] Furosemide [Lasix] 40 mg PO DAILY PRN 10/14/20 [History] HYDROcodone/APAP 5-325MG [[place] 5-325] 1 tab PO BID PRN 10/14/20 [History] Potassium Chloride [Klor-Con 10] 10 meq PO DAILY PRN 10/14/20 [History] Ranolazine [Ranexa] 500 mg PO BID 10/14/20 [History] Cholecalciferol (Vitamin D3) [Vitamin D3 (5000 Iu)] 125 mcg PO Q7D 10/22/20 [History] Docusate Sodium [Dok] 100 mg PO DAILY PRN 10/22/20 [History] Ferrous Sulfate [Feosol] 325 mg PO DAILY 10/22/20 [History] Magnesium Oxide 400 mg PO DAILY 10/22/20 [History] Nicotine [Nicoderm Cq] 1 patch TOPICAL DAILY PRN 10/22/20 [History] Omeprazole 20 mg PO DAILY 10/22/20 [History] amLODIPine [Norvasc] 5 mg PO DAILY 10/22/20 [History] Aspirin 81 mg PO DAILY 30 Days #30 chew 10/28/20 [Rx] Clopidogrel [Plavix] 75 mg PO DAILY 30 Days #30 tab 10/28/20 [Rx] Folic Acid 1 mg PO DAILY 30 Days #30 tab 10/28/20 [Rx] Follow up Appointment(s)/Referral(s): Zayda Clark DO [STAFF PHYSICIAN] - 2 Weeks Luigi Luong MD [Primary Care Provider] - 1-2 days
--- NOTE | 2020-10-28 13:42 | P.PN ---
Progress Note - Text Progress Note Date: 10/28/20 REASON FOR FOLLOWUP: Fever. INTERVAL HISTORY: The patient remains to be afebrile. Patient is breathing comfortably. Patient denies chest pain or shortness of breath or cough. No nausea, no vomiting or abdominal pain or pain to the right hip area. PHYSICAL EXAMINATION: Blood pressure 110/60, pulse of 65, temperature 98. He is 97% on room air. General description is an elderly female lying in bed in no distress. RESPIRATORY SYSTEM: Unlabored breathing, clear to auscultation anteriorly. HEART: S1, S2. Regular rate and rhythm. ABDOMEN: Soft, no tenderness. Right hip incision looks clean with no redness. LABS: Blood culture negative. Urine is negative. Chest x-ray was negative. DIAGNOSTIC IMPRESSION AND PLAN: Patient with fever, lower grade, possibly related to the right hip surgical site, possible hematoma. Clearly no evidence of any cellulitis. Urine negative. Chest x-ray negative. The patient's fever resolved with current antibiotic therapy, no need for antibiotic on discharge. pt waiting for placement ,
== END 2020-10-28 12:59 | disposition home health service (06) | DRG 65 ==
LOC: EC 11:37 → 4SSUR 14:10 → 6NMEDSUR 16:14
PROVIDERS: ADMIT Internal Medicine; ATTEND Internal Medicine
DX: I63.133 Cerebral infarction due to embolism of bilateral carotid arteries (principal); L76.32 Postprocedural hematoma of skin and subcutaneous tissue following other procedure; E87.8 Other disorders of electrolyte and fluid balance, not elsewhere classified; R60.0 Localized edema; E11.9 Type 2 diabetes mellitus without complications; E66.9 Obesity, unspecified; I10 Essential (primary) hypertension; R48.8 Other symbolic dysfunctions; Z96.641 Presence of right artificial hip joint; J44.9 Chronic obstructive pulmonary disease, unspecified; M06.9 Rheumatoid arthritis, unspecified; M79.7 Fibromyalgia; I25.10 Atherosclerotic heart disease of native coronary artery without angina pectoris; E78.5 Hyperlipidemia, unspecified; R50.9 Fever, unspecified; K21.9 Gastro-esophageal reflux disease without esophagitis; M19.90 Unspecified osteoarthritis, unspecified site; E89.0 Postprocedural hypothyroidism; Z86.010 Personal history of colon polyps; Z85.3 Personal history of malignant neoplasm of breast; Z80.7 Family history of other malignant neoplasms of lymphoid, hematopoietic and related tissues; Z79.890 Hormone replacement therapy; Z20.822 Contact with and (suspected) exposure to COVID-19; Z88.1 Allergy status to other antibiotic agents; Z88.2 Allergy status to sulfonamides; Z88.8 Allergy status to other drugs, medicaments and biological substances; Z91.14 Patient's other noncompliance with medication regimen; Z79.899 Other long term (current) drug therapy; Z79.82 Long term (current) use of aspirin; Z79.02 Long term (current) use of antithrombotics/antiplatelets; Z86.72 Personal history of thrombophlebitis; Z90.49 Acquired absence of other specified parts of digestive tract; Z87.891 Personal history of nicotine dependence; E86.0 Dehydration
CPT/HCPCS: 36415; 70450; 70551; 71045; 80048; 80053; 80061; 81001; 82607; 82746; 83036; 83605; 83735; 84484; 85025; 85610; 85730; 86140; 87040; 87086; 87635; 93005; 93306; 93880; 94640; 99285

== ENCOUNTER 2022-11-12 21:33 | Emergency (ER) | payer MEDICARE, OTHER ==
[2022-11-12 21:43] VITALS: BP 173/98; PULSE 65; RESP 18; TEMP 97.9
--- NOTE | 2022-11-12 22:04 | ED ---
Fall HPI - General Chief Complaint: Fall Stated Complaint: Fall Time Seen by Provider: 11/12/22 21:44 Source: patient, RN notes reviewed Mode of arrival: ambulatory Limitations: no limitations - History of Present Illness Initial Comments: This is a 71 year old female who presents to the emergency department for a fall. States that earlier this evening she tripped on a piece of carpeting that was on the front porch. She subsequently fell onto her left side. Complaining of pain to the left foot, knee, hip, shoulder, and her head. Denies any loss of consciousness. She is not taking any blood thinners. She has not taken anything for pain at this time. Reports minor nausea. Denies any fevers, chills, sore throat, cough, dyspnea, chest pain, palpitations, abdominal pain, vomiting, or diarrhea. MD Complaint: fall Fall From: standing - Related Data Home Medications Medication Instructions Recorded Confirmed Calcium Carbonate [Calcium] 600 mg PO DAILY 08/02/15 10/22/20 Levothyroxine Sodium [Synthroid] 50 mcg PO DAILY 08/02/15 10/22/20 Metoprolol Succinate (ER) [Toprol 100 mg PO DAILY 08/02/15 10/22/20 XL] Fluticasone Nasal [place] [Flonase 1 spr EA NOSTRIL BID PRN 08/28/15 10/22/20 Nasal [place]] Ubidecarenone [Co Q-10] 100 mg PO DAILY 07/14/16 10/22/20 guaiFENesin [Mucinex] 600 mg PO Q12HR PRN 03/02/18 10/22/20 Losartan Potassium 100 mg PO DAILY 07/20/18 10/22/20 Evolocumab [Repatha Sureclick] 140 mg SQ Q14D 02/08/19 10/22/20 Montelukast Sodium [Singulair] 10 mg PO HS PRN 02/08/19 10/22/20 Albuterol Inhaler [Ventolin Hfa 2 puff INHALATION RT-QID PRN 10/14/20 10/22/20 Inhaler] Fluticasone/Vilanterol [Breo 1 inhalation INHALATION RT-DAILY 10/14/20 10/22/20 Ellipta 200-25 Mcg Inhaler] Furosemide [Lasix] 40 mg PO DAILY PRN 10/14/20 10/22/20 HYDROcodone/APAP 5-325MG [[place] 1 tab PO BID PRN 10/14/20 10/22/20 5-325] Potassium Chloride [Klor-Con 10 ER] 10 meq PO DAILY PRN 10/14/20 10/22/20 Ranolazine [Ranexa] 500 mg PO BID 10/14/20 10/22/20 Cholecalciferol (Vitamin D3) 125 mcg PO Q7D 10/22/20 10/22/20 [Vitamin D3 (5000 Iu)] Docusate Sodium [Dok] 100 mg PO DAILY PRN 10/22/20 10/22/20 Ferrous Sulfate [Feosol] 325 mg PO DAILY 10/22/20 10/22/20 Magnesium Oxide 400 mg PO DAILY 10/22/20 10/22/20 Nicotine [Nicoderm Cq] 1 patch TOPICAL DAILY PRN 10/22/20 10/22/20 Omeprazole 20 mg PO DAILY 10/22/20 10/22/20 amLODIPine [Norvasc] 5 mg PO DAILY 10/22/20 10/22/20 Previous Rx's Medication Instructions Recorded Isosorbide Mononitrate ER [Imdur] 60 mg PO DAILY tab.er.24h 04/26/18 Nitroglycerin Sl Tabs [Nitrostat] 0.4 mg SUBLINGUAL Q5M PRN tab 04/26/18 Aspirin 81 mg PO DAILY 30 Days #30 chew 10/28/20 Clopidogrel [Plavix] 75 mg PO DAILY 30 Days #30 tab 10/28/20 Folic Acid 1 mg PO DAILY 30 Days #30 tab 10/28/20 Allergies Allergy/AdvReac Type Severity Reaction Status Date / Time cephalexin monohydrate Allergy Rash/Hives Verified 11/12/22 21:38 [From Keflex] ciprofloxacin [From Cipro] Allergy Rash/Hives Verified 11/12/22 21:38 levofloxacin [From Levaquin] Allergy Rash/Hives Verified 11/12/22 21:38 minocycline Allergy Rash/Hives Verified 11/12/22 21:38 nitrofurantoin Allergy Dyspnea Verified 11/12/22 21:38 [From Macrobid] potassium clavulanate Allergy Rash/Hives Verified 11/12/22 21:38 [From Augmentin] sulfamethoxazole Allergy Itching Verified 11/12/22 21:38 [From Bactrim] trimethoprim [From Bactrim] Allergy Itching Verified 11/12/22 21:38 azithromycin AdvReac bleeding Verified 11/12/22 21:38 etodolac [From Lodine] AdvReac "inflamed Verified 11/12/22 21:38 legs" lisinopril AdvReac Cough Verified 11/12/22 21:38 NSAIDS (Non-Steroidal AdvReac BLURRY Verified 11/12/22 21:38 Anti-Inflamma VISION prednisone AdvReac CHEST Verified 11/12/22 21:38 PAIN/FATIGUE/FEVER/CHILLS Zimhtki-XNX-MwB Reductase AdvReac MUSCLE PAIN Verified 11/12/22 21:38 Inhibitor [Gtwhysh-Oxa-Mqi Reductase Inhibitor] Review of Systems ROS Statement: Those systems with pertinent positive or pertinent negative responses have been documented in the HPI. ROS Other: All systems not noted in ROS Statement are negative. Past Medical History Past Medical History: Asthma, Coronary Artery Disease (CAD), Cancer, COPD, Fibromyalgia, GERD/Reflux, Hyperlipidemia, Hypertension, Osteoarthritis (OA), Rheumatoid Arthritis (RA), Thyroid Disorder Additional Past Medical History / Comment(s): HX OF COLON POLYP, AAA, PHLEBITIS, VARICOSE VEINS, REYNAUD'S, BREAST CANCER., ANEMIA. History of Any Multi-Drug Resistant Organisms: None Reported Past Surgical History: Breast Surgery, Section, Cholecystectomy, Heart Catheterization, Orthopedic Surgery, Tonsillectomy Additional Past Surgical History / Comment(s): LEFT CAROTID ENDARTECTOMY, FERNANDO CARPAL TUNNEL, FERNANDO LEGS VEIN STRIPPING, RT THYROIDECTOMY, FERNANDO BREAST SX, LEFT LUMPECTOMY , LEFT BREAST FATTY TUMOR, HEART CATH 03/13/18 @ [facility]. Past Anesthesia/Blood Transfusion Reactions: Previous Problems w/ Anesthesia Additional Past Anesthesia/Blood Transfusion Reaction / Comment(s): STATES "FELT PARALYZED CHEST AREA AND ARM" ( OVER 20 YRS AGO.) NO PROBLEM SINCE Past Psychological History: Depression Smoking Status: Never smoker Past Alcohol Use History: None Reported - Past Family History Father Family Medical History: Cancer Additional Family Medical History / Comment(s): NON HODGKINS LYMPHOMA Brother(s) Family Medical History: Cancer Additional Family Medical History / Comment(s): prostate General Exam Limitations: no limitations General appearance: alert, in no apparent distress Head exam: Present: atraumatic, normocephalic, normal inspection Eye exam: Present: normal appearance, PERRL, EOMI. Absent: scleral icterus, conjunctival injection, periorbital swelling Respiratory exam: Present: normal lung sounds bilaterally. Absent: respiratory distress, wheezes, rales, rhonchi, stridor Cardiovascular Exam: Present: regular rate, normal rhythm, normal heart sounds. Absent: systolic murmur, diastolic murmur, rubs, gallop, clicks Extremities exam: Present: other (Minor tenderness to palpation of the left patella. Slight reduction in range of motion of the left lower extremity secondary to pain. 2+ DP and PT pulses. Capillary refill less than 1 second.) Left Shoulder Exam: Present: normal inspection, full ROM, tenderness (Minor tenderness over the left trapezius muscle.). Absent: swelling, ecchymosis, deformity Neurological exam: Present: alert, oriented X3, CN II-XII intact Psychiatric exam: Present: normal affect, normal mood Skin exam: Present: warm, dry, intact, normal color. Absent: rash Course Vital Signs 11/12/22 21:39 Temperature 97.9 F Pulse Rate 65 Respiratory 18 Rate Blood Pressure 173/98 O2 Sat by Pulse 98 Oximetry Medical Decision Making - Medical Decision Making This is a 71-year-old female who presents to the emergency department for a fall. Was pt. sent in by a medical professional or institution? @ -No Did you speak to anyone other than the patient for history? @ -No Did you review nursing and triage notes? @ -Yes, and I agree, it is accurate with regards to the patient's symptoms. Were old charts reviewed? @ -No Differential Diagnosis? @ -Differential Diagnosis Head Injury: Contusion, hematoma, intracranial hemorrhage, skull fracture, whiplash, concussion, this is not meant to be an all-inclusive list. -Differential Knee Injury: Fracture, dislocation, sprain, contusion, meniscus injury, ACL/LCL/MCL/PCL injury, this is not meant to be an all-inclusive list. EKG interpreted by me (3pts min.)? @ -Not obtained X-rays interpreted by me (1pt min.)? @ -XR of the left foot, knee, hip, and shoulder obtained. My interpretation identifies no acute fractures or dislocations on any of the imaging. CT interpreted by me (1pt min.)? @ -Computed tomography scan of the brain and c-spine obtained. My interpretation identifies no evidence of an acute intracranial hemorrhage, skull fracture, or cervical spine fracture. U/S interpreted by me (1pt. min.)? @ -Not obtained What testing was considered but not performed? (CT, X-rays, U/S, labs)? Why? @ -None What meds were considered but not given? Why? @ -None Did you discuss the management of the patient with other professionals? @ -No Did you reconcile home meds? @ -No Was smoking cessation discussed for >3mins.? @ -No Was critical care preformed (if so, how long)? @ -No Were there social determinants of health that impacted care today? How? (Homelessness, low income, unemployed, alcoholism, drug addiction, transportation, low edu. Level, literacy, decrease access to med. care, senior living, rehab)? @ -No Was there de-escalation of care discussed even if they declined? (Discuss DNR or withdrawal of care, Hospice)? @ -No What co-morbidities impacted this encounter? (DM, HTN, Smoking, COPD, CAD, Cancer, CVA, Hep., AIDS, mental health diagnosis, sleep apnea, morbid obesity)? @ -Osteoarthritis, rheumatoid arthritis Was patient admitted / discharged? @ -Discharged. Computed tomography scan of the brain/C-spine and x-rays of the left foot, knee, hip, and shoulder obtained, all revealing no acute findings. I did offer medication to treat her pain and nausea, however the patient declined. Advised that she most likely sustained contusions. Discussed supportive care with Tylenol as needed for pain relief and applying ice to the affected areas for 10-15 minutes every 2-3 hours. Undiagnosed new problem with uncertain prognosis? @ -None Drug Therapy requiring intensive monitoring for toxicity (Heparin, Nitro, Insulin, Cardizem)? @ -None Were any procedures done? @ -None Diagnosis/symptom? @ -Fall, head injury, left hip pain, left knee pain Acute, or Chronic, or Acute on Chronic? @ -Acute Uncomplicated (without systemic symptoms) or Complicated (systemic symptoms)? @ -Uncomplicated Side effects of treatment? @ -None Exacerbation, Progression, or Severe Exacerbation] @ -Not applicable Poses a threat to life or bodily function? @ -No Return precautions reviewed in depth, the patient is instructed to return to the emergency department with any new, worsening, or concerning symptoms. Patient verbalized understanding. This case was discussed in detail with the attending ED physician, Dr. Marin. Presentation, findings, and treatment plan discussed in detail as well. - Radiology Data Radiology results: report reviewed, image reviewed Disposition Clinical Impression: Fall Disposition: HOME SELF-CARE Instructions (If sedation given, give patient instructions): Fall Prevention for Older Adults (ED) Additional Instructions: Return to the emergency department with any new, worsening, or concerning symptoms. Take Tylenol as needed for pain relief. Apply ice to the affected areas for 10-15 minutes every 2-3 hours. Follow up with your primary care provider in 1-2 days. Is patient prescribed a controlled substance at d/c from ED?: No Referrals: Luigi Luong MD [Primary Care Provider] - 1-2 days
--- NOTE | 2022-11-12 23:18 | CT ---
EXAM: CT Head Without Intravenous Contrast CLINICAL HISTORY: ITS.REASON CT Reason: Fall TECHNIQUE: Axial computed tomography images of the head/brain without intravenous contrast. CTDI is 45.285 mGy and DLP is 1097.5 mGy-cm. This CT exam was performed using one or more of the following dose reduction techniques: automated exposure control, adjustment of the mA and/or kV according to patient size, and/or use of iterative reconstruction technique. COMPARISON: No relevant prior studies available. FINDINGS: No acute intracranial hemorrhage. No midline shift or mass effect. 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 Age-related cerebral volume loss. Periventricular and subcortical white matter hypoattenuation, consistent with chronic microangiopathy. The visualized orbits appear grossly unremarkable. The calvarium is intact. The visualized paranasal sinuses and mastoid air cells are grossly clear. IMPRESSION: No acute intracranial hemorrhage, midline shift, or mass effect. 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 EXAM: CT Cervical Spine Without Intravenous Contrast CLINICAL HISTORY: ITS.REASON CT Reason: Fall TECHNIQUE: Axial computed tomography images of the cervical spine without intravenous contrast. CTDI is 12.385 mGy and DLP is 337.5 mGy-cm. This CT exam was performed using one or more of the following dose reduction techniques: automated exposure control, adjustment of the mA and/or kV according to patient size, and/or use of iterative reconstruction technique. COMPARISON: No relevant prior studies available. FINDINGS: The vertebral body heights are maintained. The craniocervical junction is intact. The atlanto-dens interval is maintained. The dens is intact. There is no spondylolisthesis. Multilevel cervical spondylosis and degenerative disc disease. The unenhanced neck soft tissues are grossly unremarkable. The visualized lung apices are grossly clear. IMPRESSION: No acute fracture or subluxation of the cervical spine.
--- NOTE | 2022-11-12 23:25 | XR ---
EXAM: XR Left Foot Complete, 3 or More Views CLINICAL HISTORY: ITS.REASON XR Reason: Fall TECHNIQUE: Frontal, lateral and oblique views of the left foot. COMPARISON: No relevant prior studies available. FINDINGS: Bones/joints: Osseous demineralization. No dislocation. No acute fracture. Soft tissues: Unremarkable. No radiopaque foreign body. IMPRESSION: No acute fracture.
--- NOTE | 2022-11-12 23:26 | XR ---
EXAM: XR Left Knee, 3 Views CLINICAL HISTORY: ITS.REASON XR Reason: Fall TECHNIQUE: Three views of the left knee. COMPARISON: No relevant prior studies available. FINDINGS: Bones/joints: Tricompartmental joint space narrowing. Osseous demineralization. No fracture or dislocation. Soft tissues: Unremarkable. IMPRESSION: No fracture or dislocation.
--- NOTE | 2022-11-12 23:34 | XR ---
EXAM: XR Left Hip With Pelvis When Performed, 1 View CLINICAL HISTORY: ITS.REASON XR Reason: Fall TECHNIQUE: Frontal view of the left hip with pelvis when performed. COMPARISON: No relevant prior studies available. FINDINGS: Bones/joints: Unremarkable. No acute fracture. No dislocation. Soft tissues: Vascular calcifications. IMPRESSION: Intact LEFT hip.
--- NOTE | 2022-11-12 23:35 | XR ---
EXAM: XR Left Shoulder Complete, 2 or More Views CLINICAL HISTORY: ITS.REASON XR Reason: Fall TECHNIQUE: Two or more views of the left shoulder. COMPARISON: No relevant prior studies available. FINDINGS: Bones/joints: Unremarkable. No acute fracture or dislocation. Soft tissues: Unremarkable. IMPRESSION: No acute fracture or dislocation.
== END 2022-11-13 00:24 | disposition home or self-care (01) ==
LOC: EC 21:33
DX: S09.90XA Unspecified injury of head, initial encounter (principal); M25.552 Pain in left hip; M25.562 Pain in left knee; M25.512 Pain in left shoulder; I10 Essential (primary) hypertension; J44.9 Chronic obstructive pulmonary disease, unspecified; I25.10 Atherosclerotic heart disease of native coronary artery without angina pectoris; K21.9 Gastro-esophageal reflux disease without esophagitis; E78.5 Hyperlipidemia, unspecified; M06.9 Rheumatoid arthritis, unspecified; M79.7 Fibromyalgia; E07.9 Disorder of thyroid, unspecified; Z79.890 Hormone replacement therapy; Z79.51 Long term (current) use of inhaled steroids; Z79.899 Other long term (current) drug therapy; Z88.1 Allergy status to other antibiotic agents; Z88.2 Allergy status to sulfonamides; Z88.6 Allergy status to analgesic agent; Z88.8 Allergy status to other drugs, medicaments and biological substances; Z90.49 Acquired absence of other specified parts of digestive tract; W01.0XXA Fall on same level from slipping, tripping and stumbling without subsequent striking against object, initial encounter
CPT/HCPCS: 70450; 72125; 73502; 99284

== ENCOUNTER → 2023-02-08 | Outpatient (CLI) | payer MEDICARE, OTHER ==
--- NOTE | 2023-02-09 20:04 | MM ---
Reason for Exam: Screening (asymptomatic). Last mammogram was performed 1 year(s) and 4 month(s) ago. Patient History: Menarche at age 9. First Full-Term at age 39. Late child-bearing (after 29). Postmenopausal. Breast cancer, left, age 47. Previous LCIS pathology result at age 47. Hormonal Contraceptives for 12 years from age 19 until age 31. Lumpectomy on the Left side. 03/12/1998, High risk Excisional Biopsy on the left side. 03/03/1998, High risk Core Biopsy on the left side. 03/03/1998, High risk Stereotactic Core Biopsy on the left side. Paternal cousin had breast cancer, age 30. Paternal aunt had breast cancer, age 70. Maternal aunt had breast cancer, age 70. Prior Study Comparison: 07/16/2019 Bilateral Screening Mammogram, [facility]. 10/06/2020 Bilateral Screening Mammogram, [facility]. 10/13/2021 Bilateral Screening Mammogram, [facility]. Tissue Density: There are scattered fibroglandular densities. Findings: Analyzed By CAD. Unchanged fat necrosis calcification medial left breast. Unchanged lateral asymmetric density in the right breast. There is no suspicious group of microcalcifications or new suspicious mass in either breast. Overall Assessment: Benign, BI-RAD 2 Management: Screening Mammogram of both breasts in 1 year. . Patient should continue monthly self-breast exams. A clinical breast exam by your physician is recommended on an annual basis. This exam should not preclude additional follow-up of suspicious palpable abnormalities. Electronically signed and approved by: Nuno Monroy M.D. Radiologist
== END | disposition home or self-care (01) ==
LOC: RADMAMWWP 13:24
PROVIDERS: ATTEND Internal Medicine
DX: Z12.31 Encounter for screening mammogram for malignant neoplasm of breast (principal); Z78.0 Asymptomatic menopausal state; Z80.3 Family history of malignant neoplasm of breast
CPT/HCPCS: 77063; 77067

== ENCOUNTER 2023-05-11 14:46 | Emergency (ER) | payer MEDICARE, OTHER ==
[2023-05-11 15:03] VITALS: TEMP 98
[2023-05-11] MEDS ORDERED: SODIUM CHLORIDE 0.9% 2,000 ML IV STA (18:17)
--- NOTE | 2023-05-11 18:19 | ED ---
General Adult HPI - General Chief complaint: Nausea/Vomiting/Diarrhea Stated complaint: Fever, N/V/D, SOB Time Seen by Provider: 05/11/23 15:10 Source: patient Mode of arrival: ambulatory Limitations: no limitations - History of Present Illness Initial comments: 72-year-old female past history of COPD, fibromyalgia, memory impairment who presents to the emergency department reporting decreased oral intake. States that she has not felt well for the past 3 weeks. States that every time she eats she has diarrhea. States she has lost 10 pounds because of this. She states that the stool is yellow in color. Denies any recent antibiotic use. No history of C. diff. She denies any nausea or vomiting. No chest pain or shortness of breath. She recently had a stress test yesterday through the cardiology office but does not have results yet. She denies any fevers. No sick contacts with similar symptoms. Neighbor is with the patient and presents that she is worried about her oral intake. She has had an EGD and colonoscopy, the last of which was 2 years ago. Admits to history of polyps. She denies abdominal pain. She denies black or bloody stools. No other alleviating, precipitating or modifying factors - Related Data Home Medications Medication Instructions Recorded Confirmed Calcium Carbonate [Calcium] 600 mg PO DAILY 08/02/15 05/11/23 Levothyroxine Sodium [Synthroid] 50 mcg PO DAILY 08/02/15 05/11/23 Metoprolol Succinate (ER) [Toprol 100 mg PO DAILY 08/02/15 05/11/23 XL] Fluticasone Nasal [place] [Flonase 1 spr EA NOSTRIL BID PRN 08/28/15 05/11/23 Nasal [place]] Ubidecarenone [Co Q-10] 100 mg PO DAILY 07/14/16 05/11/23 guaiFENesin [Mucinex] 600 mg PO Q12HR PRN 03/02/18 05/11/23 Losartan Potassium 100 mg PO DAILY 07/20/18 05/11/23 Evolocumab [Repatha Sureclick] 140 mg SQ Q14D 02/08/19 05/11/23 Albuterol Inhaler [Ventolin Hfa 2 puff INHALATION RT-QID PRN 10/14/20 05/11/23 Inhaler] Fluticasone/Vilanterol [Breo 1 inhalation INHALATION RT-DAILY 10/14/20 05/11/23 Ellipta 200-25 Mcg Inhaler] Cholecalciferol (Vitamin D3) 125 mcg PO DAILY 10/22/20 05/11/23 [Vitamin D3 (5000 Iu)] Magnesium Oxide 400 mg PO DAILY 10/22/20 05/11/23 Omeprazole 40 mg PO DAILY 05/11/23 05/11/23 Previous Rx's Medication Instructions Recorded Isosorbide Mononitrate ER [Imdur] 60 mg PO DAILY tab.er.24h 04/26/18 Nitroglycerin Sl Tabs [Nitrostat] 0.4 mg SUBLINGUAL Q5M PRN tab 04/26/18 Aspirin 81 mg PO DAILY 30 Days #30 chew 10/28/20 Folic Acid 1 mg PO DAILY 30 Days #30 tab 10/28/20 Potassium Chloride [K-Tab ER] 20 meq PO DAILY #7 tab 05/11/23 Allergies Allergy/AdvReac Type Severity Reaction Status Date / Time cephalexin monohydrate Allergy Rash/Hives Verified 05/11/23 20:33 [From Keflex] ciprofloxacin [From Cipro] Allergy Rash/Hives Verified 05/11/23 20:33 levofloxacin [From Levaquin] Allergy Rash/Hives Verified 05/11/23 20:33 minocycline Allergy Rash/Hives Verified 05/11/23 20:33 nitrofurantoin Allergy Dyspnea Verified 05/11/23 20:33 [From Macrobid] potassium clavulanate Allergy Rash/Hives Verified 05/11/23 20:33 [From Augmentin] sulfamethoxazole Allergy Itching/hiv Verified 05/11/23 20:33 [From Bactrim] es/rash trimethoprim [From Bactrim] Allergy Itching/hiv Verified 05/11/23 20:33 es/rash azithromycin AdvReac bleeding Verified 05/11/23 20:33 etodolac [From Lodine] AdvReac "inflamed Verified 05/11/23 20:33 legs" lisinopril AdvReac Cough Verified 05/11/23 20:33 NSAIDS (Non-Steroidal AdvReac BLURRY Verified 05/11/23 20:33 Anti-Inflamma VISION prednisone AdvReac CHEST Verified 05/11/23 20:33 PAIN/FATIGUE/FEVER/CHILLS Gnvuqnb-AAC-UxA Reductase AdvReac MUSCLE PAIN Verified 05/11/23 20:33 Inhibitor [Fgbhwcf-Lui-Wvb Reductase Inhibitor] Review of Systems ROS Statement: Those systems with pertinent positive or pertinent negative responses have been documented in the HPI. ROS Other: All systems not noted in ROS Statement are negative. Past Medical History Past Medical History: Asthma, Coronary Artery Disease (CAD), Cancer, COPD, Fibromyalgia, GERD/Reflux, Hyperlipidemia, Hypertension, Memory Impairment, Osteoarthritis (OA), Rheumatoid Arthritis (RA), Thyroid Disorder Additional Past Medical History / Comment(s): HX OF COLON POLYP, AAA, PHLEBITIS, VARICOSE VEINS, REYNAUD'S, BREAST CANCER., ANEMIA. History of Any Multi-Drug Resistant Organisms: None Reported Past Surgical History: Breast Surgery, Section, Cholecystectomy, Heart Catheterization, Orthopedic Surgery, Tonsillectomy Additional Past Surgical History / Comment(s): LEFT CAROTID ENDARTECTOMY, FERNANDO CARPAL TUNNEL, FERNANDO LEGS VEIN STRIPPING, RT THYROIDECTOMY, FERNANDO BREAST SX, LEFT LUMPECTOMY , LEFT BREAST FATTY TUMOR, HEART CATH 03/13/18 @ [facility]. Past Anesthesia/Blood Transfusion Reactions: Previous Problems w/ Anesthesia Additional Past Anesthesia/Blood Transfusion Reaction / Comment(s): STATES "FELT PARALYZED CHEST AREA AND ARM" ( OVER 20 YRS AGO.) NO PROBLEM SINCE Past Psychological History: Depression Smoking Status: Never smoker Past Alcohol Use History: None Reported Past Drug Use History: None Reported - Past Family History Father Family Medical History: Cancer Additional Family Medical History / Comment(s): NON HODGKINS LYMPHOMA Brother(s) Family Medical History: Cancer Additional Family Medical History / Comment(s): prostate General Exam Limitations: no limitations General appearance: alert, in no apparent distress Head exam: Present: atraumatic, normocephalic, normal inspection Eye exam: Present: normal appearance, PERRL, EOMI. Absent: scleral icterus, conjunctival injection, periorbital swelling ENT exam: Present: normal exam, mucous membranes moist Neck exam: Present: normal inspection. Absent: tenderness, meningismus, lymphadenopathy Respiratory exam: Present: normal lung sounds bilaterally. Absent: respiratory distress, wheezes, rales, rhonchi, stridor Cardiovascular Exam: Present: regular rate, normal rhythm, normal heart sounds. Absent: systolic murmur, diastolic murmur, rubs, gallop, clicks GI/Abdominal exam: Present: soft, normal bowel sounds. Absent: distended, tenderness, guarding, rebound, rigid Extremities exam: Present: normal inspection, full ROM, normal capillary refill. Absent: tenderness, pedal edema, joint swelling, calf tenderness Back exam: Present: normal inspection Neurological exam: Present: alert, oriented X3, CN II-XII intact Psychiatric exam: Present: normal affect, normal mood Skin exam: Present: warm, dry, intact, normal color. Absent: rash Course Vital Signs 05/11/23 05/11/23 05/11/23 14:56 20:00 22:43 Temperature 98.0 F Pulse Rate 74 72 67 Respiratory 17 18 18 Rate Blood Pressure 137/89 124/78 129/94 O2 Sat by Pulse 98 98 99 Oximetry Medical Decision Making - Medical Decision Making Was pt. sent in by a medical professional or institution (, PA, COATING TECHNICIAN, urgent care, hospital, or shelter...) When possible be specific @ -No Did you speak to anyone other than the patient for history (EMS, parent, family, police, friend...)? What history was obtained from this source @ -I spoke with the patient's neighbor in regards to her symptoms Did you review nursing and triage notes (agree or disagree)? Why? @ -I reviewed and agree with nursing and triage notes Were old charts reviewed (outside hosp., previous admission, EMS record, old EKG, old radiological studies, urgent care reports/EKG's, shelter records)? Report findings @ -No old charts were reviewed Differential Diagnosis (chest pain, altered mental status, abdominal pain women, abdominal pain men, vaginal bleeding, weakness, fever, dyspnea, syncope, headache, dizziness, GI bleed, back pain, seizure, CVA, palpatations, mental health, musculoskeletal)? @ -Differential Appendicitis, Cholecystitis, diverticulosis, ischemic bowel, pancreatitis, hepatitis, UTI, gastroenteritis, AAA, incarcerated hernia, bowel obstruction, constipation, inflammatory bowel, hepatitis, peptic ulcer disease, splenic infarction, perforated viscus, vulvitis, ovarian torsion, PID, kidney stone, placenta abruption, this is not meant to be an all-inclusive list EKG interpreted by me (3pts min.). @ -Yes and demonstrates sinus rhythm with a rate 75. MO interval 179. QRS 92. QTC of 408. No acute ST segment elevation. Mild ST depression V4 through V6 X-rays interpreted by me (1pt min.). @ -None done CT interpreted by me (1pt min.). @ -None done U/S interpreted by me (1pt. min.). @ -None done What testing was considered but not performed or refused? (CT, X-rays, U/S, labs)? Why? @ -None What meds were considered but not given or refused? Why? @ -None Did you discuss the management of the patient with other professionals (professionals i.e. DrDel, PA, COATING TECHNICIAN, lab, RT, psych nurse, licensed social worker, food and beverage assistant manager, teacher, multisensor intelligence officer, case management assistant)? Give summary @ -Spoke with Dr. Luong who will manage the patient the outpatient setting Was smoking cessation discussed for >3mins.? @ -No Was critical care preformed (if so, how long)? @ -No Were there social determinants of health that impacted care today? How? ( Homelessness, low income, unemployed, alcoholism, drug addiction, transportation, low edu. Level, literacy, decrease access to med. care, detention, rehab)? @ -No Was there de-escalation of care discussed even if they declined (Discuss DNR or withdrawal of care, Hospice)? DNR status @ -No What co-morbidities impacted this encounter? (DM, HTN, Smoking, COPD, CAD, Cancer, CVA, ARF, Chemo, Hep., AIDS, mental health diagnosis, sleep apnea, morbid obesity)? @ -None Was patient admitted / discharged? Hospital course, mention meds given and route, prescriptions, significant lab abnormalities, going to OR and other pertinent info. @ -Upon arrival the patient was placed into hallway 10. A thorough history and physical exam was performed. IV is established and patient is given fluid hydration. Laboratory studies are conducted. Results are discussed with the patient. Her potassium is low at this time and is replaced. She would prefer to go home at this time. I will place her on potassium for the next week. She is to follow-up and have her potassium level repeated. Results will be sent to her primary care doctor. Recommend that she call and make an appointment with GI for her symptoms. She is given materials for stool sample collection at home as she has been unable to have a bowel movement here in the emergency department. Instructed to return for any new or worsening symptoms. Patient agreeable to the plan and she was discharged in stable condition Undiagnosed new problem with uncertain prognosis? @ -Yes Drug Therapy requiring intensive monitoring for toxicity (Heparin, Nitro, Insulin, Cardizem)? @ -No Were any procedures done? @ -No Diagnosis/symptom? @ -Acute diarrhea, acute hypokalemia Acute, or Chronic, or Acute on Chronic? @ -Acute Uncomplicated (without systemic symptoms) or Complicated (systemic symptoms)? @ -Complicated Side effects of treatment? @ -No Exacerbation, Progression, or Severe Exacerbation? @ -No Poses a threat to life or bodily function? How? (Chest pain, [place], [place], pneumonia, PE, COPD, DKA, ARF, appy, cholecystitis, CVA, Diverticulitis, Homicidal, Suicidal, threat to staff... and all critical care pts) @ -No - Lab Data Result diagrams: 05/11/23 18:41 05/11/23 18:41 Lab Results 05/11/23 05/11/23 05/11/23 Range/Units 18:41 18:41 18:41 WBC 7.9 (3.8-10.6) k/uL RBC 4.37 (3.80-5.40) m/uL Hgb 10.6 L (11.4-16.0) gm/dL Hct 33.4 L (34.0-46.0) % MCV 76.3 L (80.0-100.0) fL MCH 24.2 L (25.0-35.0) pg MCHC 31.6 (31.0-37.0) g/dL RDW 16.0 H (11.5-15.5) % Plt Count 204 (150-450) k/uL MPV 7.5 Neutrophils % 67 % Lymphocytes % 24 % Monocytes % 5 % Eosinophils % 2 % Basophils % 1 % Neutrophils # 5.3 (1.3-7.7) k/uL Lymphocytes # 1.9 (1.0-4.8) k/uL Monocytes # 0.4 (0-1.0) k/uL Eosinophils # 0.1 (0-0.7) k/uL Basophils # 0.1 (0-0.2) k/uL Hypochromasia Moderate Anisocytosis Slight Microcytosis Slight Sodium 140 (137-145) mmol/L Potassium 2.9 L (3.5-5.1) mmol/L Chloride 102 (98-107) mmol/L Carbon Dioxide 24 (22-30) mmol/L Anion Gap 14 mmol/L BUN 10 (7-17) mg/dL Creatinine 0.83 (0.52-1.04) mg/dL Est GFR (CKD-EPI)AfAm 81 (>60 ml/min/1.73 sqM) Est GFR (CKD-EPI)NonAf 71 (>60 ml/min/1.73 sqM) Glucose 98 (74-99) mg/dL Plasma Lactic Acid Black 1.0 (0.7-2.0) mmol/L Calcium 6.9 L (8.4-10.2) mg/dL Total Bilirubin 0.7 (0.2-1.3) mg/dL AST 30 (14-36) U/L ALT 20 (4-34) U/L Alkaline Phosphatase 76 (38-126) U/L Troponin I (0.000-0.034) ng/mL Total Protein 6.5 (6.3-8.2) g/dL Albumin 3.7 (3.5-5.0) g/dL Lipase 75 (23-300) U/L Urine Color Urine Appearance (Clear) Urine pH (5.0-8.0) Ur Specific [place] (1.001-1.035) Urine Protein (Negative) Urine Glucose (UA) (Negative) Urine Ketones (Negative) Urine Blood (Negative) Urine Nitrite (Negative) Urine Bilirubin (Negative) Urine Urobilinogen (<2.0) mg/dL Ur Leukocyte Esterase (Negative) Urine RBC (0-5) /hpf Urine WBC (0-5) /hpf Ur Squamous Epith Cells (0-4) /hpf Urine Bacteria (None) /hpf Hyaline Casts (0-2) /lpf 05/11/23 05/11/23 Range/Units 18:41 21:33 WBC (3.8-10.6) k/uL RBC (3.80-5.40) m/uL Hgb (11.4-16.0) gm/dL Hct (34.0-46.0) % MCV (80.0-100.0) fL MCH (25.0-35.0) pg MCHC (31.0-37.0) g/dL RDW (11.5-15.5) % Plt Count (150-450) k/uL MPV Neutrophils % % Lymphocytes % % Monocytes % % Eosinophils % % Basophils % % Neutrophils # (1.3-7.7) k/uL Lymphocytes # (1.0-4.8) k/uL Monocytes # (0-1.0) k/uL Eosinophils # (0-0.7) k/uL Basophils # (0-0.2) k/uL Hypochromasia Anisocytosis Microcytosis Sodium (137-145) mmol/L Potassium (3.5-5.1) mmol/L Chloride (98-107) mmol/L Carbon Dioxide (22-30) mmol/L Anion Gap mmol/L BUN (7-17) mg/dL Creatinine (0.52-1.04) mg/dL Est GFR (CKD-EPI)AfAm (>60 ml/min/1.73 sqM) Est GFR (CKD-EPI)NonAf (>60 ml/min/1.73 sqM) Glucose (74-99) mg/dL Plasma Lactic Acid Black (0.7-2.0) mmol/L Calcium (8.4-10.2) mg/dL Total Bilirubin (0.2-1.3) mg/dL AST (14-36) U/L ALT (4-34) U/L Alkaline Phosphatase (38-126) U/L Troponin I <0.012 (0.000-0.034) ng/mL Total Protein (6.3-8.2) g/dL Albumin (3.5-5.0) g/dL Lipase (23-300) U/L Urine Color Light Yellow Urine Appearance Slightly Cloudy H (Clear) Urine pH 6.0 (5.0-8.0) Ur Specific [place] 1.010 (1.001-1.035) Urine Protein Negative (Negative) Urine Glucose (UA) Negative (Negative) Urine Ketones Negative (Negative) Urine Blood Negative (Negative) Urine Nitrite Negative (Negative) Urine Bilirubin Negative (Negative) Urine Urobilinogen <2.0 (<2.0) mg/dL Ur Leukocyte Esterase Moderate H (Negative) Urine RBC 5 (0-5) /hpf Urine WBC 43 H (0-5) /hpf Ur Squamous Epith Cells 6 H (0-4) /hpf Urine Bacteria Rare H (None) /hpf Hyaline Casts 1 (0-2) /lpf Disposition Clinical Impression: Diarrhea, Hypokalemia Disposition: HOME SELF-CARE Condition: Stable Instructions (If sedation given, give patient instructions): Acute Diarrhea (ED) Additional Instructions: Please come to the outpatient lab in 1 week to have your potassium retested. Follow-up with your doctor for the results. Called to make an appointment with Dr. Cardoso. I recommended you complete a stool sample and take it in to your primary care doctor. You may take Imodium for diarrhea. Return for any new or worsening symptoms Prescriptions: Potassium Chloride [K-Tab ER] 20 meq PO DAILY #7 tab Is patient prescribed a controlled substance at d/c from ED?: No Referrals: Luigi Luong MD [Primary Care Provider] - 1-2 days Time of Disposition: 22:25
[2023-05-11 18:48] LABS: Anisocytosis Slight; Basophils # (A) 0.1 k/uL (0-0.2); Basophils % (A) 1 %; Eosinophils # (A) 0.1 k/uL (0-0.7); Eosinophils % (A) 2 %; HCT 33.4 % (34.0-46.0); HGB 10.6 gm/dL (11.4-16.0); Hypochromasia Moderate; Lymphocytes # (A) 1.9 k/uL (1.0-4.8); Lymphocytes % (A) 24 %; MCH 24.2 pg (25.0-35.0); MCHC 31.6 g/dL (31.0-37.0); MCV 76.3 fL (80.0-100.0); Mean Platelet Volume 7.5; Microcytosis Slight; Monocytes # (A) 0.4 k/uL (0-1.0); Monocytes % (A) 5 %; Neutrophils # (A) 5.3 k/uL (1.3-7.7); Neutrophils % (A) 67 %; Platelet Count 204 k/uL (150-450); RBC 4.37 m/uL (3.80-5.40); WBC 7.9 k/uL (3.8-10.6)
[2023-05-11 19:08] LABS: ALT 20 U/L (4-34); AST 30 U/L (14-36); African American GFR (CKD) 81 (>60 ml/min/1.73 sqM); Albumin 3.7 g/dL (3.5-5.0); Alkaline Phosphatase 76 U/L (38-126); Anion Gap 14 mmol/L; Blood Urea Nitrogen 10 mg/dL (7-17); Calcium 6.9 mg/dL (8.4-10.2); Carbon Dioxide 24 mmol/L (22-30); Chloride 102 mmol/L (98-107); Glucose 98 mg/dL (74-99); Lipase 75 U/L (23-300); Non-African American GFR(CKD) 71 (>60 ml/min/1.73 sqM); Potassium 2.9 mmol/L (3.5-5.1); Sodium 140 mmol/L (137-145); Total Bilirubin 0.7 mg/dL (0.2-1.3); Total Protein 6.5 g/dL (6.3-8.2)
[2023-05-11 20:12] VITALS: RESP 18
[2023-05-11 21:54] LABS: Bacteria,Urine Rare /hpf; Hyaline Casts,Urine 1 /lpf (0-2); RBC,Urine 5 /hpf (0-5); Squamous Epithelial Cell,Urine 6 /hpf (0-4); WBC,Urine 43 /hpf (0-5)
[2023-05-11 22:00] LABS: Color,Urine Light Yellow
[2023-05-11 22:01] LABS: Appearance,Urine Slightly Cloudy (Clear); Bilirubin,Urine Negative (Negative); Glucose,Urine (UA) Negative (Negative); Ketones,Urine Negative (Negative); Protein,Urine Negative (Negative)
[2023-05-11 22:02] LABS: Blood,Urine Negative (Negative); Leukocyte Esterase,Urine Moderate (Negative); Nitrite,Urine Negative (Negative); Urobilinogen,Urine <2.0 mg/dL (<2.0)
[2023-05-11] MEDS ORDERED: POTASSIUM CHLORIDE ER 20 MEQ TAB.ER PO STA (22:22)
[2023-05-11 22:49] VITALS: BP 129/94; PULSE 67
== END 2023-05-11 22:44 | disposition home or self-care (01) ==
LOC: EC 14:46
DX: R19.7 Diarrhea, unspecified (principal); E87.6 Hypokalemia; J44.89 Other specified chronic obstructive pulmonary disease; I25.10 Atherosclerotic heart disease of native coronary artery without angina pectoris; I10 Essential (primary) hypertension; E78.5 Hyperlipidemia, unspecified; K21.9 Gastro-esophageal reflux disease without esophagitis; M06.9 Rheumatoid arthritis, unspecified; E07.9 Disorder of thyroid, unspecified; F32.A Depression, unspecified; Z88.1 Allergy status to other antibiotic agents; Z88.0 Allergy status to penicillin; Z88.2 Allergy status to sulfonamides; Z88.6 Allergy status to analgesic agent; Z88.8 Allergy status to other drugs, medicaments and biological substances; Z79.890 Hormone replacement therapy; Z79.899 Other long term (current) drug therapy
CPT/HCPCS: 36415; 80053; 81001; 83605; 83690; 84484; 85025; 93005; 96360; 96361; 99285

== ENCOUNTER 2023-05-14 15:00 | Inpatient (IN) | payer MEDICARE, OTHER ==
[2023-05-14 16:06] LABS: Basophils % (A) 1 %; Eosinophils % (A) 1 %; HCT 33.7 % (34.0-46.0); HGB 10.9 gm/dL (11.4-16.0); Hypochromasia Moderate; Lymphocytes # (A) 1.1 k/uL (1.0-4.8); Lymphocytes % (A) 16 %; MCH 24.6 pg (25.0-35.0); MCHC 32.2 g/dL (31.0-37.0); MCV 76.3 fL (80.0-100.0); Mean Platelet Volume 9.2; Microcytosis Slight; Monocytes # (A) 0.4 k/uL (0-1.0); Monocytes % (A) 5 %; Neutrophils # (A) 5.6 k/uL (1.3-7.7); Neutrophils % (A) 77 %; Platelet Count 180 k/uL (150-450); RBC 4.42 m/uL (3.80-5.40); WBC 7.2 k/uL (3.8-10.6)
[2023-05-14 16:15] LABS: ALT 19 U/L (4-34); AST 29 U/L (14-36); African American GFR (CKD) >90 (>60 ml/min/1.73 sqM); Albumin 3.6 g/dL (3.5-5.0); Alkaline Phosphatase 73 U/L (38-126); Amylase 32 U/L (30-110); Anion Gap 17 mmol/L; Blood Urea Nitrogen 6 mg/dL (7-17); Carbon Dioxide 21 mmol/L (22-30); Chloride 102 mmol/L (98-107); Glucose 83 mg/dL (74-99); Lipase 110 U/L (23-300); Non-African American GFR(CKD) >90 (>60 ml/min/1.73 sqM); Potassium 2.8 mmol/L (3.5-5.1); Sodium 140 mmol/L (137-145); Total Bilirubin 0.7 mg/dL (0.2-1.3); Total Protein 6.4 g/dL (6.3-8.2)
--- NOTE | 2023-05-14 16:26 | ED ---
Nausea/Vomiting/Diarrhea HPI - General Chief complaint: Nausea/Vomiting/Diarrhea Stated complaint: weakness Time Seen by Provider: 05/14/23 15:12 Source: patient, family Mode of arrival: EMS Limitations: no limitations - History of Present Illness Initial comments: 72-year-old female in emergency Department with complaints of 2 weeks of initially diarrhea than nausea vomiting with that is a decrease oral intake. She was found on arrival here to have a 99.1 temperature she complains of generalized weakness change in color of her urine. She states that the abdominal pain is lower sharp in nature nonradiating. No dysuria or hematuria however. She was seen here 3 days ago and later sent home. MD complaint: nausea, vomiting, diarrhea, abdominal pain - Related Data Home Medications Medication Instructions Recorded Confirmed Calcium Carbonate [Calcium] 600 mg PO DAILY 08/02/15 05/11/23 Levothyroxine Sodium [Synthroid] 50 mcg PO DAILY 08/02/15 05/11/23 Metoprolol Succinate (ER) [Toprol 100 mg PO DAILY 08/02/15 05/11/23 XL] Fluticasone Nasal [place] [Flonase 1 spr EA NOSTRIL BID PRN 08/28/15 05/11/23 Nasal [place]] Ubidecarenone [Co Q-10] 100 mg PO DAILY 07/14/16 05/11/23 guaiFENesin [Mucinex] 600 mg PO Q12HR PRN 03/02/18 05/11/23 Losartan Potassium 100 mg PO DAILY 07/20/18 05/11/23 Evolocumab [Repatha Sureclick] 140 mg SQ Q14D 02/08/19 05/11/23 Albuterol Inhaler [Ventolin Hfa 2 puff INHALATION RT-QID PRN 10/14/20 05/11/23 Inhaler] Fluticasone/Vilanterol [Breo 1 inhalation INHALATION RT-DAILY 10/14/20 05/11/23 Ellipta 200-25 Mcg Inhaler] Cholecalciferol (Vitamin D3) 125 mcg PO DAILY 10/22/20 05/11/23 [Vitamin D3 (5000 Iu)] Magnesium Oxide 400 mg PO DAILY 10/22/20 05/11/23 Omeprazole 40 mg PO DAILY 05/11/23 05/11/23 Previous Rx's Medication Instructions Recorded Isosorbide Mononitrate ER [Imdur] 60 mg PO DAILY tab.er.24h 04/26/18 Nitroglycerin Sl Tabs [Nitrostat] 0.4 mg SUBLINGUAL Q5M PRN tab 04/26/18 Aspirin 81 mg PO DAILY 30 Days #30 chew 10/28/20 Folic Acid 1 mg PO DAILY 30 Days #30 tab 10/28/20 Potassium Chloride [K-Tab ER] 20 meq PO DAILY #7 tab 05/11/23 Allergies Allergy/AdvReac Type Severity Reaction Status Date / Time cephalexin monohydrate Allergy Rash/Hives Verified 05/11/23 20:33 [From Keflex] ciprofloxacin [From Cipro] Allergy Rash/Hives Verified 05/11/23 20:33 levofloxacin [From Levaquin] Allergy Rash/Hives Verified 05/11/23 20:33 minocycline Allergy Rash/Hives Verified 05/11/23 20:33 nitrofurantoin Allergy Dyspnea Verified 05/11/23 20:33 [From Macrobid] potassium clavulanate Allergy Rash/Hives Verified 05/11/23 20:33 [From Augmentin] sulfamethoxazole Allergy Itching/hiv Verified 05/11/23 20:33 [From Bactrim] es/rash trimethoprim [From Bactrim] Allergy Itching/hiv Verified 05/11/23 20:33 es/rash azithromycin AdvReac bleeding Verified 05/11/23 20:33 etodolac [From [place]] AdvReac "inflamed Verified 05/11/23 20:33 legs" lisinopril AdvReac Cough Verified 05/11/23 20:33 NSAIDS (Non-Steroidal AdvReac BLURRY Verified 05/11/23 20:33 Anti-Inflamma VISION prednisone AdvReac CHEST Verified 05/11/23 20:33 PAIN/FATIGUE/FEVER/CHILLS Empyipy-AFZ-YiL Reductase AdvReac MUSCLE PAIN Verified 05/11/23 20:33 Inhibitor [Fdspjju-Yct-For Reductase Inhibitor] Review of Systems ROS Statement: Those systems with pertinent positive or pertinent negative responses have been documented in the HPI. ROS Other: All systems not noted in ROS Statement are negative. Past Medical History Past Medical History: Asthma, Coronary Artery Disease (CAD), Cancer, COPD, Fibromyalgia, GERD/Reflux, Hyperlipidemia, Hypertension, Memory Impairment, Osteoarthritis (OA), Rheumatoid Arthritis (RA), Thyroid Disorder Additional Past Medical History / Comment(s): HX OF COLON POLYP, AAA, PHLEBITIS, VARICOSE VEINS, REYNAUD'S, BREAST CANCER., ANEMIA. History of Any Multi-Drug Resistant Organisms: None Reported Past Surgical History: Breast Surgery, Section, Cholecystectomy, Heart Catheterization, Orthopedic Surgery, Tonsillectomy Additional Past Surgical History / Comment(s): LEFT CAROTID ENDARTECTOMY, FERNANDO CARPAL TUNNEL, FERNANDO LEGS VEIN STRIPPING, RT THYROIDECTOMY, FERNANDO BREAST SX, LEFT LUMPECTOMY , LEFT BREAST FATTY TUMOR, HEART CATH 03/13/18 @ [facility]. Past Anesthesia/Blood Transfusion Reactions: Previous Problems w/ Anesthesia Additional Past Anesthesia/Blood Transfusion Reaction / Comment(s): STATES "FELT PARALYZED CHEST AREA AND ARM" ( OVER 20 YRS AGO.) NO PROBLEM SINCE Past Psychological History: Depression Smoking Status: Never smoker Past Alcohol Use History: None Reported Past Drug Use History: None Reported - Past Family History Father Family Medical History: Cancer Additional Family Medical History / Comment(s): NON HODGKINS LYMPHOMA Brother(s) Family Medical History: Cancer Additional Family Medical History / Comment(s): prostate General Exam - General Exam Comments Initial Comments: This a well-developed well-nourished awake alert oriented 4 female Limitations: no limitations General appearance: alert, in no apparent distress Head exam: Present: atraumatic, normocephalic, normal inspection Eye exam: Present: normal appearance, PERRL, EOMI. Absent: scleral icterus, conjunctival injection, periorbital swelling ENT exam: Present: mucous membranes dry Neck exam: Present: normal inspection. Absent: tenderness, meningismus, lymphadenopathy Respiratory exam: Present: normal lung sounds bilaterally. Absent: respiratory distress, wheezes, rales, rhonchi, stridor Cardiovascular Exam: Present: regular rate, normal rhythm, normal heart sounds. Absent: systolic murmur, diastolic murmur, rubs, gallop, clicks GI/Abdominal exam: Present: soft, tenderness (Mild lower abdominal tenderness no guarding rebound masses or bruits), normal bowel sounds. Absent: distended, guarding, rebound, rigid Rectal exam: Present: deferred Extremities exam: Present: normal inspection, full ROM, normal capillary refill. Absent: tenderness, pedal edema, joint swelling, calf tenderness Back exam: Present: normal inspection Neurological exam: Present: alert, oriented X3, CN II-XII intact Psychiatric exam: Present: normal affect, normal mood Skin exam: Present: warm, dry, intact, normal color. Absent: rash Course Vital Signs 05/14/23 05/14/23 05/14/23 15:08 15:12 17:12 Temperature 99.1 F Pulse Rate 69 67 76 Respiratory 16 20 16 Rate Blood Pressure 178/69 172/97 149/86 O2 Sat by Pulse 96 98 98 Oximetry Medical Decision Making - Medical Decision Making Did discuss the findings with the patient family members as well as Dr. Luong. She'll be admitted for IV hydration replacement therapy for magnesium, potassium and calcium. C. diff is pending. UA is pending.Was pt. sent in by a medical professional or institution (JAM Amaya, INSTRUMENTATION ENGINEER, urgent care, hospital, or residential...) When possible be specific @ -No Did you speak to anyone other than the patient for history (EMS, parent, family, police, friend...)? What history was obtained from this source @ -Family Did you review nursing and triage notes (agree or disagree)? Why? @ -I reviewed and agree with nursing and triage notes Were old charts reviewed (outside hosp., previous admission, EMS record, old EKG, old radiological studies, urgent care reports/EKG's, residential records)? Report findings @ - old charts were reviewed Differential Diagnosis (chest pain, altered mental status, abdominal pain women, abdominal pain men, vaginal bleeding, weakness, fever, dyspnea, syncope, headache, dizziness, GI bleed, back pain, seizure, CVA, palpatations, mental health, musculoskeletal)? @ -Hydration, weakness, failure to thrive, gastroenteritis EKG interpreted by me (3pts min.). @ -As above EKG interpreted by me sinus rhythm of 75. Interval 179 QRS duration 92 QT since QTC 379/4 weight low-voltage nonspecific ST configuration no acute changes seen X-rays interpreted by me (1pt min.). @ interpreted by me findings nonspecific bowel gas pattern] CT interpreted by me (1pt min.). @ -None done U/S interpreted by me (1pt. min.). @ -None done What testing was considered but not performed or refused? (CT, X-rays, U/S, labs)? Why? @ -None What meds were considered but not given or refused? Why? @ -None Did you discuss the management of the patient with other professionals (professionals i.e. , PA, INSTRUMENTATION ENGINEER, lab, RT, psych nurse, social sciences lecturer, rehabilitation assistant, teacher, patient safety officer, case assistant)? Give summary @ -Dr. Luong Was smoking cessation discussed for >3mins.? @ -No Was critical care preformed (if so, how long)? @ -No Were there social determinants of health that impacted care today? How? (Homelessness, low income, unemployed, alcoholism, drug addiction, transportation, low edu. Level, literacy, decrease access to med. care, fpc, rehab)? @ -No Was there de-escalation of care discussed even if they declined (Discuss DNR or withdrawal of care, Hospice)? DNR status @ -No What co-morbidities impacted this encounter? (DM, HTN, Smoking, COPD, CAD, Canc er, CVA, ARF, Chemo, Hep., AIDS, mental health diagnosis, sleep apnea, morbid obesity)? @ -Hypertension, COPD, CAD, GERD Was patient admitted / discharged? Hospital course, mention meds given and route, prescriptions, significant lab abnormalities, going to OR and other pertinent info. @ -hospital course she was admitted for IV hydration and IV replacement therapy for potassium and magnesium. Undiagnosed new problem with uncertain prognosis? @ -No Drug Therapy requiring intensive monitoring for toxicity (Heparin, Nitro, Insulin, Cardizem)? @ -No Were any procedures done? @ -No Diagnosis/symptom? @ -Gastroenteritis, dehydration, hypokalemia, hypomagnesemia, hypocalcemia, failure to thrive Acute, or Chronic, or Acute on Chronic? @ -Acute Uncomplicated (without systemic symptoms) or Complicated (systemic symptoms)? @ -Complicated Side effects of treatment? @ -No Exacerbation, Progression, or Severe Exacerbation? @ -No Poses a threat to life or bodily function? How? (Chest pain, [place], [place], pneumonia, PE, COPD, DKA, ARF, appy, cholecystitis, CVA, Diverticulitis, Homicidal, Suicidal, threat to staff... and all critical care pts) @ -Potential, electrolyte imbalance, dehydration - Lab Data Result diagrams: 05/14/23 15:53 05/14/23 15:53 Lab Results 05/14/23 05/14/23 05/14/23 Range/Units 15:53 15:53 15:54 WBC 7.2 (3.8-10.6) k/uL RBC 4.42 (3.80-5.40) m/uL Hgb 10.9 L (11.4-16.0) gm/dL Hct 33.7 L (34.0-46.0) % MCV 76.3 L (80.0-100.0) fL MCH 24.6 L (25.0-35.0) pg MCHC 32.2 (31.0-37.0) g/dL RDW 16.0 H (11.5-15.5) % Plt Count 180 (150-450) k/uL MPV 9.2 Neutrophils % 77 % Lymphocytes % 16 % Monocytes % 5 % Eosinophils % 1 % Basophils % 1 % Neutrophils # 5.6 (1.3-7.7) k/uL Lymphocytes # 1.1 (1.0-4.8) k/uL Monocytes # 0.4 (0-1.0) k/uL Eosinophils # 0.0 (0-0.7) k/uL Basophils # 0.0 (0-0.2) k/uL Hypochromasia Moderate Microcytosis Slight Sodium 140 (137-145) mmol/L Potassium 2.8 L (3.5-5.1) mmol/L Chloride 102 (98-107) mmol/L Carbon Dioxide 21 L (22-30) mmol/L Anion Gap 17 mmol/L BUN 6 L (7-17) mg/dL Creatinine 0.60 (0.52-1.04) mg/dL Est GFR (CKD-EPI)AfAm >90 (>60 ml/min/1.73 sqM) Est GFR (CKD-EPI)NonAf >90 (>60 ml/min/1.73 sqM) Glucose 83 (74-99) mg/dL Calcium 6.0 L* (8.4-10.2) mg/dL Magnesium <0.4 L* (1.6-2.3) mg/dL Total Bilirubin 0.7 (0.2-1.3) mg/dL AST 29 (14-36) U/L ALT 19 (4-34) U/L Alkaline Phosphatase 73 (38-126) U/L Troponin I (0.000-0.034) ng/mL Total Protein 6.4 (6.3-8.2) g/dL Albumin 3.6 (3.5-5.0) g/dL Amylase 32 (30-110) U/L Lipase 110 (23-300) U/L Urine Color Light Yellow Urine Appearance Clear (Clear) Urine pH 6.0 (5.0-8.0) Ur Specific [place] 1.015 (1.001-1.035) Urine Protein Negative (Negative) Urine Glucose (UA) Negative (Negative) Urine Ketones 4+ H (Negative) Urine Blood Negative (Negative) Urine Nitrite Negative (Negative) Urine Bilirubin Negative (Negative) Urine Urobilinogen <2.0 (<2.0) mg/dL Ur Leukocyte Esterase Negative (Negative) 05/14/23 Range/Units 15:56 WBC (3.8-10.6) k/uL RBC (3.80-5.40) m/uL Hgb (11.4-16.0) gm/dL Hct (34.0-46.0) % MCV (80.0-100.0) fL MCH (25.0-35.0) pg MCHC (31.0-37.0) g/dL RDW (11.5-15.5) % Plt Count (150-450) k/uL MPV Neutrophils % % Lymphocytes % % Monocytes % % Eosinophils % % Basophils % % Neutrophils # (1.3-7.7) k/uL Lymphocytes # (1.0-4.8) k/uL Monocytes # (0-1.0) k/uL Eosinophils # (0-0.7) k/uL Basophils # (0-0.2) k/uL Hypochromasia Microcytosis Sodium (137-145) mmol/L Potassium (3.5-5.1) mmol/L Chloride (98-107) mmol/L Carbon Dioxide (22-30) mmol/L Anion Gap mmol/L BUN (7-17) mg/dL Creatinine (0.52-1.04) mg/dL Est GFR (CKD-EPI)AfAm (>60 ml/min/1.73 sqM) Est GFR (CKD-EPI)NonAf (>60 ml/min/1.73 sqM) Glucose (74-99) mg/dL Calcium (8.4-10.2) mg/dL Magnesium (1.6-2.3) mg/dL Total Bilirubin (0.2-1.3) mg/dL AST (14-36) U/L ALT (4-34) U/L Alkaline Phosphatase (38-126) U/L Troponin I 0.037 H* (0.000-0.034) ng/mL Total Protein (6.3-8.2) g/dL Albumin (3.5-5.0) g/dL Amylase (30-110) U/L Lipase (23-300) U/L Urine Color Urine Appearance (Clear) Urine pH (5.0-8.0) Ur Specific [place] (1.001-1.035) Urine Protein (Negative) Urine Glucose (UA) (Negative) Urine Ketones (Negative) Urine Blood (Negative) Urine Nitrite (Negative) Urine Bilirubin (Negative) Urine Urobilinogen (<2.0) mg/dL Ur Leukocyte Esterase (Negative) - EKG Data -: EKG Interpreted by Me (EKG interpreted by me low-voltage sinus rhythm of 75. ) - Radiology Data Interpreted by me: Imaging nonspecific. Disposition Clinical Impression: Dehydration, Gastroenteritis, Hypokalemia, Hypomagnesemia, Hypocalcemia, Failure to thrive Disposition: ADMITTED IP TO THIS [facility] Condition: Fair Referrals: Luigi Luong MD [Primary Care Provider] - 1-2 days Decision Date: 05/14/23 Decision Time: 17:59
[2023-05-14 16:32] LABS: Magnesium <0.4 mg/dL (1.6-2.3)
[2023-05-14] MEDS ORDERED: POTASSIUM CHLORIDE 20 MEQ in WATER FOR INJECTION 1 100ML.BAG IVPB STA (17:24)
[2023-05-14 17:44] LABS: Appearance,Urine Clear (Clear); Color,Urine Light Yellow; Glucose,Urine (UA) Negative (Negative); Protein,Urine Negative (Negative); Specific Gravity,Urine 1.015 (1.001-1.035)
[2023-05-14 17:45] LABS: Bilirubin,Urine Negative (Negative); Blood,Urine Negative (Negative); Ketones,Urine 4+ (Negative); Leukocyte Esterase,Urine Negative (Negative); Nitrite,Urine Negative (Negative); Urobilinogen,Urine <2.0 mg/dL (<2.0)
[2023-05-14] MEDS: MAGNESIUM SULFATE-D5W PMX 1 GM in DEXTROSE/WATER 1 100ML.BAG IVPB SCH ×2 (17:55→18:58)
[2023-05-14] MEDS ORDERED: ONDANSETRON 4 MG/2 ML VIAL IVP PRN (17:59)
[2023-05-14] MEDS ORDERED: ACETAMINOPHEN TAB 325 MG TAB PO PRN (17:59)
[2023-05-14] MEDS ORDERED: NALOXONE 0.4 MG/ML 1 ML VIAL IV PRN (17:59)
[2023-05-14] MEDS ORDERED: ALBUTEROL HFA INHALER INHALATION PRN (18:00)
--- NOTE | 2023-05-14 18:43 | XR ---
EXAMINATION TYPE: XR KUB DATE OF EXAM: 05/14/2023 4:21 PM CLINICAL INDICATION:Female, 72 years old with history of Abdominal pain; [facility] COMPARISON: None. TECHNIQUE: Supine radiographic view/s of the abdomen/pelvis obtained. FINDINGS: The bowel gas pattern is nonspecific, likely nonobstructive without dilated loops of small or large b owel. Fecal material and gas are demonstrated throughout the colon and rectum. No gross evidence of o rganomegaly. No evidence of pneumoperitoneum, on this supine study. No pathologic calcifications are seen. Multiple surgical clips in the right upper quadrant, and single clips in the right mid abdomen and left pelvis. Osseous structures appear grossly intact, somewhat demineralized with moderate dege nerative changes throughout the spine and left hip. Right total hip arthroplasty appears unremarkable . Heart appears mildly enlarged. Aorta appears tortuous. Calcifications of the abdominal aorta and brianda c arteries. Pelvic phleboliths. IMPRESSION: Nonspecific, likely nonobstructive bowel gas pattern. If concern persists, consider follow-up radiogr aphs and/or CT.
[2023-05-14] MEDS: SODIUM CHLORIDE 0.9% 1,000 ML IV SCH (20:28)
[2023-05-15] MEDS: SODIUM CHLORIDE 0.9% 1,000 ML IV SCH ×3 (01:26→15:17)
[2023-05-15] MEDS: POTASSIUM CHLORIDE ER 20 MEQ TAB.ER PO SCH (09:02)
[2023-05-15] MEDS: MAGNESIUM OXIDE 400 MG TAB PO SCH (09:02)
[2023-05-15] MEDS: LEVOTHYROXINE 50 MCG TAB PO SCH (09:02)
[2023-05-15] MEDS: ASPIRIN 81 MG PO SCH (09:02)
[2023-05-15] MEDS: PANTOPRAZOLE 40 MG/10 ML VIAL IV SCH (09:02)
[2023-05-15] MEDS: METOPROLOL SUCCINATE (ER) 100 MG TAB.ER.24H PO SCH (09:02)
[2023-05-15] MEDS ORDERED: NITROGLYCERIN SL TABS 0.4 MG TAB SUBLINGUAL PRN (10:04)
[2023-05-15] MEDS ORDERED: NON FORMULARY DRUG (Omeprazole [Omeprazole] 40 MG Capsule.Dr) PO SCH (10:15)
[2023-05-15] MEDS: CALCIUM CARB-VIT D 500 MG-5 MCG TAB PO SCH ×2 (10:29→15:29)
[2023-05-15] MEDS: LOSARTAN 50 MG TAB PO SCH ×2 (10:29→11:35)
[2023-05-15] MEDS: ISOSORBIDE MONONITRATE ER 60 MG TAB.ER.24H PO SCH (10:29)
[2023-05-15 10:34] LABS: Anisocytosis Slight; Basophils % (A) 0 %; Eosinophils # (A) 0.1 k/uL (0-0.7); Eosinophils % (A) 1 %; HCT 36.2 % (34.0-46.0); HGB 11.2 gm/dL (11.4-16.0); Hypochromasia Moderate; Lymphocytes # (A) 1.5 k/uL (1.0-4.8); Lymphocytes % (A) 16 %; MCH 23.8 pg (25.0-35.0); MCV 76.8 fL (80.0-100.0); Mean Platelet Volume 9.1; Microcytosis Slight; Monocytes # (A) 0.4 k/uL (0-1.0); Monocytes % (A) 5 %; Neutrophils # (A) 7.4 k/uL (1.3-7.7); Neutrophils % (A) 77 %; Platelet Count 221 k/uL (150-450); RBC 4.71 m/uL (3.80-5.40); RDW 16.1 % (11.5-15.5); WBC 9.6 k/uL (3.8-10.6)
[2023-05-15 10:56] LABS: ALT 21 U/L (4-34); AST 39 U/L (14-36); African American GFR (CKD) >90 (>60 ml/min/1.73 sqM); Albumin 3.7 g/dL (3.5-5.0); Alkaline Phosphatase 86 U/L (38-126); Anion Gap 16 mmol/L; Blood Urea Nitrogen 8 mg/dL (7-17); Carbon Dioxide 21 mmol/L (22-30); Chloride 102 mmol/L (98-107); Glucose 78 mg/dL (74-99); Non-African American GFR(CKD) >90 (>60 ml/min/1.73 sqM); Potassium 3.3 mmol/L (3.5-5.1); Sodium 139 mmol/L (137-145); Total Bilirubin 0.7 mg/dL (0.2-1.3); Total Protein 6.6 g/dL (6.3-8.2)
[2023-05-15 11:12] LABS: Magnesium 0.6 mg/dL (1.6-2.3)
[2023-05-15] MEDS ORDERED: Magnesium Replacement Protocol 1 EACH MISC MISCELLANE PRN (12:00)
[2023-05-15] MEDS ORDERED: Potassium Replacement Protocol 1 EACH MISC MISCELLANE PRN (12:03)
[2023-05-15] MEDS: MAGNESIUM SULFATE-D5W PMX 1 GM in DEXTROSE/WATER 1 100ML.BAG IVPB SCH ×3 (12:14→15:17)
[2023-05-15] MEDS ORDERED: CALCIUM GLUCONATE IN NACL 1 GM in SALINE 1 100ML.BAG IVPB ONE (13:00)
--- NOTE | 2023-05-15 17:10 | P.HPIM ---
History of Present Illness H&P Date: 05/15/23 Daisy Abebe, is a 72-year-old female who presented to [facility] emergency room with a chief complaint of nausea vomiting diarrhea and decreased oral intake. Patient stated that her symptoms started more than a week ago she presented to emergency room 3 days prior to this admission at that time she received potassium replacement she was given an option to be admitted however she chose to be discharged home from ER. She was evaluated in the emergency room vital examination on presentation revealed a temperature of 99.1 pulse 69 respiration 16 blood pressure 178/69 pulse ox 96% on room air Laboratory data reveals a white blood count of 7.2 hemoglobin 10.9 platelet count 180 potassium 2.8 BUN 6 creatinine 0.6 lipase 110 magnesium less than 0.4 calcium 6 troponin level was slightly elevated at 0.037 Testing in the emergency room revealed abdominal x-ray did not reveal any significant acute abnormality Patient was admitted to medical floor for further evaluation and treatment Past Medical History Past Medical History: Asthma, Coronary Artery Disease (CAD), Cancer, COPD, Fibromyalgia, GERD/Reflux, Hyperlipidemia, Hypertension, Memory Impairment, Osteoarthritis (OA), Rheumatoid Arthritis (RA), Thyroid Disorder Additional Past Medical History / Comment(s): HX OF COLON POLYP, AAA, PHLEBITIS, VARICOSE VEINS, REYNAUD'S, BREAST CANCER., ANEMIA. History of Any Multi-Drug Resistant Organisms: None Reported Past Surgical History: Breast Surgery, Section, Cholecystectomy, Heart Catheterization, Orthopedic Surgery, Tonsillectomy Additional Past Surgical History / Comment(s): LEFT CAROTID ENDARTECTOMY, FERNANDO CARPAL TUNNEL, FERNANDO LEGS VEIN STRIPPING, RT THYROIDECTOMY, FERNANDO BREAST SX, LEFT LUMPECTOMY , LEFT BREAST FATTY TUMOR, HEART CATH 03/13/18 @ [facility]. Past Anesthesia/Blood Transfusion Reactions: Previous Problems w/ Anesthesia Additional Past Anesthesia/Blood Transfusion Reaction / Comment(s): STATES "FELT PARALYZED CHEST AREA AND ARM" ( OVER 20 YRS AGO.) NO PROBLEM SINCE Past Psychological History: Depression Smoking Status: Former smoker Past Alcohol Use History: None Reported Additional Past Alcohol Use History / Comment(s): QUIT OFF AND ON, LAST QUIT DECEMBER 2017 STARTED AGE 19, HAD SMOKED AT MOST 1PPD Past Drug Use History: None Reported - Past Family History Father Family Medical History: Cancer Additional Family Medical History / Comment(s): NON HODGKINS LYMPHOMA Brother(s) Family Medical History: Cancer Additional Family Medical History / Comment(s): prostate Medications and Allergies Home Medications Medication Instructions Recorded Confirmed Type Calcium Carbonate [Calcium] 600 mg PO DAILY 08/02/15 05/14/23 History Levothyroxine Sodium [Synthroid] 50 mcg PO DAILY 08/02/15 05/14/23 History Metoprolol Succinate (ER) [Toprol 100 mg PO DAILY 08/02/15 05/14/23 History XL] Fluticasone Nasal [place] [Flonase 1 spr EA NOSTRIL BID PRN 08/28/15 05/14/23 History Nasal [place]] Ubidecarenone [Co Q-10] 100 mg PO DAILY 07/14/16 05/14/23 History guaiFENesin [Mucinex] 600 mg PO Q12HR PRN 03/02/18 05/14/23 History Isosorbide Mononitrate ER [Imdur] 60 mg PO DAILY tab.er.24h 04/26/18 05/14/23 Rx Nitroglycerin Sl Tabs [Nitrostat] 0.4 mg SUBLINGUAL Q5M PRN tab 04/26/18 05/14/23 Rx Losartan Potassium 100 mg PO DAILY 07/20/18 05/14/23 History Evolocumab [Repatha Sureclick] 140 mg SQ Q14D 02/08/19 05/14/23 History Albuterol Inhaler [Ventolin Hfa 2 puff INHALATION RT-QID PRN 10/14/20 05/14/23 History Inhaler] Fluticasone/Vilanterol [Breo 1 puff INHALATION RT-DAILY 10/14/20 05/14/23 History Ellipta 200-25 Mcg Inhaler] Cholecalciferol (Vitamin D3) 125 mcg PO DAILY 10/22/20 05/14/23 History [Vitamin D3 (5000 Iu)] Magnesium Oxide 400 mg PO DAILY 10/22/20 05/14/23 History Aspirin 81 mg PO DAILY 30 Days #30 chew 10/28/20 05/14/23 Rx Folic Acid 1 mg PO DAILY 30 Days #30 tab 10/28/20 05/14/23 Rx Omeprazole 40 mg PO DAILY 05/11/23 05/14/23 History Potassium Chloride [K-Tab ER] 20 meq PO DAILY #7 tab 05/11/23 05/14/23 Rx Allergies Allergy/AdvReac Type Severity Reaction Status Date / Time cephalexin monohydrate Allergy Rash/Hives Verified 05/14/23 18:52 [From Keflex] ciprofloxacin [From Cipro] Allergy Rash/Hives Verified 05/14/23 18:52 levofloxacin [From Levaquin] Allergy Rash/Hives Verified 05/14/23 18:52 minocycline Allergy Rash/Hives Verified 05/14/23 18:52 nitrofurantoin Allergy Dyspnea Verified 05/14/23 18:52 [From Macrobid] potassium clavulanate Allergy Rash/Hives Verified 05/14/23 18:52 [From Augmentin] sulfamethoxazole Allergy Itching/hiv Verified 05/14/23 18:52 [From Bactrim] es/rash trimethoprim [From Bactrim] Allergy Itching/hiv Verified 05/14/23 18:52 es/rash azithromycin AdvReac bleeding Verified 05/14/23 18:52 etodolac [From Lodine] AdvReac "inflamed Verified 05/14/23 18:52 legs" lisinopril AdvReac Cough Verified 05/14/23 18:52 NSAIDS (Non-Steroidal AdvReac BLURRY Verified 05/14/23 18:52 Anti-Inflamma VISION prednisone AdvReac CHEST Verified 05/14/23 18:52 PAIN/FATIGUE/FEVER/CHILLS Qwfxtzb-KZY-YnS Reductase AdvReac MUSCLE PAIN Verified 05/14/23 18:52 Inhibitor [Immzxns-Ywa-Gbq Reductase Inhibitor] Physical Exam Vitals: Vital Signs Temp Pulse Resp BP Pulse Ox 05/15/23 07:33 65 18 143/92 97 05/15/23 06:30 98.2 F 60 19 133/90 95 05/15/23 05:13 61 17 148/86 05/15/23 01:25 65 19 162/100 05/14/23 23:42 67 17 128/102 05/14/23 20:30 74 17 138/87 05/14/23 18:00 79 20 160/90 98 05/14/23 17:12 76 16 149/86 98 05/14/23 15:12 67 20 172/97 98 05/14/23 15:08 99.1 F 69 16 178/69 96 Intake and Output 05/14/23 05/15/23 05/15/23 22:59 06:59 14:59 Other: Weight 72.575 kg 72.575 kg In general patient is alert and oriented x 3 in no distress HEENT head normocephalic and atraumatic Neck is supple no JVD no goiter no lymphadenopathy no carotid bruit Chest examination is clear to auscultation no crackles no wheezing Cardiac exam reveals regular heart sounds S1 and S2 no gallops no murmurs Abdomen is soft nontender no organomegaly with normal bowel sounds Extremity exam reveals no edema no cyanosis or clubbing Neurological examination reveals no gross focal deficits Results CBC & Chem 7: 05/15/23 09:10 05/15/23 10:02 Labs: Abnormal Lab Results - Last 24 Hours (Table) 05/14/23 05/14/23 05/14/23 Range/Units 15:53 15:53 15:54 Hgb 10.9 L (11.4-16.0) gm/dL Hct 33.7 L (34.0-46.0) % MCV 76.3 L (80.0-100.0) fL MCH 24.6 L (25.0-35.0) pg RDW 16.0 H (11.5-15.5) % Potassium 2.8 L (3.5-5.1) mmol/L Carbon Dioxide 21 L (22-30) mmol/L BUN 6 L (7-17) mg/dL Calcium 6.0 L* (8.4-10.2) mg/dL Magnesium <0.4 L* (1.6-2.3) mg/dL Troponin I (0.000-0.034) ng/mL Urine Ketones 4+ H (Negative) 05/14/23 05/14/23 05/14/23 Range/Units 15:56 18:46 22:09 Hgb (11.4-16.0) gm/dL Hct (34.0-46.0) % MCV (80.0-100.0) fL MCH (25.0-35.0) pg RDW (11.5-15.5) % Potassium (3.5-5.1) mmol/L Carbon Dioxide (22-30) mmol/L BUN (7-17) mg/dL Calcium (8.4-10.2) mg/dL Magnesium (1.6-2.3) mg/dL Troponin I 0.037 H* 0.039 H* 0.035 H* (0.000-0.034) ng/mL Urine Ketones (Negative) Thrombosis Risk Factor Assmnt - Choose All That Apply Each Factor Represents 1 point: Abnormal pulmonary function (COPD) Each Risk Factor Represents 2 Points: Age 61-74 years Other congenital or acquired thrombophilia - If yes, enter type in comment: No Thrombosis Risk Factor Assessment Total Risk Factor Score: 3 Thrombosis Risk Factor Assessment Level: Moderate Risk Assessment and Plan Plan: Gastroenteritis with nausea vomiting and diarrhea Severe electrolyte imbalance with hypokalemia hypomagnesemia and hypocalcemia replacing Elevated troponin level, unclear significance no chest pain cardiology consultation was requested Underlying history of hypertension Underlying history of hyperlipidemia Underlying history of hypothyroidism Underlying history of coronary artery disease Underlying history of COPD At this time patient is admitted to telemetry floor Electrolyte replacement protocols in place Home medications reviewed and reordered For DVT prophylaxis subcu Lovenox Cardiology consultation was requested for elevated troponin levels Will follow closely
[2023-05-15] MEDS: ENOXAPARIN 40 MG/0.4 ML SYRINGE SQ SCH (22:28)
[2023-05-16] MEDS: CALCIUM CARB-VIT D 500 MG-5 MCG TAB PO SCH ×2 (06:40→16:31)
[2023-05-16 08:34] LABS: Basophils % (A) 1 %; Eosinophils # (A) 0.1 k/uL (0-0.7); Eosinophils % (A) 2 %; HCT 34.4 % (34.0-46.0); HGB 10.4 gm/dL (11.4-16.0); Hypochromasia Marked; Lymphocytes # (A) 0.9 k/uL (1.0-4.8); Lymphocytes % (A) 14 %; MCH 24.1 pg (25.0-35.0); MCHC 30.2 g/dL (31.0-37.0); MCV 79.8 fL (80.0-100.0); Mean Platelet Volume 8.4; Monocytes # (A) 0.3 k/uL (0-1.0); Monocytes % (A) 5 %; Neutrophils # (A) 5.3 k/uL (1.3-7.7); Neutrophils % (A) 78 %; Platelet Count 197 k/uL (150-450); WBC 6.8 k/uL (3.8-10.6)
[2023-05-16] MEDS: SODIUM CHLORIDE 0.9% 1,000 ML IV SCH ×3 (08:39→12:39)
[2023-05-16] MEDS: ENOXAPARIN 40 MG/0.4 ML SYRINGE SQ SCH (08:44)
[2023-05-16] MEDS: ISOSORBIDE MONONITRATE ER 60 MG TAB.ER.24H PO SCH (08:44)
[2023-05-16] MEDS: PANTOPRAZOLE 40 MG/10 ML VIAL IV SCH (08:44)
[2023-05-16] MEDS: LOSARTAN 50 MG TAB PO SCH (08:44)
[2023-05-16] MEDS: LEVOTHYROXINE 50 MCG TAB PO SCH (08:45)
[2023-05-16] MEDS: ASPIRIN 81 MG PO SCH (08:45)
[2023-05-16] MEDS: METOPROLOL SUCCINATE (ER) 100 MG TAB.ER.24H PO SCH (08:45)
[2023-05-16] MEDS: POTASSIUM CHLORIDE ER 20 MEQ TAB.ER PO SCH (08:45)
[2023-05-16] MEDS: MAGNESIUM OXIDE 400 MG TAB PO SCH (08:45)
[2023-05-16 08:46] LABS: ALT 18 U/L (4-34); AST 33 U/L (14-36); African American GFR (CKD) >90 (>60 ml/min/1.73 sqM); Albumin 3.2 g/dL (3.5-5.0); Alkaline Phosphatase 87 U/L (38-126); Anion Gap 11 mmol/L; Blood Urea Nitrogen 11 mg/dL (7-17); Carbon Dioxide 23 mmol/L (22-30); Chloride 104 mmol/L (98-107); Glucose 81 mg/dL (74-99); Magnesium 1.7 mg/dL (1.6-2.3); Non-African American GFR(CKD) 88 (>60 ml/min/1.73 sqM); Potassium 3.1 mmol/L (3.5-5.1); Sodium 138 mmol/L (137-145); Total Bilirubin 0.6 mg/dL (0.2-1.3); Total Protein 5.8 g/dL (6.3-8.2)
[2023-05-16 08:57] LABS: Calcium 6.2 mg/dL (8.4-10.2)
--- NOTE | 2023-05-16 09:44 | P.PN ---
Subjective Progress Note Date: 05/16/23 Daisy Abebe, is a 72-year-old female who presented to [facility] emergency room with a chief complaint of nausea vomiting diarrhea and decreased oral intake. Patient stated that her symptoms started more than a week ago she presented to emergency room 3 days prior to this admission at that time she received potassium replacement she was given an option to be admitted however she chose to be discharged home from ER. She was evaluated in the emergency room vital examination on presentation revealed a temperature of 99.1 pulse 69 respiration 16 blood pressure 178/69 pulse ox 96% on room air Laboratory data reveals a white blood count of 7.2 hemoglobin 10.9 platelet count 180 potassium 2.8 BUN 6 creatinine 0.6 lipase 110 magnesium less than 0.4 calcium 6 troponin level was slightly elevated at 0.037 Testing in the emergency room revealed abdominal x-ray did not reveal any sig nificant acute abnormality Patient was admitted to medical floor for further evaluation and treatment On 05/16/2023 patient and oriented 3 currently sitting up in chair. Patient reports improvement with diet. Patient denies any nausea vomiting. Patient has been tolerating clear liquid diet. Electrolytes to be replace per protocol. Current vital signs temp 97.7, heart rate 61, respiratory rate 16, blood pressure 114/60 with pulse 99% on room and Objective - Vital Signs Vital signs: Vital Signs Temp 97.7 F 05/16/23 08:23 Pulse 61 05/16/23 08:23 Resp 16 05/16/23 08:23 BP 114/68 05/16/23 08:23 Pulse Ox 99 05/16/23 08:23 FiO2 Intake & Output 05/15/23 05/16/23 05/16/23 18:59 06:59 18:59 Intake Total 360 Balance 360 Weight 72.575 kg 89.1 kg Intake: Oral 360 Other: # Voids 1 1 1 - Exam In general patient is alert and oriented x 3 in no distress HEENT head normocephalic and atraumatic Neck is supple no JVD no goiter no lymphadenopathy no carotid bruit Chest examination is clear to auscultation no crackles no wheezing Cardiac exam reveals regular heart sounds S1 and S2 no gallops no murmurs Abdomen is soft nontender no organomegaly with normal bowel sounds Extremity exam reveals no edema no cyanosis or clubbing Neurological examination reveals no gross focal deficits - Labs CBC & Chem 7: 05/16/23 07:30 12 07:30 Labs: Abnormal Lab Results - Last 24 Hours (Table) 05/15/23 05/15/23 05/16/23 Range/Units 09:10 10:02 07:30 Hgb 11.2 L 10.4 L (11.4-16.0) gm/dL MCV 76.8 L 79.8 L (80.0-100.0) fL MCH 23.8 L 24.1 L (25.0-35.0) pg MCHC 30.2 L (31.0-37.0) g/dL RDW 16.1 H 16.0 H (11.5-15.5) % Lymphocytes # 0.9 L (1.0-4.8) k/uL Potassium 3.3 L (3.5-5.1) mmol/L Carbon Dioxide 21 L (22-30) mmol/L Calcium 6.0 L* (8.4-10.2) mg/dL Magnesium 0.6 L* (1.6-2.3) mg/dL AST 39 H (14-36) U/L Total Protein (6.3-8.2) g/dL Albumin (3.5-5.0) g/dL 05/16/23 Range/Units 07:30 Hgb (11.4-16.0) gm/dL MCV (80.0-100.0) fL MCH (25.0-35.0) pg MCHC (31.0-37.0) g/dL RDW (11.5-15.5) % Lymphocytes # (1.0-4.8) k/uL Potassium 3.1 L (3.5-5.1) mmol/L Carbon Dioxide (22-30) mmol/L Calcium 6.2 L* (8.4-10.2) mg/dL Magnesium (1.6-2.3) mg/dL AST (14-36) U/L Total Protein 5.8 L (6.3-8.2) g/dL Albumin 3.2 L (3.5-5.0) g/dL Assessment and Plan Assessment: Gastroenteritis with nausea vomiting and diarrhea Severe electrolyte imbalance with hypokalemia hypomagnesemia and hypocalcemia replacing Elevated troponin level, unclear significance no chest pain cardiology consultation was requested Underlying history of hypertension Underlying history of hyperlipidemia Underlying history of hypothyroidism Underlying history of coronary artery disease Underlying history of COPD At this time patient is admitted to telemetry floor Electrolyte replacement protocols in place Home medications reviewed and reordered For DVT prophylaxis subcu Lovenox Cardiology consultation was requested for elevated troponin levels Will follow closely
--- NOTE | 2023-05-16 10:48 | P.CRDCN ---
History of Present Illness History of present illness: HISTORY OF PRESENT ILLNESS: This is a 72-year-old female with a past medical history significant for coronary artery disease, hypertension, hyperlipidemia, abdominal aortic aneurysm, and carotid stenosis. Patient follows in the office with Dr. Cardoso. We have been asked to see the patient in consultation for abnormal troponins. Patient examined at the bedside. The patient presented to the hospital with a chief complaint of nausea and vomiting, diarrhea, decreased oral intake, and fever at home. The patient states her GI symptoms have resolved this morning. She continues to report decreased oral intake. She denies any chest pain or pressure. She denies any shortness of breath. Vital signs are stable. * EKG reveals sinus mechanism with diffuse mild ST depression * Laboratory data: Troponin 0.037. 0.039. 0.035. * Current home cardiac medications include aspirin 81 mg daily, Imdur 60 mg daily, losartan 100 mg daily, metoprolol succinate 100 mg daily * Most recent echocardiogram obtained in October 2020 reveals ejection fraction 60- 65% * Cardiac catheterization history: March 2018 revealing chronic total occlusion of right coronary artery with [id number] collaterals. Moderate stenosis involving LAD. Medical management was recommended. * Patient underwent Lexiscan stress test on 05/10/2023 which was negative for ischemia REVIEW OF SYSTEMS: At the time of my exam: CONSTITUTIONAL: Denies fever or chills. HEENT: Denies blurred vision, vision changes, or eye pain. Denies hemoptysis CARDIOVASCULAR: Denies chest pain. Denies orthopnea. Denies PND. Denies palpitations RESPIRATORY: Denies shortness of breath. GASTROINTESTINAL: Denies abdominal pain. Denies nausea or vomiting. HEMATOLOGIC: Denies bleeding disorders. GENITOURINARY: Denies any blood in urine. SKIN: Denies pruitis. Denies rash. PHYSICAL EXAM: VITAL SIGNS: Reviewed. GENERAL: Well-developed in no acute distress. HEENT: Head is normocephalic. Pupils are equal, round. Sclerae anicteric. Mucous membranes of the mouth are moist. Neck supple. No JVD or thyromegaly LUNGS: Respirations even and unlabored. Lungs essentially clear to auscultation bilaterally. HEART: Regular rate and rhythm. S1 and S2 heard. ABDOMEN: Soft. Nondistended. Nontender. EXTREMITIES: Normal range of motion. No clubbing or cyanosis. Peripheral pulses intact. No lower extremity edema NEUROLOGIC: Awake and alert. Oriented x 3. ASSESSMENT: Nausea, vomiting, diarrhea Febrile illness Abnormal troponins, flat, not suggestive of acute coronary syndrome Hypokalemia Hypocalcemia Hypomagnesemia Coronary artery disease with known chronic total occlusion of RCA and moderate stenosis involving LAD Hypertension Hyperlipidemia History of abdominal aortic aneurysm History of carotid stenosis PLAN: An acute coronary event has been ruled out Resume home cardiac medications Obtain 2-D echo to assess cardiac structure and function Further recommendations pending patient's course Nurse practitioner note has been reviewed by physician. Signing provider agrees with the documented findings, assessment, and plan of care. Past Medical History Past Medical History: Asthma, Coronary Artery Disease (CAD), Cancer, COPD, Fibromyalgia, GERD/Reflux, Hyperlipidemia, Hypertension, Memory Impairment, Osteoarthritis (OA), Rheumatoid Arthritis (RA), Thyroid Disorder Additional Past Medical History / Comment(s): HX OF COLON POLYP, AAA, PHLEBITIS, VARICOSE VEINS, REYNAUD'S, BREAST CANCER., ANEMIA. History of Any Multi-Drug Resistant Organisms: None Reported Past Surgical History: Breast Surgery, Section, Cholecystectomy, Heart Catheterization, Orthopedic Surgery, Tonsillectomy Additional Past Surgical History / Comment(s): LEFT CAROTID ENDARTECTOMY, FERNANDO CARPAL TUNNEL, FERNANDO LEGS VEIN STRIPPING, RT THYROIDECTOMY, FERNANDO BREAST SX, LEFT LUMPECTOMY , LEFT BREAST FATTY TUMOR, HEART CATH 03/13/18 @ [facility]. Past Anesthesia/Blood Transfusion Reactions: Previous Problems w/ Anesthesia Additional Past Anesthesia/Blood Transfusion Reaction / Comment(s): STATES "FELT PARALYZED CHEST AREA AND ARM" ( OVER 20 YRS AGO.) NO PROBLEM SINCE Past Psychological History: Depression Smoking Status: Former smoker Past Alcohol Use History: None Reported Additional Past Alcohol Use History / Comment(s): QUIT OFF AND ON, LAST QUIT DECEMBER 2017 STARTED AGE 19, HAD SMOKED AT MOST 1PPD Past Drug Use History: None Reported - Past Family History Father Family Medical History: Cancer Additional Family Medical History / Comment(s): NON HODGKINS LYMPHOMA Brother(s) Family Medical History: Cancer Additional Family Medical History / Comment(s): prostate Medications and Allergies Home Medications Medication Instructions Recorded Confirmed Type Calcium Carbonate [Calcium] 600 mg PO DAILY 08/02/15 05/14/23 History Levothyroxine Sodium [Synthroid] 50 mcg PO DAILY 08/02/15 05/14/23 History Metoprolol Succinate (ER) [Toprol 100 mg PO DAILY 08/02/15 05/14/23 History XL] Fluticasone Nasal [place] [Flonase 1 spr EA NOSTRIL BID PRN 08/28/15 05/14/23 History Nasal [place]] Ubidecarenone [Co Q-10] 100 mg PO DAILY 07/14/16 05/14/23 History guaiFENesin [Mucinex] 600 mg PO Q12HR PRN 03/02/18 05/14/23 History Isosorbide Mononitrate ER [Imdur] 60 mg PO DAILY tab.er.24h 04/26/18 05/14/23 Rx Nitroglycerin Sl Tabs [Nitrostat] 0.4 mg SUBLINGUAL Q5M PRN tab 04/26/18 05/14/23 Rx Losartan Potassium 100 mg PO DAILY 07/20/18 05/14/23 History Evolocumab [Repatha Sureclick] 140 mg SQ Q14D 02/08/19 05/14/23 History Albuterol Inhaler [Ventolin Hfa 2 puff INHALATION RT-QID PRN 10/14/20 05/14/23 History Inhaler] Fluticasone/Vilanterol [Breo 1 puff INHALATION RT-DAILY 10/14/20 05/14/23 History Ellipta 200-25 Mcg Inhaler] Cholecalciferol (Vitamin D3) 125 mcg PO DAILY 10/22/20 05/14/23 History [Vitamin D3 (5000 Iu)] Magnesium Oxide 400 mg PO DAILY 10/22/20 05/14/23 History Aspirin 81 mg PO DAILY 30 Days #30 chew 10/28/20 05/14/23 Rx Folic Acid 1 mg PO DAILY 30 Days #30 tab 10/28/20 05/14/23 Rx Omeprazole 40 mg PO DAILY 05/11/23 05/14/23 History Potassium Chloride [K-Tab ER] 20 meq PO DAILY #7 tab 05/11/23 05/14/23 Rx Allergies Allergy/AdvReac Type Severity Reaction Status Date / Time cephalexin monohydrate Allergy Rash/Hives Verified 05/14/23 18:52 [From Keflex] ciprofloxacin [From Cipro] Allergy Rash/Hives Verified 05/14/23 18:52 levofloxacin [From Levaquin] Allergy Rash/Hives Verified 05/14/23 18:52 minocycline Allergy Rash/Hives Verified 05/14/23 18:52 nitrofurantoin Allergy Dyspnea Verified 05/14/23 18:52 [From Macrobid] potassium clavulanate Allergy Rash/Hives Verified 05/14/23 18:52 [From Augmentin] sulfamethoxazole Allergy Itching/hiv Verified 05/14/23 18:52 [From Bactrim] es/rash trimethoprim [From Bactrim] Allergy Itching/hiv Verified 05/14/23 18:52 es/rash azithromycin AdvReac bleeding Verified 05/14/23 18:52 etodolac [From Lodine] AdvReac "inflamed Verified 05/14/23 18:52 legs" lisinopril AdvReac Cough Verified 05/14/23 18:52 NSAIDS (Non-Steroidal AdvReac BLURRY Verified 05/14/23 18:52 Anti-Inflamma VISION prednisone AdvReac CHEST Verified 05/14/23 18:52 PAIN/FATIGUE/FEVER/CHILLS Exqifuz-VIL-ClJ Reductase AdvReac MUSCLE PAIN Verified 05/14/23 18:52 Inhibitor [Vscyfdy-Nln-Sbr Reductase Inhibitor] Physical Exam Vitals: Vital Signs Temp Pulse Pulse Resp BP BP Pulse Ox 05/15/23 15:12 97.9 F 60 18 122/75 98 05/15/23 12:00 98.2 F 70 18 87/59 98 05/15/23 11:47 67 18 94/69 97 05/15/23 07:33 65 18 143/92 97 05/15/23 06:30 98.2 F 60 19 133/90 95 05/15/23 05:13 61 17 148/86 05/15/23 01:25 65 19 162/100 05/14/23 23:42 67 17 128/102 05/14/23 20:30 74 17 138/87 05/14/23 18:00 79 20 160/90 98 05/14/23 17:12 76 16 149/86 98 Intake and Output 05/15/23 05/15/23 05/15/23 06:59 14:59 22:59 Other: # Voids 1 Weight 72.575 kg Results 05/16/23 07:30 05/16/23 07:30 Cardiac Enzymes 1205/14/23 05/14/23 Range/Units 15:53 15:56 18:46 AST 29 (14-36) U/L Troponin I 0.037 H* 0.039 H* (0.000-0.034) ng/mL 05/14/23 05/15/23 Range/Units 22:09 10:02 AST 39 H (14-36) U/L Troponin I 0.035 H* (0.000-0.034) ng/mL CBC 05/14/23 05/15/23 Range/Units 15:53 09:10 WBC 7.2 9.6 (3.8-10.6) k/uL RBC 4.42 4.71 (3.80-5.40) m/uL Hgb 10.9 L 11.2 L (11.4-16.0) gm/dL Hct 33.7 L 36.2 (34.0-46.0) % Plt Count 180 221 (150-450) k/uL Comprehensive Metabolic Panel 05/14/23 05/15/23 Range/Units 15:53 10:02 Sodium 140 139 (137-145) mmol/L Potassium 2.8 L 3.3 L (3.5-5.1) mmol/L Chloride 102 102 (98-107) mmol/L Carbon Dioxide 21 L 21 L (22-30) mmol/L BUN 6 L 8 (7-17) mg/dL Creatinine 0.60 0.57 (0.52-1.04) mg/dL Glucose 83 78 (74-99) mg/dL Calcium 6.0 L* 6.0 L* (8.4-10.2) mg/dL AST 29 39 H (14-36) U/L ALT 19 21 (4-34) U/L Alkaline Phosphatase 73 86 (38-126) U/L Total Protein 6.4 6.6 (6.3-8.2) g/dL Albumin 3.6 3.7 (3.5-5.0) g/dL Current Medications Generic Name Dose Route Start Last Admin Trade Name Freq PRN Reason Stop Dose Admin Acetaminophen 650 mg 05/14/23 17:59 Acetaminophen Tab 325 Mg Tab PO Q6HR PRN Mild Pain or Fever > 100.5 Albuterol Sulfate 2 puff 05/14/23 18:00 Albuterol Hfa Inhaler INHALATION RT-QID PRN Shortness Of Breath Aspirin 81 mg 05/15/23 09:00 05/15/23 09:02 Aspirin 81 Mg PO 81 mg DAILY JAROD Administration Calcium Carbonate 1 each 05/15/23 10:15 05/15/23 10:29 Calcium Carb-Vit D 500 Mg-5 Mcg Tab PO 1 each BID-W/MEALS JAROD Administration Sodium Chloride 1,000 mls @ 130 mls/hr 05/14/23 18:00 05/15/23 10:29 Saline 0.9% IV 130 mls/hr .Q7H42M JAROD Administration Magnesium Sulfate/Dextrose 1 100 mls @ 100 mls/hr 05/15/23 12:30 05/15/23 12:20 gm/ IV Solution IVPB 05/15/23 16:29 100 mls/hr Q1H JAROD Administration Isosorbide Mononitrate 60 mg 05/15/23 10:15 05/15/23 10:29 Isosorbide Mononitrate Er 60 Mg Tab.Er.24h PO 60 mg DAILY JAROD Administration Levothyroxine Sodium 50 mcg 05/15/23 09:00 05/15/23 09:02 Levothyroxine 50 Mcg Tab PO 50 mcg DAILY JAROD Administration Losartan Potassium 100 mg 05/15/23 10:15 05/15/23 11:35 Losartan 50 Mg Tab PO 100 mg DAILY JAROD Administration Magnesium Oxide 400 mg 05/15/23 09:00 05/15/23 09:02 Magnesium Oxide 400 Mg Tab PO 400 mg DAILY JAROD Administration Metoprolol Succinate 100 mg 05/15/23 09:00 05/15/23 09:02 Metoprolol Succinate (Er) 100 Mg Tab.Er.24h PO 100 mg DAILY JAROD Administration Miscellaneous Information 1 each 05/15/23 12:00 Magnesium Replacement Protocol 1 Each Misc MISCELLANE DAILY PRN Per Protocol Protocol Miscellaneous Information 1 each 05/15/23 12:03 Potassium Replacement Protocol 1 Each Misc MISCELLANE DAILY PRN Per Protocol Protocol Naloxone HCl 0.2 mg 05/14/23 17:59 Naloxone 0.4 Mg/Ml 1 Ml Vial IV Q2M PRN Opioid Reversal Nitroglycerin 0.4 mg 05/15/23 10:04 Nitroglycerin Sl Tabs 0.4 Mg Tab SUBLINGUAL Q5M PRN Chest Pain Ondansetron HCl 4 mg 05/14/23 17:59 05/15/23 05:46 Ondansetron 4 Mg/2 Ml Vial IVP 4 mg Q8HR PRN Administration Nausea And Vomiting Pantoprazole Sodium 40 mg 05/15/23 09:00 05/15/23 09:02 Pantoprazole 40 Mg/10 Ml Vial IV 40 mg DAILY JAROD Administration Potassium Chloride 20 meq 05/15/23 09:00 05/15/23 09:02 Potassium Chloride Er 20 Meq Tab.Er PO 20 meq DAILY JAROD Administration Intake and Output 05/15/23 05/15/23 05/15/23 06:59 14:59 22:59 Other: # Voids 1 Weight 72.575 kg Patient Weight 05/16/23 06:59 Weight 72.575 kg 05/15/23 09:10 05/15/23 10:02
[2023-05-16] MEDS ORDERED: POTASSIUM CHLORIDE ER 20 MEQ TAB.ER PO STA (10:58)
[2023-05-16] MEDS ORDERED: MAGNESIUM SULFATE-D5W PMX 1 GM in DEXTROSE/WATER 1 100ML.BAG IVPB ONE (10:59)
--- NOTE | 2023-05-16 11:01 | P.NPCON ---
History of Present Illness - Reason for Consult hypokalemia - History of Present Illness Reason for consultation: Electrolyte imbalance History of present illness: Patient is a 72-year-old female seen in renal consultation for electrolyte imbalance. Patient came to the hospital due to generalized weakness and dizziness. Patient lives at home by herself. She's been having vomiting and diarrhea for about one week now. She denies use of nonsteroidals. Denies history of diabetes. Denies family history of renal disease. GFR is at baseline. She denies use of diuretics. Denies use of NSAIDs. Oral intake has been poor the last few days. Hemodynamically stable. Abdominal x-ray showed nonspecific changes.she has history of coronary artery disease and is being followed by cardiology. Echocardiogram is pending. No vomiting or diarrhea today. Vital signs are stable. General: No acute distress. HEENT: Head exam is unremarkable. LUNGS: No audible rhonchi or wheezes. HEART: Rate and Rhythm are regular. ABDOMEN: Nontender. EXTREMITITES: No edema. Past Medical History Past Medical History: Asthma, Coronary Artery Disease (CAD), Cancer, COPD, Fibromyalgia, GERD/Reflux, Hyperlipidemia, Hypertension, Memory Impairment, Osteoarthritis (OA), Rheumatoid Arthritis (RA), Thyroid Disorder Additional Past Medical History / Comment(s): HX OF COLON POLYP, AAA, PHLEBITIS, VARICOSE VEINS, REYNAUD'S, BREAST CANCER., ANEMIA. History of Any Multi-Drug Resistant Organisms: None Reported Past Surgical History: Breast Surgery, Section, Cholecystectomy, Heart Catheterization, Orthopedic Surgery, Tonsillectomy Additional Past Surgical History / Comment(s): LEFT CAROTID ENDARTECTOMY, FERNANDO CARPAL TUNNEL, FERNANDO LEGS VEIN STRIPPING, RT THYROIDECTOMY, FERNANDO BREAST SX, LEFT LUMPECTOMY , LEFT BREAST FATTY TUMOR, HEART CATH 03/13/18 @ [facility]. Past Anesthesia/Blood Transfusion Reactions: Previous Problems w/ Anesthesia Additional Past Anesthesia/Blood Transfusion Reaction / Comment(s): STATES "FELT PARALYZED CHEST AREA AND ARM" ( OVER 20 YRS AGO.) NO PROBLEM SINCE Past Psychological History: Depression Smoking Status: Former smoker Past Alcohol Use History: None Reported Additional Past Alcohol Use History / Comment(s): QUIT OFF AND ON, LAST QUIT DECEMBER 2017 STARTED AGE 19, HAD SMOKED AT MOST 1PPD Past Drug Use History: None Reported - Past Family History Father Family Medical History: Cancer Additional Family Medical History / Comment(s): NON HODGKINS LYMPHOMA Brother(s) Family Medical History: Cancer Additional Family Medical History / Comment(s): prostate Medications and Allergies Home Medications Medication Instructions Recorded Confirmed Type Calcium Carbonate [Calcium] 600 mg PO DAILY 08/02/15 05/14/23 History Levothyroxine Sodium [Synthroid] 50 mcg PO DAILY 08/02/15 05/14/23 History Metoprolol Succinate (ER) [Toprol 100 mg PO DAILY 08/02/15 05/14/23 History XL] Fluticasone Nasal [place] [Flonase 1 spr EA NOSTRIL BID PRN 08/28/15 05/14/23 History Nasal [place]] Ubidecarenone [Co Q-10] 100 mg PO DAILY 07/14/16 05/14/23 History guaiFENesin [Mucinex] 600 mg PO Q12HR PRN 03/02/18 05/14/23 History Isosorbide Mononitrate ER [Imdur] 60 mg PO DAILY tab.er.24h 04/26/18 05/14/23 Rx Nitroglycerin Sl Tabs [Nitrostat] 0.4 mg SUBLINGUAL Q5M PRN tab 04/26/1803/27 Rx Losartan Potassium 100 mg PO DAILY 07/20/18 05/14/23 History Evolocumab [Repatha Sureclick] 140 mg SQ Q14D 02/08/19 05/14/23 History Albuterol Inhaler [Ventolin Hfa 2 puff INHALATION RT-QID PRN 10/14/20 05/14/23 History Inhaler] Fluticasone/Vilanterol [Breo 1 puff INHALATION RT-DAILY 10/14/20 05/14/23 History Ellipta 200-25 Mcg Inhaler] Cholecalciferol (Vitamin D3) 125 mcg PO DAILY 10/22/20 05/14/23 History [Vitamin D3 (5000 Iu)] Magnesium Oxide 400 mg PO DAILY 10/22/20 05/14/23 History Aspirin 81 mg PO DAILY 30 Days #30 chew 10/28/20 05/14/23 Rx Folic Acid 1 mg PO DAILY 30 Days #30 tab 10/28/20 05/14/23 Rx Omeprazole 40 mg PO DAILY 05/11/23 05/14/23 History Potassium Chloride [K-Tab ER] 20 meq PO DAILY #7 tab 05/11/23 05/14/23 Rx Allergies Allergy/AdvReac Type Severity Reaction Status Date / Time cephalexin monohydrate Allergy Rash/Hives Verified 05/14/23 18:52 [From Keflex] ciprofloxacin [From Cipro] Allergy Rash/Hives Verified 05/14/23 18:52 levofloxacin [From Levaquin] Allergy Rash/Hives Verified 05/14/23 18:52 minocycline Allergy Rash/Hives Verified 05/14/23 18:52 nitrofurantoin Allergy Dyspnea Verified 05/14/23 18:52 [From Macrobid] potassium clavulanate Allergy Rash/Hives Verified 05/14/23 18:52 [From Augmentin] sulfamethoxazole Allergy Itching/hiv Verified 05/14/23 18:52 [From Bactrim] es/rash trimethoprim [From Bactrim] Allergy Itching/hiv Verified 05/14/23 18:52 es/rash azithromycin AdvReac bleeding Verified 05/14/23 18:52 etodolac [From Lodine] AdvReac "inflamed Verified 05/14/23 18:52 legs" lisinopril AdvReac Cough Verified 05/14/23 18:52 NSAIDS (Non-Steroidal AdvReac BLURRY Verified 05/14/23 18:52 Anti-Inflamma VISION prednisone AdvReac CHEST Verified 05/14/23 18:52 PAIN/FATIGUE/FEVER/CHILLS Ghlxbjf-CCK-ExU Reductase AdvReac MUSCLE PAIN Verified 05/14/23 18:52 Inhibitor [Khcdyer-Ban-Rtv Reductase Inhibitor] Physical Exam Vitals: Vital Signs Temp Pulse Pulse Resp BP BP Pulse Ox 05/16/23 08:23 97.7 F 61 16 114/68 99 05/16/23 04:00 98.1 F 58 L 18 134/64 97 05/16/23 02:00 57 L 18 05/16/23 00:00 98.0 F 57 L 18 127/81 98 05/15/23 20:00 98.0 F 60 18 120/75 92 L 05/15/23 15:12 97.9 F 60 18 122/75 98 05/15/23 12:00 98.2 F 70 18 87/59 98 05/15/23 11:47 67 18 94/69 97 Intake and Output 05/15/23 05/16/23 05/16/23 22:59 06:59 14:59 Intake Total 360 Balance 360 Intake: Oral 360 Other: # Voids 1 1 1 Weight 89.1 kg Results - Lab Results Most recent lab results Calcium 6.2 mg/dL (8.4-10.2) L* 05/16/23 07:30 Magnesium 1.7 mg/dL (1.6-2.3) 05/16/23 07:30 05/16/23 07:30 05/16/23 07:30 Assessment and Plan Plan: Assessment: 1. Hypomagnesemia from GI losses. Also on PPI. Replaced. Better. 2. Hypokalemia from hypomagnesemia and renal losses. 3. Hypocalcemia from suppressed PTH from hypomagnesemia. 4. Nausea vomiting and diarrhea. No acute process noted on x-ray. Symptoms improved. C. diff being ruled out. 5. History of coronary artery disease. Cardiology following. Plan: Maintain normal saline at rate of 75 mL an hour. Replace magnesium. Replace potassium. Replace calcium. Check PTH and vitamin D levels. Thank you for the consultation. I will continue to follow the patient with you during her hospital stay.
[2023-05-16] MEDS ORDERED: CALCIUM GLUCONATE IN NACL 2 GM in SALINE 1 100ML.BAG IVPB ONE (12:00)
--- NOTE | 2023-05-16 14:45 | P.CRDCN ---
History of Present Illness History of present illness: HISTORY OF PRESENT ILLNESS: This is a 72-year-old female with a past medical history significant for coronary artery disease, hypertension, hyperlipidemia, abdominal aortic aneurysm, and carotid stenosis. Patient follows in the office with Dr. Cardoso. We have been asked to see the patient in consultation for abnormal troponins. Patient examined at the bedside. The patient presented to the hospital with a chief complaint of nausea and vomiting, diarrhea, decreased oral intake, and fever at home. The patient states her GI symptoms have resolved this morning. She continues to report decreased oral intake. She denies any chest pain or pressure. She denies any shortness of breath. Vital signs are stable. * EKG reveals sinus mechanism with diffuse mild ST depression * Laboratory data: Troponin 0.037. 0.039. 0.035. * Current home cardiac medications include aspirin 81 mg daily, Imdur 60 mg daily, losartan 100 mg daily, metoprolol succinate 100 mg daily * Most recent echocardiogram obtained in October 2020 reveals ejection fraction 60- 65% * Cardiac catheterization history: March 2018 revealing chronic total occlusion of right coronary artery with [id number] collaterals. Moderate stenosis involving LAD. Medical management was recommended. * Patient underwent Lexiscan stress test on 05/10/2023 which was negative for ischemia REVIEW OF SYSTEMS: At the time of my exam: CONSTITUTIONAL: Denies fever or chills. HEENT: Denies blurred vision, vision changes, or eye pain. Denies hemoptysis CARDIOVASCULAR: Denies chest pain. Denies orthopnea. Denies PND. Denies palpitations RESPIRATORY: Denies shortness of breath. GASTROINTESTINAL: Denies abdominal pain. Denies nausea or vomiting. HEMATOLOGIC: Denies bleeding disorders. GENITOURINARY: Denies any blood in urine. SKIN: Denies pruitis. Denies rash. PHYSICAL EXAM: VITAL SIGNS: Reviewed. GENERAL: Well-developed in no acute distress. HEENT: Head is normocephalic. Pupils are equal, round. Sclerae anicteric. Mucous membranes of the mouth are moist. Neck supple. No JVD or thyromegaly LUNGS: Respirations even and unlabored. Lungs essentially clear to auscultation bilaterally. HEART: Regular rate and rhythm. S1 and S2 heard. ABDOMEN: Soft. Nondistended. Nontender. EXTREMITIES: Normal range of motion. No clubbing or cyanosis. Peripheral pulses intact. No lower extremity edema NEUROLOGIC: Awake and alert. Oriented x 3. ASSESSMENT: Nausea, vomiting, diarrhea Febrile illness Abnormal troponins, flat, not suggestive of acute coronary syndrome Hypokalemia Hypocalcemia Hypomagnesemia Coronary artery disease with known chronic total occlusion of RCA and moderate stenosis involving LAD Hypertension Hyperlipidemia History of abdominal aortic aneurysm History of carotid stenosis PLAN: An acute coronary event has been ruled out Resume home cardiac medications Obtain 2-D echo to assess cardiac structure and function Further recommendations pending patient's course Nurse practitioner note has been reviewed by physician. Signing provider agrees with the documented findings, assessment, and plan of care. Past Medical History Past Medical History: Asthma, Coronary Artery Disease (CAD), Cancer, COPD, Fibromyalgia, GERD/Reflux, Hyperlipidemia, Hypertension, Memory Impairment, Osteoarthritis (OA), Rheumatoid Arthritis (RA), Thyroid Disorder Additional Past Medical History / Comment(s): HX OF COLON POLYP, AAA, PHLEBITIS, VARICOSE VEINS, REYNAUD'S, BREAST CANCER., ANEMIA. History of Any Multi-Drug Resistant Organisms: None Reported Past Surgical History: Breast Surgery, Section, Cholecystectomy, Heart Catheterization, Orthopedic Surgery, Tonsillectomy Additional Past Surgical History / Comment(s): LEFT CAROTID ENDARTECTOMY, FERNANDO CARPAL TUNNEL, FERNANDO LEGS VEIN STRIPPING, RT THYROIDECTOMY, FERNANDO BREAST SX, LEFT LUMPECTOMY , LEFT BREAST FATTY TUMOR, HEART CATH 03/13/18 @ [facility]. Past Anesthesia/Blood Transfusion Reactions: Previous Problems w/ Anesthesia Additional Past Anesthesia/Blood Transfusion Reaction / Comment(s): STATES "FELT PARALYZED CHEST AREA AND ARM" ( OVER 20 YRS AGO.) NO PROBLEM SINCE Past Psychological History: Depression Smoking Status: Former smoker Past Alcohol Use History: None Reported Additional Past Alcohol Use History / Comment(s): QUIT OFF AND ON, LAST QUIT DECEMBER 2017 STARTED AGE 19, HAD SMOKED AT MOST 1PPD Past Drug Use History: None Reported - Past Family History Father Family Medical History: Cancer Additional Family Medical History / Comment(s): NON HODGKINS LYMPHOMA Brother(s) Family Medical History: Cancer Additional Family Medical History / Comment(s): prostate Medications and Allergies Home Medications Medication Instructions Recorded Confirmed Type Calcium Carbonate [Calcium] 600 mg PO DAILY 08/02/15 05/14/23 History Levothyroxine Sodium [Synthroid] 50 mcg PO DAILY 08/02/15 05/14/23 History Metoprolol Succinate (ER) [Toprol 100 mg PO DAILY 08/02/15 05/14/23 History XL] Fluticasone Nasal [place] [Flonase 1 spr EA NOSTRIL BID PRN 08/28/15 05/14/23 History Nasal [place]] Ubidecarenone [Co Q-10] 100 mg PO DAILY 07/14/16 05/14/23 History guaiFENesin [Mucinex] 600 mg PO Q12HR PRN 03/02/18 05/14/23 History Isosorbide Mononitrate ER [Imdur] 60 mg PO DAILY tab.er.24h 04/26/18 05/14/23 Rx Nitroglycerin Sl Tabs [Nitrostat] 0.4 mg SUBLINGUAL Q5M PRN tab 04/26/18 05/14/23 Rx Losartan Potassium 100 mg PO DAILY 07/20/18 05/14/23 History Evolocumab [Repatha Sureclick] 140 mg SQ Q14D 02/08/19 05/14/23 History Albuterol Inhaler [Ventolin Hfa 2 puff INHALATION RT-QID PRN 10/14/20 05/14/23 History Inhaler] Fluticasone/Vilanterol [Breo 1 puff INHALATION RT-DAILY 10/14/20 05/14/23 History Ellipta 200-25 Mcg Inhaler] Cholecalciferol (Vitamin D3) 125 mcg PO DAILY 10/22/20 05/14/23 History [Vitamin D3 (5000 Iu)] Magnesium Oxide 400 mg PO DAILY 10/22/20 05/14/23 History Aspirin 81 mg PO DAILY 30 Days #30 chew 10/28/20 05/14/23 Rx Folic Acid 1 mg PO DAILY 30 Days #30 tab 10/28/20 05/14/23 Rx Omeprazole 40 mg PO DAILY 05/11/23 05/14/23 History Potassium Chloride [K-Tab ER] 20 meq PO DAILY #7 tab 05/11/23 05/14/23 Rx Allergies Allergy/AdvReac Type Severity Reaction Status Date / Time cephalexin monohydrate Allergy Rash/Hives Verified 05/14/23 18:52 [From Keflex] ciprofloxacin [From Cipro] Allergy Rash/Hives Verified 05/14/23 18:52 levofloxacin [From Levaquin] Allergy Rash/Hives Verified 05/14/23 18:52 minocycline Allergy Rash/Hives Verified 05/14/23 18:52 nitrofurantoin Allergy Dyspnea Verified 05/14/23 18:52 [From Macrobid] potassium clavulanate Allergy Rash/Hives Verified 05/14/23 18:52 [From Augmentin] sulfamethoxazole Allergy Itching/hiv Verified 05/14/23 18:52 [From Bactrim] es/rash trimethoprim [From Bactrim] Allergy Itching/hiv Verified 05/14/23 18:52 es/rash azithromycin AdvReac bleeding Verified 05/14/23 18:52 etodolac [From Lod[place]] AdvReac "inflamed Verified 05/14/23 18:52 legs" lisinopril AdvReac Cough Verified 05/14/23 18:52 NSAIDS (Non-Steroidal AdvReac BLURRY Verified 05/14/23 18:52 Anti-Inflamma VISION prednisone AdvReac CHEST Verified 05/14/23 18:52 PAIN/FATIGUE/FEVER/CHILLS [id number]-NmO Reductase AdvReac MUSCLE PAIN Verified 05/14/23 18:52 Inhibitor [Urpknlh-Tps-Eww Reductase Inhibitor] Physical Exam Vitals: Vital Signs Temp Pulse Resp BP Pulse Ox 05/16/23 12:33 98.0 F 59 L 16 101/66 99 05/16/23 08:23 97.7 F 61 16 114/68 99 05/16/23 04:00 98.1 F 58 L 18 134/64 97 05/16/23 02:00 57 L 18 05/16/23 00:00 98.0 F 57 L 18 127/81 98 05/15/23 20:00 98.0 F 60 18 120/75 92 L 05/15/23 15:12 97.9 F 60 18 122/75 98 Intake and Output 05/15/23 05/16/23 05/16/23 22:59 06:59 14:59 Intake Total 360 222 Balance 360 222 Intake: Oral 360 222 Other: Voiding Method Toilet # Voids 1 1 1 Weight 89.1 kg Results 05/16/23 07:30 05/16/23 07:30 Cardiac Enzymes 05/16/23 Range/Units 07:30 AST 33 (14-36) U/L CBC 05/16/23 Range/Units 07:30 WBC 6.8 (3.8-10.6) k/uL RBC 4.30 (3.80-5.40) m/uL Hgb 10.4 L (11.4-16.0) gm/dL Hct 34.4 (34.0-46.0) % Plt Count 197 (150-450) k/uL Comprehensive Metabolic Panel 05/16/23 Range/Units 07:30 Sodium 138 (137-145) mmol/L Potassium 3.1 L (3.5-5.1) mmol/L Chloride 104 (98-107) mmol/L Carbon Dioxide 23 (22-30) mmol/L BUN 11 (7-17) mg/dL Creatinine 0.66 (0.52-1.04) mg/dL Glucose 81 (74-99) mg/dL Calcium 6.2 L* (8.4-10.2) mg/dL AST 33 (14-36) U/L ALT 18 (4-34) U/L Alkaline Phosphatase 87 (38-126) U/L Total Protein 5.8 L (6.3-8.2) g/dL Albumin 3.2 L (3.5-5.0) g/dL Current Medications Generic Name Dose Route Start Last Admin Trade Name Freq PRN Reason Stop Dose Admin Acetaminophen 650 mg 05/14/23 17:59 Acetaminophen Tab 325 Mg Tab PO Q6HR PRN Mild Pain or Fever > 100.5 Albuterol Sulfate 2 puff 05/14/23 18:00 Albuterol Hfa Inhaler INHALATION RT-QID PRN Shortness Of Breath Aspirin 81 mg 05/15/23 09:00 05/16/23 08:45 Aspirin 81 Mg PO 81 mg DAILY JAROD Administration Calcium Carbonate 1 each 05/15/23 10:15 05/16/23 06:40 Calcium Carb-Vit D 500 Mg-5 Mcg Tab PO 1 each BID-W/MEALS JAROD Administration Enoxaparin Sodium 40 mg 05/15/23 17:15 05/16/23 08:44 Enoxaparin 40 Mg/0.4 Ml Syringe SQ 40 mg DAILY JAROD Administration Sodium Chloride 1,000 mls @ 75 mls/hr 05/16/23 11:00 05/16/23 12:39 Saline 0.9% IV 75 mls/hr .[id number] JAROD Administration Isosorbide Mononitrate 60 mg 05/15/23 10:15 05/16/23 08:44 Isosorbide Mononitrate Er 60 Mg Tab.Er.24h PO 60 mg DAILY JAROD Administration Levothyroxine Sodium 50 mcg 05/15/23 09:00 05/16/23 08:45 Levothyroxine 50 Mcg Tab PO 50 mcg DAILY JAROD Administration Losartan Potassium 100 mg 05/15/23 10:15 05/16/23 08:44 Losartan 50 Mg Tab PO 100 mg DAILY JAROD Administration Magnesium Oxide 400 mg 05/15/23 09:00 05/16/23 08:45 Magnesium Oxide 400 Mg Tab PO 400 mg DAILY JAROD Administration Metoprolol Succinate 100 mg 05/15/23 09:00 05/16/23 08:45 Metoprolol Succinate (Er) 100 Mg Tab.Er.24h PO 100 mg DAILY JAROD Administration Miscellaneous Information 1 each 05/15/23 12:00 Magnesium Replacement Protocol 1 Each Misc MISCELLANE DAILY PRN Per Protocol Protocol Miscellaneous Information 1 each 05/15/23 12:03 Potassium Replacement Protocol 1 Each Misc MISCELLANE DAILY PRN Per Protocol Protocol Naloxone HCl 0.2 mg 05/14/23 17:59 Naloxone 0.4 Mg/Ml 1 Ml Vial IV Q2M PRN Opioid Reversal Nitroglycerin 0.4 mg 05/15/23 10:04 Nitroglycerin Sl Tabs 0.4 Mg Tab SUBLINGUAL Q5M PRN Chest Pain Ondansetron HCl 4 mg 05/14/23 17:59 05/15/23 05:46 Ondansetron 4 Mg/2 Ml Vial IVP 4 mg Q8HR PRN Administration Nausea And Vomiting Pantoprazole Sodium 40 mg 05/15/23 09:00 05/16/23 08:44 Pantoprazole 40 Mg/10 Ml Vial IV 40 mg DAILY JAROD Administration Potassium Chloride 20 meq 05/15/23 09:00 05/16/23 08:45 Potassium Chloride Er 20 Meq Tab.Er PO 20 meq DAILY JAROD Administration Intake and Output 05/15/23 05/16/23 05/16/23 22:59 06:59 14:59 Intake Total 360 222 Balance 360 222 Intake: Oral 360 222 Other: Voiding Method Toilet # Voids 1 1 1 Weight 89.1 kg 05/16/23 07:30 05/16/23 07:30
[2023-05-17] MEDS: CALCIUM CARB-VIT D 500 MG-5 MCG TAB PO SCH ×2 (06:49→16:51)
[2023-05-17] MEDS: SODIUM CHLORIDE 0.9% 1,000 ML IV SCH ×2 (08:49→16:39)
[2023-05-17] MEDS: ENOXAPARIN 40 MG/0.4 ML SYRINGE SQ SCH (08:56)
[2023-05-17] MEDS: PANTOPRAZOLE 40 MG/10 ML VIAL IV SCH (08:56)
[2023-05-17] MEDS: MAGNESIUM OXIDE 400 MG TAB PO SCH (08:57)
[2023-05-17] MEDS: LEVOTHYROXINE 50 MCG TAB PO SCH (08:57)
[2023-05-17] MEDS: ASPIRIN 81 MG PO SCH (08:57)
[2023-05-17] MEDS: LOSARTAN 50 MG TAB PO SCH (08:57)
[2023-05-17] MEDS: POTASSIUM CHLORIDE ER 20 MEQ TAB.ER PO SCH (08:57)
[2023-05-17] MEDS: METOPROLOL SUCCINATE (ER) 100 MG TAB.ER.24H PO SCH (08:57)
[2023-05-17] MEDS: ISOSORBIDE MONONITRATE ER 60 MG TAB.ER.24H PO SCH (08:57)
--- NOTE | 2023-05-17 09:37 | P.PN ---
Subjective Progress Note Date: 05/17/23 Daisy Abebe, is a 72-year-old female who presented to [facility] emergency room with a chief complaint of nausea vomiting diarrhea and decreased oral intake. Patient stated that her symptoms started more than a week ago she presented to emergency room 3 days prior to this admission at that time she received potassium replacement she was given an option to be admitted however she chose to be discharged home from ER. She was evaluated in the emergency room vital examination on presentation revealed a temperature of 99.1 pulse 69 respiration 16 blood pressure 178/69 pulse ox 96% on room air Laboratory data reveals a white blood count of 7.2 hemoglobin 10.9 platelet count 180 potassium 2.8 BUN 6 creatinine 0.6 lipase 110 magnesium less than 0.4 calcium 6 troponin level was slightly elevated at 0.037 Testing in the emergency room revealed abdominal x-ray did not reveal any sig nificant acute abnormality Patient was admitted to medical floor for further evaluation and treatment On 05/16/2023 patient and oriented 3 currently sitting up in chair. Patient reports improvement with diet. Patient denies any nausea vomiting. Patient has been tolerating clear liquid diet. Electrolytes to be replace per protocol. Current vital signs temp 97.7, heart rate 61, respiratory rate 16, blood pressure 114/60 with pulse 99% on room and On 05/17/2023 patient is alert and oriented 3 currently sitting up in chair. Cardiology and nephrology services are following. Current vital signs temp 97.4, heart rate 58, respiratory rate 16, blood pressure 117/73. Patient denies chest pain or shortness breath. Patient denies nausea vomiting or diarrhea. Patient denies any urinary burning or frequency Objective - Vital Signs Vital signs: Vital Signs Temp 97.4 F L 05/17/23 08:42 Pulse 58 L 05/17/23 08:42 Resp 16 05/17/23 08:42 BP 117/73 05/17/23 08:42 Pulse Ox 99 05/17/23 08:42 FiO2 Intake & Output 05/16/23 05/17/23 05/17/23 18:59 06:59 18:59 Intake Total 572 20 Balance 572 20 Intake: IV 10 20 Invasive Line 3 10 20 Oral 562 Other: Voiding Method Toilet Toilet # Voids 1 1 1 - Exam In general patient is alert and oriented x 3 in no distress HEENT head normocephalic and atraumatic Neck is supple no JVD no goiter no lymphadenopathy no carotid bruit Chest examination is clear to auscultation no crackles no wheezing Cardiac exam reveals regular heart sounds S1 and S2 no gallops no murmurs Abdomen is soft nontender no organomegaly with normal bowel sounds Extremity exam reveals no edema no cyanosis or clubbing Neurological examination reveals no gross focal deficits - Labs CBC & Chem 7: 05/16/23 07:30 05/16/23 07:30 Labs: Abnormal Lab Results - Last 24 Hours (Table) 05/16/23 Range/Units 11:04 PTH Intact 183.0 H (14.0-72.0) pg/mL Assessment and Plan Plan: Gastroenteritis with nausea vomiting and diarrhea Severe electrolyte imbalance with hypokalemia hypomagnesemia and hypocalcemia replacing Elevated troponin level, unclear significance no chest pain cardiology consultation was requested Underlying history of hypertension Underlying history of hyperlipidemia Underlying history of hypothyroidism Underlying history of coronary artery disease Underlying history of COPD At this time patient is admitted to telemetry floor Electrolyte replacement protocols in place Home medications reviewed and reordered For DVT prophylaxis subcu Lovenox Cardiology consultation was requested for elevated troponin levels Nephrology services following Will follow closely
[2023-05-17 10:18] LABS: Basophils % (A) 1 %; Eosinophils # (A) 0.2 k/uL (0-0.7); Eosinophils % (A) 3 %; HCT 35.4 % (34.0-46.0); HGB 10.3 gm/dL (11.4-16.0); Hypochromasia Marked; Lymphocytes # (A) 1.1 k/uL (1.0-4.8); Lymphocytes % (A) 21 %; MCH 23.6 pg (25.0-35.0); MCHC 29.2 g/dL (31.0-37.0); MCV 80.6 fL (80.0-100.0); Mean Platelet Volume 8.1; Monocytes # (A) 0.3 k/uL (0-1.0); Monocytes % (A) 6 %; Neutrophils # (A) 3.7 k/uL (1.3-7.7); Neutrophils % (A) 68 %; Platelet Count 235 k/uL (150-450); RBC 4.39 m/uL (3.80-5.40); WBC 5.4 k/uL (3.8-10.6)
--- NOTE | 2023-05-17 10:21 | P.PN ---
Subjective Patient is seen in follow-up for electrolyte imbalance. Morning labs pending. Tolerating regular diet. Had one episode of loose bowel movement this morning. Hemodynamically stable. Vital signs are stable. General: No acute distress. HEENT: Head exam is unremarkable. LUNGS: No active rhonchi or wheezes. HEART: Rate and Rhythm are regular. ABDOMEN: Nontender. EXTREMITITES: No edema. Objective - Vital Signs Vital signs: Vital Signs Temp 97.4 F L 05/17/23 08:42 Pulse 58 L 05/17/23 08:42 Resp 16 05/17/23 08:42 BP 117/73 05/17/23 08:42 Pulse Ox 99 05/17/23 08:42 FiO2 Intake & Output 05/16/23 05/17/23 05/17/23 18:59 06:59 18:59 Intake Total 572 20 444 Balance 572 20 444 Intake: IV 10 20 Invasive Line 3 10 20 Oral 562 444 Other: Voiding Method Toilet Toilet # Voids 1 1 1 - Labs CBC & Chem 7: 05/16/23 07:30 05/16/23 07:30 Labs: Abnormal Lab Results - Last 24 Hours (Table) 05/16/23 Range/Units 11:04 PTH Intact 183.0 H (14.0-72.0) pg/mL Assessment and Plan Plan: Assessment: 1. Hypomagnesemia from GI losses. Also on PPI. Replaced. Better. 2. Hypokalemia from hypomagnesemia and renal losses. Replaced. 3. Hypocalcemia from hypomagnesemia induced PTH resistance. Replaced. PTH 183. Vitamin D 31.3. 4. Nausea vomiting and diarrhea. No acute process noted on x-ray. Symptoms improved. C. diff being ruled out. 5. History of coronary artery disease. Cardiology following. Plan: Decrease rate of normal saline to 50 mL an hour. Encouraged oral intake. Follow-up AM labs. Replace electrolytes as needed.
[2023-05-17 10:38] LABS: ALT 20 U/L (4-34); AST 29 U/L (14-36); African American GFR (CKD) >90 (>60 ml/min/1.73 sqM); Albumin 3.3 g/dL (3.5-5.0); Alkaline Phosphatase 87 U/L (38-126); Anion Gap 12 mmol/L; Blood Urea Nitrogen 6 mg/dL (7-17); Calcium 7.8 mg/dL (8.4-10.2); Carbon Dioxide 23 mmol/L (22-30); Chloride 104 mmol/L (98-107); Glucose 99 mg/dL (74-99); Magnesium 1.7 mg/dL (1.6-2.3); Non-African American GFR(CKD) >90 (>60 ml/min/1.73 sqM); Potassium 3.9 mmol/L (3.5-5.1); Sodium 139 mmol/L (137-145); Total Bilirubin 0.6 mg/dL (0.2-1.3); Total Protein 6.1 g/dL (6.3-8.2)
--- NOTE | 2023-05-17 13:02 | CA ---
Transthoracic Echo Report Name: Daisy Abebe Age: 72 Gender: F : 1950 Exam Date: 05/16/2023 10:24 Exam Location: [place] [facility] Ht (in): 64 Wt (lb): 196 Ordering Physician: Juana Tamez Attending/Referring Phys: Cloth Mercerizing Supervisor Hannah Ramos [facility] Procedure CPT: Indications: LV function Cardiac Hx: Technical Quality: Fair Contrast 1: Total Dose (mL): Contrast 2: Total Dose (mL): MEASUREMENTS (Male / Female) Normal Values 2D ECHO LV Diastolic Diameter PLAX 4.5 cm 4.2 - 5.9 / 3.9 - 5.3 cm LV Systolic Diameter PLAX 2.7 cm IVS Diastolic Thickness 1.1 cm 0.6 - 1.0 / 0.6 - 0.9 cm LVPW Diastolic Thickness 1.0 cm 0.6 - 1.0 / 0.6 - 0.9 cm LV Relative Wall Thickness 0.5 LVOT Diameter 2.0 cm Ascending Aorta Diameter 3.6 cm M-MODE Aortic Root Diameter MM 2.7 cm LA Systolic Diameter MM 3.8 cm LA Ao Ratio MM 1.4 AV Cusp Separation MM 1.5 cm DOPPLER AV Peak Velocity 157.6 cm/s AV Peak Gradient 9.9 mmHg AV Mean Velocity 105.8 cm/s AV Mean Gradient 5.1 mmHg AV Velocity Time Integral 37.6 cm LVOT Peak Velocity 172.1 cm/s LVOT Peak Gradient 11.8 mmHg LVOT Velocity Time Integral 34.3 cm LVOT Stroke Volume 111.5 cm??? LVOT Stroke Volume Index 57.5 ml/m??? LVOT Cardiac Index 3006.8 cm???/min???m??? AV Area Cont Eq vti 3.0 cm??? AV Area Cont Eq pk 3.5 cm??? Mitral E Point Velocity 96.1 cm/s Mitral A Point Velocity 90.2 cm/s Mitral E to A Ratio 1.1 MV Deceleration Time 264.7 ms LV E' Lateral Velocity 9.5 cm/s Mitral E to LV E' Lateral Ratio 10.1 LV E' Septal Velocity 7.5 cm/s Mitral E to LV E' Septal Ratio 12.7 TR Peak Velocity 231.7 cm/s TR Peak Gradient 21.5 mmHg Right Atrial Pressure 3.0 mmHg Pulmonary Artery Systolic Pressu 24.5 mmHg Right Ventricular Systolic Press 24.5 mmHg FINDINGS Left Ventricle Mildly increased left ventricular wall thickness. Left ventricular cavity size normal. Normal left ventricular systolic function with no obvious regional wall motion abnormalities. Left ventricular ejection fraction is estimated at 60- 65%. Right Ventricle Right ventricle at upper limits of normal. Right Atrium Mild right atrial dilatation. Left Atrium Normal left atrial size. Mitral Valve Mitral valve thickened. Mild mitral regurgitation. Aortic Valve Trileaflet aortic valve. Thickening of the aortic valve cusps. No aortic valve stenosis or regurgitation. Tricuspid Valve Structurally normal tricuspid valve. Trace tricuspid regurgitation. Pulmonic Valve Pulmonic valve not well visualized. Pericardium No pericardial effusion. Aorta Normal size aortic root and proximal ascending aorta. CONCLUSIONS Left ventricular ejection fraction is estimated at 60-65%. Mild concentric LVH No obvious regional wall motion abnormality No significant valvular dysfunction No pericardial effusion. Previewed by: Dr Saran Paige (Electronically Signed) Final Date: 17 May 2023 13:01
--- NOTE | 2023-05-17 13:35 | P.PN ---
Subjective HISTORY OF PRESENT ILLNESS: This is a 72-year-old female with a past medical history significant for coronary artery disease, hypertension, hyperlipidemia, abdominal aortic aneurysm, and carotid stenosis. Patient follows in the office with Dr. Cardoso. We have been asked to see the patient in consultation for abnormal troponins. Patient examined at the bedside. The patient presented to the hospital with a chief complaint of nausea and vomiting, diarrhea, decreased oral intake, and fever at home. The patient states her GI symptoms have resolved this morning. She continues to report decreased oral intake. She denies any chest pain or pressure. She denies any shortness of breath. Vital signs are stable. * EKG reveals sinus mechanism with diffuse mild ST depression * Laboratory data: Troponin 0.037. 0.039. 0.035. * Current home cardiac medications include aspirin 81 mg daily, Imdur 60 mg daily, losartan 100 mg daily, metoprolol succinate 100 mg daily * Most recent echocardiogram obtained in October 2020 reveals ejection fraction 60- 65% * Cardiac catheterization history: March 2018 revealing chronic total occlu clau of right coronary artery with [id number] collaterals. Moderate stenosis involving LAD. Medical management was recommended. * Patient underwent Lexiscan stress test on 05/10/2023 which was negative for ischemia 05/17/2023 Patient examined this morning at the bedside. Patient denies chest pain or pressure. She denies shortness of breath. Vital signs are stable. Telemetry reveals sinus mechanism. Cardiac gram completed revealing ejection fraction 60- 65% PHYSICAL EXAM: VITAL SIGNS: Reviewed. GENERAL: Well-developed in no acute distress. HEENT: Head is normocephalic. Pupils are equal, round. Sclerae anicteric. Mucous membranes of the mouth are moist. Neck supple. No JVD or thyromegaly LUNGS: Respirations even and unlabored. Lungs essentially clear to auscultation bilaterally. HEART: Regular rate and rhythm. S1 and S2 heard. ABDOMEN: Soft. Nondistended. Nontender. EXTREMITIES: Normal range of motion. No clubbing or cyanosis. Peripheral pulses intact. No lower extremity edema NEUROLOGIC: Awake and alert. Oriented x 3. ASSESSMENT: Nausea, vomiting, diarrhea Febrile illness Abnormal troponins, flat, not suggestive of acute coronary syndrome Hypokalemia Hypocalcemia Hypomagnesemia Coronary artery disease with known chronic total occlusion of RCA and moderate stenosis involving LAD Hypertension Hyperlipidemia History of abdominal aortic aneurysm History of carotid stenosis PLAN: Continue current cardiac medications No further inpatient recommendations from a cardiology perspective We will sign off. Please reconsult if needed. Nurse practitioner note has been reviewed by physician. Signing provider agrees with the documented findings, assessment, and plan of care. Objective - Vital Signs Vital signs: Vital Signs Temp 97.4 F L 05/17/23 08:42 Pulse 58 L 05/17/23 08:42 Resp 16 05/17/23 08:42 BP 117/73 05/17/23 08:42 Pulse Ox 99 05/17/23 08:42 FiO2 Intake & Output 05/16/23 05/17/23 05/17/23 18:59 06:59 18:59 Intake Total 572 20 Balance 572 20 Intake: IV 10 20 Invasive Line 3 10 20 Oral 562 Other: Voiding Method Toilet Toilet # Voids 1 1 1 - Labs CBC & Chem 7: 05/17/23 09:35 05/17/23 09:35 Labs: Abnormal Lab Results - Last 24 Hours (Table) 05/16/23 05/16/23 Range/Units 07:30 11:04 Potassium 3.1 L (3.5-5.1) mmol/L Calcium 6.2 L* (8.4-10.2) mg/dL Total Protein 5.8 L (6.3-8.2) g/dL Albumin 3.2 L (3.5-5.0) g/dL PTH Intact 183.0 H (14.0-72.0) pg/mL
[2023-05-17 13:41] VITALS: BMI 33.7
[2023-05-18] MEDS: SODIUM CHLORIDE 0.9% 1,000 ML IV SCH (00:19)
[2023-05-18] MEDS: CALCIUM CARB-VIT D 500 MG-5 MCG TAB PO SCH ×2 (06:24→17:54)
[2023-05-18 06:40] VITALS: TEMP 97.7
[2023-05-18 09:04] LABS: Anisocytosis Slight; Basophils % (A) 0 %; Eosinophils # (A) 0.1 k/uL (0-0.7); Eosinophils % (A) 3 %; HCT 34.4 % (34.0-46.0); HGB 10.4 gm/dL (11.4-16.0); Hypochromasia Marked; Lymphocytes # (A) 0.8 k/uL (1.0-4.8); Lymphocytes % (A) 20 %; MCH 24.1 pg (25.0-35.0); MCHC 30.3 g/dL (31.0-37.0); MCV 79.4 fL (80.0-100.0); Mean Platelet Volume 8.9; Monocytes # (A) 0.2 k/uL (0-1.0); Monocytes % (A) 5 %; Neutrophils # (A) 2.8 k/uL (1.3-7.7); Neutrophils % (A) 70 %; Platelet Count 247 k/uL (150-450); RBC 4.33 m/uL (3.80-5.40); RDW 16.1 % (11.5-15.5); WBC 3.9 k/uL (3.8-10.6)
[2023-05-18 09:26] LABS: ALT 19 U/L (4-34); AST 28 U/L (14-36); African American GFR (CKD) >90 (>60 ml/min/1.73 sqM); Albumin 3.2 g/dL (3.5-5.0); Alkaline Phosphatase 81 U/L (38-126); Anion Gap 11 mmol/L; Blood Urea Nitrogen 6 mg/dL (7-17); Calcium 8.6 mg/dL (8.4-10.2); Carbon Dioxide 25 mmol/L (22-30); Chloride 106 mmol/L (98-107); Glucose 110 mg/dL (74-99); Magnesium 1.4 mg/dL (1.6-2.3); Non-African American GFR(CKD) >90 (>60 ml/min/1.73 sqM); Potassium 4.2 mmol/L (3.5-5.1); Sodium 142 mmol/L (137-145); Total Bilirubin 0.5 mg/dL (0.2-1.3); Total Protein 5.9 g/dL (6.3-8.2)
[2023-05-18] MEDS: ENOXAPARIN 40 MG/0.4 ML SYRINGE SQ SCH (09:31)
[2023-05-18] MEDS: LEVOTHYROXINE 50 MCG TAB PO SCH (09:31)
[2023-05-18] MEDS: ISOSORBIDE MONONITRATE ER 60 MG TAB.ER.24H PO SCH (09:31)
[2023-05-18] MEDS: PANTOPRAZOLE 40 MG/10 ML VIAL IV SCH (09:31)
[2023-05-18] MEDS: POTASSIUM CHLORIDE ER 20 MEQ TAB.ER PO SCH (09:31)
[2023-05-18] MEDS: ASPIRIN 81 MG PO SCH (09:31)
[2023-05-18] MEDS: MAGNESIUM OXIDE 400 MG TAB PO SCH (09:31)
[2023-05-18] MEDS: METOPROLOL SUCCINATE (ER) 100 MG TAB.ER.24H PO SCH (09:31)
[2023-05-18] MEDS: LOSARTAN 50 MG TAB PO SCH (09:31)
[2023-05-18] MEDS ORDERED: FUROSEMIDE 10 MG/ML 2 ML VIAL IV ONE (10:01)
[2023-05-18] MEDS: MAGNESIUM SULFATE-D5W PMX 1 GM in DEXTROSE/WATER 1 100ML.BAG IVPB SCH ×2 (10:22→14:30)
--- NOTE | 2023-05-18 10:40 | P.PN ---
Subjective Patient is seen in follow-up for electrolyte imbalance. Tolerating regular diet. Had one episode of loose bowel movement last night. Hemodynamically stable. Potassium and calcium normal today. Vital signs are stable. General: No acute distress. HEENT: Head exam is unremarkable. LUNGS: No active rhonchi or wheezes. HEART: Rate and Rhythm are regular. ABDOMEN: Nontender. EXTREMITITES: 1+ edema. Objective - Vital Signs Vital signs: Vital Signs Temp 97.7 F 05/18/23 04:00 Pulse 52 L 05/18/23 04:00 Resp 17 05/18/23 04:00 BP 149/71 05/18/23 04:00 Pulse Ox 100 05/18/23 04:00 FiO2 Intake & Output 05/17/23 05/18/23 05/18/23 18:59 06:59 18:59 Intake Total 562 120 Output Total 260 Balance 562 -260 120 Weight 89.1 kg Intake: Oral 562 120 Output: Urine 260 Other: Voiding Method Toilet Toilet # Voids 2 1 1 - Labs CBC & Chem 7: 05/18/23 08:28 05/18/23 08:28 Labs: Abnormal Lab Results - Last 24 Hours (Table) 05/17/23 05/18/23 05/18/23 Range/Units 09:35 08:28 08:28 Hgb 10.4 L (11.4-16.0) gm/dL MCV 79.4 L (80.0-100.0) fL MCH 24.1 L (25.0-35.0) pg MCHC 30.3 L (31.0-37.0) g/dL RDW 16.1 H (11.5-15.5) % Lymphocytes # 0.8 L (1.0-4.8) k/uL BUN 6 L 6 L (7-17) mg/dL Creatinine 0.48 L (0.52-1.04) mg/dL Glucose 110 H (74-99) mg/dL Calcium 7.8 L (8.4-10.2) mg/dL Magnesium 1.4 L (1.6-2.3) mg/dL Total Protein 6.1 L 5.9 L (6.3-8.2) g/dL Albumin 3.3 L 3.2 L (3.5-5.0) g/dL Assessment and Plan Plan: Assessment: 1. Hypomagnesemia from GI losses. Also on PPI. Being replaced. 2. Hypokalemia from hypomagnesemia and renal losses. Replaced. Improved. 3. Hypocalcemia from hypomagnesemia induced PTH resistance. Replaced. Improved. PTH 183. Vitamin D 31.3. 4. Nausea vomiting and diarrhea. No acute process noted on x-ray. Symptoms improved. 5. History of coronary artery disease. Cardiology following. 6. Edema. Plan: Hep-Lock IV fluids. Lasix 20 mg IV once today. Encouraged oral intake. Magnesium being replaced.
[2023-05-18 17:12] VITALS: BP 158/74; PULSE 52; RESP 16
== END 2023-05-18 18:08 | disposition home health service (06) | DRG 392 ==
LOC: EC 15:00 → 3SCARD 17:59 → OBSVTOIN 17:59 → 3SCARD 22:28
PROVIDERS: ADMIT Internal Medicine; ATTEND Internal Medicine
DX: K21.9 Gastro-esophageal reflux disease without esophagitis (principal); E83.42 Hypomagnesemia; E87.6 Hypokalemia; E83.51 Hypocalcemia; I25.10 Atherosclerotic heart disease of native coronary artery without angina pectoris; E89.0 Postprocedural hypothyroidism; E86.0 Dehydration; E78.5 Hyperlipidemia, unspecified; F32.A Depression, unspecified; I10 Essential (primary) hypertension; I25.82 Chronic total occlusion of coronary artery; K52.9 Noninfective gastroenteritis and colitis, unspecified; M06.9 Rheumatoid arthritis, unspecified; I65.29 Occlusion and stenosis of unspecified carotid artery; M79.7 Fibromyalgia; Z60.2 Problems related to living alone; I73.00 Raynaud's syndrome without gangrene; J44.9 Chronic obstructive pulmonary disease, unspecified; R62.7 Adult failure to thrive; Z79.82 Long term (current) use of aspirin; Z79.890 Hormone replacement therapy; Z79.899 Other long term (current) drug therapy; Z85.3 Personal history of malignant neoplasm of breast; Z86.72 Personal history of thrombophlebitis; Z86.79 Personal history of other diseases of the circulatory system; Z86.010 Personal history of colon polyps; Z28.310 Unvaccinated for COVID-19; Z28.21 Immunization not carried out because of patient refusal; Z11.52 Encounter for screening for COVID-19; Z88.6 Allergy status to analgesic agent; Z88.1 Allergy status to other antibiotic agents; Z88.0 Allergy status to penicillin; Z87.891 Personal history of nicotine dependence
CPT/HCPCS: 36415; 74018; 80053; 81003; 82150; 82306; 83690; 83735; 83970; 84484; 85025; 87636; 93306; 96361; 96365; 96366; 96367; 96368; 96375; 99285

== ENCOUNTER → 2023-12-29 | Outpatient (CLI) | payer MEDICARE, OTHER ==
--- NOTE | 2023-12-29 15:39 | CTL ---
EXAMINATION TYPE: CT Low Dose Lung DATE OF EXAM ORDERED: 12/29/2023 History: Lung cancer screening CT DLP: 86.[address] CTDI: 2.5 mGy Automated exposure control for dose reduction was used. COMPARISON: None TECHNIQUE: Low dose computed tomography scan was performed through the chest at 1 mm thick sections a nd reconstructed images in multiple planes at 1 mm and [address] DIAGNOSTIC QUALITY: Satisfactory FINDINGS: There is a 5.75 mm nodule in the left upper lobe. The lungs are clear and there is no abnormal consolidation or interstitial density. There is no mediastinal, hilar or axillary adenopathy. There is 4.2 cm dilatation of the ascending thoracic aorta. There is no pleural effusion, pleural thickening or pneumothorax. No focal osseous lesions are seen. Limited scans the upper abdomen reveals no gross adenopathy. IMPRESSION: 1. BI-RADS Category 3 likely benign left upper lobe. Follow-up CT in 6 months is recommended to asses s stability 2. No acute cardiopulmonary disease. 3. 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 4. 4.2 cm dilatation of the ascending thoracic aorta.
== END | disposition home or self-care (01) ==
LOC: RADCTMAIN 13:31
PROVIDERS: ATTEND Internal Medicine
DX: Z12.2 Encounter for screening for malignant neoplasm of respiratory organs (principal); F17.210 Nicotine dependence, cigarettes, uncomplicated
CPT/HCPCS: 71271

== ENCOUNTER → 2024-07-30 | Outpatient (CLI) | payer MEDICARE, OTHER ==
--- NOTE | 2024-07-30 13:12 | XR ---
EXAMINATION TYPE: XR cervical spine comp DATE OF EXAM: 07/30/2024 12:45 PM COMPARISON: CT cervical spine November 12, 2022 CLINICAL INDICATION: Female, 73 years old with history of M54.2 CERVICALGIA, pain TECHNIQUE: Frontal, lateral, oblique, swimmers, and open mouth view of the cervical spine are obtaine d. FINDINGS: The cervical spine is visualized in its entirety from C1 thru the top of T1 level, there i s slight grade 1 retrolisthesis C4 on C5 and C5 on C6. The pre-vertebral soft tissue appears within normal limits. The C1-C2 articulation is within normal limits on the open mouth view. Vertebral bod y heights and disc space heights are within normal limits. The oblique images are within normal limit s. Surgical clips in the left neck are redemonstrated. IMPRESSION: As above. [facility], , 07/30/2024 1:10 PM
== END | disposition home or self-care (01) ==
LOC: RADXRMAIN 12:24
PROVIDERS: ATTEND Internal Medicine
DX: M43.12 Spondylolisthesis, cervical region (principal)
CPT/HCPCS: 72050

== ENCOUNTER → 2024-10-02 | Outpatient (CLI) | payer MEDICARE, OTHER ==
[2024-10-02 16:09] LABS: Chol/HDL Ratio 4.62 Ratio
[2024-10-02 16:17] LABS: ALT 10 U/L (8-44); AST 23 U/L (13-35)
== END | disposition home or self-care (01) ==
LOC: LABWHC1 08:31
PROVIDERS: ATTEND Internal Medicine Cardiovascular Disease
DX: E78.2 Mixed hyperlipidemia (principal)
CPT/HCPCS: 36415; 80061; 84450; 84460

== ENCOUNTER → 2024-12-20 | Outpatient (CLI) | payer MEDICARE, OTHER ==
--- NOTE | 2024-12-21 08:43 | MR ---
INDICATION: Patient age:Female; 74 years old; Reason for study: R41.3 OTHER AMNESIA; [facility]. COMPARISON: CT brain 10/22/2020, MRI brain 10/24/2020, CT brain C-spine 11/12/2022. TECHNIQUE: Multi planar, multi sequence imaging was performed through the brain. The patient was then given 7 cc of Gadobutrol intravenously and multi planar, T1 fat-saturation images were obtained. FINDINGS: The prater-white junctions, ventricular system, basal cisterns appear unremarkable. Age-appropriate cer ebral volume loss. Diffusion-weighted imaging shows no evidence of restricted diffusion to suggest ac jitendra/subacute infarct. Intracranial arterial flow voids are maintained. Midline structures show no abn ormality. Small regions of encephalomalacia within the left parietal and occipital lobes from prior i schemic injury. Patchy and confluent areas of high T2/FLAIR signal intensity are seen within the leila ventricular and subcortical white matter. The susceptibility weighted images a few foci of blooming a rtifact within the left parietal lobe consistent with prior microhemorrhage. After administration of gadolinium, no abnormal enhancement is seen. The bone marrow signal is within normal limits. The paranasal sinuses are unremarkable. Bilateral ap hakia. IMPRESSION: 1. No evidence of intracranial mass, acute/subacute infarct, or abnormal enhancement. 2. Advanced nonenhancing nonspecific white matter changes, likely related to small vessel ischemic di sease. Demyelinating disease, chronic migraines, vasculitis, Lyme disease or other considerations. 3. Small remote ischemic injuries within the left parietal and occipital lobes with encephalomalacia. [facility], , 12/21/2024 8:41 AM
== END | disposition home or self-care (01) ==
LOC: RADMRIMAIN 14:14
PROVIDERS: ATTEND Internal Medicine
DX: R41.3 Other amnesia (principal); G43.909 Migraine, unspecified, not intractable, without status migrainosus; G37.9 Demyelinating disease of central nervous system, unspecified; G93.89 Other specified disorders of brain
CPT/HCPCS: 70553; A9585